=== PATIENT | female | born 1965 | race Caucasian/White ===

== ENCOUNTER 2023-01-19 10:43 | Emergency (ER) | payer OTHER, SELFPAY ==
[2023-01-19 10:45] VITALS: BP 190/108; PULSE 87; RESP 18; TEMP 36.9; O2SAT 98; BMI 17.7
--- NOTE | 2023-01-19 10:57 | PC.NURSE ---
pt reports chronic back pain that she never gets taken care of. Reports Dr He does not manage chronic back pain and no new injuries. Ice pack given
--- NOTE | 2023-01-19 11:37 | ED_ITS ---
HPI - General Adult General Chief complaint: Back Pain/Injury Stated complaint: BACK PAIN Time Seen by Provider: 01/19/23 11:35 Source: patient Mode of arrival: walk-in History of Present Illness HPI narrative: Patient is a 57-year-old female who is presenting to the Emergency Room with chief complaint of diffuse bilateral thoracic pain, lumbar pain, sacroiliac pain that is been going on for years. Patient states this is been going on for anywhere more than 2-10 years. Patient says that she's never told Dr. He about this for unknown reason, she has been just treating it herself. Patient has been using heating pads, Motrin and exercises. Patient has seen a Chiropractor years ago, when she was having or neck pain. Patient does not wish to go back to a chiropractor. Patient has her cervical spine fused several places. Patient had no recent falls, no new injuries. . All systems are negative except as noted/marked. All systems reviewed and otherwise negative. . Nurses note and vital signs reviewed and patient is not hypoxic. General: The patient appears In mild to moderate distress secondary to pain, laying on her stomach, patient is refusing ice. Patient is resting uncomfortably on cart. Patient is not toxic, lethargic, or listless Skin: Warm, dry, no pallor noted. There is no rash noted. No petechiae, purpura. No rash to her back. Head: Normocephalic, atraumatic Eye: Normal conjunctiva, no drainage, EOMI. PERRL Ears, Nose, Mouth, and Throat: oral mucosa is moist. Cardiovascular: Regular Rate and Rhythm, no murmur, gallop, rub Respiratory: Patient is in no distress, no accessory muscle use, lungs are clear to auscultation, no wheezing, rales or rhonchi Back: Patient has diffuse bilateral soft tissue mild to moderate tenderness to palpation throughout the muscle tissue. Patient has mild to moderate tenderness to palpation to bilateral SI joints. Patient has no midline thoracic lumbar sacrum or coccyx pain. She currently has no pain to bilateral piriformis muscle, negative straight leg raising test bilateral, but states that she does get intermittent right sciatica. no CVA tenderness bilaterally to percussion. No CT LS midline pain. GI: soft, no tenderness to palpation, no masses appreciated. No rebound, guarding, or rigidity noted. No flank pain bilateral, No distention Musculoskeletal: Patient has full range of motion of all of the extremities, no motor, sensory, or focal neurological deficits Neurological: A&O x3, normal speech Psychiatric: Cooperative Related Data Previous Rx's Medication Instructions Recorded hydrocodone 5 mg-acetaminophen 325 1 tab PO Q4H PRN pain #8 tabs 01/19/23 mg tablet meloxicam 7.5 mg tablet 7.5 mg PO DAILY #14 tabs 01/19/23 methocarbamol 500 mg tablet 500 mg PO Q8H PRN muscle pain #10 01/19/23 tabs methylprednisolone 4 mg tablets in 4 mg PO DAILY 6 days #21 ea 01/19/23 a dose pack (Medrol (Arnold)) Allergies Allergy/AdvReac Type Severity Reaction Status Date / Time No Known Drug Allergies Allergy Verified 01/19/23 10:53 Exam Constitutional Vital Signs, click to edit/add: Last Vital Signs Temp 98.4 F 01/19/23 10:45 Pulse 87 01/19/23 10:45 Resp 18 01/19/23 10:45 BP 162/96 H 01/19/23 13:01 Pulse Ox 98 01/19/23 10:45 O2 Del Method Room Air 01/19/23 10:45 Course Vital Signs Vital signs: Vital Signs Temperature 98.4 F 01/19/23 10:45 Pulse Rate 87 01/19/23 10:45 Respiratory Rate 18 01/19/23 10:45 Blood Pressure 190/108 H 01/19/23 10:45 Pulse Oximetry 98 01/19/23 10:45 Oxygen Delivery Method Room Air 01/19/23 10:45 Temperature 98.4 F 01/19/23 10:45 Pulse Rate 87 01/19/23 10:45 Respiratory Rate 18 01/19/23 10:45 Blood Pressure 162/96 H 01/19/23 13:01 Pulse Oximetry 98 01/19/23 10:45 Oxygen Delivery Method Room Air 01/19/23 10:45 Medical Decision Making MDM Narrative Medical decision making narrative: Patient drove to the Emergency Room. Patient was given a shot of Toradol. Patient was educated on the use of ice and not heat. Patient was recommended and educated on the need to follow-up with her PCP so that additional pain modalities could be prescribed, following up with physical therapy, or a rheumatology specialist if needed. Patient was sent home with short term mobic, [place] and Robaxin. Patient was given back to see if that would help any better than more than NSAIDS. Patient understands she needs to call Dr. He for follow-up and further outpatient therapy Discharge Plan Discharge Chief Complaint: Back Pain/Injury Clinical Impression: Chronic lumbosacral pain, Chronic pain, Chronic bilateral thoracic back pain Patient Disposition: Home, Self-Care Condition: Fair Mode of Transportation: Private Vehicle Prescriptions / Home Meds: New methocarbamol 500 mg tablet 500 mg PO Q8H PRN (Reason: muscle pain) Qty: 10 0RF hydrocodone-acetaminophen 5-325 mg tablet 1 tab PO Q4H PRN (Reason: pain) Qty: 8 0RF meloxicam 7.5 mg tablet 7.5 mg PO DAILY Qty: 14 0RF methylprednisolone [Medrol (Arnold)] 4 mg tablets,dose pack 4 mg PO DAILY 6 Days Qty: 21 0RF Rx Instructions: as directed Instructions: Pain Management in Older Adults (DC), Pain Management (ED), Chronic Pain (ED), Lower Back Exercises (ED), Non-pharmacological Pain Ma nagement Therapies for Adults (ED) Additional Instructions: Using ice 20 minutes on, 20 minutes off. Continue anti-inflammatories, use anti-inflammatories with food or drink. Since you have been having pain for 2 years or longer, the child here PCP to help with referral to a management, physical therapy, or a back specialist if needed. Stand Alone Forms: Portal Instructions Referrals: Zamzam Paz [Primary Care Provider] - 1 week Discharge Date/Time: 01/19/23 13:03
[2023-01-19] MEDS: ACETAMINOPHEN 500 MG TABLET PO (11:50)
[2023-01-19] MEDS: KETOROLAC TROMETHAMINE 60 MG/2 ML VIAL IM (11:50)
[2023-01-19 13:01] VITALS: BP 162/96
== END 2023-01-19 13:03 | disposition home or self-care (01) ==
PROVIDERS: Emergency Provider Emergency Medicine; PCP Physician Assistant
DX: M54.50 Low back pain, unspecified (principal); M54.6 Pain in thoracic spine; G89.29 Other chronic pain; Z79.899 Other long term (current) drug therapy; Z98.1 Arthrodesis status
CPT/HCPCS: 96372; 99284

== ENCOUNTER 2023-01-26 14:44 | Outpatient (OUT) | payer OTHER, SELFPAY ==
--- NOTE | 2023-01-26 15:02 | XR_ITS ---
The [address] [address] Patient Name: APARNA LAZCANO MRN: [id number] date: 1965 Sex: F Assigned Patient Location: [facility] Current Patient Location: Accession/Order Number: [id number] Exam Date: 01/26/2023 15:15 Report Date: 01/29/2023 06:53 At the request of: PANCHO HINOJOSA Procedure: XR lumbar spine 2-3V EXAMINATION: XR lumbar spine 2-3V HISTORY: Lumbar Radiculopathy M54.16 COMPARISON: No relevant comparison available. FINDINGS: BONES: Moderate left convex curvature lumbar spine. Mild grade 1 retrolisthesis of L2 on 3 and L3 on 4. Grade 2 left lateral listhesis of L3 on 4. No fracture or bone lesion. Moderate degenerative facet arthropathy L3-4 through L5-S1. DISC SPACES: Marked narrowing L2-3 through L5-S1 with prominent posterior disc-osteophyte complexes at L4-5 and L5-S1 likely causing central canal and foraminal stenosis. PARASPINOUS: Negative. No paraspinous abnormality is seen. OTHER: Negative. XR/XR lumbar spine 2-3V IMPRESSION: 1. Levoscoliosis and multilevel marked degenerative changes. No prior studies for comparison. Electronically authenticated by: TUCKER OCAMPO Date: 01/29/2023 06:53
== END 2023-01-26 14:45 | disposition home or self-care (01) ==
LOC: RAD 14:46
PROVIDERS: PCP Family Medicine; Visit Provider Family Medicine
DX: M54.16 Radiculopathy, lumbar region (principal)
CPT/HCPCS: 72100

== ENCOUNTER 2023-02-13 10:48 | Outpatient (RCR) | payer OTHER, SELFPAY | END 2023-03-11 07:46 | disposition home or self-care (01) | LOC: PT 10:48 | PROVIDERS: PCP Family Medicine; Visit Provider Family Medicine | DX: M50.30 Other cervical disc degeneration, unspecified cervical region (principal) | CPT/HCPCS: 97161 ==

== ENCOUNTER 2023-04-04 10:57 | Outpatient (RCR) | payer OTHER, SELFPAY | END 2023-04-05 13:54 | disposition home or self-care (01) | LOC: PT 10:57 | PROVIDERS: PCP Family Medicine; Visit Provider Family Medicine | DX: M54.16 Radiculopathy, lumbar region (principal); J34.9 Unspecified disorder of nose and nasal sinuses | CPT/HCPCS: 97162 ==

== ENCOUNTER 2023-05-03 09:02 | Emergency (ER) | payer OTHER, SELFPAY ==
[2023-05-03] VITALS (8 sets, daily range): BP systolic 139–151; BP diastolic 84–104; PULSE 99–111; RESP 17–24; TEMP 36.4; O2SAT 97–99; BMI 17.6
--- OUTSIDE RECORDS SUMMARY | 2023-05-03 09:12 | XMS_ITS | CCD ---
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 Date: 2022-01-18 15:50 [facility] 12-22-2021 Note PROCEDURE: XR ANKLE LT MIN 3 V, XR FOOT LT MIN 3 VIEWS COMPARISON: 11/24/2021 HISTORY: Pain of left ankle joint FINDINGS: BONES:Stable oblique fracture through the distal fibula with callus formation consistent with continued healing of a fracture. No new fracture or dislocation. Degenerative changes with joint space narrowing and marginal osteophyte formation. There is a moderate permeative pattern throughout the foot and ankle consistent with osteopenia SOFT TISSUES:Negative. No visible soft tissue swelling. EFFUSION:None visible. OTHER: Negative. IMPRESSION: Stable fibular fracture Moderate osteopenia Electronically authenticated by: VEENA HERRERA Date: 2021-12-22 18:55 [facility] 12-22-2021 Note PROCEDURE: XR ANKLE LT MIN 3 V, XR FOOT LT MIN 3 VIEWS COMPARISON: 11/24/2021 HISTORY: Pain of left ankle joint FINDINGS: BONES:Stable oblique fracture through the distal fibula with callus formation consistent with continued healing of a fracture. No new fracture or dislocation. Degenerative changes with joint space narrowing and marginal osteophyte formation. There is a moderate permeative pattern throughout the foot and ankle consistent with osteopenia SOFT TISSUES:Negative. No visible soft tissue swelling. EFFUSION:None visible. OTHER: Negative. IMPRESSION: Stable fibular fracture Moderate osteopenia Electronically authenticated by: VEENA HERRERA Date: 2021-12-22 18:55 [facility] 11-24-2021 Note PROCEDURE: XR ANKLE LT MIN 3 V COMPARISON: 10/26/2021 HISTORY: Pain of left ankle joint FINDINGS: BONES:Stable spiral fracture of the distal fibula with increase in bony bridging. Continued healing of the medial malleolus fracture with the fracture plane no longer clearly visualized. Permeative pattern of the bone suggesting underlying osteopenia. No new fracture or dislocation. SOFT TISSUES:Negative. No visible soft tissue swelling. EFFUSION:None visible. OTHER: Negative. IMPRESSION: Stable healing distal fibula and medial malleolus fractures Electronically authenticated by: VEENA HERRERA Date: 2021-11-24 11:15 [facility] 10-27-2021 Note PROCEDURE: XR ANKLE LT MIN 3 V, XR FOOT LT MIN 3 VIEWS HISTORY: Pain of left ankle joint ; follow-up foot and ankle fractures COMPARISON: XR left foot and ankle 09/29/2021 FINDINGS: BONES:Nondisplaced oblique fracture of distal fibula with suspected early bone healing. Previously seen medial malleolus fracture is barely discernible consistent with partial bone healing. Posterior malleolus fracture seen on prior CT study is not visible. Ankle mortise is intact. Barely discernible evidence of prior fracture at base of third and fourth metatarsals consistent with bone healing. SOFT TISSUES:No visible soft tissue swelling. EFFUSION:None visible. OTHER: Negative. IMPRESSION: 1. Stable alignment with ongoing bone healing of distal fibular fracture. 2. Normal alignment with likely ongoing bone healing of medial malleolus, posterior malleolus, and the third and fourth metatarsal fractures. Electronically authenticated by: KEYON OCAMPO Date: 2021-10-27 12:21 [facility] 10-27-2021 Note PROCEDURE: XR ANKLE LT MIN 3 V, XR FOOT LT MIN 3 VIEWS HISTORY: Pain of left ankle joint ; follow-up foot and ankle fractures COMPARISON: XR left foot and ankle 09/29/2021 FINDINGS: BONES:Nondisplaced oblique fracture of distal fibula with suspected early bone healing. Previously seen medial malleolus fracture is barely discernible consistent with partial bone healing. Posterior malleolus fracture seen on prior CT study is not visible. Ankle mortise is intact. Barely discernible evidence of prior fracture at base of third and fourth metatarsals consistent with bone healing. SOFT TISSUES:No visible soft tissue swelling. EFFUSION:None visible. OTHER: Negative. IMPRESSION: 1. Stable alignment with ongoing bone healing of distal fibular fracture. 2. Normal alignment with likely ongoing bone healing of medial malleolus, posterior malleolus, and the third and fourth metatarsal fractures. Electronically authenticated by: KEYON OCAMPO Date: 2021-10-27 12:21 [facility] 09-29-2021 Note PROCEDURE: XR ANKLE LT MIN 3 V, XR FOOT LT MIN 3 VIEWS COMPARISON: None. HISTORY: Acute pain due to injury FINDINGS: BONES:Acute transverse fracture through the medial malleolus. Complex/spiral fracture of the distal fibula extending to the lateral malleolus. Both nondisplaced. Lucencies identified at the base of the second third and fourth metatarsals likely representing nondisplaced fractures. No dislocation. SOFT TISSUES:Moderate diffuse soft tissue swelling. EFFUSION:None visible. OTHER: Negative. IMPRESSION: Acute bimalleolar fractures Acute nondisplaced fractures base of the third and fourth metatarsals with possible fracture base of the second metatarsal Electronically authenticated by: VEENA HERRERA Date: 2021-09-29 14:24 [facility] 09-29-2021 Note PROCEDURE: XR ANKLE LT MIN 3 V, XR FOOT LT MIN 3 VIEWS COMPARISON: None. HISTORY: Acute pain due to injury FINDINGS: BONES:Acute transverse fracture through the medial malleolus. Complex/spiral fracture of the distal fibula extending to the lateral malleolus. Both nondisplaced. Lucencies identified at the base of the second third and fourth metatarsals likely representing nondisplaced fractures. No dislocation. SOFT TISSUES:Moderate diffuse soft tissue swelling. EFFUSION:None visible. OTHER: Negative. 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 [facility] 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- Primary Posterior dislocation of lens Postoperative eye state Other states following surgery of eye and adnexa 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 In the event of a Fluress shortage, administer [place]-Fluor 1 drop into both eyes as directed for applanation tonometry, [facility] MED ORDERS Given 08/14/2022 2:48 PM EDT 1 Drop PHENYLephrine 2.5 % 1 Drop (AK-DILATE, NISHA-SYNEPHRINE) 1 Drop, BOTH EYES, DIRECTED, Starting on Sun08/14/22 at 1500, Until Sun08/15/22 at 0259, Administer for dilation PROTECT FROM LIGHT, [facility] MED ORDERS Given 08/14/2022 2:48 PM EDT 1 Drop tropicamide 1 % 1 Drop (MYDRIACYL) 1 Drop, BOTH EYES, DIRECTED, Starting on Sun08/14/22 at 1500, Until Sun08/15/22 at 0259, Administer for dilation, [facility]IC MED ORDERS Given 08/14/2022 2:48 PM EDT 1 Drop Active Administered Medications - up to 3 most recent administrations Medication Order MAR Action Action Date Dose Rate Site PHENYLephrine 2.5 % 1 Drop (AK-DILATE, NISHA-SYNEPHRINE) 1 Drop, BOTH EYES, DIRECTED, Starting on Randi 09/21/22 at 1330, Until Sun09/22/22 at 0129, Administer for dilation PROTECT FROM LIGHT Given 09/21/2022 1:30 PM EDT 1 Drop proparacaine 0.5 % 1 Drop (ALCAINE) 1 Drop, BOTH EYES, DIRECTED, Starting on Randi 09/21/22 at 1330, Until Sun09/22/22 at 0129, Administer for pneumo tonometry, tonopen tonometry, or pachymetry. In the event of a proparacaine shortage, administer tetracaine 0.5% ophthalmic drops 1 drop in both eyes as directed for pneumo tonometry, tonopen tonometry, or pachymetry Given 09/21/2022 1:30 PM EDT 1 Drop tropicamide 1 % 1 Drop (MYDRIACYL) 1 Drop, BOTH EYES, DIRECTED, Starting on Randi 09/21/22 at 1330, Until Sun09/22/22 at 0129, Administer for dilation Given 09/21/2022 1:30 PM EDT 1 Drop Additional Source Comments Source Comments (unrecognize d section and content) In the event this informatio n is protected by the Federal Confidentiality of Alcohol and Drug Abuse Patient Records regulations: The Federal rules restrict any use of the information to criminally investigate or prosecute any alcohol or drug abuse patient.[facility] the event this information is protected by the Federal Confidentiality of Alcohol and Drug Abuse Patient Records regulations: The Federal rules restrict any use of the information to criminally investigate or prosecute any alcohol or drug abuse patient.[facility] the event this information is protected by the Federal Confidentiality of Alcohol and Drug Abuse Patient Records regulations: The Federal rules restrict any use of the information to criminally investigate or prosecute any alcohol or drug abuse patient.[facility] the event this information is protected by the Federal Confidentiality of Alcohol and Drug Abuse Patient Records regulations: The Federal rules restrict any use of the information to criminally investigate or prosecute any alcohol or drug abuse patient.[facility] the event this information is protected by the Federal Confidentiality of Alcohol and Drug Abuse Patient Records regulations: The Federal rules restrict any use of the information to criminally investigate or prosecute any alcohol or drug abuse patient.[facility] the event this information is protected by the Federal Confidentiality of Alcohol and Drug Abuse Patient Records regulations: The Federal rules restrict any use of the information to criminally investigate or prosecute any alcohol or drug abuse patient.[facility] Reason for Visit (unrecogniz ed section and content) Reason Comments Eye Pain Left Eye Reason Comments Dislocated Lens Evaluation Reason Comments Schedule Surgery Reason Comments Post-Op Visit s/p PPV/PPL/frag/Akr eos OS (09/15/22) INFORMATION SOURCE (unrecogn ized section and content) DATE CREATED AUTHOR 08/20/2022 [facility] DATE CREATED AUTHOR AUTHOR'S ORGANIZ ATION 10/20/2022 [facility] FOR RECORDS PERTAINING TO PATIENTS WHO ARE OR HAVE BEEN ENROLLED IN A CHEMICAL DEPENDENCY/SUBSTANCEABUSE PROGRAM, SOME INFORMATION MAY BE OMITTED. This clinical summary was aggregated from multiple sources. Caution should be exercised in using it in the provision of clinical care. This summary normalizes information from multiple sources, and as a consequence, information in this document may materially change the coding, format and clinical context of patient data. In addition, data may be omitted in some cases. CLINICAL DECISIONS SHOULD BE BASED ON THE PRIMARY CLINICAL RECORDS. [employer] provides no warranty or guarantee of the accuracy or completeness of information in this document.
--- NOTE | 2023-05-03 09:19 | ECG_ITS ---
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
--- NOTE | 2023-05-03 09:19 | CT_ITS ---
The [address] [address] Patient Name: APARNA LAZCANO MRN: [id number] date: 1965 Sex: F Assigned Patient Location: ER Current Patient Location: ER Accession/Order Number: [id number] Exam Date: 05/03/2023 10:16 Report Date: 05/03/2023 11:28 At the request of: WILLY ANTUNEZ Procedure: CT abdomen pelvis w con EXAM: CT abdomen pelvis w con HISTORY: Diffuse abdominal pain, mostly upper COMPARISON: None. 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 Tubes/lines/drains: None. CHEST: Lungs: Clear. Mediastinum: No cardiomegaly or significant pericardial effusion. ABDOMEN: Liver: Hypoenhancement of the left hepatic lobe as well as anterior segments of the right hepatic lobe. Relatively normal enhancement of segments 6 and 7. Mild nonocclusive thrombus is noted within the main portal vein and partially occlusive right portal vein thrombus. Hepatic veins appear patent. Patent SMV and splenic vein. Hepatic artery appears patent. Gallbladder and Biliary Tree: Unremarkable. Spleen: Moderate to large splenic infarct is noted involving the superior lateral parenchyma.. Pancreas: Unremarkable. Adrenal Glands: Unremarkable. Kidneys, Ureters, Bladder: Numerous small infarcts noted throughout the bilateral renal cortices, left greater than right. No concerning renal lesions. No urolithiasis. No hydronephrosis or hydroureterosis. Unremarkable bladder. Gastrointestinal: Near diffuse circumferential wall thickening throughout the colon. Large volume ascites throughout. No dilated loops although the small bowel is diffusely prominent with some loops containing fluid. Normal appendix. Large volume diffuse ascites. Reproductive organ(s): Unremarkable. Lymphatic: Unremarkable. Vessels: Mild to moderate atherosclerotic calcification and noncalcified plaque throughout the aorta and iliacs. Mild luminal narrowing of the infrarenal aorta secondary to noncalcified plaque. No appreciable atherosclerosis involving the patent renal arteries. Likely severe stenosis of the JHONATHAN origin. Approximately 50% stenosis of the SMA origin. BONES AND SOFT TISSUE: Bones: No acute fracture. No concerning osseous lesions. Severe L2-S1 disc and endplate degeneration. Soft Tissue: Within normal limits. CT/CT abdomen pelvis w con IMPRESSION: 1. Nonocclusive main and partially occlusive right portal vein thrombus with associated hyperenhancement of the majority of the hepatic parenchyma. -Remaining hepatic vasculature appears patent 2. Additional splenic and bilateral renal infarcts. 3. Near diffuse large bowel wall thickening. Unclear if this is related to venous engorgement versus infectious/inflammatory colitis (typically ischemic colitis from arterial etiology causes thinned bowel). 4. 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 5. Large volume ascites. 6. Cystic focus within the pancreatic uncinate process measuring 2.5 cm with probable main duct communication suggesting IPMN. Recommend further evaluation with MRI/MRCP. 7. Limited evaluation for acute pancreatic head is given surrounding fluid throughout the abdomen. No evidence for pancreatic necrosis. Dr. Licona discussed this study with Willy Antunez on 05/03/2023 9:27 AM MST via telephone. Electronically authenticated by: ABRAHAM LICONA Date: 05/03/2023 11:28
[2023-05-03] MEDS: MORPHINE SULFATE 4 MG/ML VIAL IV ×2 (09:32→10:50)
[2023-05-03 09:55] LABS: Basophils Absolute Auto 0.1 10^3/uL (0.0-0.1); Basophils Percent Auto 0.6 % (0.2-2.0); Eosinophils Absolute Auto 0.1 10^3/uL (0.0-0.7); Eosinophils Percent Auto 0.5 % (0.9-7.0); Hematocrit 43.7 % (36.0-48.0); Hemoglobin 14.8 g/dL (12.0-16.0); Immature Granulocytes Abs Auto 0.05 10^3/uL (0.00-0.03); Immature Granulocytes Pct Auto 0.4 % (0.0-0.5); Lymphocytes Absolute Auto 1.7 10^3/uL (1.2-3.8); Lymphocytes Percent Auto 12.6 % (20.5-60.0); Mean Corpuscular HGB Conc 33.9 g/dL (29.9-35.2); Mean Corpuscular Hemoglobin 30.8 pg (26.7-34.0); Mean Platelet Volume 10.7 fL (9.5-13.5); Monocytes Absolute Auto 1.1 10^3/uL (0.3-0.8); Monocytes Percent Auto 7.9 % (1.7-12.0); Neutrophils Absolute Auto 10.4 10^3/uL (1.4-6.5); Platelet Count 374 10^3/uL (150-450); Red Cell Distribution Width 13.3 % (11.0-15.0); White Blood Count 13.3 10^3/uL (4.0-11.0)
[2023-05-03 10:17] LABS: Alanine Aminotransferase 17 U/L (14-59); Albumin Globulin Ratio 0.6; Albumin Level 2.5 g/dL (3.4-5.0); Alkaline Phosphatase 123 U/L (46-116); Anion Gap 15.4; Aspartate Amino Transferase 22 U/L (15-37); Bilirubin Direct 0.1 mg/dL (0.0-0.2); Bilirubin Total 0.5 mg/dL (0.2-1.0); Calcium 8.8 mg/dL (8.5-10.1); Carbon Dioxide 26.6 mmol/L (21.0-32.0); Chloride 101 mmol/L (98-107); Estimated GFR (African America >60 (>=60); Estimated GFR (Non-African Ame >60 (>=60); Globulin 4.3 g/dL; Glucose 131 mg/dL (74-106); Sodium 140 mmol/L (136-145); Total Protein 6.8 g/dL (6.4-8.2)
[2023-05-03 10:20] LABS: Amylase 1229 U/L (25-115)
--- NOTE | 2023-05-03 12:08 | ED.ABDPAIN1 ---
HPI - Abdominal Pain General Chief Complaint: Abdominal Pain Stated Complaint: ABDOMINAL PAIN Time Seen by Provider: 05/03/23 09:06 Source: patient Mode of arrival: walk-in Limitations: no limitations History of Present Illness HPI narrative: 58-year-old female presents for abdominal pain. She has had some symptoms for the last week and it comes and goes but last night it got worse. She has had weight loss. She complains of diffuse abdominal pain without any trauma. She has not had a fever or constipation or diarrhea. She has never had pain like this before. It is continuous and severe. Related Data Previous Rx's Medication Instructions Recorded hydrocodone 5 mg-acetaminophen 325 1 tab PO Q4H PRN pain #8 tabs 01/19/23 mg tablet meloxicam 7.5 mg tablet 7.5 mg PO DAILY #14 tabs 01/19/23 methocarbamol 500 mg tablet 500 mg PO Q8H PRN muscle pain #10 01/19/23 tabs methylprednisolone 4 mg tablets in 4 mg PO DAILY 6 days #21 ea 01/19/23 a dose pack (Medrol (Arnold)) Allergies Allergy/AdvReac Type Severity Reaction Status Date / Time No Known Drug Allergies Allergy Verified 05/03/23 09:13 Review of Systems ROS Narrative A ten point review of systems is negative except as noted above. PFSH PFSH Social History Smoking status: Current every day smoker Exam Narrative Exam Narrative: Nurses note and vital signs reviewed and patient is not hypoxic. General: The patient appears thin and is in no respiratory distress. Skin: Warm, dry, no pallor noted. There is no rash noted. Head: Normocephalic, atraumatic Eye: Normal conjunctiva, no drainage Ears, Nose, Mouth, and Throat: oral mucosa is moist. Nares patent. Cardiovascular: Regular Rate and Rhythm Respiratory: Patient is in no distress, no accessory muscle use, lungs are clear to auscultation, no wheezing, rales or rhonchi Back: non-tender GI: Diffuse tenderness to palpation without distention or discrete mass. Musculoskeletal: The patient has no evidence of calf tenderness, no pitting edema, symmetrical pulses noted bilaterally Neurological: A&O, normal speech Psychiatric: Cooperative Constitutional Vital Signs, click to edit/add: Last Vital Signs Temp 97.6 F 05/03/23 09:11 Pulse 99 H 05/03/23 10:41 Resp 24 05/03/23 10:41 BP 151/84 H 05/03/23 10:41 Pulse Ox 98 05/03/23 10:41 O2 Del Method Room Air 05/03/23 09:11 Course Vital Signs Vital signs: Vital Signs Temperature 97.6 F 05/03/23 09:11 Pulse Rate 111 H 05/03/23 09:11 Respiratory Rate 18 05/03/23 09:11 Blood Pressure 139/104 H 05/03/23 09:11 Pulse Oximetry 98 05/03/23 09:11 Oxygen Delivery Method Room Air 05/03/23 09:11 Temperature 97.6 F 05/03/23 09:11 Pulse Rate 99 H 05/03/23 10:41 Respiratory Rate 24 05/03/23 10:41 Blood Pressure 151/84 H 05/03/23 10:41 Pulse Oximetry 98 05/03/23 10:41 Oxygen Delivery Method Room Air 05/03/23 09:11 MDM - Abdominal Pain MDM Narrative Medical decision making narrative: Significant CT findings are discussed thoroughly with the patient and I am suspicious for pancreatic cancer. The patient has IVC clot as well as splenic and renal infarcts and significant ascites. This suspicion of pancreatic cancer is present and this was discussed with the patient. She is going to leave AGAINST MEDICAL ADVICE. The plan was to transfer to an appropriate hospital but the patient wants to go home first and take care of some issues. She states that she is going to come back. She is fully able to make medical decisions for herself. Differential Diagnosis Differential diagnosis: Likely abdominal pain, constipation, diverticulitis, gastroenteritis, pancreatitis and small bowel obstruction Lab Data Attestation: I reviewed the patient's lab results. Labs: Lab Results 05/03/23 Range/Units 09:17 WBC 13.3 H (4.0-11.0) 10^3/uL RBC 4.80 (4.20-5.40) 10^6/uL Hgb 14.8 (12.0-16.0) g/dL Hct 43.7 (36.0-48.0) % MCV 91.0 (81.0-99.0) fL MCH 30.8 (26.7-34.0) pg MCHC 33.9 (29.9-35.2) g/dL RDW 13.3 (11.0-15.0) % Plt Count 374 (150-450) 10^3/uL MPV 10.7 (9.5-13.5) fL Neut % (Auto) 78.0 H (43.0-75.0) % Lymph % (Auto) 12.6 L (20.5-60.0) % Crisp % (Auto) 7.9 (1.7-12.0) % Eos % (Auto) 0.5 L (0.9-7.0) % Baso % (Auto) 0.6 (0.2-2.0) % Neut # (Auto) 10.4 H (1.4-6.5) 10^3/uL Lymph # (Auto) 1.7 (1.2-3.8) 10^3/uL Crisp # (Auto) 1.1 H (0.3-0.8) 10^3/uL Eos # (Auto) 0.1 (0.0-0.7) 10^3/uL Baso # (Auto) 0.1 (0.0-0.1) 10^3/uL Abs Immat Gran (auto) 0.05 H (0.00-0.03) 10^3/uL Imm/Tot Granulo (auto) 0.4 (0.0-0.5) % Sodium 140 (136-145) mmol/L Potassium 3.0 L (3.5-5.1) mmol/L Chloride 101 (98-107) mmol/L Carbon Dioxide 26.6 (21.0-32.0) mmol/L Anion Gap 15.4 BUN 18.0 (7.0-18.0) mg/dL Creatinine 0.53 L (0.55-1.02) mg/dL Est GFR ( Amer) >60 (>=60) Est GFR (Non-Af Amer) >60 (>=60) BUN/Creatinine Ratio 34.0 Glucose 131 H (74-106) mg/dL Calcium 8.8 (8.5-10.1) mg/dL Total Bilirubin 0.5 (0.2-1.0) mg/dL Direct Bilirubin 0.1 (0.0-0.2) mg/dL AST 22 (15-37) U/L ALT 17 (14-59) U/L Alkaline Phosphatase 123 H (46-116) U/L Total Protein 6.8 (6.4-8.2) g/dL Albumin 2.5 L (3.4-5.0) g/dL Globulin 4.3 g/dL Albumin/Globulin Ratio 0.6 Amylase 1229 H* (25-115) U/L Lipase 545.0 H (16.0-77.0) U/L Imaging Data CT scan - abdomen: Radiologist's impression: ITS Impressions Abdomen/Pelvis CT 05/03/23 09:19 IMPRESSION: 1. Nonocclusive main and partially occlusive right portal vein thrombus with associated hyperenhancement of the majority of the hepatic parenchyma. -Remaining hepatic vasculature appears patent 2. Additional splenic and bilateral renal infarcts. 3. Near diffuse large bowel wall thickening. Unclear if this is related to venous engorgement versus infectious/inflammatory colitis (typically ischemic colitis from arterial etiology causes thinned bowel). 4. 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 5. Large volume ascites. 6. Cystic focus within the pancreatic uncinate process measuring 2.5 cm with probable main duct communication suggesting IPMN. Recommend further evaluation with MRI/MRCP. 7. Limited evaluation for acute pancreatic head is given surrounding fluid throughout the abdomen. No evidence for pancreatic necrosis. Dr. Cuevas discussed this study with Nick Dowd on 05/03/2023 9:27 AM MST via telephone. 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, Splenic infarct, Abdominal pain Patient Disposition: Left Against Medical Advice Time of Disposition Decision: 12:04 Condition: Fair Mode of Transportation: Private Vehicle Prescriptions / Home Meds: No Action methocarbamol 500 mg tablet 500 mg PO Q8H PRN (Reason: muscle pain) Qty: 10 0RF hydrocodone-acetaminophen 5-325 mg tablet 1 tab PO Q4H PRN (Reason: pain) Qty: 8 0RF meloxicam 7.5 mg tablet 7.5 mg PO DAILY Qty: 14 0RF methylprednisolone [Medrol (Arnold)] 4 mg tablets,dose pack 4 mg PO DAILY 6 Days Qty: 21 0RF Rx Instructions: as directed Instructions: Ascites (ED), Abdominal Pain (ED), Splenic Infarction (ED) Additional Instructions: Please return to emergency department to facilitate transfer to appropriate facility. Stand Alone Forms: Portal Instructions Referrals: Roberto He MD [Primary Care Provider] - 1 week
== END 2023-05-03 12:13 | disposition left against medical advice (07) ==
PROVIDERS: Emergency Provider Emergency Medicine; PCP Family Medicine
DX: R10.9 Unspecified abdominal pain (principal); R18.8 Other ascites; D73.5 Infarction of spleen; I82.220 Acute embolism and thrombosis of inferior vena cava; N28.0 Ischemia and infarction of kidney; F17.210 Nicotine dependence, cigarettes, uncomplicated; Z53.29 Procedure and treatment not carried out because of patient's decision for other reasons; F17.200 Nicotine dependence, unspecified, uncomplicated
CPT/HCPCS: 36415; 74177; 80048; 80076; 81001; 82150; 83690; 85025; 85610; 85730; 93005; 96374; 96375; 96376; 99285; J1170; J1644; J2270; Q9967

== ENCOUNTER 2023-05-03 13:24 | Emergency (ER) | payer OTHER, SELFPAY ==
[2023-05-03] VITALS (13 sets, daily range): BP systolic 150–167; BP diastolic 94–99; PULSE 113; RESP 18; TEMP 37; O2SAT 86–98; BMI 17.6
[2023-05-03 13:45] LABS: INR 1.13; Prothrombin Time 11.9 sec (9.0-11.6)
--- NOTE | 2023-05-03 13:56 | ED.ABDPAIN1 ---
HPI - Abdominal Pain General Stated Complaint: ABDOMINAL OAIN Time Seen by Provider: 05/03/23 13:30 Source: patient and family Mode of arrival: walk-in Limitations: no limitations History of Present Illness HPI narrative: 58-year-old female presents for abdominal pain. She was seen earlier today and the intent was to transfer her. She needed to go home first and take care of some issues and she now returns. She has no new symptoms. She has not been vomiting. She has been feeling this way for at least a week and has had significant weight loss. Related Data Previous Rx's Medication Instructions Recorded hydrocodone 5 mg-acetaminophen 325 1 tab PO Q4H PRN pain #8 tabs 01/19/23 mg tablet meloxicam 7.5 mg tablet 7.5 mg PO DAILY #14 tabs 01/19/23 methocarbamol 500 mg tablet 500 mg PO Q8H PRN muscle pain #10 01/19/23 tabs methylprednisolone 4 mg tablets in 4 mg PO DAILY 6 days #21 ea 01/19/23 a dose pack (Medrol (Arnold)) Allergies Allergy/AdvReac Type Severity Reaction Status Date / Time No Known Drug Allergies Allergy Verified 05/03/23 09:13 Review of Systems ROS Narrative A ten point review of systems is negative except as noted above. PFSH PFSH Social History Smoking status: Current every day smoker Exam Narrative Exam Narrative: Nurses note and vital signs reviewed and patient is not hypoxic. General: The patient appears thin and in no apparent distress. Patient is resting comfortably on cart. Skin: Warm, dry, no pallor noted. There is no rash noted. Head: Normocephalic, atraumatic Eye: Normal conjunctiva, no drainage Ears, Nose, Mouth, and Throat: oral mucosa is moist. Nares patent. Cardiovascular: Regular Rate and Rhythm Respiratory: Patient is in no distress, no accessory muscle use, lungs are clear to auscultation, no wheezing, rales or rhonchi Back: non-tender GI: No distention or discrete mass. She has some mild tenderness diffusely. Musculoskeletal: The patient has no evidence of calf tenderness, no pitting edema, symmetrical pulses noted bilaterally Neurological: A&O, normal speech Psychiatric: Cooperative Constitutional Vital Signs, click to edit/add: Last Vital Signs Temp 98.6 F 05/03/23 13:29 Pulse 113 H 05/03/23 13:29 Resp 18 05/03/23 13:29 BP 167/99 H 05/03/23 13:29 Pulse Ox 96 05/03/23 13:29 O2 Del Method Room Air 05/03/23 13:29 Course Vital Signs Vital signs: Vital Signs Temperature 98.6 F 05/03/23 13:29 Pulse Rate 113 H 05/03/23 13:29 Respiratory Rate 18 05/03/23 13:29 Blood Pressure 167/99 H 05/03/23 13:29 Pulse Oximetry 96 05/03/23 13:29 Oxygen Delivery Method Room Air 05/03/23 13:29 Temperature 98.6 F 05/03/23 13:29 Pulse Rate 113 H 05/03/23 13:29 Respiratory Rate 18 05/03/23 13:29 Blood Pressure 167/99 H 05/03/23 13:29 Pulse Oximetry 96 05/03/23 13:29 Oxygen Delivery Method Room Air 05/03/23 13:29 MDM - Abdominal Pain MDM Narrative Medical decision making narrative: I have spoken to the hospitalist service at [facility] where she is excepted. I have also spoken to Dr. Collins, vascular surgeon, who recommends heparin drip and this has been ordered. The patient is agreeable and stable for transfer. Findings are discussed thoroughly with the patient and her family. Differential Diagnosis Differential diagnosis: Likely abdominal pain, constipation, diverticulitis, gastroenteritis, pancreatitis and small bowel obstruction Lab Data Attestation: I reviewed the patient's lab results. Labs: Lab Results 05/03/23 Range/Units 09:17 PT 11.9 H (9.0-11.6) sec INR 1.13 APTT 27.0 (22.3-36.2) sec Imaging Data CT scan - abdomen: Radiologist's impression: Procedure: CT abdomen pelvis w con EXAM: CT abdomen pelvis w con HISTORY: Diffuse abdominal pain, mostly upper COMPARISON: None. FINDINGS: Sulky Driver: No pertinent findings, which are not already discussed below. Tubes/lines/drains: None. CHEST: Lungs: Clear. Mediastinum: No cardiomegaly or significant pericardial effusion. ABDOMEN: Liver: Hypoenhancement of the left hepatic lobe as well as anterior segments of the right hepatic lobe. Relatively normal enhancement of segments 6 and 7. Mild nonocclusive thrombus is noted within the main portal vein and partially occlusive right portal vein thrombus. Hepatic veins appear patent. Patent SMV and splenic vein. Hepatic artery appears patent. Gallbladder and Biliary Tree: Unremarkable. Spleen: Moderate to large splenic infarct is noted involving the superior lateral parenchyma.. Pancreas: Unremarkable. Adrenal Glands: Unremarkable. Kidneys, Ureters, Bladder: Numerous small infarcts noted throughout the bilateral renal cortices, left greater than right. No concerning renal lesions. No urolithiasis. No hydronephrosis or hydroureterosis. Unremarkable bladder. Gastrointestinal: Near diffuse circumferential wall thickening throughout the colon. Large volume ascites throughout. No dilated loops although the small bowel is diffusely prominent with some loops containing fluid. Normal appendix. Large volume diffuse ascites. Reproductive organ(s): Unremarkable. Lymphatic: Unremarkable. Vessels: Mild to moderate atherosclerotic calcification and noncalcified plaque throughout the aorta and iliacs. Mild luminal narrowing of the infrarenal aorta secondary to noncalcified plaque. No appreciable atherosclerosis involving the patent renal arteries. Likely severe stenosis of the JHONATHAN origin. Approximately 50% stenosis of the SMA origin. BONES AND SOFT TISSUE: Bones: No acute fracture. No concerning osseous lesions. Severe L2-S1 disc and endplate degeneration. Soft Tissue: Within normal limits. IMPRESSION: 1. Nonocclusive main and partially occlusive right portal vein thrombus with associated hyperenhancement of the majority of the hepatic parenchyma. -Remaining hepatic vasculature appears patent 2. Additional splenic and bilateral renal infarcts. 3. Near diffuse large bowel wall thickening. Unclear if this is related to venous engorgement versus infectious/inflammatory colitis (typically ischemic colitis from arterial etiology causes thinned bowel). 4. 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 5. Large volume ascites. 6. Cystic focus within the pancreatic uncinate process measuring 2.5 cm with probable main duct communication suggesting IPMN. Recommend further evaluation with MRI/MRCP. 7. Limited evaluation for acute pancreatic head is given surrounding fluid throughout the abdomen. No evidence for pancreatic necrosis. Dr. Cuevas discussed this study with Nick Dowd on 05/03/2023 9:27 AM MST via telephone. Electronically authenticated by: ABRAHAM CUEVAS Date: 05/03/2023 11:28 ECG Data Attestation: I personally reviewed and interpreted this ECG as follows: (EKG on my interpretation shows sinus rhythm with a rate of 105.) Critical Care Time Critical Care Time Critical Care Time: Yes Total Critical Care Time: 45 Attestation: Due to the high probability of sudden and clinically significant deterioration in the patient's condition he/she required the highest level of my preparedness to intervene urgently I provided critical care time including documentation time, medication orders and management, reevaluation, vital sign assessment, ordering and reviewing of lab tests, ordering and reviewing of x-ray studies, and admission orders. Aggregate critical care time is 45 minutes including only time during which I was engaged in work directly related to his/her care and did not include time spent treating other patients simultaneously. Discharge Plan Discharge Clinical Impression: Ascites, Renal infarct, Splenic infarct, Portal vein thrombosis Patient Disposition: [facility] Time of Disposition Decision: 13:56 Discharge Location: [facility] [address] Condition: Good Mode of Transportation: EMS
[2023-05-03] MEDS: HEPARIN SODIUM (PORCINE) 5,000 UNIT/ML VIAL 3300 UNIT IV (14:37)
[2023-05-03] MEDS: HEPARIN SODIUM,PORCINE/D5W 25,000 UNIT/500 ML IV.SOLN 15 UNIT IV (14:40)
--- NOTE | 2023-05-03 14:56 | PC.NURSE ---
pt states she hasn't peed since this am. bladder scanned at this time >263ml. informed Dr Dowd, no verbal orders received at this time.
[2023-05-03] MEDS: HYDROMORPHONE HCL 1 MG/ML CARTRIDGE IV ×2 (15:04→19:21)
[2023-05-03] MEDS: NICOTINE 14 MG PATCH.TD24 TD (18:32)
== END 2023-05-03 19:30 | disposition short-term general hospital (02) ==
PROVIDERS: Emergency Provider Emergency Medicine; PCP Family Medicine
DX: D73.5 Infarction of spleen (principal); N28.0 Ischemia and infarction of kidney; R18.8 Other ascites; I81 Portal vein thrombosis; F17.200 Nicotine dependence, unspecified, uncomplicated
CPT/HCPCS: 36415; 85610; 85730; 96374; 96375; 96376; 99285; J1170; J1644

== ENCOUNTER 2023-05-17 10:41 | Outpatient (OUT) | payer OTHER, SELFPAY ==
--- OUTSIDE RECORDS SUMMARY | 2023-05-17 10:46 | XMS_ITS | CCD ---
Author Name Unknown Address [address] [place] [address] Organization [facility] Care Team Providers Care Senior Project Accountant Name Role Phone Unavailable Primary Care Provider Unavailabl e MISC, DR HILARIO Primary Care Unavailable TERRENCE, DR TUCKER Dobson Consulting Unavailable LEIGHANN MORENO Attending Unavailable LEIGHANN MORNEO Admitting Unavailable LEIGHANN MORENO Consulting Unavailable MISC, DR HILARIO Primary Care Unavailable NANDO ISABEL Admitting Unavailable NANDO ISABEL Attending Unavailable MISC, DR HILARIO Primary Care Unavailable LEIGHANN MORENO Attending Unavailable LEIGHANN MORENO Admitting Unavailable TERRENCE, DR TUCKER Dobson Consulting Unavailable LEIGHANN MORENO Consulting Unavailable [...] ISABEL Admitting Unavailable NANDO ISABEL Attending Unavailable JAVIER, DR VEENA Dhillon Consulting Unavailable NANDO ISABEL Consulting Unavailable MASON ISABELBERLY Admitting Unavailable MISC, DR HILARIO Primary Care Unavailable NANDO ISABEL Attending Unavailable WEST, DR VEENA Dhillon Consulting Unavailable NANDO ISABEL Consulting Unavailable MISC, DR HILARIO Primary Care Unavailable ZIEBER, DR TUCKER Dobson Consulting Unavailable CHALO, NANDO Admitting Unavailable CHALONANDO Attending Unavailable NANDO ISABEL Consulting Unavailable CARMELO BERNSTEIN Attending Unavailable SELF Referring Unavailable KEISHA COSME Referring Unavailable MAMMO, CARMELO Perdomo Referring Unavailable MAMMOCARMELO Attending Unavailable MAMMO, CARMELO Perdomo Attending Unavailable MAMMOCARMELO Attending Unavailable TUCKER SCHAEFER Attending Unavailable WILLY ANTUNEZ Referring Unavailable THONG YATES Attending Unavailable DENA VOGT Admitting Unavailable CAM LEYVA Consulting Unavailable DEB GONZAELZ Consulting UnavailTIA Bergman Consulting Unavailable EVELYN DELANEY Consulting Unavailable CONCEPCIÓN CUETO Consulting Unavailable VEENA SANCHEZ Consulting Unavailable Medications Current Medications Medication Drug Class(es) [...] Comment on above: Take 1 capsule by [facility] twice daily. 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-2022 Chronic Open wounds of head; neck; and trunk (1 source) Penetrating wound of orbit with or without foreign body, left eye, initial encounter; Translations: [Penetrating wound of orbit with or without foreign body, left eye, initial encounter] Onset: 05-03-2023 Episodic Other eye disorders (3 sources) Posterior dislocation [...] Translations: [Recurrent cough] Onset: 09-15-2022 09-15-2022 Episodic Pancreatic disorders (not diabetes) (1 source) Other specified diseases of pancreas; Translations: [Other specified diseases of pancreas] Onset: 05-04-2023 Episodic Phlebitis; thrombophlebitis and thromboembolism (1 source) Portal vein thrombosis; Translations: [Portal vein thrombosis] Onset: 05-04-2023 Episodic Residual codes; unclassified (1 source) Postoperative [...] Results Test Name Value Interpretation Reference Range Facility MPL Mutation Detectionon MPL Not detected Normal [facility] Comment on above: Result Comment: (NOT E) A mutation was not detected in the MPL gene. MPL variants other than S505N, W515K, W515L, and W515A or below the limit of detection of the assay may not be identified. This result has been reviewed and approved by Antwan Uriostegui M.D. INTERPRETIVE INFORMATION: MPL Mutation Detection by Capillary Electrophoresis This test is designed to detect W515K, W515L, W515A, and S505N mutations in exon 10 of the MPL gene. Detection of MPL mutation is used for diagnosis of patients with myeloproliferative neoplasms and suggests a diagnosis of either primary myelofibrosis (PMF) or essential thrombocythemia (ET) in a subset of patients with non-mutated JAK2. METHODOLOGY: DNA is isolated and amplified using allele-specific PCR for codons 505 and 515 of the MPL gene. The resulting amplicons are resolved via fragment analysis by capillary electrophoresis to detect the presence of W515K, W515L, W515A, and S505N mutations. LIMITATIONS: Mutations other than those specified above, or at other locations within the MPL gene or in other genes will not be detected. Limit of detection for this test is 5 percent mutant allele. The results of this test must always be interpreted within the patient's clinical context and in conjunction with other relevant data. Results should not be used alone for a diagnosis of malignancy. This test is not intended to detect minimal residual disease. This test was developed and its performance characteristics determined by [employer]. It has not been cleared or approved by the US Food and Drug Administration. This test was performed in a CLIA certified laboratory and is intended for clinical purposes. Performed By: [employer] [address] [place] [address] Petroleum Inspector Supervisor: David Cosby MD, PhD CLIA Number: [id number] Performed By: #### L ACTIC, SED, SILVESTRE, BMPX, MG, GLYHGB, CDP #### [address] [place] [address] Ironer Hand: Zachary Rivera MD MPL,SOURCE Whole Blood Normal [facility] Comment on above: Performed By: #### L ACTIC, SED, SILVESTRE, BMPX, MG, GLYHGB, CDP #### [facility] [address] [place], [place] [id number] Ironer Hand: Zachary Rivera MD JAK2 Gene Mut. Quanton 05-11 Source Not Provided Normal [facility] Comment on above: Result Comment: ANGÉLICA ECTED ON 05/10 AT 2232: PREVIOUSLY REPORTED 2154 Performed By: #### C A125 ####[facility] [address] [place] [address] Lab Director: Zachary Rivera MD#### AJAK2 ####[facility] [address] [place] [address] Lab Director: Ozzy Tolliver MD V617F Mutation, Qnt Not detected Normal [facility] Comment on above: Result Comment: (NOT E) There is no evidence of the JAK2 V617F mutation by ddPCR analysis. This result does not entirely exclude the possibility that a point mutation exists in the sample below the detection limit of the test (0.2 percent), nor does it exclude mutations other than the V617F mutation. This result has been reviewed and approved by Veena Beyer M.D. INTERPRETIVE INFORMATION: JAK2 (V617F) Mutation by ddPCR, Quant This assay is designed to detect the point mutation c.1849G>T (V617F) of the JAK2 gene. JAK2 V617F mutations are present in patients with myeloproliferative neoplasms. Methodology: DNA from whole blood or bone marrow specimens is amplified in an allele-specific droplet digital PCR (ddPCR) multiplex reaction targeting the JAK2 c.1849G>T single nucleotide mutation encoding the V617F mutation. Results are reported as a percent mutated alleles versus wild type alleles. The limit of detection for this assay is 0.2 percent mutated alleles. Limitations: Variants in genes other than JAK2 are not detected. Variant alleles of JAK2 other than V617F (c.1849G>T) are not reported. Samples with JAK2 V617F mutations below the limit of reporting may not be detected. Results of this test must always be interpreted in the context of morphologic and other relevant data, and should not be used alone for a diagnosis of malignancy. This test is not intended to detect minimal residual disease. This test was developed and its performance characteristics determined by [facility] [employer]. It has not been cleared or approved by the U.S> Food and Drug Administration. This test was performed in a CLIA-certified laboratory and is intended for clinical purposes. Performed By: [facility] [address] [place] [address] Petroleum Inspector Supervisor: David Cosby MD, PhD CLIA Number: [id number] Performed By: #### C A125 ####[id number] [facility] Director: Zachary Rivera MD#### AJAK2 ####[address] [id number] [facility] Director: Ozzy Tolliver MD V617F Mutation,percent 0.0 % Normal [facility] Comment on above: Performed By: #### C A125 ####[place] [address] Lab Director: Zachary Rivera MD#### AJAK2 ####[address] [address] Lab Director: Ozzy Tolliver MD Cult,Fluidon 05-10-2023 Cult,Fluid Specimen Description .ASCITIC FLUID Direct Exam MANY NEUTROPHILS NO ORGANISMS SEEN Gram stain made from cytocentrifuged specimen. Organisms and cells will be concentrated. Culture NO GROWTH 6 DAYS Report Status FINAL 05/10/2023 Normal [facility] Comment on above: Performed By: #### L ACTIC, SED, SILVESTRE, BMPX, MG, GLYHGB, CDP #### [address] [id number] Ironer Hand: Zachary Rivera MD DAVNO Screen w/reflexon 2023 DAVON Screen Negative Normal NEG [facility] Comment on above: Performed By: #### L ACTIC, SED, SILVESTRE, BMPX, MG, GLYHGB, CDP #### [facility] [place], [place] [address] Ironer Hand: Zachary Rivera MD Anti-dsDNA 4.4 IU/mL Normal <10.0 [facility] Comment on above: Result Comment: Reference Range: <10.0 Negative 10.0-15.0 Equivocal >15.0 Positive Performed By: #### L ACTIC, SED, SILVESTRE, BMPX, MG, GLYHGB, CDP #### [facility] [address] [place] [address] Ironer Hand: Zachary Rivera MD NGA Screen <0.1 Normal <0.7 [facility] Comment on above: Result Comment: Reference Range: <0.7 Negative 0.7-1.0 Equivocal >1.0 Positive NGA Screen includes U1RNP,RNP70,Sm,Ro(SS-A),La(SS-B),CENP,Scl-70,Saray-1 Performed By: #### L ACTIC, SED, SILVESTRE, BMPX, MG, GLYHGB, CDP #### [facility] [employer] [address] [place] [address] Ironer Hand: Zachary Rivera MD Amylase,Fluidon 05-07-2023 Amylase [Catalytic activity/Vol] 878802 U/L Normal [facility] Comment on above: Result Comment: Ther e are no normals for body fluid samples. Performed By: #### F RAFAEL ####[facility] [address] [place] [address] Lab Director: Zachary Rivera MD Type of Specimen .CYST FLUID Normal [facility] Comment on above: Result Comment: PANC REATIC HEAD Performed By: #### F RAFAEL ####[address] [address] Lab Director: Zachary Rivera MD CBC with Diffon 05-07-2023 Abs. Basophil 0.05 k/uL Normal 0.00-0.20 [facility] Comment on above: Performed By: #### H EPXA #### [address] [address] Ironer Hand: Zachary Rivera MD Abs.Imm.Granulocyt e 0.04 k/uL Normal 0.00-0.30 [facility] Comment on above: Performed By: #### H EPXA #### [place] [address] Ironer Hand: Zachary Rivera MD Abs.Neutrophil (Seg) 5.99 k/uL Normal 1.50-8.10 [facility] Comment on above: Performed By: #### H EPXA #### [place] [address] Ironer Hand: Zachary Rivera MD Basophils/100 WBC (Bld) 1 % Normal 0-2 [facility] Comment on above: Performed By: #### H EPXA #### [place] [address] Ironer Hand: Zachary Rivera MD Eosinophils (Bld) [#/Vol] 0.23 10*3/uL Normal 0.00-0.44 [facility] Comment on above: Performed By: #### H EPXA #### [place] [address] Ironer Hand: Zachary Rivera MD Eosinophils/100 WBC (Bld) 3 % Normal 1-4 [facility] Comment on above: Performed By: #### H EPXA #### [place] [address] Ironer Hand: Zachary Rivera MD Erythrocyte distribution width (RBC) [Ratio] 13.7 % Normal 11.8-14.4 [facility] Comment on above: Performed By: #### H EPXA #### [address] [place] [address] Ironer Hand: Zachary Rivera MD Hematocrit (Bld) [Volume fraction] 31.8 % Low 36.3-47.1 [facility] Comment on above: Performed By: #### H EPXA #### [address] [address] Ironer Hand: Zachary Rivera MD Hemoglobin (Bld) [Mass/Vol] 10.5 g/dL Low 11.9-15.1 [facility] Comment on above: Performed By: #### H EPXA #### [address] [address] Ironer Hand: Zachary Rivera MD Immature granulocytes/100 WBC (Bld) 0 % Normal 0 [facility] Comment on above: Performed By: #### H EPXA #### [address] [address] Ironer Hand: Zachary Rivera MD Lymphocytes (Bld) [#/Vol] 1.96 10*3/uL Normal 1.10-3.70 [facility] Comment on above: Performed By: #### H EPXA #### [address] [address] Ironer Hand: Zachary Rivera MD Lymphocytes/100 WBC (Bld) 21 % Low 24-43 [facility] Comment on above: Performed By: #### H EPXA #### [address] [address] Ironer Hand: Zachary Rivera MD MCH (RBC) [Entitic mass] 30.7 pg Normal 25.2-33.5 [facility] Comment on above: Performed By: #### H EPXA #### [address] [address] Ironer Hand: Zachary Rivera MD MCHC (RBC) [Mass/Vol] 33.0 g/dL Normal 28.4-34.8 [facility] Comment on above: Performed By: #### H EPXA #### [address] [address] Ironer Hand: Zachary Rivera MD MCV (RBC) [Entitic vol] 93.0 fL Normal 82.6-102.9 [facility] Comment on above: Performed By: #### H EPXA #### [address] [address] Ironer Hand: Zachary Rivera MD Monocytes (Bld) [#/Vol] 0.87 10*3/uL Normal 0.10-1.20 [facility] Comment on above: Performed By: #### H EPXA #### [address] [address] Ironer Hand: Zachary Rivera MD Monocytes/100 WBC (Bld) 10 % Normal 3-12 [facility] Comment on above: Performed By: #### H EPXA #### [address] [address] Ironer Hand: Zachary Rivera MD Neutrophil (Seg) 65 % Normal 36-[address] [facility] Comment on above: Performed By: #### H EPXA #### [address] [address] Ironer Hand: Zachary Rivera MD NRBC Automated 0.0 per 100 WBC Normal 0.0 [facility] Comment on above: Performed By: #### H EPXA #### [address] [address] Ironer Hand: Zachary Rivera MD Platelet mean volume (Bld) [Entitic vol] 11.2 fL Normal 8.1-13.5 [facility] Comment on above: Performed By: #### H EPXA #### [address] [address] Ironer Hand: Zachary Rivera MD Platelets (Bld) [#/Vol] 285 10*3/uL Normal 138-453 [facility] Comment on above: Performed By: #### H EPXA #### [address] [address] Ironer Hand: Zachary Rivera MD RBC (Bld) [#/Vol] 3.42 10*6/uL Low 3.95-5.11 [facility] Comment on above: Performed By: #### H EPXA #### [address] [address] Ironer Hand: Zachary Rivera MD WBC (Bld) [#/Vol] 9.1 10*3/uL Normal 3.5-11.3 [facility] Comment on above: Performed By: #### H EPXA #### [address] [address] Ironer Hand: Zachary Rivera MD Celiac Disease Panelon 05-07 Gliadin Deam Pep IgA 0.9 U/mL Normal <7.0 [facility] Comment on above: Result Comment: CELIAC INTERPRETATION <7.0 Negative 7.0-10.0 Equivocal >10.0 Positive units: U/mL Performed By: #### L ACTIC, SED, SILVESTRE, BMPX, MG, GLYHGB, CDP #### [address] [address] Ironer Hand: Zachary Rivera MD Gliadin Deam Pep IgG <0.4 Normal <7.0 [facility] Comment on above: Result Comment: CELIAC INTERPRETATION <7.0 Negative 7.0-10.0 Equivocal >10.0 Positive units: U/mL Performed By: #### L ACTIC, SED, SILVESTRE, BMPX, MG, GLYHGB, CDP #### [facility] [employer] [address] [place] [address] Ironer Hand: Zachary Rivera MD Tiss Transglutam IgA <0.1 Normal <7.0 [facility] Comment on above: Result Comment: CELIAC INTERPRETATION <7.0 Negative 7.0-10.0 Equivocal >10.0 Positive units: U/mL Performed By: #### L ACTIC, SED, SILVESTRE, BMPX, MG, GLYHGB, CDP #### [address] [address] Ironer Hand: Zachary Rivera MD Comp Metabolic Pr/rfx MGon 0 - Bilirubin [Mass/Vol] mg/dL Low 0.3-1.2 [facility] Comment on above: Performed By: #### H EPXA #### [address] [address] Ironer Hand: Zachary Rivera MD Potassium [Moles/Vol] 3.0 mmol/L Low 3.7-5.3 [facility] Comment on above: Performed By: #### H EPXA #### [address] [address] Ironer Hand: Zachary Rivera MD Albumin [Mass/Vol] 2.5 g/dL Low 3.5-5.2 [facility] Comment on above: Performed By: #### H EPXA #### [address] [address] Ironer Hand: Zachary Rivera MD Albumin/Glob Ratio 1.3 Normal 1.0-2.5 [facility] Comment on above: Performed By: #### H EPXA #### [address] [address] Ironer Hand: Zachary Rivera MD Alkaline Phos 78 U/L Normal 35-104 [facility] Comment on above: Performed By: #### H EPXA #### [address] [address] Ironer Hand: Zachary Rivera MD ALT [Catalytic activity/Vol] 10 U/L Normal 5-33 [facility] Comment on above: Performed By: #### H EPXA #### [address] [address] Ironer Hand: Zachary Rivera MD Anion gap [Moles/Vol] 7 mmol/L Low 9-17 [facility] Comment on above: Performed By: #### H EPXA #### [address] [address] Ironer Hand: Zachary Rivera MD AST [Catalytic activity/Vol] 15 U/L Normal <32 [facility] Comment on above: Performed By: #### H EPXA #### [address] [address] Ironer Hand: Zachary Rivera MD Calcium [Mass/Vol] 7.6 mg/dL Low 8.6-10.4 [facility] Comment on above: Performed By: #### H EPXA #### [address] [address] Ironer Hand: Zachary Rivera MD Chloride [Moles/Vol] 110 mmol/L High 98-107 [facility] Comment on above: Performed By: #### H EPXA #### [address] [address] Ironer Hand: Zachary Rivera MD CO2 [Moles/Vol] 19 mmol/L Low 20-31 [facility] Comment on above: Performed By: #### H EPXA #### [address] [address] Ironer Hand: Zachary Rivera MD Creatinine [Mass/Vol] 0.3 mg/dL Low 0.5-0.9 [facility] Comment on above: Performed By: #### H EPXA #### [facility] [employer] [address] [place] [address] Ironer Hand: Zachary Rivera MD GFR/1.73 sq M.predicted among non-blacks MDRD (S/P/Bld) [Vol rate/Area] mL/min/{1.73_m2} Normal >60 [facility] Comment on above: Result Comment: These results are not intended for use in patients <18 years of age. eGFR results are calculated without a race factor using the 2020 CKD-EPI equation. Careful clinical correlation is recommended, particularly when comparing to results calculated using previous equations. The CKD-EPI equation is less accurate in patients with extremes of muscle mass, extra-renal metabolism of creatine, excessive creatine ingestion, or following therapy that affects renal tubular secretion. Performed By: #### H EPXA #### [address] [address] Ironer Hand: Zachary Rivera MD Glucose [Mass/Vol] 104 mg/dL High 70-99 [facility] Comment on above: Performed By: #### H EPXA #### [address] [address] Ironer Hand: Zachary Rivera MD Protein [Mass/Vol] 4.5 g/dL Low 6.4-8.3 [facility] Comment on above: Performed By: #### H EPXA #### [facility] [address] [place] [address] Ironer Hand: Zachary Rivera MD Sodium [Moles/Vol] 136 mmol/L Normal 135-144 [facility] Comment on above: Performed By: #### H EPXA #### [facility] [address] [place] [address] Ironer Hand: Zachary Rivera MD Urea nitrogen [Mass/Vol] 2 mg/dL Low 6-20 [facility] Comment on above: Performed By: #### H EPXA #### [facility] [address] [place] [address] Ironer Hand: Zachary Rivera MD Fluid Cell Count and Diffon 05-07-2023 Other Cells MONOCYTES AND MACROPHAGES Normal [facility] Comment on above: Result Comment: The reference range and other method performance specifications have not been established for this body fluid. The test result must be integrated into the clinical context for interpretation. Performed By: #### L ACTIC, SED, SILVESTRE, BMPX, MG, GLYHGB, CDP #### [facility] [address] [place] [address] Ironer Hand: Zachary Rivera MD K (Potassium)on 05-07-2023 Potassium [Moles/Vol] 4.0 mmol/L Normal 3.7-5.3 [facility] Comment on above: Performed By: #### L ACTIC, SED, SILVESTRE, BMPX, MG, GLYHGB, CDP #### [address] [address] Ironer Hand: Zachary Rivera MD Magnesiumon 05-07-2023 Magnesium [Mass/Vol] 2.1 mg/dL Normal 1.6-2.6 [facility] Comment on above: Performed By: #### H EPXA #### [address] [address] Ironer Hand: Zachary Rivera MD Non-Foxing Closer Cytologyon 4 Case No: [id number] Normal [facility] Comment on above: Performed By: #### N ORDER ENTRY ####[address] [address] Lab Director: Zachary Rivera MD Specimen Description .CYST FLUID Normal [facility] Comment on above: Result Comment: PANC REATIC HEAD Performed By: #### N ORDER ENTRY ####[address] [address] Lab Director: Zachary Rivera MD Case No: [id number] Normal [facility] Comment on above: Performed By: #### L ACTIC, SED, SILVESTRE, BMPX, MG, GLYHGB, CDP #### [facility] [employer] [address] [place] [address] Ironer Hand: Zachary Rivera MD PTon 05-07-2023 INR Coag (PPP) [Relative time] 1.3 {INR} Normal [facility] Comment on above: Result Comment: Therapeutic Range: Moderate Anticoagulant Intensity: INR = 2.0-3.0 High Anticoagulant Intensity: INR = 2.5-3.5 Performed By: #### H EPXA #### [place] [id number] Ironer Hand: Zachary Rivera MD PT Coag (PPP) [Time] 15.6 s High 11.7-14.9 [facility] Comment on above: Performed By: #### H EPXA #### [facility] [employer] [address] [place], [place] [id number] Ironer Hand: Zachary Rivera MD Surgical Pathology Reporton 05-07-2023 Surgical Pathology Report (NOTE) Path Number: [id number] -- Diagnosis -- A. DUODENUM, BIOPSY:-SMALL BOWEL MUCOSA WITH NO SIGNIFICANT PATHOLOGIC ABNORMALITY. B. STOMACH, BIOPSY:-GASTRIC MUCOSA WITH MINIMAL CHRONIC INACTIVE GASTRITIS.-NO HELICOBACTER ORGANISMS BY ROSALVA STAIN. Alanis Caban Electronically Signed Out /05/08/2023 Clinical Information Pre-Op Diagnosis: EPIGASTRIC PAIN Operative Findings: DUODENUM BIOPSY; GASTRIC BX Operation Performed: EUS ESOPHAGOGASTRODUODENOSCOPY kb Source of Specimen A: DUODENAL BX B: GASTRIC BX Gross Description A. JHOANA LAZCANO DUODENUM BX Received in formalin is one pink-chilel tissue fragment, 0.5 x 0.3 x 0.2 cm. Entirely 1 cs. B. JHOANA LAZCANO GASTRIC BX Received in formalin are two pink-chilel tissue fragments, 0.3 cm each and are 0.6 x 0.3 x 0.2 cm in aggregate. Entirely 1 cs. jlalitha Caban/kb2:05/07/2023 Microscopic Description A, B. Microscopic examination performed. Processing Lab: [address] [phone] Interpretation Performed at [address] [phone] SURGICAL PATHOLOGY CONSULTATION Patient Name: JHOANA LAZCANO [facility] Rec: [id number] [employer] [facility]OLOG[facility] [employer] ANATOMIC PATHOLOGY [address] [place] [phone] Normal [facility] Surgical Pathology Report (NOTE) Path Number: [id number] INTERPRETATION FINE NEEDLE ASPIRATION, EUS, PANCREATIC HEAD CYST: NEGATIVE FOR MALIGNANCY. PROTEINACEOUS FLUID WITH INFLAMMATORY CELLS (MOSTLY MACROPHAGES). RULE OUT PSEUDOCYST. Electronically Signed Out Erick Pereira M.D. [facility]/05/08/2023 Source of Specimen: A: FINE NEEDLE ASPIRATION EUS PANCREATIC HEAD CYST Clinical History Epigastric pain R10.13. Gross Description PANCREATIC HEAD CYST 1.0 ml. red fluid. MICROSCOPIC DESCRIPTION Microscopic examination performed. Non Foxing Closer Thin Prep x 1, Cell Block w/ ROSALVA x 1 Processing Lab: [address] [phone] Interpretation performed at [address] [address] NONGYNECOLOGICAL CYTOPATHOLOGY CONSULTATION Patient Name: JHOANA LAZCANO [facility] Rec: [id number] [facility] [employer] ANATOMIC PATHOLOGY [address] [place] [phone] Normal [facility] US GI ENDOSCOPIC S AND Ion 0 05-07-2023 US GI ENDOSCOPIC S AND I Radiology exam is complete. No Radiologist dictation. Please follow up with ordering provider. Final result Normal [facility] CBC with Diffon 05-06-2023 Abs. Basophil 0.04 k/uL Normal 0.00-0.20 [facility] Comment on above: Performed By: #### L ACTIC, SED, SILVESTRE, BMPX, MG, GLYHGB, CDP #### [facility] [employer] [address] [place] [address] Ironer Hand: Zachary Rivera MD Abs.Imm.Granulocyt e 0.04 k/uL Normal 0.00-0.30 [facility] Comment on above: Performed By: #### L ACTIC, SED, SILVESTRE, BMPX, MG, GLYHGB, CDP #### [facility] [address] [place] [address] Ironer Hand: Zachary Rivera MD Abs.Neutrophil (Seg) 5.74 k/uL Normal 1.50-8.10 [facility] Comment on above: Performed By: #### L ACTIC, SED, SILVESTRE, BMPX, MG, GLYHGB, CDP #### [facility] [employer] [address] [place] [phone] Ironer Hand: Zachary Rivera MD Basophils/100 WBC (Bld) 1 % Normal 0-2 [facility] Comment on above: Performed By: #### L ACTIC, SED, SILVESTRE, BMPX, MG, GLYHGB, CDP #### [facility] [employer] [address] [place] [address] [phone] Ironer Hand: Zachary Rivera MD Eosinophils (Bld) [#/Vol] 0.19 10*3/uL Normal 0.00-0.44 [facility] Comment on above: Performed By: #### L ACTIC, SED, SILVESTRE, BMPX, MG, GLYHGB, CDP #### [facility] [address] [place] [address] [phone] Ironer Hand: Zachary Rivera MD Eosinophils/100 WBC (Bld) 2 % Normal 1-4 [facility] Comment on above: Performed By: #### L ACTIC, SED, SILVESTRE, BMPX, MG, GLYHGB, CDP #### [facility] [employer] [address] [place] [address] [phone] Ironer Hand: Zachary Rivera MD Erythrocyte distribution width (RBC) [Ratio] 13.8 % Normal 11.8-14.4 [facility] Comment on above: Performed By: #### L ACTIC, SED, SILVESTRE, BMPX, MG, GLYHGB, CDP #### [facility] [employer] [address] [place] [address] [phone] Ironer Hand: Zachary Rivera MD Hematocrit (Bld) [Volume fraction] 33.8 % Low 36.3-47.1 [facility] Comment on above: Performed By: #### L ACTIC, SED, SILVESTRE, BMPX, MG, GLYHGB, CDP #### [facility] [employer] [address] [place] [address] 18903 Ironer Hand: Zachary Rivera MD Hemoglobin (Bld) [Mass/Vol] 10.6 g/dL Low 11.9-15.1 [facility] Comment on above: Performed By: #### L ACTIC, SED, SILVESTRE, BMPX, MG, GLYHGB, CDP #### [facility] [employer] [address] [place] [address] [phone] Ironer Hand: Zachary Rivera MD Immature granulocytes/100 WBC (Bld) 1 % High 0 [facility] Comment on above: Performed By: #### L ACTIC, SED, SILVESTRE, BMPX, MG, GLYHGB, CDP #### [facility] [employer] [address] [place] [address] [phone] Ironer Hand: Zachary Rivera MD Lymphocytes (Bld) [#/Vol] 1.81 10*3/uL Normal 1.10-3.70 [facility] Comment on above: Performed By: #### L ACTIC, SED, SILVESTRE, BMPX, MG, GLYHGB, CDP #### [facility] [employer] [address] [place] [phone] Ironer Hand: Zachary Rivera MD Lymphocytes/100 WBC (Bld) 21 % Low 24-43 [facility] Comment on above: Performed By: #### L ACTIC, SED, SILVESTRE, BMPX, MG, GLYHGB, CDP #### [address] [phone] Ironer Hand: Zachary Rivera MD MCH (RBC) [Entitic mass] 30.0 pg Normal 25.2-33.5 [facility] Comment on above: Performed By: #### L ACTIC, SED, SILVESTRE, BMPX, MG, GLYHGB, CDP #### [facility] [address] [place] [address] [phone] Ironer Hand: Zachary Rivera MD MCHC (RBC) [Mass/Vol] 31.4 g/dL Normal 28.4-34.8 [facility] Comment on above: Performed By: #### L ACTIC, SED, SILVESTRE, BMPX, MG, GLYHGB, CDP #### [address] [address] Ironer Hand: Zachary Rivera MD MCV (RBC) [Entitic vol] 95.8 fL Normal 82.6-102.9 [facility] Comment on above: Performed By: #### L ACTIC, SED, SILVESTRE, BMPX, MG, GLYHGB, CDP #### [address] [phone] Ironer Hand: Zachary Rivera MD Monocytes (Bld) [#/Vol] 0.76 10*3/uL Normal 0.10-1.20 [facility] Comment on above: Performed By: #### L ACTIC, SED, SILVESTRE, BMPX, MG, GLYHGB, CDP #### [address] [address] Ironer Hand: Zachary Rivera MD Monocytes/100 WBC (Bld) 9 % Normal 3-12 [facility] Comment on above: Performed By: #### L ACTIC, SED, SILVESTRE, BMPX, MG, GLYHGB, CDP #### [address] [address] Ironer Hand: Zachary Rivera MD Neutrophil (Seg) 66 % High 36-[address] [facility] Comment on above: Performed By: #### L ACTIC, SED, SILVESTRE, BMPX, MG, GLYHGB, CDP #### [address] [address] Ironer Hand: Zachary Rivera MD NRBC Automated 0.0 per 100 WBC Normal 0.0 [facility] Comment on above: Performed By: #### L ACTIC, SED, SILVESTRE, BMPX, MG, GLYHGB, CDP #### [address] [address] Ironer Hand: Zachary Rivera MD Platelet mean volume (Bld) [Entitic vol] 11.2 fL Normal 8.1-13.5 [facility] Comment on above: Performed By: #### L ACTIC, SED, SILVESTRE, BMPX, MG, GLYHGB, CDP #### [address] [address] Ironer Hand: Zachary Rivera MD Platelets (Bld) [#/Vol] 297 10*3/uL Normal 138-453 [facility] Comment on above: Performed By: #### L ACTIC, SED, SILVESTRE, BMPX, MG, GLYHGB, CDP #### [address] [phone] Ironer Hand: Zachary Rivera MD RBC (Bld) [#/Vol] 3.53 10*6/uL Low 3.95-5.11 [facility] Comment on above: Performed By: #### L ACTIC, SED, SILVESTRE, BMPX, MG, GLYHGB, CDP #### [facility] [employer] [address] [place] [address] [phone] Ironer Hand: Zachary Rivera MD WBC (Bld) [#/Vol] 8.6 10*3/uL Normal 3.5-11.3 [facility] Comment on above: Performed By: #### L ACTIC, SED, SILVESTRE, BMPX, MG, GLYHGB, CDP #### [address] [address] Ironer Hand: Zachary Rivera MD Comp Metabolic Pr/rfx MGon 0 - Albumin [Mass/Vol] 2.4 g/dL Low 3.5-5.2 [facility] Comment on above: Performed By: #### L ACTIC, SED, SILVESTRE, BMPX, MG, GLYHGB, CDP #### [facility] [employer] [address] [place] [address] Ironer Hand: Zachary Rivera MD Albumin/Glob Ratio 1.1 Normal 1.0-2.5 [facility] Comment on above: Performed By: #### L ACTIC, SED, SILVESTRE, BMPX, MG, GLYHGB, CDP #### [facility] [employer] [address] [place] [phone] Ironer Hand: Zachary Rivera MD Alkaline Phos 80 U/L Normal 35-104 [facility] Comment on above: Performed By: #### L ACTIC, SED, SILVESTRE, BMPX, MG, GLYHGB, CDP #### [address] [address] Ironer Hand: Zachary Rivera MD ALT [Catalytic activity/Vol] 10 U/L Normal 5-33 [facility] Comment on above: Performed By: #### L ACTIC, SED, SILVESTRE, BMPX, MG, GLYHGB, CDP #### [facility] [employer] [address] [place] [address] [phone] Ironer Hand: Zachary Rivera MD Anion gap [Moles/Vol] 8 mmol/L Low 9-17 [facility] Comment on above: Performed By: #### L ACTIC, SED, SILVESTRE, BMPX, MG, GLYHGB, CDP #### [facility] [employer] [address] [place] [address] [phone] Ironer Hand: Zachary Rivera MD AST [Catalytic activity/Vol] 17 U/L Normal <32 [facility] Comment on above: Performed By: #### L ACTIC, SED, SILVESTRE, BMPX, MG, GLYHGB, CDP #### [facility] [address] [place] [address] [phone] Ironer Hand: Zachary Rivera MD Bilirubin [Mass/Vol] 0.2 mg/dL Low 0.3-1.2 [facility] Comment on above: Performed By: #### L ACTIC, SED, SILVESTRE, BMPX, MG, GLYHGB, CDP #### [facility] [employer] [address] [place] [address] [phone] Ironer Hand: Zachary Rivera MD Calcium [Mass/Vol] 7.6 mg/dL Low 8.6-10.4 [facility] Comment on above: Performed By: #### L ACTIC, SED, SILVESTRE, BMPX, MG, GLYHGB, CDP #### [address] [address] Ironer Hand: Zachary Rivera MD Chloride [Moles/Vol] 112 mmol/L High 98-107 [facility] Comment on above: Performed By: #### L ACTIC, SED, SILVESTRE, BMPX, MG, GLYHGB, CDP #### [facility] [address] [place] [address] [phone] Ironer Hand: Zachary Rivera MD CO2 [Moles/Vol] 17 mmol/L Low 20-31 [facility] Comment on above: Performed By: #### L ACTIC, SED, SILVESTRE, BMPX, MG, GLYHGB, CDP #### [facility] [address] [place] [address] [phone] Ironer Hand: Zachary Rivera MD Creatinine [Mass/Vol] 0.3 mg/dL Low 0.5-0.9 [facility] Comment on above: Performed By: #### L ACTIC, SED, SILVESTRE, BMPX, MG, GLYHGB, CDP #### [address] [phone] Ironer Hand: Zachary Rivera MD GFR/1.73 sq M.predicted among non-blacks MDRD (S/P/Bld) [Vol rate/Area] mL/min/{1.73_m2} Normal >60 [facility] Comment on above: Result Comment: These results are not intended for use in patients <18 years of age. eGFR results are calculated without a race factor using the 2020 CKD-EPI equation. Careful clinical correlation is recommended, particularly when comparing to results calculated using previous equations. The CKD-EPI equation is less accurate in patients with extremes of muscle mass, extra-renal metabolism of creatine, excessive creatine ingestion, or following therapy that affects renal tubular secretion. Performed By: #### L ACTIC, SED, SILVESTRE, BMPX, MG, GLYHGB, CDP #### [facility] [employer] [address] [place] [address] [phone] Ironer Hand: Zachary Rivera MD Glucose [Mass/Vol] 103 mg/dL High 70-99 [facility] Comment on above: Performed By: #### L ACTIC, SED, SILVESTRE, BMPX, MG, GLYHGB, CDP #### [facility] [employer] [address] [place] [address] [phone] Ironer Hand: Zachary Rivera MD Potassium [Moles/Vol] 3.7 mmol/L Normal 3.7-5.3 [facility] Comment on above: Performed By: #### L ACTIC, SED, SILVESTRE, BMPX, MG, GLYHGB, CDP #### [facility] [employer] [address] [place] [address] [phone] Ironer Hand: Zachary Rivera MD Protein [Mass/Vol] 4.6 g/dL Low 6.4-8.3 [facility] Comment on above: Performed By: #### L ACTIC, SED, SILVESTRE, BMPX, MG, GLYHGB, CDP #### [facility] [employer] [address] [place] [address] [phone] Ironer Hand: Zachary Rivera MD Sodium [Moles/Vol] 137 mmol/L Normal 135-144 [facility] Comment on above: Performed By: #### L ACTIC, SED, SILVESTRE, BMPX, MG, GLYHGB, CDP #### [facility] [employer] [address] [place] [address] 23951 Ironer Hand: Zachary Rivera MD Urea nitrogen [Mass/Vol] 3 mg/dL Low 6-20 [facility] Comment on above: Performed By: #### L ACTIC, SED, SILVESTRE, BMPX, MG, GLYHGB, CDP #### [facility] [employer] [address] [place] [address] 32116 Ironer Hand: Zachary Rivera MD Heparin Anti-Xaon 7 Heparin Anti-Xa 0.46 IU/L [facility] Comment on above: Performed By: #### L ACTIC, SED, SILVESTRE, BMPX, MG, GLYHGB, CDP #### [facility] [employer] [address] [place] [address] 56843 Ironer Hand: Zachary Rivera MD Heparin Anti-Xa 0.22 IU/L [facility] Comment on above: Performed By: #### H EPXA #### [facility] [employer] [address] [place] [address] [phone] Ironer Hand: Zachary Rivera MD Specimen Rejectionon 024 Reason for rejection Unable to perform testing: Specimen quantity not sufficient. [facility] Comment on above: Performed By: #### L ACTIC, SED, SILVESTRE, BMPX, MG, GLYHGB, CDP #### [facility] [employer] [address] [place] [phone] Ironer Hand: Zachary Rivera MD Source of sample .BLOOD Normal [facility] Comment on above: Performed By: #### L ACTIC, SED, SILVESTRE, BMPX, MG, GLYHGB, CDP #### [facility] [address] [place] [address] Ironer Hand: Zachary Rivera MD Test ordered PHEP Normal [facility] Comment on above: Performed By: #### L ACTIC, SED, SILVESTRE, BMPX, MG, GLYHGB, CDP #### [facility] [address] [place] [address] Ironer Hand: Zachary Rivera MD US PELVIS COMPLETEon 024 US PELVIS COMPLETE EXAMINATION: PELVIC ULTRASOUND 05/06/2023 4:46 am TECHNIQUE: Transabdominal pelvic ultrasound using B-mode/kern scaled imaging and color flow Doppler was obtained. COMPARISON: Chest, abdomen, and pelvis CT 05/05/2023 HISTORY: ORDERING SYSTEM PROVIDED HISTORY: Elevated CA125 TECHNOLOGIST PROVIDED HISTORY: Elevated CA125 FINDINGS: Uterus: 6.5 cm x 5.4 cm x 2.5 cm Endometrial stripe: 0.2 cm Right ovary: 3.2 cm x 2.3 cm x 1.6 cm Left ovary: 2.1 cm x 1.5 cm x 1.3 cm UTERUS: Anteverted with appropriate size. No discrete myometrial lesion. Closed cervix. Prominently dilated myometrial and bilateral periuterine veins. ENDOMETRIAL STRIPE: Normal size and appearance. RIGHT OVARY: Normal size. Normal degree of vascularity. LEFT OVARY: Normal size. Normal degree of vascularity. FREE FLUID: At least moderate simple appearing free intraperitoneal fluid. IMPRESSION: 1. Dilated myometrial and periuterine veins similar to the appearance on CT, findings that can be seen with pelvic congestion syndrome. 2. Otherwise normal transabdominal sonographic appearance of the uterus and ovaries. 3. At least moderate ascites of indeterminate etiology. Interpreted by: Gogo Sofia MD Signed by: Goog Sofia MD 05/06/23 Final result Normal [facility] CA 125on 05-05-2023 CA 125 173 U/mL High <38 [facility] Comment on above: Result Comment: The Virgil ECLIA assay is used. Results obtained with different assay methods cannot be used interchangeably. Performed By: #### C A125 ####[place], [place] [address])[phone] Director: Zachary Rivera MD#### AJAK2 ####[facility] [address] [place] [address] Lab Director: Ozzy Tolliver MD CBC with Diffon 05-05-2023 Abs. Basophil 0.05 k/uL Normal 0.00-0.20 [facility] Comment on above: Performed By: #### C DP, CMPX, LIP, MG, FEBC ####[place], [place] [address])[phone] Director: Zachray Rivera MD Abs.Imm.Granulocyt e 0.05 k/uL Normal 0.00-0.30 [facility] Comment on above: Performed By: #### C DP, CMPX, LIP, MG, FEBC ####[place], [place] [address])[phone] Director: Zachary Rivera MD Abs.Neutrophil (Seg) 6.64 k/uL Normal 1.50-8.10 [facility] Comment on above: Performed By: #### C DP, CMPX, LIP, MG, FEBC ####[place], [place] [address])[phone] Director: Zachary Rivera MD Basophils/100 WBC (Bld) 1 % Normal 0-2 [facility] Comment on above: Performed By: #### C DP, CMPX, LIP, MG, FEBC ####[place], [place] [address])[phone] Director: Zachary Rivera MD Eosinophils (Bld) [#/Vol] 0.14 10*3/uL Normal 0.00-0.44 [facility] Comment on above: Performed By: #### C DP, CMPX, LIP, MG, FEBC ####[address] [address])[phone] Director: Zachary Rivera MD Eosinophils/100 WBC (Bld) 1 % Normal 1-4 [facility] Comment on above: Performed By: #### C DP, CMPX, LIP, MG, FEBC ####[place], [place] [address])[phone] Director: Zachary Rivera MD Erythrocyte distribution width (RBC) [Ratio] 13.5 % Normal 11.8-14.4 [facility] Comment on above: Performed By: #### C DP, CMPX, LIP, MG, FEBC ####[place], [place] [address])[phone] Director: Zachary Rivera MD Hematocrit (Bld) [Volume fraction] 34.1 % Low 36.3-47.1 [facility] Comment on above: Performed By: #### C DP, CMPX, LIP, MG, FEBC ####[place], [place] [address])[phone] Director: Zachary Rivera MD Hemoglobin (Bld) [Mass/Vol] 10.9 g/dL Low 11.9-15.1 [facility] Comment on above: Performed By: #### C DP, CMPX, LIP, MG, FEBC ####[address] [address])[phone] Director: Zachary Rivera MD Immature granulocytes/100 WBC (Bld) 1 % High 0 [facility] Comment on above: Performed By: #### C DP, CMPX, LIP, MG, FEBC ####[address] [address])[phone] Director: Zachary Rivera MD Lymphocytes (Bld) [#/Vol] 2.11 10*3/uL Normal 1.10-3.70 [facility] Comment on above: Performed By: #### C DP, CMPX, LIP, MG, FEBC ####[place], [place] [address])[phone] Director: Zachary Rivera MD Lymphocytes/100 WBC (Bld) 21 % Low 24-43 [facility] Comment on above: Performed By: #### C DP, CMPX, LIP, MG, FEBC ####[place], [place] [address])[phone] Director: Zachary Rivera MD MCH (RBC) [Entitic mass] 30.4 pg Normal 25.2-33.5 [facility] Comment on above: Performed By: #### C DP, CMPX, LIP, MG, FEBC ####[place], [place] [address])[phone] Director: Zachary Rivera MD MCHC (RBC) [Mass/Vol] 32.0 g/dL Normal 28.4-34.8 [facility] Comment on above: Performed By: #### C DP, CMPX, LIP, MG, FEBC ####[place], [place] [address])[phone] Director: Zachary Rivera MD MCV (RBC) [Entitic vol] 95.3 fL Normal 82.6-102.9 [facility] Comment on above: Performed By: #### C DP, CMPX, LIP, MG, FEBC ####[place], [place] [address])[phone] Director: Zachary Rivera MD Monocytes (Bld) [#/Vol] 0.96 10*3/uL Normal 0.10-1.20 [facility] Comment on above: Performed By: #### C DP, CMPX, LIP, MG, FEBC ####[place], [place] [address])[phone] Director: Zachary Rivera MD Monocytes/100 WBC (Bld) 10 % Normal 3-12 [facility] Comment on above: Performed By: #### C DP, CMPX, LIP, MG, FEBC ####[address] [address] Lab Director: Zachary Rivera MD Neutrophil (Seg) 66 % High 36-[address] [facility] Comment on above: Performed By: #### C DP, CMPX, LIP, MG, FEBC ####[address] [phone] Director: Zachary Rivera MD NRBC Automated 0.0 per 100 WBC Normal 0.0 [facility] Comment on above: Performed By: #### C DP, CMPX, LIP, MG, FEBC ####[address] [address] Lab Director: Zachary Rivera MD Platelet mean volume (Bld) [Entitic vol] 10.8 fL Normal 8.1-13.5 [facility] Comment on above: Performed By: #### C DP, CMPX, LIP, MG, FEBC ####[address] [address] Lab Director: Zachary Rivera MD Platelets (Bld) [#/Vol] 253 10*3/uL Normal 138-453 [facility] Comment on above: Performed By: #### C DP, CMPX, LIP, MG, FEBC ####[facility] [address] [place] [address] Lab Director: Zachary Rivera MD RBC (Bld) [#/Vol] 3.58 10*6/uL Low 3.95-5.11 [facility] Comment on above: Performed By: #### C DP, CMPX, LIP, MG, FEBC ####[facility] [address] [place] [address] lab Director: Zachary Rivera MD WBC (Bld) [#/Vol] 10.0 10*3/uL Normal 3.5-11.3 [facility] Comment on above: Performed By: #### C DP, CMPX, LIP, MG, FEBC ####[address] [place] [address] lab Director: Zachary Rivera MD CT CHEST ABDOMEN PELVIS W CO NTRASTon 05-05-2023 CT CHEST ABDOMEN PELVIS W CONTRAST EXAMINATION: CT OF THE CHEST, ABDOMEN, AND PELVIS WITH CONTRAST 05/05/2023 7:38 pm TECHNIQUE: CT of the chest, abdomen and pelvis was performed with the administration of intravenous contrast. Multiplanar reformatted images are provided for review. Automated exposure control, iterative reconstruction, and/or weight based adjustment of the mA/kV was utilized to reduce the radiation dose to as low as reasonably achievable. COMPARISON: MRI from 05/04/2023 HISTORY: ORDERING SYSTEM PROVIDED HISTORY: Please assess for carcinamotosis, lesions, masses TECHNOLOGIST PROVIDED HISTORY: Per protocol for reason for exam Please assess for carcinamotosis, lesions, masses Weight loss, elevated CA 125, smoker Reason for Exam: Please assess for carcinamotosis, lesions, masses, Weight loss, elevated CA 125, smok FINDINGS: Chest: Mediastinum: The heart is not enlarged. No pericardial effusion. Normal caliber thoracic aorta. There is a low attenuating 8 x 10 mm lesion at the posterior wall of the proximal aortic arch, concerning for adherent plaque versus thrombus. The thyroid gland is unremarkable. No lymphadenopathy identified. Lungs/pleura: Moderate emphysema. No pleural effusion or pneumothorax. Spiculated pulmonary nodule in the left lower lobe measures 2.5 cm, age indeterminate. Calcified granuloma in the right lower lobe. 5 mm ground-glass pulmonary nodule in the left upper lobe. Soft Tissues/Bones: No acute findings within the soft tissues or osseous structures. Abdomen/Pelvis: Organs: Liver: Heterogeneous enhancement of the liver on series 2. This may suggest underlying perfusion abnormality. There is; however, relatively homogeneous enhancement seen on delayed imaging on series 5. Small hypodensity on image 41, of series 5, is favored to be a small cyst. Gallbladder: Unremarkable gallbladder. 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 Pancreas: Redemonstration of a low attenuating mass at the uncinate process of the pancreas measuring approximately 2.4 x 1.9 x 1.0 cm. Other duodenal diverticulum is felt less likely with the limitations of no oral contrast. No localized inflammatory changes. Mild prominence of the pancreatic duct measuring up to 2-3 mm thick. Adrenal Glands: No focal adrenal abnormalities identified. Kidneys: No hydronephrosis. GI/Bowel: Stomach: The stomach is nondistended. Small bowel: No evidence of small bowel obstruction. Colon: No significant pericolonic inflammatory changes. Appendix: Favor a normal contrast filled appendix. Pelvis: Moderate ascites in the pelvis. Prominent varicosities. Partially distended urinary bladder. Peritoneum/Retroperitoneum: Moderate abdominal ascites. Atherosclerosis with normal caliber aorta. Bones/Soft Tissues: Diffuse anasarca. Spondylosis of the visualized spine. 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 Moderate abdominal and pelvic ascites. Confirmed is a cystic lesion at the uncinate process of the pancreas. Follow-up pancreatic mass protocol on MRI in 6 months is recommended. Indeterminate nodule in the left lower lobe, possible focal area of scarring although malignancy is not excluded. Recommend attention on outpatient PET-CT. Physician call report initiated at 8:48 p.m. on 05/05/2023. Findings discussed directly with Gaudencio Andre NP at 8:52 p.m. on 05/05/2023. Interpreted by: Morena Allred DO Signed by: Morena Allred DO 05/05/23 Final result Normal [facility] Comp Metabolic Pr/rfx MGon 0 05-05-2023 Potassium [Moles/Vol] 3.0 mmol/L Low 3.7-5.3 [facility] Comment on above: Performed By: #### C DP, CMPX, LIP, MG, FEBC ####[place] [id number] [facility] Director: Zachary Rivera MD Albumin [Mass/Vol] 2.5 g/dL Low 3.5-5.2 [facility] Comment on above: Performed By: #### C DP, CMPX, LIP, MG, FEBC ####[facility] [address] [place], [place] [phone])[phone] Director: Zachary Rivera MD Albumin/Glob Ratio 1.0 Normal 1.0-2.5 [facility] Comment on above: Performed By: #### C DP, CMPX, LIP, MG, FEBC ####[facility] [address] [place], [place] [phone] Director: Zachary Rivera MD Alkaline Phos 85 U/L Normal 35-104 [facility] Comment on above: Performed By: #### C DP, CMPX, LIP, MG, FEBC ####[address] [id number])[phone] Director: Zachary Rivera MD ALT [Catalytic activity/Vol] 11 U/L Normal 5-33 [facility] Comment on above: Performed By: #### C DP, CMPX, LIP, MG, FEBC ####[facility] [address] [place] [address] Lab Director: Zachary Rivera MD Anion gap [Moles/Vol] 11 mmol/L Normal 9-17 [facility] Comment on above: Performed By: #### C DP, CMPX, LIP, MG, FEBC ####[facility] [address] [place], [place] [phone] Director: Zachary Rivera MD AST [Catalytic activity/Vol] 17 U/L Normal <32 [facility] Comment on above: Performed By: #### C DP, CMPX, LIP, MG, FEBC ####[facility] [address] [place], [place] [phone])[phone] Director: Zachary Rivera MD Bilirubin [Mass/Vol] 0.2 mg/dL Low 0.3-1.2 [facility] Comment on above: Performed By: #### C DP, CMPX, LIP, MG, FEBC ####[facility] [address] [place], [place] [phone] Director: Zachary Rivera MD Calcium [Mass/Vol] 7.7 mg/dL Low 8.6-10.4 [facility] Comment on above: Performed By: #### C DP, CMPX, LIP, MG, FEBC ####[facility] [address] [place], [place] [phone] Director: Zachary Rivera MD Chloride [Moles/Vol] 105 mmol/L Normal 98-107 [facility] Comment on above: Performed By: #### C DP, CMPX, LIP, MG, FEBC ####[address] [address])[phone] Director: Zachary Rivera MD CO2 [Moles/Vol] 20 mmol/L Normal 20-31 [facility] Comment on above: Performed By: #### C DP, CMPX, LIP, MG, FEBC ####[address] [place], [place] [phone] Director: Zachary Rivera MD Creatinine [Mass/Vol] 0.3 mg/dL Low 0.5-0.9 [facility] Comment on above: Performed By: #### C DP, CMPX, LIP, MG, FEBC ####[facility] [address] [place], [place] [address])[phone] Director: Zachary Rivera MD GFR/1.73 sq M.predicted among non-blacks MDRD (S/P/Bld) [Vol rate/Area] mL/min/{1.73_m2} Normal >60 [facility] Comment on above: Result Comment: These results are not intended for use in patients <18 years of age. eGFR results are calculated without a race factor using the 2020 CKD-EPI equation. Careful clinical correlation is recommended, particularly when comparing to results calculated using previous equations. The CKD-EPI equation is less accurate in patients with extremes of muscle mass, extra-renal metabolism of creatine, excessive creatine ingestion, or following therapy that affects renal tubular secretion. Performed By: #### C DP, CMPX, LIP, MG, FEBC ####[address] [address])[phone] Director: Zachary Rivera MD Glucose [Mass/Vol] 92 mg/dL Normal 70-99 [facility] Comment on above: Performed By: #### C DP, CMPX, LIP, MG, FEBC ####[place], [place] [address])[phone] Director: Zachary Rivera MD Protein [Mass/Vol] 5.0 g/dL Low 6.4-8.3 [facility] Comment on above: Performed By: #### C DP, CMPX, LIP, MG, FEBC ####[place], [place] [address])[phone] Director: Zachary Rivera MD Sodium [Moles/Vol] 136 mmol/L Normal 135-144 [facility] Comment on above: Performed By: #### C DP, CMPX, LIP, MG, FEBC ####[address] [address])[phone] Director: Zachary Rivera MD Urea nitrogen [Mass/Vol] 13 mg/dL Normal 6-20 [facility] Comment on above: Performed By: #### C DP, CMPX, LIP, MG, FEBC ####[place], [place] [address])[phone] Director: Zachary Rivera MD Albumin [Mass/Vol] 2.8 g/dL Low 3.5-5.2 [facility] Comment on above: Performed By: #### L ACTIC, SED, SILVESTRE, BMPX, MG, GLYHGB, CDP #### [address] [address] Ironer Hand: Zachary Rivera MD Alkaline Phos 93 U/L Normal 35-104 [facility] Comment on above: Performed By: #### L ACTIC, SED, SILVESTRE, BMPX, MG, GLYHGB, CDP #### [address] [address] [employer]er Hand: Zachary Rivera MD ALT [Catalytic activity/Vol] 12 U/L Normal 5-33 [facility] Comment on above: Performed By: #### L ACTIC, SED, SILVESTRE, BMPX, MG, GLYHGB, CDP #### [address] [address] [employer]: Zachary Rivera MD Anion gap [Moles/Vol] 11 mmol/L Normal 9-17 [facility] Comment on above: Performed By: #### L ACTIC, SED, SILVESTRE, BMPX, MG, GLYHGB, CDP #### [address] [address] [employer]er Hand: Zachary Rivera MD AST [Catalytic activity/Vol] 29 U/L Normal <32 [facility] Comment on above: Performed By: #### L ACTIC, SED, SILVESTRE, BMPX, MG, GLYHGB, CDP #### [address] [address] Ironer Hand: Zachary Rivera MD Calcium [Mass/Vol] 8.1 mg/dL Low 8.6-10.4 [facility] Comment on above: Performed By: #### L ACTIC, SED, SILVESTRE, BMPX, MG, GLYHGB, CDP #### [address] [address] Ironer Hand: Zachary Rivera MD Chloride [Moles/Vol] 105 mmol/L Normal 98-107 [facility] Comment on above: Performed By: #### L ACTIC, SED, SILVESTRE, BMPX, MG, GLYHGB, CDP #### [facility] [address] [place] [address] Ironer Hand: Zachary Rivera MD CO2 [Moles/Vol] 19 mmol/L Low 20-31 [facility] Comment on above: Performed By: #### L ACTIC, SED, SILVESTRE, BMPX, MG, GLYHGB, CDP #### [facility] [address] [place] [address] Ironer Hand: Zachary Rivera MD Glucose [Mass/Vol] 127 mg/dL High 70-99 [facility] Comment on above: Performed By: #### L ACTIC, SED, SILVESTRE, BMPX, MG, GLYHGB, CDP #### [address] [address] Ironer Hand: Zachary Rivera MD Potassium [Moles/Vol] 3.6 mmol/L Low 3.7-5.3 [facility] Comment on above: Performed By: #### L ACTIC, SED, SILVESTRE, BMPX, MG, GLYHGB, CDP #### [facility] [address] [place] [address] Ironer Hand: Zachary Rivera MD Protein [Mass/Vol] 5.5 g/dL Low 6.4-8.3 [facility] Comment on above: Performed By: #### L ACTIC, SED, SILVESTRE, BMPX, MG, GLYHGB, CDP #### [facility] [address] [place] [address] Ironer Hand: Zachary Rivera MD Urea nitrogen [Mass/Vol] 14 mg/dL Normal 6-20 [facility] Comment on above: Performed By: #### L ACTIC, SED, SILVESTRE, BMPX, MG, GLYHGB, CDP #### [facility] [address] [place] [address] Ironer Hand: Zachary Rivera MD Heparin Anti-Xaon 05-05-2023 Heparin Anti-Xa 0.11 IU/L Normal [facility] Comment on above: Performed By: #### L ACTIC, SED, SILVESTRE, BMPX, MG, GLYHGB, CDP #### [facility] [address] [place] [address] Ironer Hand: Zachary Rivera MD Heparin Anti-Xa <0.10 Normal [facility] Comment on above: Performed By: #### L ACTIC, SED, SILVESTRE, BMPX, MG, GLYHGB, CDP #### [facility] [address] [place] [address] Ironer Hand: Zachary Rivera MD Heparin Anti-Xa 0.39 IU/L Normal [facility] Comment on above: Performed By: #### L ACTIC, SED, SILVESTRE, BMPX, MG, GLYHGB, CDP #### [facility] [address] [place] [address] Ironer Hand: Zachary Rivera MD Iron Binding Cap.on 05-05-19 24 % Fe Saturation 12 % Low 20-55 [facility] Comment on above: Performed By: #### C DP, CMPX, LIP, MG, FEBC ####[facility] [address] [place] [address] Lab Director: Zachary Rivera MD Iron [Mass/Vol] 29 ug/dL Low 37-145 [facility] Comment on above: Performed By: #### C DP, CMPX, LIP, MG, FEBC ####[facility] [address] [place] [address] Lab Director: Zachary Rivera MD Total Fe Binding Cap 238 ug/dL Low 250-450 [facility] Comment on above: Performed By: #### C DP, CMPX, LIP, MG, FEBC ####[facility] [address] [place] [address] Lab Director: Zachary Rivera MD Unbound Fe Bind Cap 209 ug/dL Normal 112-347 [facility] Comment on above: Performed By: #### C DP, CMPX, LIP, MG, FEBC ####[address] [place] [address] Lab Director: Zachary Rivera MD Lipaseon 05-05-2023 Lipase [Catalytic activity/Vol] 578 U/L High 13-60 [facility] Comment on above: Performed By: #### C DP, CMPX, LIP, MG, FEBC ####[address] [address] Lab Director: Zachary Rivera MD Magnesiumon 05-05-2023 Magnesium [Mass/Vol] 1.6 mg/dL Normal 1.6-2.6 [facility] Comment on above: Performed By: #### C DP, CMPX, LIP, MG, FEBC ####[address] [address] Lab Director: Zachary Rivera MD Smooth Muscle Abon 4 Smooth Muscle Ab 5 Units Normal 0-[address] [facility] Comment on above: Result Comment: (NOT E) If F-Actin (Smooth Muscle) Antibody, IgG is negative, the Smooth Muscle Antibody titer by IFA is not performed. REFERENCE INTERVAL: F-Actin (Smooth Muscle) Antibody, IgG by LEO 19 Units or less ....... Negative 20 - 30 Units .......... Weak Positive-Suggest repeat testing in two to three weeks with fresh specimen. 31 Units or greater..... Positive-Suggestive of autoimmune hepatitis type 1 or chronic active hepatitis. F-actin IgG antibodies have been shown to have increased sensitivity for autoimmune hepatitis (AIH) but lower specificity than smooth muscle antibodies (SMA). F-actin IgG antibodies can also be seen in SMA-negative disease controls (non-AIH), especially in patients with primary biliary cirrhosis and chronic hepatitis C infections. Some patients with AIH may be SMA-positive but negative for F-actin IgG. Consider testing for SMA by IFA if suspicion for AIH is strong. Performed By: [facility] [employer] [address] [place] [id number] [employer] Supervisor: David Cosby MD, PhD CLIA Number: [id number] Performed By: #### L ACTIC, SED, SILVESTRE, BMPX, MG, GLYHGB, CDP #### [address] [phone] Ironer Hand: Zachary Rivera MD APTTon 05-04-2023 aPTT Coag (Bld) [Time] 27.2 s Normal 23.0-36.5 [facility] Comment on above: Result Comment: IV Heparin Therapy Range: 66.0-92.0 sec Performed By: #### L ACTIC, SED, SILVESTRE, BMPX, MG, GLYHGB, CDP #### [address] [phone] Ironer Hand: Zachary Rivera MD Albumin, [facility] 05-04-2023 Albumin, Fluid 1.7 g/dL Normal [facility] Comment on above: Result Comment: Ther e are no normals for body fluid samples. Performed By: #### L ACTIC, SED, SILVESTRE, BMPX, MG, GLYHGB, CDP #### [address] [phone] Ironer Hand: Zachary Rivera MD Amylase,[facility] 05-04-2023 Amylase [Catalytic activity/Vol] 68370 U/L Normal [facility] Comment on above: Result Comment: Ther e are no normals for body fluid samples. Performed By: #### L ACTIC, SED, SILVESTRE, BMPX, MG, GLYHGB, CDP #### [address] [phone] Ironer Hand: Zachary Rivera MD Basic Metab w/rfx MG 05-04 Potassium [Moles/Vol] 3.4 mmol/L Low 3.7-5.3 [facility] Comment on above: Performed By: #### L ACTIC, SED, SILVESTRE, BMPX, MG, GLYHGB, CDP #### [facility] [address] [place] [address] Ironer Hand: Zachary Rivera MD Anion gap [Moles/Vol] 8 mmol/L Low 9-17 [facility] Comment on above: Performed By: #### L ACTIC, SED, SILVESTRE, BMPX, MG, GLYHGB, CDP #### [facility] [address] [place] [address] Ironer Hand: Zachary Rivera MD Calcium [Mass/Vol] 8.0 mg/dL Low 8.6-10.4 [facility] Comment on above: Performed By: #### L ACTIC, SED, SILVESTRE, BMPX, MG, GLYHGB, CDP #### [facility] [address] [place] [address] Ironer Hand: Zachary Rivera MD Chloride [Moles/Vol] 104 mmol/L Normal 98-107 [facility] Comment on above: Performed By: #### L ACTIC, SED, SILVESTRE, BMPX, MG, GLYHGB, CDP #### [facility] [address] [place] [address] Ironer Hand: Zachary Rivera MD CO2 [Moles/Vol] 23 mmol/L Normal 20-31 [facility] Comment on above: Performed By: #### L ACTIC, SED, SILVESTRE, BMPX, MG, GLYHGB, CDP #### [facility] [address] [place] [address] Ironer Hand: Zachary Rivera MD Glucose [Mass/Vol] 134 mg/dL High 70-99 [facility] Comment on above: Performed By: #### L ACTIC, SED, SILVESTRE, BMPX, MG, GLYHGB, CDP #### [facility] [address] [place] [address] Ironer Hand: Zachary Rivera MD Urea nitrogen [Mass/Vol] 16 mg/dL Normal 6-20 [facility] Comment on above: Performed By: #### L ACTIC, SED, SILVESTRE, BMPX, MG, GLYHGB, CDP #### [facility] [employer] [address] [place] [address] Ironer Hand: Zachary Rivera MD CA 19-9on 05-04-2023 CA 19-9 20 U/mL Normal 0-35 [facility] Comment on above: Result Comment: The Virgil ECLIA assay is used. Results obtained with different assay methods cannot be used interchangeably. Performed By: #### L ACTIC, SED, SILVESTRE, BMPX, MG, GLYHGB, CDP #### [facility] [employer] [address] [place] [address] [employer]er Hand: Zachary Rivera MD CBCon 05-04-2023 Erythrocyte distribution width (RBC) [Ratio] 13.4 % Normal 11.8-14.4 [facility] Comment on above: Performed By: #### L ACTIC, SED, SILVESTRE, BMPX, MG, GLYHGB, CDP #### [facility] [employer] [address] [place] [address] Ironer Hand: Zachary Rivera MD Hematocrit (Bld) [Volume fraction] 39.7 % Normal 36.3-47.1 [facility] Comment on above: Performed By: #### L ACTIC, SED, SILVESTRE, BMPX, MG, GLYHGB, CDP #### [facility] [address] [place] [address] Ironer Hand: Zachary Rivera MD Hemoglobin (Bld) [Mass/Vol] 13.0 g/dL Normal 11.9-15.1 [facility] Comment on above: Performed By: #### L ACTIC, SED, SILVESTRE, BMPX, MG, GLYHGB, CDP #### [facility] [address] [place] [address] Ironer Hand: Zachary Rivera MD MCH (RBC) [Entitic mass] 30.2 pg Normal 25.2-33.5 [facility] Comment on above: Performed By: #### L ACTIC, SED, SILVESTRE, BMPX, MG, GLYHGB, CDP #### [address] [phone] Ironer Hand: Zachary Rivera MD MCHC (RBC) [Mass/Vol] 32.7 g/dL Normal 28.4-34.8 [facility] Comment on above: Performed By: #### L ACTIC, SED, SILVESTRE, BMPX, MG, GLYHGB, CDP #### [address] [address] Ironer Hand: Zachary Rivera MD MCV (RBC) [Entitic vol] 92.1 fL Normal 82.6-102.9 [facility] Comment on above: Performed By: #### L ACTIC, SED, SILVESTRE, BMPX, MG, GLYHGB, CDP #### [address] [address] Ironer Hand: Zachary Rivera MD NRBC Automated 0.0 per 100 WBC Normal 0.0 [facility] Comment on above: Performed By: #### L ACTIC, SED, SILVESTRE, BMPX, MG, GLYHGB, CDP #### [address] [address] Ironer Hand: Zachary Rivera MD Platelet mean volume (Bld) [Entitic vol] 10.5 fL Normal 8.1-13.5 [facility] Comment on above: Performed By: #### L ACTIC, SED, SILVESTRE, BMPX, MG, GLYHGB, CDP #### [address] [address] Ironer Hand: Zachary Rivera MD Platelets (Bld) [#/Vol] 295 10*3/uL Normal 138-453 [facility] Comment on above: Performed By: #### L ACTIC, SED, SILVETSRE, BMPX, MG, GLYHGB, CDP #### [address] [address] Ironer Hand: Zachary Rivera MD RBC (Bld) [#/Vol] 4.31 10*6/uL Normal 3.95-5.11 [facility] Comment on above: Performed By: #### L ACTIC, SED, SILVESTRE, BMPX, MG, GLYHGB, CDP #### [place] [address] Ironer Hand: Zachary Rivear MD WBC (Bld) [#/Vol] 12.9 10*3/uL High 3.5-11.3 [facility] Comment on above: Performed By: #### L ACTIC, SED, SILVESTRE, BMPX, MG, GLYHGB, CDP #### [place] [address] Ironer Hand: Zachary Rivera MD CBC with Diffon 05-04-2023 Abs. Basophil 0.07 k/uL Normal 0.00-0.20 [facility] Comment on above: Performed By: #### L ACTIC, SED, SILVESTRE, BMPX, MG, GLYHGB, CDP #### [place] [address] Ironer Hand: Zachary Rivera MD Abs.Imm.Granulocyt e 0.05 k/uL Normal 0.00-0.30 [facility] Comment on above: Performed By: #### L ACTIC, SED, SILVESTRE, BMPX, MG, GLYHGB, CDP #### [address] [address] Ironer Hand: Zachary Rivera MD Abs.Neutrophil (Seg) 7.12 k/uL Normal 1.50-8.10 [facility] Comment on above: Performed By: #### L ACTIC, SED, SILVESTRE, BMPX, MG, GLYHGB, CDP #### [facility] [address] [place] [address] Ironer Hand: Zachary Rivera MD Basophils/100 WBC (Bld) 1 % Normal 0-2 [facility] Comment on above: Performed By: #### L ACTIC, SED, SILVESTRE, BMPX, MG, GLYHGB, CDP #### [address] [address] Ironer Hand: Zachary Rivera MD Eosinophils (Bld) [#/Vol] 0.19 10*3/uL Normal 0.00-0.44 [facility] Comment on above: Performed By: #### L ACTIC, SED, SILVESTRE, BMPX, MG, GLYHGB, CDP #### [place] [address] Ironer Hand: Zachary Rivera MD Eosinophils/100 WBC (Bld) 2 % Normal 1-4 [facility] Comment on above: Performed By: #### L ACTIC, SED, SILVESTRE, BMPX, MG, GLYHGB, CDP #### [facility] [employer] [address] [place] [address] Ironer Hand: Zachary Rivera MD Erythrocyte distribution width (RBC) [Ratio] 13.7 % Normal 11.8-14.4 [facility] Comment on above: Performed By: #### L ACTIC, SED, SILVESTRE, BMPX, MG, GLYHGB, CDP #### [facility] [employer] [address] [place] [address] Ironer Hand: Zachary Rivera MD Hematocrit (Bld) [Volume fraction] 36.0 % Low 36.3-47.1 [facility] Comment on above: Performed By: #### L ACTIC, SED, SILVESTRE, BMPX, MG, GLYHGB, CDP #### [address] [address] Ironer Hand: Zachary Rivera MD Hemoglobin (Bld) [Mass/Vol] 11.7 g/dL Low 11.9-15.1 [facility] Comment on above: Performed By: #### L ACTIC, SED, SILVESTRE, BMPX, MG, GLYHGB, CDP #### [address] [address] Ironer Hand: Zachary Rivera MD Immature granulocytes/100 WBC (Bld) 1 % High 0 [facility] Comment on above: Performed By: #### L ACTIC, SED, SILVESTRE, BMPX, MG, GLYHGB, CDP #### [address] [address] Ironer Hand: Zachary Rivera MD Lymphocytes (Bld) [#/Vol] 1.90 10*3/uL Normal 1.10-3.70 [facility] Comment on above: Performed By: #### L ACTIC, SED, SILVESTRE, BMPX, MG, GLYHGB, CDP #### [address] [address] Ironer Hand: Zachary Rivera MD Lymphocytes/100 WBC (Bld) 19 % Low 24-43 [facility] Comment on above: Performed By: #### L ACTIC, SED, SILVESTRE, BMPX, MG, GLYHGB, CDP #### [address] [address] Ironer Hand: Zachary Rivera MD MCH (RBC) [Entitic mass] 30.2 pg Normal 25.2-33.5 [facility] Comment on above: Performed By: #### L ACTIC, SED, SILVESTRE, BMPX, MG, GLYHGB, CDP #### [address] [address] Ironer Hand: Zachary Rivera MD MCHC (RBC) [Mass/Vol] 32.5 g/dL Normal 28.4-34.8 [facility] Comment on above: Performed By: #### L ACTIC, SED, SILVESTRE, BMPX, MG, GLYHGB, CDP #### [facility] [employer] [address] [place] [address] Ironer Hand: Zachary Rivera MD MCV (RBC) [Entitic vol] 93.0 fL Normal 82.6-102.9 [facility] Comment on above: Performed By: #### L ACTIC, SED, SILVESTRE, BMPX, MG, GLYHGB, CDP #### [address] [address] Ironer Hand: Zachary Rivera MD Monocytes (Bld) [#/Vol] 0.88 10*3/uL Normal 0.10-1.20 [facility] Comment on above: Performed By: #### L ACTIC, SED, SILVESTRE, BMPX, MG, GLYHGB, CDP #### [facility] [employer] [address] [place] [address] Ironer Hand: Zachary Rivera MD Monocytes/100 WBC (Bld) 9 % Normal 3-12 [facility] Comment on above: Performed By: #### L ACTIC, SED, SILVESTRE, BMPX, MG, GLYHGB, CDP #### [address] [address] Ironer Hand: Zachary Rivera MD Neutrophil (Seg) 68 % High 36-[address] [facility] Comment on above: Performed By: #### L ACTIC, SED, SILVESTRE, BMPX, MG, GLYHGB, CDP #### [facility] [employer] [address] [place] [address] Ironer Hand: Zachary Rivera MD NRBC Automated 0.0 per 100 WBC Normal 0.0 [facility] Comment on above: Performed By: #### L ACTIC, SED, SILVESTRE, BMPX, MG, GLYHGB, CDP #### [facility] [employer] [address] [place] [address] Ironer Hand: Zachary Rivera MD Platelet mean volume (Bld) [Entitic vol] 10.6 fL Normal 8.1-13.5 [facility] Comment on above: Performed By: #### L ACTIC, SED, SILVESTRE, BMPX, MG, GLYHGB, CDP #### [address] [address] Ironer Hand: Zachary Rivera MD Platelets (Bld) [#/Vol] 272 10*3/uL Normal 138-453 [facility] Comment on above: Performed By: #### L ACTIC, SED, SILVESTRE, BMPX, MG, GLYHGB, CDP #### [address] [address] Ironer Hand: Zachary Rivera MD RBC (Bld) [#/Vol] 3.87 10*6/uL Low 3.95-5.11 [facility] Comment on above: Performed By: #### L ACTIC, SED, SILVESTRE, BMPX, MG, GLYHGB, CDP #### [address] [address] Ironer Hand: Zachary Rivera MD WBC (Bld) [#/Vol] 10.2 10*3/uL Normal 3.5-11.3 [facility] Comment on above: Performed By: #### L ACTIC, SED, SILVESTRE, BMPX, MG, GLYHGB, CDP #### [facility] [employer] [address] [place] [address] Ironer Hand: Zachary Rivera MD Carcinoembry. Antig.on 05-04 Carcinoembry. Antig. 2.4 ng/mL Normal <3.9 [facility] Comment on above: Result Comment: The Virgil ECLIA assay is used. Results obtained with different assay methods cannot be used interchangeably. Performed By: #### L ACTIC, SED, SILVESTRE, BMPX, MG, GLYHGB, CDP #### [facility] [employer] [address] [place] [address] [phone] Ironer Hand: Zachary Rivera MD Celiac Disease Panelon 05-04 IgA [Mass/Vol] 181 mg/dL Normal 70-400 [facility] Comment on above: Performed By: #### L ACTIC, SED, SILVESTRE, BMPX, MG, GLYHGB, CDP #### [facility] [address] [place] [address] Ironer Hand: Zachary Rivera MD Ceruloplasminon 05-04-2023 Ceruloplasmin 23 mg/dL Normal 16-45 [facility] Comment on above: Performed By: #### L ACTIC, SED, SILVESTRE, BMPX, MG, GLYHGB, CDP #### [facility] [employer] [address] [place] [address] [phone] Ironer Hand: Zachary Rivera MD Comp Metabolic Pr/rfx MGon 0 05-04-2023 Albumin/Glob Ratio 1.0 Normal 1.0-2.5 [facility] Comment on above: Performed By: #### L ACTIC, SED, SILVESTRE, BMPX, MG, GLYHGB, CDP #### [facility] [address] [place] [address] Ironer Hand: Zachary Rivera MD Bilirubin [Mass/Vol] 0.3 mg/dL Normal 0.3-1.2 [facility] Comment on above: Performed By: #### L ACTIC, SED, SILVESTRE, BMPX, MG, GLYHGB, CDP #### [facility] [address] [place] [address] Ironer Hand: Zachary Rivera MD Creatinine [Mass/Vol] 0.3 mg/dL Low 0.5-0.9 [facility] Comment on above: Performed By: #### L ACTIC, SED, SILVESTRE, BMPX, MG, GLYHGB, CDP #### [facility] [address] [place] [phone] Ironer Hand: Zachary Rivera MD GFR/1.73 sq M.predicted among non-blacks MDRD (S/P/Bld) [Vol rate/Area] mL/min/{1.73_m2} Normal >60 [facility] Comment on above: Result Comment: These results are not intended for use in patients <18 years of age. eGFR results are calculated without a race factor using the 2020 CKD-EPI equation. Careful clinical correlation is recommended, particularly when comparing to results calculated using previous equations. The CKD-EPI equation is less accurate in patients with extremes of muscle mass, extra-renal metabolism of creatine, excessive creatine ingestion, or following therapy that affects renal tubular secretion. Performed By: #### L ACTIC, SED, SILVESTRE, BMPX, MG, GLYHGB, CDP #### [facility] [address] [place] [address] Ironer Hand: Zachary Rivera MD Sodium [Moles/Vol] 135 mmol/L Normal 135-144 [facility] Comment on above: Performed By: #### L ACTIC, SED, SILVESTRE, BMPX, MG, GLYHGB, CDP #### [facility] [address] [place] [address] [phone] Ironer Hand: Zachary Rivera MD D-Dimer Teston 05-04-2023 D-Dimer Test 13.92 ug/mL FEU High 0.00-0.57 [facility] Comment on above: Result Comment: When combined with a low clinical probability, a D dimer value of <0.50 ug/mL FEU is considered negative for DVT and PE (negative predictive value of 98%, sensitivity of 97%). If this test is not being used to help rule out DVT and PE, then the following reference range should be utilized: 0.00 - 0.57 ug/mL FEU. The D-Dimer assay is intended for use as an aid in the diagnosis of venous thromboembolism (DVT and PE) and the results should be interpreted in conjunction with the patient's medical history, clinical presentation, and other findings. Elevated levels of D-dimer activity can be seen in any state of coagulation activation and is not recommended in patients with therapeutic dose anticoagulant therapy for >24 hours, fibrinolytic therapy within the previous 7 days, trauma or surgery within the previous 4 weeks, disseminated malignancies, aortic aneurysm, sepsis, severe infections, pneumonia, severe skin infections, liver cirrhosis, advanced age, coronary disease, diabetes, and . A very low percentage of patients with DVT may yield D-dimer results below the cutoff of 0.5 ug/mL FEU. This is known to be more prevalent in patients with distal DVT. Performed By: #### L ACTIC, SED, SILVESTRE, BMPX, MG, GLYHGB, CDP #### [facility] [address] [place] [address] [phone] Ironer Hand: Zachary Rivera MD Ferritinon 05-04-2023 Ferritin [Mass/Vol] 205 ng/mL High 13-150 [facility] Comment on above: Performed By: #### L ACTIC, SED, SILVESTRE, BMPX, MG, GLYHGB, CDP #### [facility] [address] [place] [address] [phone] Ironer Hand: Zachary Rivera MD Fluid Cell Count and Diffon 05-04-2023 Lymphocytes/100 WBC (Bld) 3 % Normal [facility] Comment on above: Result Comment: The reference range and other method performance specifications have not been established for this body fluid. The test result must be integrated into the clinical context for interpretation. Performed By: #### L ACTIC, SED, SILVESTRE, BMPX, MG, GLYHGB, CDP #### [facility] [address] [place] [address] [phone] Ironer Hand: Zachary Rivera MD Neutrophils/100 WBC (Bld) 22 % Normal [facility] Comment on above: Result Comment: The reference range and other method performance specifications have not been established for this body fluid. The test result must be integrated into the clinical context for interpretation. Performed By: #### L ACTIC, SED, SILVESTRE, BMPX, MG, GLYHGB, CDP #### [facility] [address] [place] [address] [phone] Ironer Hand: Zachary Rivera MD RBC (Bld) [#/Vol] 10*6/uL Normal [facility] Comment on above: Result Comment: The reference range and other method performance specifications have not been established for this body fluid. The test result must be integrated into the clinical context for interpretation. Performed By: #### L ACTIC, SED, SILVESTRE, BMPX, MG, GLYHGB, CDP #### [address] [address] Ironer Hand: Zachary Rivera MD WBC (Bld) [#/Vol] 1.097 10*3/uL Normal [facility] Comment on above: Result Comment: The reference range and other method performance specifications have not been established for this body fluid. The test result must be integrated into the clinical context for interpretation. Performed By: #### L ACTIC, SED, SILVESTRE, BMPX, MG, GLYHGB, CDP #### [address] [phone] Ironer Hand: Zachary Rivera MD Hemoglobin A1Con 05-04-2023 Glucose [Mass/Vol] 97 mg/dL Normal [facility] Comment on above: Result Comment: The ADA and AACC recommend providing the estimated average glucose result to permit better patient understanding of their HBA1c result. Performed By: #### L ACTIC, SED, SILVESTRE, BMPX, MG, GLYHGB, CDP #### [facility] [employer] [address] [place] [phone] Ironer Hand: Zachary Rivera MD HbA1c (Bld) [Mass fraction] 5.0 % Normal 4.0-6.0 [facility] Comment on above: Performed By: #### L ACTIC, SED, SILVESTRE, BMPX, MG, GLYHGB, CDP #### [facility] [employer] [address] [place] [address] [phone] Ironer Hand: Zachary Rivera MD Heparin Anti-Xaon 05-04-2023 Heparin Anti-Xa <0.10 Normal [facility] Comment on above: Performed By: #### L ACTIC, SED, SILVESTRE, BMPX, MG, GLYHGB, CDP #### [address] [address] Ironer Hand: Zachary Rivera MD Heparin Anti-Xa 0.33 IU/L [facility] Comment on above: Performed By: #### L ACTIC, SED, SILVESTRE, BMPX, MG, GLYHGB, CDP #### [address] [address] Ironer Hand: Zachary Rivera MD Heparin Anti-Xa <0.10 [facility] Comment on above: Performed By: #### L ACTIC, SED, SILVESTRE, BMPX, MG, GLYHGB, CDP #### [address] [address] Ironer Hand: Zachary Rivera MD Lactate Dehydrog, Flon 05-04 LD - Fluid 160 U/L Normal [facility] Comment on above: Result Comment: Ther e are no normals for body fluid samples. Performed By: #### L ACTIC, SED, SILVESTRE, BMPX, MG, GLYHGB, CDP #### [facility] [employer] [address] [place] [phone] Ironer Hand: Zachary Rivera MD Type of Specimen .ASCITIC FLUID Normal [facility] Comment on above: Performed By: #### L ACTIC, SED, SILVESTRE, BMPX, MG, GLYHGB, CDP #### [address] [phone] Ironer Hand: Zachary Rivera MD Lactate Dehydrogenaseon - LDH [Catalytic activity/Vol] 265 U/L High 135-214 [facility] Comment on above: Performed By: #### L ACTIC, SED, SILVESTRE, BMPX, MG, GLYHGB, CDP #### [facility] [address] [place] [address] [phone] Ironer Hand: Zachary Rivera MD Lactic Acidon 05-04-2023 Lactic Acid,Whole Bl 1.0 mmol/L Normal 0.7-2.1 [facility] Comment on above: Performed By: #### L ACTIC, SED, SILVESTRE, BMPX, MG, GLYHGB, CDP #### [facility] [employer] [address] [place] [address] [phone] Ironer Hand: Zachary Rivera MD Lipaseon 05-04-2023 Lipase [Catalytic activity/Vol] 561 U/L High 13-60 [facility] Comment on above: Performed By: #### L ACTIC, SED, SILVESTRE, BMPX, MG, GLYHGB, CDP #### [facility] [employer] [address] [place] [address] [phone] Ironer Hand: Zachary Rivera MD Lipid Profileon 05-04-2023 Cholesterol [Mass/Vol] 108 mg/dL Normal <200 [facility] Comment on above: Result Comment: Cholesterol Guidelines: <200 Desirable 200-240 Borderline >240 Undesirable Performed By: #### L ACTIC, SED, SILVESTRE, BMPX, MG, GLYHGB, CDP #### [facility] [employer] [address] [place] [address] [phone] Ironer Hand: Zachary Rivera MD Cholesterol in HDL [Mass/Vol] 17 mg/dL Low >40 [facility] Comment on above: Result Comment: HDL Guidelines: <40 Undesirable 40-59 Borderline >59 Desirable Performed By: #### L ACTIC, SED, SILVESTRE, BMPX, MG, GLYHGB, CDP #### [address] [address] Ironer Hand: Zachary Rivera MD Cholesterol in LDL [Mass/Vol] 62 mg/dL Normal 0-130 [facility] Comment on above: Result Comment: LDL Guidelines: <100 Desirable 100-129 Near to/above Desirable 130-159 Borderline >159 Undesirable Direct (measured) LDL and calculated LDL are not interchangeable tests. Performed By: #### L ACTIC, SED, SILVESTRE, BMPX, MG, GLYHGB, CDP #### [facility] [employer] [address] [place] [phone] Ironer Hand: Zachary Rivera MD Cholesterol.total/ Cholesterol in HDL [Mass ratio] 6.4 {ratio} High <5 [facility] Comment on above: Performed By: #### L ACTIC, SED, SILVESTRE, BMPX, MG, GLYHGB, CDP #### [facility] [employer] [address] [place] [phone] Ironer Hand: Zachary Rivera MD Triglyceride [Mass/Vol] 147 mg/dL Normal <150 [facility] Comment on above: Result Comment: Triglyceride Guidelines: <150 Desirable 150-199 Borderline 200-499 High >499 Very high Based on AHA Guidelines for fasting triglyceride, December 2011. Performed By: #### L ACTIC, SED, SILVESTRE, BMPX, MG, GLYHGB, CDP #### [facility] [employer] [address] [place] [phone] Ironer Hand: Zachary Rivera MD Liver Profileon 05-04-2023 Albumin [Mass/Vol] 2.5 g/dL Low 3.5-5.2 [facility] Comment on above: Performed By: #### L ACTIC, SED, SILVESTRE, BMPX, MG, GLYHGB, CDP #### [facility] [employer] [address] [place] [phone] Ironer Hand: Zachary Rivera MD Alkaline Phos 91 U/L Normal 35-104 [facility] Comment on above: Performed By: #### L ACTIC, SED, SILVESTRE, BMPX,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
--- NOTE | 2023-05-17 10:50 | US_ITS ---
The [address] [address] Patient Name: APARNA LAZCANO MRN: [id number] date: 1965 Sex: F Assigned Patient Location: [place] Current Patient Location: [place] Accession/Order Number: [id number] Exam Date: 05/17/2023 11:00 Report Date: 05/17/2023 12:16 At the request of: PANCHO HINOJOSA Procedure: US right upper quadrant EXAMINATION: US right upper quadrant HISTORY: acute pancreatitis K85.90 COMPARISON: No relevant comparison available. TECHNIQUE: Transabdominal evaluation of the right upper quadrant. FINDINGS: LIVER: Normal size and echotexture. Color Doppler demonstrates patent hepatic veins. PORTAL VEIN: Duplex Doppler demonstrates normal hepatopetal flow pattern and main portal vein with flow velocity averaging [36 cm/s. GALLBLADDER: No visible gallstones, wall thickening, or pericholecystic free fluid. Negative sonographic Deleon's sign. BILIARY: Mildly dilated, 7 mm. No appreciable stones or mass. PANCREASE: Contains a 1.4 x 1.4 x 1.1 cm poorly marginated predominantly anechoic structure within the uncinate process. No abnormal duct dilation. KIDNEY: No hydronephrosis. No visible mass or stones. Size: 10.0 x 5.9 x 5.2 cm US/US right upper quadrant IMPRESSION: 1. Moderate amount of ascites within right upper quadrant. 2. Patient's main portal vein. 3. No appreciable abnormal echogenicity of the liver, mass, fluid collection. 4. Complex cyst versus partially cystic mass within the uncinate process of pancreas. Nonspecific, but not appreciably changed in size compared to prior CT study. MRI of the abdomen is recommended for further evaluation. No findings to suggest acute pancreatitis. Electronically authenticated by: TUCKER OCAMPO Date: 05/17/2023 12:16
[2023-05-17 12:02] LABS: Basophils Absolute Auto 0.1 10^3/uL (0.0-0.1); Basophils Percent Auto 0.9 % (0.2-2.0); Eosinophils Absolute Auto 0.2 10^3/uL (0.0-0.7); Eosinophils Percent Auto 2.1 % (0.9-7.0); Hematocrit 41.8 % (36.0-48.0); Hemoglobin 13.2 g/dL (12.0-16.0); Immature Granulocytes Abs Auto 0.03 10^3/uL (0.00-0.03); Immature Granulocytes Pct Auto 0.3 % (0.0-0.5); Lymphocytes Percent Auto 19.4 % (20.5-60.0); Mean Corpuscular HGB Conc 31.6 g/dL (29.9-35.2); Mean Corpuscular Hemoglobin 29.7 pg (26.7-34.0); Mean Corpuscular Volume 93.9 fL (81.0-99.0); Mean Platelet Volume 9.9 fL (9.5-13.5); Monocytes Absolute Auto 0.7 10^3/uL (0.3-0.8); Monocytes Percent Auto 6.9 % (1.7-12.0); Neutrophils Absolute Auto 7.1 10^3/uL (1.4-6.5); Neutrophils Percent Auto 70.4 % (43.0-75.0); Platelet Count 495 10^3/uL (150-450); Red Blood Count 4.45 10^6/uL (4.20-5.40); Red Cell Distribution Width 14.8 % (11.0-15.0); White Blood Count 10.1 10^3/uL (4.0-11.0)
[2023-05-17 12:02] LABS: Ammonia 13 umol/L (11-32)
[2023-05-17 13:12] LABS: Alanine Aminotransferase 17 U/L (14-59); Albumin Globulin Ratio 0.6; Albumin Level 2.2 g/dL (3.4-5.0); Alkaline Phosphatase 88 U/L (46-116); Anion Gap 13.3; Aspartate Amino Transferase 26 U/L (15-37); Bilirubin Total 0.3 mg/dL (0.2-1.0); Calcium 8.3 mg/dL (8.5-10.1); Carbon Dioxide 26.5 mmol/L (21.0-32.0); Chloride 106 mmol/L (98-107); Estimated GFR (African America >60 (>=60); Estimated GFR (Non-African Ame >60 (>=60); Globulin 3.8 g/dL; Glucose 79 mg/dL (74-106); Potassium 3.8 mmol/L (3.5-5.1); Sodium 142 mmol/L (136-145)
[2023-05-17 13:42] LABS: Amylase 1631 U/L (25-115)
== END 2023-05-17 10:42 | disposition home or self-care (01) ==
LOC: US 10:43
PROVIDERS: PCP Family Medicine; Visit Provider Family Medicine
DX: K85.90 Acute pancreatitis without necrosis or infection, unspecified (principal); K86.1 Other chronic pancreatitis; R18.8 Other ascites
CPT/HCPCS: 76705; 80053; 82140; 82150; 83690; 85025; 85610; 85730

== ENCOUNTER 2023-05-17 16:00 | Inpatient (IN) | payer OTHER, SELFPAY ==
[2023-05-17 16:44] VITALS: BP 129/75; BP 134/77; PULSE 84; PULSE 89; RESP 14; RESP 18; TEMP 36.7; TEMP 36.8; O2SAT 92; O2SAT 95; BMI 17.6
[2023-05-17 18:13] LABS: Basophils Absolute Auto 0.1 10^3/uL (0.0-0.1); Basophils Percent Auto 0.6 % (0.2-2.0); Eosinophils Absolute Auto 0.3 10^3/uL (0.0-0.7); Eosinophils Percent Auto 2.5 % (0.9-7.0); Hematocrit 39.4 % (36.0-48.0); Hemoglobin 12.5 g/dL (12.0-16.0); Immature Granulocytes Abs Auto 0.05 10^3/uL (0.00-0.03); Immature Granulocytes Pct Auto 0.5 % (0.0-0.5); Lymphocytes Absolute Auto 1.8 10^3/uL (1.2-3.8); Lymphocytes Percent Auto 16.8 % (20.5-60.0); Mean Corpuscular HGB Conc 31.7 g/dL (29.9-35.2); Mean Corpuscular Hemoglobin 30.2 pg (26.7-34.0); Mean Corpuscular Volume 95.2 fL (81.0-99.0); Mean Platelet Volume 9.9 fL (9.5-13.5); Monocytes Absolute Auto 0.8 10^3/uL (0.3-0.8); Monocytes Percent Auto 7.6 % (1.7-12.0); Neutrophils Absolute Auto 7.5 10^3/uL (1.4-6.5); Platelet Count 520 10^3/uL (150-450); Red Blood Count 4.14 10^6/uL (4.20-5.40); Red Cell Distribution Width 14.8 % (11.0-15.0); White Blood Count 10.5 10^3/uL (4.0-11.0)
[2023-05-17 18:23] LABS: Ammonia 22 umol/L (11-32)
[2023-05-17] MEDS: HYDROMORPHONE HCL 0.5 MG/0.5 ML SYRINGE IV ×2 (18:27→22:37)
[2023-05-17] MEDS: DEXTROSE 5%-0.9% NACL 1,000 ML 1,000 ML 100 ML IV (18:27)
[2023-05-17] MEDS: HYOSCYAMINE SULFATE 0.125 MG TAB.SUBL 0.25 MG SL ×2 (18:27→21:49)
[2023-05-17 18:30] LABS: Lactate/Lactic Acid 1.5 mmol/L (0.4-2.0)
[2023-05-17 18:34] LABS: Alanine Aminotransferase 18 U/L (14-59); Albumin Globulin Ratio 0.6; Albumin Level 2.1 g/dL (3.4-5.0); Alkaline Phosphatase 85 U/L (46-116); Anion Gap 12.7; Aspartate Amino Transferase 23 U/L (15-37); BUN Creatinine Ratio 24.4; Bilirubin Total 0.3 mg/dL (0.2-1.0); Calcium 8.1 mg/dL (8.5-10.1); Carbon Dioxide 24.9 mmol/L (21.0-32.0); Chloride 107 mmol/L (98-107); Estimated GFR (African America >60 (>=60); Estimated GFR (Non-African Ame >60 (>=60); Globulin 3.5 g/dL; Glucose 120 mg/dL (74-106); Magnesium 1.6 mg/dL (1.8-2.4); Potassium 3.6 mmol/L (3.5-5.1); Sodium 141 mmol/L (136-145); Total Protein 5.6 g/dL (6.4-8.2)
[2023-05-17 18:50] LABS: Amylase 1614 U/L (25-115)
[2023-05-17 19:34] VITALS: BP 117/76; PULSE 76; RESP 20; TEMP 36.7; O2SAT 95
[2023-05-17 19:56] VITALS: O2SAT 94
[2023-05-17] MEDS: APIXABAN 5 MG TABLET PO (21:49)
[2023-05-17 23:12] VITALS: BP 134/69; PULSE 91; RESP 20; TEMP 36.3; O2SAT 91
[2023-05-18] VITALS (8 sets, daily range): BP systolic 131–156; BP diastolic 80–88; PULSE 79–102; RESP 16–20; TEMP 36.5–36.7; O2SAT 93–100
[2023-05-18 00:34] LABS: Partial Thromboplastin Time 29.1 sec (22.3-36.2)
[2023-05-18 00:35] LABS: INR 1.1
[2023-05-18] MEDS: HYDROMORPHONE HCL 0.5 MG/0.5 ML SYRINGE IV ×2 (03:18→08:02)
[2023-05-18] MEDS: DEXTROSE 5%-0.9% NACL 1,000 ML 1,000 ML 100 ML IV ×3 (03:24→23:10)
[2023-05-18 04:57] LABS: Basophils Absolute Auto 0.1 10^3/uL (0.0-0.1); Basophils Percent Auto 0.9 % (0.2-2.0); Eosinophils Absolute Auto 0.3 10^3/uL (0.0-0.7); Eosinophils Percent Auto 3.6 % (0.9-7.0); Hemoglobin 11.3 g/dL (12.0-16.0); Immature Granulocytes Abs Auto 0.03 10^3/uL (0.00-0.03); Immature Granulocytes Pct Auto 0.4 % (0.0-0.5); Lymphocytes Percent Auto 22.8 % (20.5-60.0); Mean Corpuscular HGB Conc 31.4 g/dL (29.9-35.2); Mean Corpuscular Hemoglobin 29.8 pg (26.7-34.0); Mean Platelet Volume 9.6 fL (9.5-13.5); Monocytes Absolute Auto 0.8 10^3/uL (0.3-0.8); Monocytes Percent Auto 8.8 % (1.7-12.0); Neutrophils Absolute Auto 5.5 10^3/uL (1.4-6.5); Neutrophils Percent Auto 63.5 % (43.0-75.0); Platelet Count 462 10^3/uL (150-450); Red Blood Count 3.79 10^6/uL (4.20-5.40); Red Cell Distribution Width 14.8 % (11.0-15.0); White Blood Count 8.6 10^3/uL (4.0-11.0)
[2023-05-18 05:22] LABS: Alanine Aminotransferase 12 U/L (14-59); Albumin Globulin Ratio 0.5; Albumin Level 1.7 g/dL (3.4-5.0); Alkaline Phosphatase 76 U/L (46-116); Anion Gap 7.7; Aspartate Amino Transferase 20 U/L (15-37); BUN Creatinine Ratio 53.1; Bilirubin Total 0.2 mg/dL (0.2-1.0); Carbon Dioxide 22.8 mmol/L (21.0-32.0); Chloride 111 mmol/L (98-107); Estimated GFR (African America >60 (>=60); Estimated GFR (Non-African Ame >60 (>=60); Globulin 3.4 g/dL; Glucose 119 mg/dL (74-106); Potassium 3.5 mmol/L (3.5-5.1); Sodium 138 mmol/L (136-145); Total Protein 5.1 g/dL (6.4-8.2)
[2023-05-18 05:29] LABS: Ammonia 54 umol/L (11-32); Amylase 1651 U/L (25-115)
[2023-05-18] MEDS: HYOSCYAMINE SULFATE 0.125 MG TAB.SUBL 0.25 MG SL ×4 (06:03→21:02)
[2023-05-18] MEDS: APIXABAN 5 MG TABLET PO ×2 (08:02→21:02)
[2023-05-18] MEDS: PANTOPRAZOLE SODIUM 40 MG VIAL IV (08:02)
[2023-05-18] MEDS: GABAPENTIN 300 MG CAPSULE PO ×2 (08:02→21:02)
--- NOTE | 2023-05-18 08:42 | P.PN_ITS ---
Progress Note: Subjective Subjective Interval history: Pain persisting this morning. Some nausea no vomiting. Exam Constitutional Vital Signs, click to edit/add: Last Vital Signs Temp 97.8 F 05/18/23 03:26 Pulse 81 05/18/23 03:26 Resp 20 05/18/23 03:26 BP 156/86 H 05/18/23 03:26 Pulse Ox 93 L 05/18/23 03:26 O2 Del Method Room Air 05/18/23 04:55 Documenting provider has reviewed patient's vital signs: yes Common normals: apparent distress (Mild painful distress, just had dose) Chest Common normals: inspection of chest normal Cardio Common normals: regular rate and regular rhythm GI Common normals: Normal to inspection, nondistended, normoactive bowel sounds present, soft to palpation and no masses; tender Palpation: tender (Diffusely tender, moderate, no rebound) Extremity Common normals: abnormal to inspection (Trace edema) Progress Note: Objective Labs Labs: Short CBC 05/17/23 05/18/23 Range/Units 18:03 04:44 WBC 10.5 8.6 (4.0-11.0) 10^3/uL Hgb 12.5 11.3 L (12.0-16.0) g/dL Hct 39.4 36.0 (36.0-48.0) % Plt Count 520 H 462 H (150-450) 10^3/uL BMP 05/17/23 05/18/23 18:03 04:44 Sodium 141 138 Potassium 3.6 3.5 Chloride 107 111 H Carbon Dioxide 24.9 22.8 BUN 19.0 H 17.0 Creatinine 0.78 0.32 L Glucose 120 H 119 H Calcium 8.1 L 8.0 L Liver Function 05/17/23 05/18/23 Range/Units 18:03 04:44 Total Bilirubin 0.3 0.2 (0.2-1.0) mg/dL AST 23 20 (15-37) U/L ALT 18 12 L (14-59) U/L Alkaline Phosphatase 85 76 (46-116) U/L Albumin 2.1 L 1.7 L (3.4-5.0) g/dL Progress Note: A&P Assessment and Plan (1) Portal vein thrombosis: (2) Pancreatitis: (3) Abdominal pain, acute: Plan Patient is seen and valuated in the office 1 day prior to admission with increasing abdominal pain. He has a recent discharge from outside facility for portal vein thrombosis and acute pancreatitis. With her pain persisting we elected to repeat her labs and ultrasound. The ultrasound still shows persistent fluid around the pancreas, amylase and lipase significantly elevated. Patient was brought into the office for admission. Repeat labs deteriorated throughout the course of the day yesterday. So acute pancreatitis with failed outpatient treatment. Will need to change patient to inpatient status is pancreatic markers are elevated today. Lipase is slightly better. But ammonia is higher. We discussed case with pancreatologist Thrombocythemia-monitor daily likely as an inflammatory marker from the above Hyperammonemia-no altered mental status, so no symptoms with that we will monitor daily and hold off on oral treatments at this time. Iron deficiency anemia-monitor daily Severe protein calorie malnutrition-May need TPN Acute DVT of inferior vena cava-continue patient on oral Eliquis L Initially placed in observation status as a presumed n.p.o. overnight with delays to improve her amylase and lipase to the point that her pain control will be able to be discharged home today. That is failed. I am anticipating a 2-3 more day hospital stay with no improvement initial treatment. Medically necessary treatment for deteriorating pancreatitis.
--- NOTE | 2023-05-18 09:34 | CM.NOTE ---
Rounds made with Dr. He. Dr. He discussing lab findings with Jhoana. Ms. Coleman verbalizes understanding.
[2023-05-18] MEDS: HYDROMORPHONE HCL 1 MG/ML CARTRIDGE IV ×3 (12:22→20:38)
[2023-05-19 00:43] LABS: Bilirubin Urine SMALL (NEGATIVE); Blood Urine SMALL (NEGATIVE); Clarity Urine CLEAR (CLEAR); Color Urine DK. YELLOW (YELLOW); Glucose Urine UA NEGATIVE (NEGATIVE); Ketones Urine NEGATIVE (NEGATIVE); Leukocyte Esterase Urine NEGATIVE (NEGATIVE); Nitrite Urine NEGATIVE (NEGATIVE); Protein Urine 30 mg/dL (NEG/TRACE); Specific Gravity Urine >=1.030 (1.005-1.025); pH Urine 6.5 (5.0-9.0)
[2023-05-19 00:52] LABS: Bacteria Urine SMALL #/HPF (NONE SEEN); Cast Seen? NONE SEEN #/LPF (NONE SEEN); Crystals Seen? None Seen #/HPF (None Seen); Mucus Urine LARGE (NONE SEEN); RBC Urine 0-2 #/HPF (0-2); Squamous Epithelial Cell Urine RARE #/LPF (NONE/RARE); Urine Culture Indicated ALREADY ORDERED
[2023-05-19 04:00] VITALS: BP 144/79; PULSE 93; RESP 16; TEMP 36.7; O2SAT 94
[2023-05-19] MEDS: HYDROMORPHONE HCL 1 MG/ML CARTRIDGE IV ×2 (04:00→09:03)
[2023-05-19 05:00] VITALS: O2SAT 91
[2023-05-19 05:10] LABS: Basophils Absolute Auto 0.1 10^3/uL (0.0-0.1); Basophils Percent Auto 0.8 % (0.2-2.0); Eosinophils Absolute Auto 0.3 10^3/uL (0.0-0.7); Eosinophils Percent Auto 4.1 % (0.9-7.0); Hematocrit 35.8 % (36.0-48.0); Hemoglobin 11.3 g/dL (12.0-16.0); Immature Granulocytes Abs Auto 0.03 10^3/uL (0.00-0.03); Immature Granulocytes Pct Auto 0.4 % (0.0-0.5); Lymphocytes Absolute Auto 1.8 10^3/uL (1.2-3.8); Lymphocytes Percent Auto 22.4 % (20.5-60.0); Mean Corpuscular HGB Conc 31.6 g/dL (29.9-35.2); Mean Corpuscular Hemoglobin 30.4 pg (26.7-34.0); Mean Corpuscular Volume 96.2 fL (81.0-99.0); Mean Platelet Volume 10.1 fL (9.5-13.5); Monocytes Absolute Auto 0.7 10^3/uL (0.3-0.8); Monocytes Percent Auto 9.2 % (1.7-12.0); Neutrophils Absolute Auto 4.9 10^3/uL (1.4-6.5); Neutrophils Percent Auto 63.1 % (43.0-75.0); Platelet Count 458 10^3/uL (150-450); Red Blood Count 3.72 10^6/uL (4.20-5.40); Red Cell Distribution Width 14.8 % (11.0-15.0); White Blood Count 7.8 10^3/uL (4.0-11.0)
[2023-05-19 05:19] LABS: Ammonia 22 umol/L (11-32)
[2023-05-19] MEDS: HYOSCYAMINE SULFATE 0.125 MG TAB.SUBL 0.25 MG SL ×2 (05:19→12:32)
[2023-05-19 05:26] LABS: Alanine Aminotransferase 14 U/L (14-59); Albumin Globulin Ratio 0.5; Albumin Level 1.6 g/dL (3.4-5.0); Alkaline Phosphatase 73 U/L (46-116); Aspartate Amino Transferase 19 U/L (15-37); BUN Creatinine Ratio 38.2; Bilirubin Total 0.3 mg/dL (0.2-1.0); Calcium 7.9 mg/dL (8.5-10.1); Carbon Dioxide 25.5 mmol/L (21.0-32.0); Chloride 111 mmol/L (98-107); Estimated GFR (African America >60 (>=60); Estimated GFR (Non-African Ame >60 (>=60); Globulin 3.3 g/dL; Glucose 111 mg/dL (74-106); Potassium 3.5 mmol/L (3.5-5.1); Sodium 141 mmol/L (136-145); Total Protein 4.9 g/dL (6.4-8.2)
[2023-05-19 05:57] LABS: Amylase 1533 U/L (25-115)
[2023-05-19 09:00] VITALS: BP 119/73; PULSE 85; RESP 18; TEMP 36.4; O2SAT 96
[2023-05-19] MEDS: APIXABAN 5 MG TABLET PO (09:02)
[2023-05-19] MEDS: DEXTROSE 5%-0.9% NACL 1,000 ML 1,000 ML 100 ML IV (09:02)
[2023-05-19] MEDS: GABAPENTIN 300 MG CAPSULE PO (09:02)
[2023-05-19] MEDS: PANTOPRAZOLE SODIUM 40 MG VIAL IV (09:02)
[2023-05-19 10:50] VITALS: O2SAT 96
--- NOTE | 2023-05-19 10:51 | P.DS_ITS ---
DS: Providers Provider Date of admission: 05/18/23 08:44 Primary care physician: Roberto He MD Consults: 05/17/23 Consult to Dietitian Routine Reason For Exam: recent weight loss Reason for consultation: recent weight loss DS: Diagnosis Discharge Diagnosis (1) Portal vein thrombosis: (2) Pancreatitis: (3) Abdominal pain, acute: Plan acute pancreatitis with failed outpatient treatment. Thrombocythemia Hyperammonemia Iron deficiency anemia Severe protein calorie malnutrition Acute DVT of inferior vena cava DS: Summary Hospital Course Hospital Course: Patient was seen and evaluated in the office with increasing abdominal pain, she was recently discharged from the hospital with acute pancreatitis with prominent thrombosis. We are still trying to track previous hospitalization labs when her pain became worse. Repeated labs urinary amylase lipase for 10 times normal, repeated on the day of admission was slightly worse. Replaced patient hospital for n.p.o. status, given IV fluids, patient also developed hyperammonemia. Liver profiles were normal. Amylase and lipase were slightly improved today. Initial plan was to maintain n.p.o. status for 3-4 more days. Patient states for the pain improved which she would like to try to do is to be discharged home and follow-up with me closely in the office on Sunday. Follow a strict no fat diet.. Nausea this is going to be a successful plan for her, but with close follow-up in the office on Sunday we can evaluate that again. Case was discussed with pancreatitis. Not likely will get at least an outpatient visit with him FERNIE on Sunday patient being discharged from inpatient status earlier than anticipated based on patient request. Time Spent with Patient Time attestation: Total time spent providing and/or coordinating discharge services: Time spent: greater than 30 minutes Exam Constitutional Vital Signs, click to edit/add: Last Vital Signs Temp 97.5 F L 05/19/23 09:00 Pulse 85 05/19/23 09:00 Resp 18 05/19/23 09:00 BP 119/73 05/19/23 09:00 Pulse Ox 96 05/19/23 10:50 O2 Del Method Room Air 05/19/23 10:50 Documenting provider has reviewed patient's vital signs: yes Common normals: apparent distress (Mild painful distress, just had dose) Chest Common normals: inspection of chest normal Cardio Common normals: regular rate and regular rhythm GI Common normals: Normal to inspection, nondistended, normoactive bowel sounds present, soft to palpation and no masses; tender Palpation: tender (Diffusely tender, moderate, no rebound) Extremity Common normals: abnormal to inspection (Trace edema) DS: Data Data Completed and Pending Labs on day of discharge: Labs from last 24 hours 05/19/23 05/18/23 04:51 23:48 WBC 7.8 RBC 3.72 L Hgb 11.3 L Hct 35.8 L MCV 96.2 MCH 30.4 MCHC 31.6 RDW 14.8 Plt Count 458 H MPV 10.1 Neut % (Auto) 63.1 Lymph % (Auto) 22.4 [place] % (Auto) 9.2 Eos % (Auto) 4.1 Baso % (Auto) 0.8 Neut # (Auto) 4.9 Lymph # (Auto) 1.8 [place] # (Auto) 0.7 Eos # (Auto) 0.3 Baso # (Auto) 0.1 Abs Immat Gran (auto) 0.03 Imm/Tot Granulo (auto) 0.4 Sodium 141 Potassium 3.5 Chloride 111 H Carbon Dioxide 25.5 Anion Gap 8.0 BUN 13.0 Creatinine 0.34 L Est GFR ( Amer) >60 Est GFR (Non-Af Amer) >60 BUN/Creatinine Ratio 38.2 Glucose 111 H Calcium 7.9 L Total Bilirubin 0.3 AST 19 ALT 14 Alkaline Phosphatase 73 Ammonia 22 Total Protein 4.9 L Albumin 1.6 L Globulin 3.3 Albumin/Globulin Ratio 0.5 Amylase 1533 H* Lipase 806.0 H Urine Color Dk. yellow Urine Clarity Clear Urine pH 6.5 Ur Specific [place] >=1.030 A Urine Protein 30 A Urine Glucose (UA) Negative Urine Ketones Negative Urine Occult Blood Small A Urine Nitrite Negative Urine Bilirubin Small A Urine Urobilinogen 1.0 Ur Leukocyte Esterase Negative Urine RBC 0-2 Urine WBC 2-5 A Ur Squamous Epith Cells Rare Urine Crystals None seen Urine Bacteria Small A Urine Casts None seen Urine Mucus Large A Ur Culture Indicated? Already ordered Discharge Plan Discharge Disposition: Home, Self-Care Discharge Medications: New hyoscyamine sulfate 0.125 mg Tablet, Sublingual 0.25 mg sublingual QID Qty: 60 0RF Continued hydrocodone-acetaminophen 5-325 mg tablet 1 tab PO Q4H PRN (Reason: pain) Qty: 8 0RF gabapentin 300 mg capsule 300 mg PO Q12H aspirin 81 mg tablet,delayed release (DR/EC) 81 mg PO DAILY Eliquis 5 mg tablet 5 mg PO Q12H atorvastatin 40 mg tablet 40 mg PO BEDTIME pantoprazole 40 mg tablet,delayed release (DR/EC) 40 mg PO DAILY Forms: Portal Instructions
--- NOTE | 2023-05-21 14:00 | CM.DCFOLLOWU ---
05/20-1st attempt. No answer
--- NOTE | 2023-05-23 14:47 | CM.DCFOLLOWU ---
05/22- 2nd attempt. No answer
--- NOTE | 2023-05-24 15:21 | CM.DCFOLLOWU ---
Person spoke with: Jhoana How are you feeling? Starting to feel better and swelling is going down How is your pain? No pain Did you understand your discharge instructions? Yes Do you have any questions about your discharge instructions? No Were you given any prescriptions at discharge? Yes Were you able to get your prescriptions filled? Yes Do you understand how to take your medications as ordered? Yes Do you have any questions about your follow up appointment and do you plan to keep your follow up appointment? Already had f/u appt Is there anything else that you would like to discuss? No Questions/Comments/Concerns/Other:
== END 2023-05-19 13:28 | disposition home or self-care (01) | DRG 282 ==
PROVIDERS: Admitting Provider Family Medicine; PCP Family Medicine; Visit Provider Family Medicine
DX: K85.90 Acute pancreatitis without necrosis or infection, unspecified (principal); K86.1 Other chronic pancreatitis; R18.8 Other ascites; I82.220 Acute embolism and thrombosis of inferior vena cava; E86.0 Dehydration; F17.210 Nicotine dependence, cigarettes, uncomplicated; D75.839 Thrombocytosis, unspecified; E72.20 Disorder of urea cycle metabolism, unspecified; D50.9 Iron deficiency anemia, unspecified; E43 Unspecified severe protein-calorie malnutrition; Z68.1 Body mass index [BMI] 19.9 or less, adult; M54.50 Low back pain, unspecified; G89.29 Other chronic pain; Z98.1 Arthrodesis status; Z82.49 Family history of ischemic heart disease and other diseases of the circulatory system; Z79.82 Long term (current) use of aspirin; Z79.899 Other long term (current) drug therapy; Z79.01 Long term (current) use of anticoagulants; Z82.3 Family history of stroke
CPT/HCPCS: 36415; 76705; 80053; 81001; 82140; 82150; 83605; 83690; 83735; 85025; 85610; 85730; 87086; 94667; 94668; 94761; 96374; 96375; 96376; G0378; J1170

== ENCOUNTER 2023-05-21 13:31 | Outpatient (OUT) | payer OTHER, SELFPAY ==
[2023-05-21 14:00] LABS: Basophils Absolute Auto 0.1 10^3/uL (0.0-0.1); Eosinophils Absolute Auto 0.2 10^3/uL (0.0-0.7); Hemoglobin 11.7 g/dL (12.0-16.0); Immature Granulocytes Abs Auto 0.02 10^3/uL (0.00-0.03); Immature Granulocytes Pct Auto 0.2 % (0.0-0.5); Lymphocytes Absolute Auto 1.6 10^3/uL (1.2-3.8); Lymphocytes Percent Auto 19.4 % (20.5-60.0); Mean Corpuscular HGB Conc 32.5 g/dL (29.9-35.2); Mean Corpuscular Hemoglobin 30.5 pg (26.7-34.0); Mean Platelet Volume 9.9 fL (9.5-13.5); Monocytes Absolute Auto 0.7 10^3/uL (0.3-0.8); Monocytes Percent Auto 8.7 % (1.7-12.0); Neutrophils Absolute Auto 5.6 10^3/uL (1.4-6.5); Neutrophils Percent Auto 68.7 % (43.0-75.0); Platelet Count 458 10^3/uL (150-450); Red Blood Count 3.83 10^6/uL (4.20-5.40); Red Cell Distribution Width 14.4 % (11.0-15.0); White Blood Count 8.2 10^3/uL (4.0-11.0)
[2023-05-21 14:05] LABS: Ammonia 16 umol/L (11-32)
[2023-05-21 14:26] LABS: Alanine Aminotransferase 17 U/L (14-59); Albumin Globulin Ratio 0.5; Alkaline Phosphatase 89 U/L (46-116); Anion Gap 11.1; Aspartate Amino Transferase 24 U/L (15-37); BUN Creatinine Ratio 27.7; Bilirubin Total 0.4 mg/dL (0.2-1.0); Calcium 8.3 mg/dL (8.5-10.1); Carbon Dioxide 26.5 mmol/L (21.0-32.0); Chloride 106 mmol/L (98-107); Estimated GFR (African America >60 (>=60); Estimated GFR (Non-African Ame >60 (>=60); Globulin 3.7 g/dL; Glucose 75 mg/dL (74-106); Potassium 3.6 mmol/L (3.5-5.1); Sodium 140 mmol/L (136-145); Total Protein 5.7 g/dL (6.4-8.2)
[2023-05-21 14:33] LABS: Amylase 1442 U/L (25-115)
== END 2023-05-21 13:32 | disposition home or self-care (01) ==
LOC: LAB 13:31
PROVIDERS: PCP Family Medicine; Visit Provider Family Medicine
DX: K85.90 Acute pancreatitis without necrosis or infection, unspecified (principal); K86.1 Other chronic pancreatitis; K85.00 Idiopathic acute pancreatitis without necrosis or infection
CPT/HCPCS: 36415; 80053; 82140; 82150; 83690; 85025

== ENCOUNTER 2023-05-30 12:49 | Outpatient (OUT) | payer OTHER, SELFPAY ==
--- OUTSIDE RECORDS SUMMARY | 2023-05-30 12:58 | XMS_ITS | CCD ---
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 Name Role Phone Unavailable Primary Care Provider Unavailabl e MISC, DR HILARIO Primary Care Unavailable ZIEBAIDA, DR TUCKER Dobson Consulting Unavailable HIGHLANDER, LEIGHANN Chavez Attending Unavailable HIGHLANDER, PETER Kathy Admitting Unavailable HIGHLANDER, LEIGHANN Chavez Consulting Unavailable MISC, DR HILARIO Primary Care Unavailable NANDO ISABEL Admitting Unavailable CHALO, NANDO Attending Unavailable MISC, DR HILARIO Primary Care Unavailable HIGHLANDER, LEIGHANN Chavez Attending Unavailable HIGHLANDER, PETER D Admitting Unavailable ZIEBER, DR TUCKER Dobson Consulting Unavailable HIGHLANDERLEIGHANN Consulting Unavailable MISC, DR HILARIO Primary Care Unavailable TEREZA ., GUILLE Attending Unavailable TEREZA ., GUILLE Admitting Unavailable WEST, DR VEENA Dhillon Consulting Unavailable YAROSH .GOGO Consulting Unavailable HAY ., DR BATISTA Attending Unavailable MISC, DR HILARIO Primary Care Unavailable HAY ., DR BATISTA Admitting Unavailable HAY ., DR BATISTA Consulting Unavailable GELBART, GOGO Consulting Unavailable DIAB ., MCKENNA Attending Unavailable GELBARTGOGO Consulting Unavailable DIAB ., MCKENNA Admitting Unavailable HOY ., DR DELEON Primary Care Unavailable DIAB ., MCKENNA Consulting Unavailable MISC, DR HILARIO Primary Care Unavailable NANDO ISABEL Admitting Unavailable CHALONANDO DE LA CRUZ Attending Unavailable WEST, DR VEENA Dhillon Consulting Unavailable CHALO, NANDO Consulting Unavailable CHALO, NANDO Admitting Unavailable MISC, DR HILARIO Primary Care Unavailable CHALO, NANDO Attending Unavailable WEST, DR VEENA Dhillon Consulting Unavailable NANDO ISABEL Consulting Unavailable MISC, DR HILARIO Primary Care Unavailable ZIEBER, DR TUCKER Dobson Consulting Unavailable CHALO, NANDO Admitting Unavailable CHALO, NANDO Attending Unavailable CHALO, NANDO Consulting Unavailable MAMMO, CARMELO A Attending Unavailable SELF Referring Unavailable KEISHA COSME Referring Unavailable MAMMO, CARMELO Perdomo Referring Unavailable MAMMO, CARMELO Perdomo Attending Unavailable MAMMO, CARMELO Perdomo Attending Unavailable MAMMO, CARMELO A Attending Unavailable TUCKER SCHAEFER Attending Unavailable Roberto He Attending Unavailable Roberto He Admitting Unavailable WILLY ANTUNEZ Referring Unavailable DENA VOGT Admitting Unavailable THONG YATES Attending Unavailable CAM LEYVA Consulting Unavailable DEB GONZALEZ Consulting UnavailTIA Bergman Consulting Unavailable EVELYN DELANEY [...] Comment on above: Take 1 capsule by [facility] twice daily. benoxinate hydrochloride 4 mg/ml / [...] eye, initial encounter] Onset: 05-03-2023 Episodic Other aftercare (2 sources) nursing home (current) use of aspirin; Translations: [ferry terminal agent (current) use of aspirin] Onset: 05-18-2023 Episodic Other eye disorders (3 sources) Posterior [...] Test Name Value Interpretation Reference Range Facility CALR Exon 9 Mut. Analyson CALR,SOURCE .BLOOD Normal [facility] Comment on above: Performed By: #### L ACTIC, SED, SILVESTRE, BMPX, MG, GLYHGB, CDP #### [facility] [address] [place] [address] Grades 1 Thru 6 Visiting Teacher: Zachary Rivera MD JAK2 V617F Qual w/ Rflxon JAK2 mutation (NOTE) Normal [facility] Comment on above: Result Comment: Ludivina ent: JHOANA LAZCANO : 1965 Sex: Female Patient Identifiers: [id number] Visit Number (FIN): [id number] Collection Date: 05/03/2023 10:50:00 PM PHYSICIAN: TIA STEVENS JAK2 (V617F) Mutation by ddPCR, Qualitative With Reflex to CALR (Calreticulin) Exon 9 Mutation Analysis by PCR and MPL Mutation Detection ILUP test code [id number] JAK2 QUAL, Source Whole Blood - - - - - - - - - - - - - - - - - - - - - - - - - - - - - - JAK2 QUAL Mutation by PCR Not Detected There is no evidence of the JAK2 V617F point mutation by ddPCR analysis. This result does not entirely exclude the possibility of a JAK2 V617F mutation below the test limit of detection. CALR testing will be performed. Additional charges will apply. MPL testing will be performed. Additional charges will apply. This result has been reviewed and approved by Veena Beyer M.D. INTERPRETIVE INFORMATION: JAK2 (V617F) Mutation by ddPCR, Qualitative This assay is designed to detect the point mutation c.1849G>T (V617F) of the JAK2 gene. JAK2 V617F mutations are present in patients with myeloproliferative neoplasms. Methodology: DNA from whole blood or bone marrow specimens is amplified in an allele-specific droplet digital PCR (ddPCR) multiplex reaction targeting the JAK2 c.1849G>T single nucleotide mutation encoding the V617F mutation. The limit of detection for this assay is 0.5 percent mutated alleles. Limitations: Variants in genes other than JAK2 are not detected. JAK2 variants other than V617F (c.1849G>T) are not reported. Samples with JAK2 V617F mutations below the limit of detection are not reported. Results of this test must always be interpreted in the context of morphologic and other relevant data and should not be used alone for a diagnosis of malignancy. This test was developed and its performance characteristics determined by [facility]. It has not been cleared or approved by the U.S. Food and Drug Administration. This test was performed in a CLIA-certified laboratory and is intended for clinical purposes. - - - - - - - - - - - - - - - - - - - - Order comments JAK2 (V617F) Mutation by ddPCR, Qualitative With Reflex to CALR (Calreticulin) Exon 9 Mutation Analysis by PCR and MPL Mutation Detection [id number] (ETPMF RFX) Inactive Test Ordered by client and has been updated with test number [id number] (ETPMFRFX) CALR (Calreticulin) Exon 9 Mutation Analysis by PCR [employer] test code [id number] CALR, Source Whole Blood - - - - - - - - - - - - - - - - - - - - - - - - - - - - - - CALR Exon 9 Mutation Analysis - Result Not Detected A CALR exon 9 insertion/deletion mutation was not detected. This does not exclude the possibility of a CALR mutation that is not an exon 9 insertion/deletion. It also does not exclude the possibility of a CALR exon 9 insertion/deletion mutation below the assay limit of detection. This result has been reviewed and approved by Antwan Uriostegui M.D. Background Information: CALR (Calreticulin), Exon 9 Mutation Analysis by PCR This test is designed to detect CALR exon 9 insertion/deletion mutations. Insertion/deletion mutations in exon 9 of the CALR gene result in a frameshift and are found in the majority of cases of myeloproliferative neoplasms, essential thrombocythemia (ET), and primary myelofibrosis (PMF) that lack JAK2 V617F mutations. Methodology: Genomic DNA is isolated from either whole blood or bone marrow. PCR followed by capillary electrophoresis is performed to detect CALR exon 9 insertion/deletion mutations. Limitations: Mutations in other locations within the CALR gene or mutations in other genes will not be detected. The limit of detection for this test is 5 percent mutant alleles for canonical type 1 or 2-like variants and common noncanonical variants. The 1-bp deletion variant in Exon 9 cannot be detected or reported due to the limitation of the methods. Results of this test must always be interpreted within the clinical context and other relevant data and should not be used alone for a diagnosis of malignancy. This test was developed and its performance characteristics determined by [facility]. It has not been cleared or approved by the U.S. Food and Drug Administration. This test was performed in a CLIA-certified laboratory and is intended for clinical purposes. - - - - - - - - - - - - - - - - - - - - Order comments CALR (Calreticulin) Exon 9 Mutation Analysis by PCR [id number] (ETPMF RFX) Inactive Test Ordered by client and has been updated with test number [id number] (ETPMFRFX) MPL Mutation Detection by Capillary Electrophoresis [employer] test code [id number] MPL, Source Whole Blood - - - - - - - - - - - (more content not included)... Performed By: #### L ACTIC, SED, SILVESTRE, BMPX, MG, GLYHGB, CDP #### [place] [address] Grades 1 Thru 6 Visiting Teacher: Zachary Rivera MD CALR Exon 9 Mut. Analyson CALR Exon 9 Mutation Not detected Normal [facility] Comment on above: Result Comment: (NOT E) A CALR exon 9 insertion/deletion mutation was not detected. This does not exclude the possibility of a CALR mutation that is not an exon 9 insertion/deletion. It also does not exclude the possibility of a CALR exon 9 insertion/deletion mutation below the assay limit of detection. This result has been reviewed and approved by Antwan Uriostegui M.D. Background Information: CALR (Calreticulin), Exon 9 Mutation Analysis by PCR This test is designed to detect CALR exon 9 insertion/deletion mutations. Insertion/deletion mutations in exon 9 of the CALR gene result in a frameshift and are found in the majority of cases of myeloproliferative neoplasms, essential thrombocythemia (ET), and primary myelofibrosis (PMF) that lack JAK2 V617F mutations. Methodology: Genomic DNA is isolated from either whole blood or bone marrow. PCR followed by capillary electrophoresis is performed to detect CALR exon 9 insertion/deletion mutations. Limitations: Mutations in other locations within the CALR gene or mutations in other genes will not be detected. The limit of detection for this test is 5 percent mutant alleles for canonical type 1 or 2-like variants and common noncanonical variants. The 1-bp deletion variant in Exon 9 cannot be detected or reported due to the limitation of the methods. Results of this test must always be interpreted within the clinical context and other relevant data and should not be used alone for a diagnosis of malignancy. This test was developed and its performance characteristics determined by [facility]. It has not been cleared or approved by the U.S. Food and Drug Administration. This test was performed in a CLIA-certified laboratory and is intended for clinical purposes. Performed By: [facility] [address] [place] [address] Career Placement Specialist: David Cosby MD, PhD CLIA Number: [id number] Performed By: #### L ACTIC, SED, SILVESTRE, BMPX, MG, GLYHGB, CDP #### [facility] [place] [address] Grades 1 Thru 6 Visiting Teacher: Zachary Rivera MD MPL Mutation Detectionon MPL Not detected Normal [facility] Comment on above: Result Comment: (NOT [...] developed and its performance characteristics determined by [facility]. It has not been cleared or approved by the US Food and Drug Administration. This test was performed in a CLIA certified laboratory and is intended for clinical purposes. Performed By: [facility] [address] [place] [id number] Career Placement Specialist: David Cosby MD, PhD CLIA Number: [id number] Performed By: #### L ACTIC, SED, SILVESTRE, BMPX, MG, GLYHGB, CDP #### [employer] [facility] [place] [address] Grades 1 Thru 6 Visiting Teacher: Zachary Rivera MD MPL,SOURCE Whole Blood Normal [facility] Comment on above: Performed By: #### L ACTIC, SED, SILVESTRE, BMPX, MG, GLYHGB, CDP #### [employer] [address] [place] [address] Grades 1 Thru 6 Visiting Teacher: Zachary Rivera MD JAK2 Gene Mut. Quanton 05-11 Source Not Provided Normal [facility] Comment on above: Result Comment: ANGÉLICA ECTED ON 05/10 AT 2232: PREVIOUSLY REPORTED 2154 Performed By: #### A JAK2 ####[facility] [address] [place] [address] Lab Director: Ozzy Tolliver MD#### CA125 ####[facility] [address] [place] [address] Lab Director: Zachary Rivera MD V617F Mutation, Qnt Not detected Normal [facility] Comment on above: Result Comment: (NOT [...] developed and its performance characteristics determined by [facility]. It has not been cleared or approved by the U.S> Food and Drug Administration. This test was performed in a CLIA-certified laboratory and is intended for clinical purposes. Performed By: [facility] [address] [address] [place] [address] Career Placement Specialist: David Cosby MD, PhD CLIA Number: [id number] Performed By: #### A JAK2 ####[facility] [place] [address] [facility] Director: Ozzy Tolliver MD#### CA125 ####[address] [address] Lab Director: Zachary Rivera MD V617F Mutation,percent 0.0 % Normal [facility] Comment on above: Performed By: #### A JAK2 ####[address] [id number] [facility] Director: Ozzy Tolliver MD#### CA125 ####[address] [address] Lab Director: Zachary Rivera MD Cult,Fluidon 05-10-2023 Cult,Fluid Specimen Description .ASCITIC FLUID Direct Exam MANY NEUTROPHILS NO ORGANISMS SEEN Gram stain made from cytocentrifuged specimen. Organisms and cells will be concentrated. Culture NO GROWTH 6 DAYS Report Status FINAL 05/10/2023 Normal [facility] Comment on above: Performed By: #### L ACTIC, SED, SILVESTRE, BMPX, MG, GLYHGB, CDP #### [address] [id number] Grades 1 Thru 6 Visiting Teacher: Zachary Rivera MD DAVON Screen w/reflexon 2023 DAVON Screen Negative Normal NEG [facility] Comment on above: Performed By: #### L ACTIC, SED, SILVESTRE, BMPX, MG, GLYHGB, CDP #### [address] [id number] Grades 1 Thru 6 Visiting Teacher: Zachary Rivera MD Anti-dsDNA 4.4 IU/mL Normal <10.0 [facility] Comment on above: Result Comment: Reference Range: <10.0 Negative 10.0-15.0 Equivocal >15.0 Positive Performed By: #### L ACTIC, SED, SILVESTRE, BMPX, MG, GLYHGB, CDP #### [facility] [address] [place] [address] Grades 1 Thru 6 Visiting Teacher: Zachary Rivera MD NGA Screen <0.1 Normal <0.7 [facility] Comment on above: Result Comment: Reference Range: <0.7 Negative 0.7-1.0 Equivocal >1.0 Positive NGA Screen includes U1RNP,RNP70,Sm,Ro(SS-A),La(SS-B),CENP,Scl-70,Saray-1 Performed By: #### L ACTIC, SED, SILVESTRE, BMPX, MG, GLYHGB, CDP #### [facility] [address] [place] [address] Grades 1 Thru 6 Visiting Teacher: aZchary Rivera MD Amylase,Fluidon 05-07-2023 Amylase [Catalytic activity/Vol] [id number] U/L Normal [facility] Comment on above: Result Comment: Ther e are no normals for body fluid samples. Performed By: #### F RAFAEL ####[address] [address] Lab Director: Zachary Rivera MD Type of Specimen .CYST FLUID Normal [facility] Comment on above: Result Comment: PANC REATIC HEAD Performed By: #### F RAFAEL ####[facility] [address] [place] [address] Lab Director: Zachary Rivera MD CBC with Diffon 05-07-2023 Abs. Basophil 0.05 k/uL Normal 0.00-0.20 [facility] Comment on above: Performed By: #### H EPXA #### [address] [address] Grades 1 Thru 6 Visiting Teacher: Zachary Rivera MD Abs.Imm.Granulocyt e 0.04 k/uL Normal 0.00-0.30 [facility] Comment on above: Performed By: #### H EPXA #### [address] [address] Grades 1 Thru 6 Visiting Teacher: Zachary Rivera MD Abs.Neutrophil (Seg) 5.99 k/uL Normal 1.50-8.10 [facility] Comment on above: Performed By: #### H EPXA #### [place] [address] Grades 1 Thru 6 Visiting Teacher: Zachary Rivera MD Basophils/100 WBC (Bld) 1 % Normal 0-2 [facility] Comment on above: Performed By: #### H EPXA #### [place] [address] Grades 1 Thru 6 Visiting Teacher: Zachary Rivera MD Eosinophils (Bld) [#/Vol] 0.23 10*3/uL Normal 0.00-0.44 [facility] Comment on above: Performed By: #### H EPXA #### [place] [address] Grades 1 Thru 6 Visiting Teacher: Zachary Rivera MD Eosinophils/100 WBC (Bld) 3 % Normal 1-4 [facility] Comment on above: Performed By: #### H EPXA #### [place] [address] Grades 1 Thru 6 Visiting Teacher: Zachary Rivera MD Erythrocyte distribution width (RBC) [Ratio] 13.7 % Normal 11.8-14.4 [facility] Comment on above: Performed By: #### H EPXA #### [place] [address] Grades 1 Thru 6 Visiting Teacher: Zachary Rivera MD Hematocrit (Bld) [Volume fraction] 31.8 % Low 36.3-47.1 [facility] Comment on above: Performed By: #### H EPXA #### [address] [address] Grades 1 Thru 6 Visiting Teacher: Zachary Rivera MD Hemoglobin (Bld) [Mass/Vol] 10.5 g/dL Low 11.9-15.1 [facility] Comment on above: Performed By: #### H EPXA #### [address] [address] Grades 1 Thru 6 Visiting Teacher: Zachary Rivera MD Immature granulocytes/100 WBC (Bld) 0 % Normal 0 [facility] Comment on above: Performed By: #### H EPXA #### [address] [address] Grades 1 Thru 6 Visiting Teacher: Zachary Rivera MD Lymphocytes (Bld) [#/Vol] 1.96 10*3/uL Normal 1.10-3.70 [facility] Comment on above: Performed By: #### H EPXA #### [address] [address] Grades 1 Thru 6 Visiting Teacher: Zachary Rivera MD Lymphocytes/100 WBC (Bld) 21 % Low 24-43 [facility] Comment on above: Performed By: #### H EPXA #### [address] [address] Grades 1 Thru 6 Visiting Teacher: Zachary Rivera MD MCH (RBC) [Entitic mass] 30.7 pg Normal 25.2-33.5 [facility] Comment on above: Performed By: #### H EPXA #### [address] [address] Grades 1 Thru 6 Visiting Teacher: Zachary Rivera MD MCHC (RBC) [Mass/Vol] 33.0 g/dL Normal 28.4-34.8 [facility] Comment on above: Performed By: #### H EPXA #### [address] [address] Grades 1 Thru 6 Visiting Teacher: Zachary Rivera MD MCV (RBC) [Entitic vol] 93.0 fL Normal 82.6-102.9 [facility] Comment on above: Performed By: #### H EPXA #### [address] [address] Grades 1 Thru 6 Visiting Teacher: Zachary Rivera MD Monocytes (Bld) [#/Vol] 0.87 10*3/uL Normal 0.10-1.20 [facility] Comment on above: Performed By: #### H EPXA #### [address] [address] Grades 1 Thru 6 Visiting Teacher: Zachary Rivera MD Monocytes/100 WBC (Bld) 10 % Normal 3-12 [facility] Comment on above: Performed By: #### H EPXA #### [place] [address] Grades 1 Thru 6 Visiting Teacher: Zachary Rivera MD Neutrophil (Seg) 65 % Normal 36-65 [facility] Comment on above: Performed By: #### H EPXA #### [address] [address] Grades 1 Thru 6 Visiting Teacher: Zachary Rivera MD NRBC Automated 0.0 per 100 WBC Normal 0.0 [facility] Comment on above: Performed By: #### H EPXA #### [address] [address] Grades 1 Thru 6 Visiting Teacher: Zachary Rivera MD Platelet mean volume (Bld) [Entitic vol] 11.2 fL Normal 8.1-13.5 [facility] Comment on above: Performed By: #### H EPXA #### [address] [address] Grades 1 Thru 6 Visiting Teacher: Zachary Rivera MD Platelets (Bld) [#/Vol] 285 10*3/uL Normal 138-453 [facility] Comment on above: Performed By: #### H EPXA #### [address] [id number] Grades 1 Thru 6 Visiting Teacher: Zachary Rivera MD RBC (Bld) [#/Vol] 3.42 10*6/uL Low 3.95-5.11 [facility] Comment on above: Performed By: #### H EPXA #### [address] [address] Grades 1 Thru 6 Visiting Teacher: Zachary Rivera MD WBC (Bld) [#/Vol] 9.1 10*3/uL Normal 3.5-11.3 [facility] Comment on above: Performed By: #### H EPXA #### [address] [id number] Grades 1 Thru 6 Visiting Teacher: Zachary Rivera MD Celiac Disease Panelon 05-07 Gliadin Deam Pep IgA 0.9 U/mL Normal <7.0 [facility] Comment on above: Result Comment: CELIAC INTERPRETATION <7.0 Negative 7.0-10.0 Equivocal >10.0 Positive units: U/mL Performed By: #### L ACTIC, SED, SILVESTRE, BMPX, MG, GLYHGB, CDP #### [address] [id number] Grades 1 Thru 6 Visiting Teacher: Zachary Rivera MD Gliadin Deam Pep IgG <0.4 Normal <7.0 [facility] Comment on above: Result Comment: CELIAC INTERPRETATION <7.0 Negative 7.0-10.0 Equivocal >10.0 Positive units: U/mL Performed By: #### L ACTIC, SED, SILVESTRE, BMPX, MG, GLYHGB, CDP #### [address] [id number] Grades 1 Thru 6 Visiting Teacher: Zachary Rivera MD Tiss Transglutam IgA <0.1 Normal <7.0 [facility] Comment on above: Result Comment: CELIAC INTERPRETATION <7.0 Negative 7.0-10.0 Equivocal >10.0 Positive units: U/mL Performed By: #### L ACTIC, SED, SILVESTRE, BMPX, MG, GLYHGB, CDP #### [address] [address] Grades 1 Thru 6 Visiting Teacher: Zachary Rivera MD Comp Metabolic Pr/rfx MGon 0 - Bilirubin [Mass/Vol] mg/dL Low 0.3-1.2 [facility] Comment on above: Performed By: #### H EPXA #### [address] [address] Grades 1 Thru 6 Visiting Teacher: Zachary Rivera MD Potassium [Moles/Vol] 3.0 mmol/L Low 3.7-5.3 [facility] Comment on above: Performed By: #### H EPXA #### [address] [address] Grades 1 Thru 6 Visiting Teacher: Zachary Rivera MD Albumin [Mass/Vol] 2.5 g/dL Low 3.5-5.2 [facility] Comment on above: Performed By: #### H EPXA #### [address] [address] Grades 1 Thru 6 Visiting Teacher: Zachary Rivera MD Albumin/Glob Ratio 1.3 Normal 1.0-2.5 [facility] Comment on above: Performed By: #### H EPXA #### [address] [address] Grades 1 Thru 6 Visiting Teacher: Zachary Rivera MD Alkaline Phos 78 U/L Normal 35-104 [facility] Comment on above: Performed By: #### H EPXA #### [address] [address] Grades 1 Thru 6 Visiting Teacher: Zachary Rivera MD ALT [Catalytic activity/Vol] 10 U/L Normal 5-33 [facility] Comment on above: Performed By: #### H EPXA #### [address] [place] [address] Grades 1 Thru 6 Visiting Teacher: Zachary Rivera MD Anion gap [Moles/Vol] 7 mmol/L Low 9-17 [facility] Comment on above: Performed By: #### H EPXA #### [address] [address] Grades 1 Thru 6 Visiting Teacher: Zachary Rivera MD AST [Catalytic activity/Vol] 15 U/L Normal <32 [facility] Comment on above: Performed By: #### H EPXA #### [address] [address] Grades 1 Thru 6 Visiting Teacher: Zachary Rivera MD Calcium [Mass/Vol] 7.6 mg/dL Low 8.6-10.4 [facility] Comment on above: Performed By: #### H EPXA #### [address] [address] Grades 1 Thru 6 Visiting Teacher: Zachary Rivera MD Chloride [Moles/Vol] 110 mmol/L High 98-107 [facility] Comment on above: Performed By: #### H EPXA #### [address] [address] Grades 1 Thru 6 Visiting Teacher: Zachary Rivera MD CO2 [Moles/Vol] 19 mmol/L Low 20-31 [facility] Comment on above: Performed By: #### H EPXA #### [address] [address] Grades 1 Thru 6 Visiting Teacher: Zachary Rivera MD Creatinine [Mass/Vol] 0.3 mg/dL Low 0.5-0.9 [facility] Comment on above: Performed By: #### H EPXA #### [address] [address] Grades 1 Thru 6 Visiting Teacher: Zachary Rivera MD GFR/1.73 sq M.predicted among non-blacks MDRD (S/P/Bld) [Vol rate/Area] mL/min/{1.73_m2} Normal >60 [facility] Comment on above: Result Comment: These results [...] secretion. Performed By: #### H EPXA #### [facility] [address] [place] [address] Grades 1 Thru 6 Visiting Teacher: Zachary Rivera MD Glucose [Mass/Vol] 104 mg/dL High 70-99 [facility] Comment on above: Performed By: #### H EPXA #### [address] [address] Grades 1 Thru 6 Visiting Teacher: Zachary Rivera MD Protein [Mass/Vol] 4.5 g/dL Low 6.4-8.3 [facility] Comment on above: Performed By: #### H EPXA #### [facility] [address] [place] [address] Grades 1 Thru 6 Visiting Teacher: Zachary Rivera MD Sodium [Moles/Vol] 136 mmol/L Normal 135-144 [facility] Comment on above: Performed By: #### H EPXA #### [facility] [address] [place] [address] Grades 1 Thru 6 Visiting Teacher: Zachary Rivera MD Urea nitrogen [Mass/Vol] 2 mg/dL Low 6-20 [facility] Comment on above: Performed By: #### H EPXA #### [facility] [address] [place] [address] Grades 1 Thru 6 Visiting Teacher: Zachary Rivera MD Fluid Cell Count and Diffon 05-07-2023 Other Cells MONOCYTES AND MACROPHAGES Normal [facility] Comment on above: Result Comment: The reference range and other method performance specifications have not been established for this body fluid. The test result must be integrated into the clinical context for interpretation. Performed By: #### L ACTIC, SED, SILVESTRE, BMPX, MG, GLYHGB, CDP #### [facility] [address] [place] [address] Grades 1 Thru 6 Visiting Teacher: Zachary Rivera MD K (Potassium)on 05-07-2023 Potassium [Moles/Vol] 4.0 mmol/L Normal 3.7-5.3 [facility] Comment on above: Performed By: #### L ACTIC, SED, SILVESTRE, BMPX, MG, GLYHGB, CDP #### [facility] [address] [place] [address] Grades 1 Thru 6 Visiting Teacher: Zachary Rivera MD Magnesiumon 05-07-2023 Magnesium [Mass/Vol] 2.1 mg/dL Normal 1.6-2.6 [facility] Comment on above: Performed By: #### H EPXA #### [facility] [address] [place] [address] Grades 1 Thru 6 Visiting Teacher: Zachary Rivera MD Non-Battery Assembler Dry Cell Cytologyon 4 Case No: [id number] Normal [facility] Comment on above: Performed By: #### N TEST CENTER ADMINISTRATOR ####[address] [address] Lab Director: Zachary Rivera MD Specimen Description .CYST FLUID Normal [facility] Comment on above: Result Comment: PANC REATIC HEAD Performed By: #### N TEST CENTER ADMINISTRATOR ####[facility] [address] [place] [address] Lab Director: Zachary Rivera MD Case No: [id number] Normal [facility] Comment on above: Performed By: #### L ACTIC, SED, SILVESTRE, BMPX, MG, GLYHGB, CDP #### [facility] [address] [place] [address] Grades 1 Thru 6 Visiting Teacher: Zachary Rivera MD PTon 05-07-2023 INR Coag (PPP) [Relative time] 1.3 {INR} Normal [facility] Comment on above: Result Comment: Therapeutic Range: Moderate Anticoagulant Intensity: INR = 2.0-3.0 High Anticoagulant Intensity: INR = 2.5-3.5 Performed By: #### H EPXA #### [employer] [facility] [place], [place] [phone] Grades 1 Thru 6 Visiting Teacher: Zachary Rivera MD PT Coag (PPP) [Time] 15.6 s High 11.7-14.9 [facility] Comment on above: Performed By: #### H EPXA #### [employer] [facility] [place], [place] [phone] Grades 1 Thru 6 Visiting Teacher: Zachary Rivera MD Surgical Pathology Reporton 05-07-2023 Surgical Pathology Report (NOTE) Path Number: [id number] -- Diagnosis -- A. DUODENUM, BIOPSY:-SMALL BOWEL MUCOSA WITH NO SIGNIFICANT PATHOLOGIC ABNORMALITY. B. STOMACH, BIOPSY:-GASTRIC MUCOSA WITH MINIMAL CHRONIC INACTIVE GASTRITIS.-NO HELICOBACTER ORGANISMS BY ROSALVA STAIN. Alanis Caban Electronically Signed Out ag/05/08/2023 Clinical Information Pre-Op Diagnosis: EPIGASTRIC PAIN Operative Findings: DUODENUM BIOPSY; GASTRIC BX Operation Performed: EUS ESOPHAGOGASTRODUODENOSCOPY kb Source of Specimen A: DUODENAL BX B: GASTRIC BX Gross Description A. JHOANA LAZCANO, DUODENUM BX Received in formalin is one pink-chilel tissue fragment, 0.5 x 0.3 x 0.2 cm. Entirely 1 cs. B. JHOANA LAZCANO, GASTRIC BX Received in formalin are two pink-chilel tissue fragments, 0.3 cm each and are 0.6 x 0.3 x 0.2 cm in aggregate. Entirely 1 catherine. raffaele Caban/kb2:05/07/2023 Microscopic Description A, B. Microscopic examination performed. Processing Lab: [address] [phone] Interpretation Performed at [address] [phone] SURGICAL PATHOLOGY CONSULTATION Patient Name: JHOANA LAZCANO [facility] Rec: [id number] [employer] ANATOMIC PATHOLOGY [address] [place] [id number] Normal [facility] Surgical Pathology Report (NOTE) Path Number: [id number] INTERPRETATION FINE NEEDLE ASPIRATION, EUS, PANCREATIC HEAD CYST: NEGATIVE FOR MALIGNANCY. PROTEINACEOUS FLUID WITH INFLAMMATORY CELLS (MOSTLY MACROPHAGES). RULE OUT PSEUDOCYST. Electronically Signed Out Erick Pereira M.D. [facility]/05/08/2023 Source of Specimen: A: FINE NEEDLE ASPIRATION EUS PANCREATIC HEAD CYST Clinical History Epigastric pain R10.13. Gross Description PANCREATIC HEAD CYST 1.0 ml. red fluid. MICROSCOPIC DESCRIPTION Microscopic examination performed. Non Battery Assembler Dry Cell Thin Prep x 1, Cell Block w/ ROSALVA x 1 Processing Lab: [address] [phone] Interpretation performed at [address] [phone] NONGYNECOLOGICAL CYTOPATHOLOGY CONSULTATION Patient Name: JHOANA LAZCANO [facility] Rec: [id number] [employer] ANATOMIC PATHOLOGY [address] [place] [phone] Normal [facility] US GI ENDOSCOPIC S AND Ion 0 05-07-2023 GI ENDOSCOPIC S AND I Radiology exam is complete. No Radiologist dictation. Please follow up with ordering provider. Final result Normal [facility] CBC with Diffon 05-06-2023 Abs. Basophil 0.04 k/uL Normal 0.00-0.20 [facility] Comment on above: Performed By: #### L ACTIC, SED, SILVESTRE, BMPX, MG, GLYHGB, CDP #### [facility] [address] [place] [address] Grades 1 Thru 6 Visiting Teacher: Zachary Rivera MD Abs.Imm.Granulocyt e 0.04 k/uL Normal 0.00-0.30 [facility] Comment on above: Performed By: #### L ACTIC, SED, SILVESTRE, BMPX, MG, GLYHGB, CDP #### [facility] [address] [place] [address] [phone] Grades 1 Thru 6 Visiting Teacher: Zachary Rivera MD Abs.Neutrophil (Seg) 5.74 k/uL Normal 1.50-8.10 [facility] Comment on above: Performed By: #### L ACTIC, SED, SILVESTRE, BMPX, MG, GLYHGB, CDP #### [facility] [address] [place] [address] Grades 1 Thru 6 Visiting Teacher: Zachary Rivera MD Basophils/100 WBC (Bld) 1 % Normal 0-2 [facility] Comment on above: Performed By: #### L ACTIC, SED, SILVESTRE, BMPX, MG, GLYHGB, CDP #### [facility] [address] [place] [address] Grades 1 Thru 6 Visiting Teacher: Zachary Rivera MD Eosinophils (Bld) [#/Vol] 0.19 10*3/uL Normal 0.00-0.44 [facility] Comment on above: Performed By: #### L ACTIC, SED, SILVESTRE, BMPX, MG, GLYHGB, CDP #### [facility] [address] [place] [address] Grades 1 Thru 6 Visiting Teacher: Zachary Rivera MD Eosinophils/100 WBC (Bld) 2 % Normal 1-4 [facility] Comment on above: Performed By: #### L ACTIC, SED, SILVESTRE, BMPX, MG, GLYHGB, CDP #### [facility] [address] [place] [address] Grades 1 Thru 6 Visiting Teacher: Zachary Rivera MD Erythrocyte distribution width (RBC) [Ratio] 13.8 % Normal 11.8-14.4 [facility] Comment on above: Performed By: #### L ACTIC, SED, ISLVESTRE, BMPX, MG, GLYHGB, CDP #### [facility] [address] [place] [address] Grades 1 Thru 6 Visiting Teacher: Zachary Rivera MD Hematocrit (Bld) [Volume fraction] 33.8 % Low 36.3-47.1 [facility] Comment on above: Performed By: #### L ACTIC, SED, SILVESTRE, BMPX, MG, GLYHGB, CDP #### [facility] [address] [place] [address] Grades 1 Thru 6 Visiting Teacher: Zachary Rivera MD Hemoglobin (Bld) [Mass/Vol] 10.6 g/dL Low 11.9-15.1 [facility] Comment on above: Performed By: #### L ACTIC, SED, SILVESTRE, BMPX, MG, GLYHGB, CDP #### [facility] [address] [place] [address] Grades 1 Thru 6 Visiting Teacher: Zachary Rivera MD Immature granulocytes/100 WBC (Bld) 1 % High 0 [facility] Comment on above: Performed By: #### L ACTIC, SED, SILVESTRE, BMPX, MG, GLYHGB, CDP #### [address] [address] Grades 1 Thru 6 Visiting Teacher: Zachary Rivera MD Lymphocytes (Bld) [#/Vol] 1.81 10*3/uL Normal 1.10-3.70 [facility] Comment on above: Performed By: #### L ACTIC, SED, SILVESTRE, BMPX, MG, GLYHGB, CDP #### [facility] [address] [place] [address] Grades 1 Thru 6 Visiting Teacher: Zachary Rivera MD Lymphocytes/100 WBC (Bld) 21 % Low 24-43 [facility] Comment on above: Performed By: #### L ACTIC, SED, SILVESTRE, BMPX, MG, GLYHGB, CDP #### [facility] [address] [place] [address] Grades 1 Thru 6 Visiting Teacher: Zachary Rivera MD MCH (RBC) [Entitic mass] 30.0 pg Normal 25.2-33.5 [facility] Comment on above: Performed By: #### L ACTIC, SED, SILVESTRE, BMPX, MG, GLYHGB, CDP #### [facility] [address] [place] [address] Grades 1 Thru 6 Visiting Teacher: Zachary Rivera MD MCHC (RBC) [Mass/Vol] 31.4 g/dL Normal 28.4-34.8 [facility] Comment on above: Performed By: #### L ACTIC, SED, SILVESTRE, BMPX, MG, GLYHGB, CDP #### [facility] [address] [place] [address] Grades 1 Thru 6 Visiting Teacher: Zachary Rivera MD MCV (RBC) [Entitic vol] 95.8 fL Normal 82.6-102.9 [facility] Comment on above: Performed By: #### L ACTIC, SED, SILVESTRE, BMPX, MG, GLYHGB, CDP #### [facility] [address] [place] [address] Grades 1 Thru 6 Visiting Teacher: Zachary Rivera MD Monocytes (Bld) [#/Vol] 0.76 10*3/uL Normal 0.10-1.20 [facility] Comment on above: Performed By: #### L ACTIC, SED, SILVESTRE, BMPX, MG, GLYHGB, CDP #### [facility] [address] [place] [address] Grades 1 Thru 6 Visiting Teacher: Zachary Rivera MD Monocytes/100 WBC (Bld) 9 % Normal 3-12 [facility] Comment on above: Performed By: #### L ACTIC, SED, SILVESTRE, BMPX, MG, GLYHGB, CDP #### [facility] [address] [place] [address] Grades 1 Thru 6 Visiting Teacher: Zachary Rivera MD Neutrophil (Seg) 66 % High 36-65 [facility] Comment on above: Performed By: #### L ACTIC, SED, SILVESTRE, BMPX, MG, GLYHGB, CDP #### [address] [phone] Grades 1 Thru 6 Visiting Teacher: Zachary Rivera MD NRBC Automated 0.0 per 100 WBC Normal 0.0 [facility] Comment on above: Performed By: #### L ACTIC, SED, SILVESTRE, BMPX, MG, GLYHGB, CDP #### [facility] [address] [place] [address] Grades 1 Thru 6 Visiting Teacher: Zachary Rivera MD Platelet mean volume (Bld) [Entitic vol] 11.2 fL Normal 8.1-13.5 [facility] Comment on above: Performed By: #### L ACTIC, SED, SILVESTRE, BMPX, MG, GLYHGB, CDP #### [address] [address] Grades 1 Thru 6 Visiting Teacher: Zachary Rivera MD Platelets (Bld) [#/Vol] 297 10*3/uL Normal 138-453 [facility] Comment on above: Performed By: #### L ACTIC, SED, SILVESTRE, BMPX, MG, GLYHGB, CDP #### [facility] [address] [place] [address] Grades 1 Thru 6 Visiting Teacher: Zachary Rivera MD RBC (Bld) [#/Vol] 3.53 10*6/uL Low 3.95-5.11 [facility] Comment on above: Performed By: #### L ACTIC, SED, SILVESTRE, BMPX, MG, GLYHGB, CDP #### [facility] [address] [place] [address] Grades 1 Thru 6 Visiting Teacher: Zachary Rivera MD WBC (Bld) [#/Vol] 8.6 10*3/uL Normal 3.5-11.3 [facility] Comment on above: Performed By: #### L ACTIC, SED, SILVESTRE, BMPX, MG, GLYHGB, CDP #### [facility] [address] [place] [address] Grades 1 Thru 6 Visiting Teacher: Zachary Rivera MD Comp Metabolic Pr/rfx MGon 0 05-06-2023 Albumin [Mass/Vol] 2.4 g/dL Low 3.5-5.2 [facility] Comment on above: Performed By: #### L ACTIC, SED, SILVESTRE, BMPX, MG, GLYHGB, CDP #### [facility] [address] [place] [address] Grades 1 Thru 6 Visiting Teacher: Zachary Rivera MD Albumin/Glob Ratio 1.1 Normal 1.0-2.5 [facility] Comment on above: Performed By: #### L ACTIC, SED, SILVESTRE, BMPX, MG, GLYHGB, CDP #### [address] [address] Grades 1 Thru 6 Visiting Teacher: Zachary Rivera MD Alkaline Phos 80 U/L Normal 35-104 [facility] Comment on above: Performed By: #### L ACTIC, SED, SILVESTRE, BMPX, MG, GLYHGB, CDP #### [facility] [address] [place] [address] Grades 1 Thru 6 Visiting Teacher: Zachary Rivera MD ALT [Catalytic activity/Vol] 10 U/L Normal 5-33 [facility] Comment on above: Performed By: #### L ACTIC, SED, SILVESTRE, BMPX, MG, GLYHGB, CDP #### [address] [address] Grades 1 Thru 6 Visiting Teacher: Zachary Rivera MD Anion gap [Moles/Vol] 8 mmol/L Low 9-17 [facility] Comment on above: Performed By: #### L ACTIC, SED, SILVESTRE, BMPX, MG, GLYHGB, CDP #### [facility] [address] [place] [address] Grades 1 Thru 6 Visiting Teacher: Zachary Rivera MD AST [Catalytic activity/Vol] 17 U/L Normal <32 [facility] Comment on above: Performed By: #### L ACTIC, SED, SILVESTRE, BMPX, MG, GLYHGB, CDP #### [facility] [address] [place] [address] [phone] Grades 1 Thru 6 Visiting Teacher: Zachary Rivera MD Bilirubin [Mass/Vol] 0.2 mg/dL Low 0.3-1.2 [facility] Comment on above: Performed By: #### L ACTIC, SED, SILVESTRE, BMPX, MG, GLYHGB, CDP #### [facility] [address] [place] [address] Grades 1 Thru 6 Visiting Teacher: Zachary Rivera MD Calcium [Mass/Vol] 7.6 mg/dL Low 8.6-10.4 [facility] Comment on above: Performed By: #### L ACTIC, SED, SILVESTRE, BMPX, MG, GLYHGB, CDP #### [facility] [address] [place] [address] Grades 1 Thru 6 Visiting Teacher: Zachary Rivera MD Chloride [Moles/Vol] 112 mmol/L High 98-107 [facility] Comment on above: Performed By: #### L ACTIC, SED, SILVESTRE, BMPX, MG, GLYHGB, CDP #### [facility] [address] [place] [address] Grades 1 Thru 6 Visiting Teacher: Zachary Rivera MD CO2 [Moles/Vol] 17 mmol/L Low 20-31 [facility] Comment on above: Performed By: #### L ACTIC, SED, SILVESTRE, BMPX, MG, GLYHGB, CDP #### [facility] [address] [place] [address] Grades 1 Thru 6 Visiting Teacher: Zachary Rivera MD Creatinine [Mass/Vol] 0.3 mg/dL Low 0.5-0.9 [facility] Comment on above: Performed By: #### L ACTIC, SED, SILVESTRE, BMPX, MG, GLYHGB, CDP #### [facility] [address] [place] [address] [phone] Grades 1 Thru 6 Visiting Teacher: Zachary Rivera MD GFR/1.73 sq M.predicted among non-blacks MDRD (S/P/Bld) [Vol rate/Area] mL/min/{1.73_m2} Normal >60 [facility] Comment on above: Result Comment: These results [...] SED, SILVESTRE, BMPX, MG, GLYHGB, CDP #### [facility] [address] [place] [address] Grades 1 Thru 6 Visiting Teacher: Zachary Rivera MD Glucose [Mass/Vol] 103 mg/dL High 70-99 [facility] Comment on above: Performed By: #### L ACTIC, SED, SILVESTRE, BMPX, MG, GLYHGB, CDP #### [facility] [address] [place] [address] [phone] Grades 1 Thru 6 Visiting Teacher: Zachary Rivera MD Potassium [Moles/Vol] 3.7 mmol/L Normal 3.7-5.3 [facility] Comment on above: Performed By: #### L ACTIC, SED, SILVESTRE, BMPX, MG, GLYHGB, CDP #### [facility] [address] [place] [address] Grades 1 Thru 6 Visiting Teacher: Zachary Rivera MD Protein [Mass/Vol] 4.6 g/dL Low 6.4-8.3 [facility] Comment on above: Performed By: #### L ACTIC, SED, SILVESTRE, BMPX, MG, GLYHGB, CDP #### [facility] [address] [place] [address] Grades 1 Thru 6 Visiting Teacher: Zachary Rivera MD Sodium [Moles/Vol] 137 mmol/L Normal 135-144 [facility] Comment on above: Performed By: #### L ACTIC, SED, SILVESTRE, BMPX, MG, GLYHGB, CDP #### [facility] [address] [place] [address] Grades 1 Thru 6 Visiting Teacher: Zachary Rivera MD Urea nitrogen [Mass/Vol] 3 mg/dL Low 6-20 [facility] Comment on above: Performed By: #### L ACTIC, SED, SILVESTRE, BMPX, MG, GLYHGB, CDP #### [facility] [address] [place] [address] Grades 1 Thru 6 Visiting Teacher: Zachary Rivera MD Heparin Anti-Xaon 5 Heparin Anti-Xa 0.46 IU/L [facility] Comment on above: Performed By: #### L ACTIC, SED, SILVESTRE, BMPX, MG, GLYHGB, CDP #### [facility] [address] [place] [address] Grades 1 Thru 6 Visiting Teacher: Zachary Rivera MD Heparin Anti-Xa 0.22 IU/L [facility] Comment on above: Performed By: #### H EPXA #### [facility] [address] [place] [address] Grades 1 Thru 6 Visiting Teacher: Zachary Rivera MD Specimen Rejectionon 024 Reason for rejection Unable to perform testing: Specimen quantity not sufficient. Normal [facility] Comment on above: Performed By: #### L ACTIC, SED, SILVESTRE, BMPX, MG, GLYHGB, CDP #### [facility] [address] [place] [address] Grades 1 Thru 6 Visiting Teacher: Zachary Rivera MD Source of sample .BLOOD Normal [facility] Comment on above: Performed By: #### L ACTIC, SED, SILVESTRE, BMPX, MG, GLYHGB, CDP #### [facility] [address] [place] [address] Grades 1 Thru 6 Visiting Teacher: Zachary Rivera MD Test ordered PHEP Normal [facility] Comment on above: Performed By: #### L ACTIC, SED, SILVESTRE, BMPX, MG, GLYHGB, CDP #### [facility] [address] [place] [address] Grades 1 Thru 6 Visiting Teacher: Zachary Rivera MD US PELVIS COMPLETEon 024 [...] Interpreted by: Gogo Sofia MD Signed by: Gogo Sofia MD 05/06/23 Final result Normal [facility] CA 125on 05-05-2023 CA 125 173 U/mL High <38 [facility] Comment on above: Result Comment: The Virgil ECLIA assay is used. Results obtained with different assay methods cannot be used interchangeably. Performed By: #### A JAK2 ####[address] [address] Lab Director: Ozzy Tolliver MD#### CA125 ####[facility] [address] [place], [place] [phone] Director: Zachary Rivera MD CBC with Diffon 05-05-2023 Abs. Basophil 0.05 k/uL Normal 0.00-0.20 [facility] Comment on above: Performed By: #### C MPX, LIP, MG, CDP, FEBC ####[facility] [address] [place] [address] [phone] Director: Zachary Rivera MD Abs.Imm.Granulocyt e 0.05 k/uL Normal 0.00-0.30 [facility] Comment on above: Performed By: #### C MPX, LIP, MG, CDP, FEBC ####[address] [address])[phone] Director: Zachary Rivera MD Abs.Neutrophil (Seg) 6.64 k/uL Normal 1.50-8.10 [facility] Comment on above: Performed By: #### C MPX, LIP, MG, CDP, FEBC ####[address] [address])[phone] Director: Zachary Rivera MD Basophils/100 WBC (Bld) 1 % Normal 0-2 [facility] Comment on above: Performed By: #### C MPX, LIP, MG, CDP, FEBC ####[facility] [address] [place] [address])[phone] Director: Zachary Rivera MD Eosinophils (Bld) [#/Vol] 0.14 10*3/uL Normal 0.00-0.44 [facility] Comment on above: Performed By: #### C MPX, LIP, MG, CDP, FEBC ####[address] [phone] Director: Zachary Rivera MD Eosinophils/100 WBC (Bld) 1 % Normal 1-4 [facility] Comment on above: Performed By: #### C MPX, LIP, MG, CDP, FEBC ####[address] [address])[phone] Director: Zachary Rivera MD Erythrocyte distribution width (RBC) [Ratio] 13.5 % Normal 11.8-14.4 [facility] Comment on above: Performed By: #### C MPX, LIP, MG, CDP, FEBC ####[address] [address])[phone] Director: Zachary Rivera MD Hematocrit (Bld) [Volume fraction] 34.1 % Low 36.3-47.1 [facility] Comment on above: Performed By: #### C MPX, LIP, MG, CDP, FEBC ####[address] [address])[phone] Director: Zachary Rivera MD Hemoglobin (Bld) [Mass/Vol] 10.9 g/dL Low 11.9-15.1 [facility] Comment on above: Performed By: #### C MPX, LIP, MG, CDP, FEBC ####[address] [address])[phone] Director: Zachary Rivera MD Immature granulocytes/100 WBC (Bld) 1 % High 0 [facility] Comment on above: Performed By: #### C MPX, LIP, MG, CDP, FEBC ####[address] [phone] Director: Zachary Rivera MD Lymphocytes (Bld) [#/Vol] 2.11 10*3/uL Normal 1.10-3.70 [facility] Comment on above: Performed By: #### C MPX, LIP, MG, CDP, FEBC ####[address] [phone] Director: Zachary Rivera MD Lymphocytes/100 WBC (Bld) 21 % Low 24-43 [facility] Comment on above: Performed By: #### C MPX, LIP, MG, CDP, FEBC ####[address] [address] Lab Director: Zachary Rivera MD MCH (RBC) [Entitic mass] 30.4 pg Normal 25.2-33.5 [facility] Comment on above: Performed By: #### C MPX, LIP, MG, CDP, FEBC ####[address] [address] Lab Director: Zachary Rivera MD MCHC (RBC) [Mass/Vol] 32.0 g/dL Normal 28.4-34.8 [facility] Comment on above: Performed By: #### C MPX, LIP, MG, CDP, FEBC ####[address] [address])[phone] Director: Zachary Rivera MD MCV (RBC) [Entitic vol] 95.3 fL Normal 82.6-102.9 [facility] Comment on above: Performed By: #### C MPX, LIP, MG, CDP, FEBC ####[address] [address] Lab Director: Zachary Rivera MD Monocytes (Bld) [#/Vol] 0.96 10*3/uL Normal 0.10-1.20 [facility] Comment on above: Performed By: #### C MPX, LIP, MG, CDP, FEBC ####[place], [place] [phone] Director: Zachary Rivera MD Monocytes/100 WBC (Bld) 10 % Normal 3-12 [facility] Comment on above: Performed By: #### C MPX, LIP, MG, CDP, FEBC ####[address] [address] Lab Director: Zachary Rivera MD Neutrophil (Seg) 66 % High 36-65 [facility] Comment on above: Performed By: #### C MPX, LIP, MG, CDP, FEBC ####[address] [phone] Director: Zachary Rivera MD NRBC Automated 0.0 per 100 WBC Normal 0.0 [facility] Comment on above: Performed By: #### C MPX, LIP, MG, CDP, FEBC ####[address] [phone] Director: Zachary Rivera MD Platelet mean volume (Bld) [Entitic vol] 10.8 fL Normal 8.1-13.5 [facility] Comment on above: Performed By: #### C MPX, LIP, MG, CDP, FEBC ####[address] [phone] Director: Zachary Rivera MD Platelets (Bld) [#/Vol] 253 10*3/uL Normal 138-453 [facility] Comment on above: Performed By: #### C MPX, LIP, MG, CDP, FEBC ####[address] [phone] Director: Zachary Rivera MD RBC (Bld) [#/Vol] 3.58 10*6/uL Low 3.95-5.11 [facility] Comment on above: Performed By: #### C MPX, LIP, MG, CDP, FEBC ####[address] [phone] Director: Zachary Rivera MD WBC (Bld) [#/Vol] 10.0 10*3/uL Normal 3.5-11.3 [facility] Comment on above: Performed By: #### C MPX, LIP, MG, CDP, FEBC ####[facility] [place] [address] Lab Director: Zachary Rivera MD CT CHEST ABDOMEN [...] Morena Allred DO 05/05/23 Final result Normal [facility] Comp Metabolic Pr/rfx MGon 0 05-05-2023 Potassium [Moles/Vol] 3.0 mmol/L Low 3.7-5.3 [facility] Comment on above: Performed By: #### C MPX, LIP, MG, CDP, FEBC ####[employer] [place], [place] [phone] lab Director: Zachary Rivera MD Albumin [Mass/Vol] 2.5 g/dL Low 3.5-5.2 [facility] Comment on above: Performed By: #### C MPX, LIP, MG, CDP, FEBC ####[employer] [place], [place] [phone] Director: Zachary Rivera MD Albumin/Glob Ratio 1.0 Normal 1.0-2.5 [facility] Comment on above: Performed By: #### C MPX, LIP, MG, CDP, FEBC ####[facility] [address] [place], [place] [phone] Director: Zachary Rivera MD Alkaline Phos 85 U/L Normal 35-104 [facility] Comment on above: Performed By: #### C MPX, LIP, MG, CDP, FEBC ####[place] [address] [place], [place] [phone] Director: Zachary Rivera MD ALT [Catalytic activity/Vol] 11 U/L Normal 5-33 [facility] Comment on above: Performed By: #### C MPX, LIP, MG, CDP, FEBC ####[address] [phone] Director: Zachary Rivera MD Anion gap [Moles/Vol] 11 mmol/L Normal 9-17 [facility] Comment on above: Performed By: #### C MPX, LIP, MG, CDP, FEBC ####[place] [address] [place], [place] [phone] Director: Zachary Rivera MD AST [Catalytic activity/Vol] 17 U/L Normal <32 [facility] Comment on above: Performed By: #### C MPX, LIP, MG, CDP, FEBC ####[facility] [address] [place], [place] [phone])[phone] Director: Zachary Rivera MD Bilirubin [Mass/Vol] 0.2 mg/dL Low 0.3-1.2 [facility] Comment on above: Performed By: #### C MPX, LIP, MG, CDP, FEBC ####[facility] [address] [place] [address] Lab Director: Zachary Rivera MD Calcium [Mass/Vol] 7.7 mg/dL Low 8.6-10.4 [facility] Comment on above: Performed By: #### C MPX, LIP, MG, CDP, FEBC ####[facility] [address] [place] [address] Lab Director: Zachary Rivera MD Chloride [Moles/Vol] 105 mmol/L Normal 98-107 [facility] Comment on above: Performed By: #### C MPX, LIP, MG, CDP, FEBC ####[place] [address] [place] [address] Lab Director: Zachary Rivera MD CO2 [Moles/Vol] 20 mmol/L Normal 20-31 [facility] Comment on above: Performed By: #### C MPX, LIP, MG, CDP, FEBC ####[facility] [address] [place] [address] Lab Director: Zachary Rivera MD Creatinine [Mass/Vol] 0.3 mg/dL Low 0.5-0.9 [facility] Comment on above: Performed By: #### C MPX, LIP, MG, CDP, FEBC ####[address] [address] Lab Director: Zachary Rivera MD GFR/1.73 sq M.predicted among non-blacks MDRD (S/P/Bld) [Vol rate/Area] mL/min/{1.73_m2} Normal >60 [facility] Comment on above: Result Comment: These results [...] renal tubular secretion. Performed By: #### C MPX, LIP, MG, CDP, FEBC ####[facility] [address] [place], [place] [address])[phone] Director: Zachary Rivera MD Glucose [Mass/Vol] 92 mg/dL Normal 70-99 [facility] Comment on above: Performed By: #### C MPX, LIP, MG, CDP, FEBC ####[facility] [address] [place], [place] [address])[phone] Director: Zachary Rivera MD Protein [Mass/Vol] 5.0 g/dL Low 6.4-8.3 [facility] Comment on above: Performed By: #### C MPX, LIP, MG, CDP, FEBC ####[facility] [address] [place], [place] [address])[phone] Director: Zachary Rivera MD Sodium [Moles/Vol] 136 mmol/L Normal 135-144 [facility] Comment on above: Performed By: #### C MPX, LIP, MG, CDP, FEBC ####[facility] [address] [place], [place] [address])[phone] Director: Zachary Rivera MD Urea nitrogen [Mass/Vol] 13 mg/dL Normal 6-20 [facility] Comment on above: Performed By: #### C MPX, LIP, MG, CDP, FEBC ####[facility] [address] [place], [place] [address])[phone] Director: Zachary Rivera MD Albumin [Mass/Vol] 2.8 g/dL Low 3.5-5.2 [facility] Comment on above: Performed By: #### L ACTIC, SED, SILVESTRE, BMPX, MG, GLYHGB, CDP #### [facility] [address] [place] [address] Grades 1 Thru 6 Visiting Teacher: Zachary Rivera MD Alkaline Phos 93 U/L Normal 35-104 [facility] Comment on above: Performed By: #### L ACTIC, SED, SILVESTRE, BMPX, MG, GLYHGB, CDP #### [facility] [address] [place] [address] Grades 1 Thru 6 Visiting Teacher: Zachary Rivera MD ALT [Catalytic activity/Vol] 12 U/L Normal 5-33 [facility] Comment on above: Performed By: #### L ACTIC, SED, SILVESTRE, BMPX, MG, GLYHGB, CDP #### [facility] [address] [place] [address] Grades 1 Thru 6 Visiting Teacher: Zachary Rivera MD Anion gap [Moles/Vol] 11 mmol/L Normal 9-17 [facility] Comment on above: Performed By: #### L ACTIC, SED, SILVESTRE, BMPX, MG, GLYHGB, CDP #### [address] [address] Grades 1 Thru 6 Visiting Teacher: Zachary Rivera MD AST [Catalytic activity/Vol] 29 U/L Normal <32 [facility] Comment on above: Performed By: #### L ACTIC, SED, SILVESTRE, BMPX, MG, GLYHGB, CDP #### [address] [address] Grades 1 Thru 6 Visiting Teacher: Zachary Rivera MD Calcium [Mass/Vol] 8.1 mg/dL Low 8.6-10.4 [facility] Comment on above: Performed By: #### L ACTIC, SED, SILVESTRE, BMPX, MG, GLYHGB, CDP #### [address] [address] Grades 1 Thru 6 Visiting Teacher: Zachary Rivera MD Chloride [Moles/Vol] 105 mmol/L Normal 98-107 [facility] Comment on above: Performed By: #### L ACTIC, SED, SILVESTRE, BMPX, MG, GLYHGB, CDP #### [address] [address] Grades 1 Thru 6 Visiting Teacher: Zachary Rivera MD CO2 [Moles/Vol] 19 mmol/L Low 20-31 [facility] Comment on above: Performed By: #### L ACTIC, SED, SILVESTRE, BMPX, MG, GLYHGB, CDP #### [facility] [address] [place] [address] [phone] Grades 1 Thru 6 Visiting Teacher: Zachary Rivera MD Glucose [Mass/Vol] 127 mg/dL High 70-99 [facility] Comment on above: Performed By: #### L ACTIC, SED, SILVESTRE, BMPX, MG, GLYHGB, CDP #### [facility] [address] [place] [address] Grades 1 Thru 6 Visiting Teacher: Zachary Rivera MD Potassium [Moles/Vol] 3.6 mmol/L Low 3.7-5.3 [facility] Comment on above: Performed By: #### L ACTIC, SED, SILVESTRE, BMPX, MG, GLYHGB, CDP #### [facility] [address] [place] [address] Grades 1 Thru 6 Visiting Teacher: Zachary Rivera MD Protein [Mass/Vol] 5.5 g/dL Low 6.4-8.3 [facility] Comment on above: Performed By: #### L ACTIC, SED, SILVESTRE, BMPX, MG, GLYHGB, CDP #### [facility] [address] [place] [address] Grades 1 Thru 6 Visiting Teacher: Zachary Rievra MD Urea nitrogen [Mass/Vol] 14 mg/dL Normal 6-20 [facility] Comment on above: Performed By: #### L ACTIC, SED, SILVESTRE, BMPX, MG, GLYHGB, CDP #### [facility] [address] [place] [address] Grades 1 Thru 6 Visiting Teacher: Zachary Rivera MD Heparin Anti-Xaon 05-05-2023 Heparin Anti-Xa 0.11 IU/L Normal [facility] Comment on above: Performed By: #### L ACTIC, SED, SILVESTRE, BMPX, MG, GLYHGB, CDP #### [facility] [address] [place] [address] Grades 1 Thru 6 Visiting Teacher: Zachary Rivera MD Heparin Anti-Xa <0.10 Normal [facility] Comment on above: Performed By: #### L ACTIC, SED, SILVESTRE, BMPX, MG, GLYHGB, CDP #### [facility] [address] [place] [address] Grades 1 Thru 6 Visiting Teacher: Zachary Rivera MD Heparin Anti-Xa 0.39 IU/L Normal [facility] Comment on above: Performed By: #### L ACTIC, SED, SILVESTRE, BMPX, MG, GLYHGB, CDP #### [facility] [address] [place] [address] Grades 1 Thru 6 Visiting Teacher: Zachary Rivera MD Iron Binding Cap.on 05-05-19 24 % Fe Saturation 12 % Low 20-55 [facility] Comment on above: Performed By: #### C MPX, LIP, MG, CDP, FEBC ####[facility] [address] [place] [address])[phone] Director: Zachary Rivera MD Iron [Mass/Vol] 29 ug/dL Low 37-145 [facility] Comment on above: Performed By: #### C MPX, LIP, MG, CDP, FEBC ####[facility] [address] [place] [address] Lab Director: Zachary Rivera MD Total Fe Binding Cap 238 ug/dL Low 250-450 [facility] Comment on above: Performed By: #### C MPX, LIP, MG, CDP, FEBC ####[facility] [address] [place], [place] [address])[phone] Director: Zachary Rivera MD Unbound Fe Bind Cap 209 ug/dL Normal 112-347 [facility] Comment on above: Performed By: #### C MPX, LIP, MG, CDP, FEBC ####[facility] [address] [place] [address] Lab Director: Zachary Rivera MD Lipaseon 05-05-2023 Lipase [Catalytic activity/Vol] 578 U/L High 13-60 [facility] Comment on above: Performed By: #### C MPX, LIP, MG, CDP, FEBC ####[facility] [address] [place] [address] lab Director: Zachary Rivera MD Magnesiumon 05-05-2023 Magnesium [Mass/Vol] 1.6 mg/dL Normal 1.6-2.6 [facility] Comment on above: Performed By: #### C MPX, LIP, MG, CDP, FEBC ####[facility] [address] [place], [place] [phone] Lab Director: Zachary Rivera MD Smooth Muscle Abon 4 Smooth Muscle Ab 5 Units Normal 0-19 [facility] Comment on above: Result Comment: (NOT [...] suspicion for AIH is strong. Performed By: [employer] [address] [place] [address] Career Placement Specialist: David Cosby MD, PhD CLIA Number: [id number] Performed By: #### L ACTIC, SED, SILVESTRE, BMPX, MG, GLYHGB, CDP #### [facility] [address] [place] [address] [phone] Grades 1 Thru 6 Visiting Teacher: Zachary Rivera MD APTTon 05-04-2023 aPTT Coag (Bld) [Time] 27.2 s Normal 23.0-36.5 [facility] Comment on above: Result Comment: IV Heparin Therapy Range: 66.0-92.0 sec Performed By: #### L ACTIC, SED, SILVESTRE, BMPX, MG, GLYHGB, CDP #### [facility] [address] [place] [address] [phone] Grades 1 Thru 6 Visiting Teacher: Zachary Rivera MD Albumin, [facility] 05-04-2023 Albumin, Fluid 1.7 g/dL Normal [facility] Comment on above: Result Comment: Ther e are no normals for body fluid samples. Performed By: #### L ACTIC, SED, SILVESTRE, BMPX, MG, GLYHGB, CDP #### [employer] [address] [place] [address] [phone] Grades 1 Thru 6 Visiting Teacher: Zachary Rivera MD Amylase,[facility] 05-04-2023 Amylase [Catalytic activity/Vol] 933[address] U/L Normal [facility] Comment on above: Result Comment: Ther e are no normals for body fluid samples. Performed By: #### L ACTIC, SED, SILVESTRE, BMPX, MG, GLYHGB, CDP #### [employer] [address] [place] [address] [phone] Grades 1 Thru 6 Visiting Teacher: Zachary Rivera MD Basic Metab w/rfx [facility] 05-04 Potassium [Moles/Vol] 3.4 mmol/L Low 3.7-5.3 [facility] Comment on above: Performed By: #### L ACTIC, SED, SILVESTRE, BMPX, MG, GLYHGB, CDP #### [employer] [address] [place] [address] Grades 1 Thru 6 Visiting Teacher: Zachary Rivera MD Anion gap [Moles/Vol] 8 mmol/L Low 9-17 [facility] Comment on above: Performed By: #### L ACTIC, SED, SILVESTRE, BMPX, MG, GLYHGB, CDP #### [facility] [address] [place] [address] Grades 1 Thru 6 Visiting Teacher: Zachary Rivera MD Calcium [Mass/Vol] 8.0 mg/dL Low 8.6-10.4 [facility] Comment on above: Performed By: #### L ACTIC, SED, SILVESTRE, BMPX, MG, GLYHGB, CDP #### [facility] [address] [place] [address] Grades 1 Thru 6 Visiting Teacher: Zachary Rivera MD Chloride [Moles/Vol] 104 mmol/L Normal 98-107 [facility] Comment on above: Performed By: #### L ACTIC, SED, SILVESTRE, BMPX, MG, GLYHGB, CDP #### [facility] [address] [place] [address] Grades 1 Thru 6 Visiting Teacher: Zachary Rivera MD CO2 [Moles/Vol] 23 mmol/L Normal 20-31 [facility] Comment on above: Performed By: #### L ACTIC, SED, SILVESTRE, BMPX, MG, GLYHGB, CDP #### [facility] [address] [place] [address] Grades 1 Thru 6 Visiting Teacher: Zachary Rivera MD Glucose [Mass/Vol] 134 mg/dL High 70-99 [facility] Comment on above: Performed By: #### L ACTIC, SED, SILVESTRE, BMPX, MG, GLYHGB, CDP #### [facility] [address] [place] [address] Grades 1 Thru 6 Visiting Teacher: Zachary Rivera MD Urea nitrogen [Mass/Vol] 16 mg/dL Normal 6-20 [facility] Comment on above: Performed By: #### L ACTIC, SED, SILVESTRE, BMPX, MG, GLYHGB, CDP #### [facility] [address] [place] [address] Grades 1 Thru 6 Visiting Teacher: Zachary Rivera MD CA 19-9on 05-04-2023 CA 19-9 20 U/mL Normal 0-35 [facility] Comment on above: Result Comment: The Virgil ECLIA assay is used. Results obtained with different assay methods cannot be used interchangeably. Performed By: #### L ACTIC, SED, SILVESTRE, BMPX, MG, GLYHGB, CDP #### [facility] [address] [place] [address] Grades 1 Thru 6 Visiting Teacher: Zachary Rivera MD CBCon 05-04-2023 Erythrocyte distribution width (RBC) [Ratio] 13.4 % Normal 11.8-14.4 [facility] Comment on above: Performed By: #### L ACTIC, SED, SILVESTRE, BMPX, MG, GLYHGB, CDP #### [facility] [address] [place] [address] Grades 1 Thru 6 Visiting Teacher: Zachary Rivera MD Hematocrit (Bld) [Volume fraction] 39.7 % Normal 36.3-47.1 [facility] Comment on above: Performed By: #### L ACTIC, SED, SILVESTRE, BMPX, MG, GLYHGB, CDP #### [facility] [address] [place] [address] Grades 1 Thru 6 Visiting Teacher: Zachary Rivera MD Hemoglobin (Bld) [Mass/Vol] 13.0 g/dL Normal 11.9-15.1 [facility] Comment on above: Performed By: #### L ACTIC, SED, SILVESTRE, BMPX, MG, GLYHGB, CDP #### [facility] [address] [place] [address] Grades 1 Thru 6 Visiting Teacher: Zachary Rivera MD MCH (RBC) [Entitic mass] 30.2 pg Normal 25.2-33.5 [facility] Comment on above: Performed By: #### L ACTIC, SED, SILVESTRE, BMPX, MG, GLYHGB, CDP #### [address] [address] Grades 1 Thru 6 Visiting Teacher: Zachary Rivera MD MCHC (RBC) [Mass/Vol] 32.7 g/dL Normal 28.4-34.8 [facility] Comment on above: Performed By: #### L ACTIC, SED, SILVESTRE, BMPX, MG, GLYHGB, CDP #### [address] [address] Grades 1 Thru 6 Visiting Teacher: Zachary Rivera MD MCV (RBC) [Entitic vol] 92.1 fL Normal 82.6-102.9 [facility] Comment on above: Performed By: #### L ACTIC, SED, SILVESTRE, BMPX, MG, GLYHGB, CDP #### [address] [address] Grades 1 Thru 6 Visiting Teacher: Zachary Rivera MD NRBC Automated 0.0 per 100 WBC Normal 0.0 [facility] Comment on above: Performed By: #### L ACTIC, SED, SILVESTRE, BMPX, MG, GLYHGB, CDP #### [address] [address] Grades 1 Thru 6 Visiting Teacher: Zachary Rivera MD Platelet mean volume (Bld) [Entitic vol] 10.5 fL Normal 8.1-13.5 [facility] Comment on above: Performed By: #### L ACTIC, SED, SILVESTRE, BMPX, MG, GLYHGB, CDP #### [address] [address] Grades 1 Thru 6 Visiting Teacher: Zachary Rivera MD Platelets (Bld) [#/Vol] 295 10*3/uL Normal 138-453 [facility] Comment on above: Performed By: #### L ACTIC, SED, SILVESTRE, BMPX, MG, GLYHGB, CDP #### [address] [place] [address] Grades 1 Thru 6 Visiting Teacher: Zachary Rivera MD RBC (Bld) [#/Vol] 4.31 10*6/uL Normal 3.95-5.11 [facility] Comment on above: Performed By: #### L ACTIC, SED, SILVESTRE, BMPX, MG, GLYHGB, CDP #### [address] [address] Grades 1 Thru 6 Visiting Teacher: Zachary Rivera MD WBC (Bld) [#/Vol] 12.9 10*3/uL High 3.5-11.3 [facility] Comment on above: Performed By: #### L ACTIC, SED, SILVESTRE, BMPX, MG, GLYHGB, CDP #### [facility] [address] [place] [address] Grades 1 Thru 6 Visiting Teacher: Zachary Rivera MD CBC with Diffon 05-04-2023 Abs. Basophil 0.07 k/uL Normal 0.00-0.20 [facility] Comment on above: Performed By: #### L ACTIC, SED, SILVESTRE, BMPX, MG, GLYHGB, CDP #### [facility] [address] [place] [address] Grades 1 Thru 6 Visiting Teacher: Zachary Rivera MD Abs.Imm.Granulocyt e 0.05 k/uL Normal 0.00-0.30 [facility] Comment on above: Performed By: #### L ACTIC, SED, SILVESTRE, BMPX, MG, GLYHGB, CDP #### [facility] [address] [place] [address] Grades 1 Thru 6 Visiting Teacher: Zachary Rivera MD Abs.Neutrophil (Seg) 7.12 k/uL Normal 1.50-8.10 [facility] Comment on above: Performed By: #### L ACTIC, SED, SILVESTRE, BMPX, MG, GLYHGB, CDP #### [facility] [address] [place] [address] Grades 1 Thru 6 Visiting Teacher: Zachary Rivera MD Basophils/100 WBC (Bld) 1 % Normal 0-2 [facility] Comment on above: Performed By: #### L ACTIC, SED, SILVESTRE, BMPX, MG, GLYHGB, CDP #### [address] [phone] Grades 1 Thru 6 Visiting Teacher: Zachary Rivera MD Eosinophils (Bld) [#/Vol] 0.19 10*3/uL Normal 0.00-0.44 [facility] Comment on above: Performed By: #### L ACTIC, SED, SILVESTRE, BMPX, MG, GLYHGB, CDP #### [place] [address] Grades 1 Thru 6 Visiting Teacher: Zachary Rivera MD Eosinophils/100 WBC (Bld) 2 % Normal 1-4 [facility] Comment on above: Performed By: #### L ACTIC, SED, SILVESTRE, BMPX, MG, GLYHGB, CDP #### [place] [address] Grades 1 Thru 6 Visiting Teacher: Zachary Rivera MD Erythrocyte distribution width (RBC) [Ratio] 13.7 % Normal 11.8-14.4 [facility] Comment on above: Performed By: #### L ACTIC, SED, SILVESTRE, BMPX, MG, GLYHGB, CDP #### [place] [address] Grades 1 Thru 6 Visiting Teacher: Zachary Rivera MD Hematocrit (Bld) [Volume fraction] 36.0 % Low 36.3-47.1 [facility] Comment on above: Performed By: #### L ACTIC, SED, SILVESTRE, BMPX, MG, GLYHGB, CDP #### [facility] [address] [place] [address] Grades 1 Thru 6 Visiting Teacher: Zachary Rivera MD Hemoglobin (Bld) [Mass/Vol] 11.7 g/dL Low 11.9-15.1 [facility] Comment on above: Performed By: #### L ACTIC, SED, SILVESTRE, BMPX, MG, GLYHGB, CDP #### [facility] [address] [place] [address] Grades 1 Thru 6 Visiting Teacher: Zachary Rivera MD Immature granulocytes/100 WBC (Bld) 1 % High 0 [facility] Comment on above: Performed By: #### L ACTIC, SED, SILVESTRE, BMPX, MG, GLYHGB, CDP #### [facility] [address] [place] [address] Grades 1 Thru 6 Visiting Teacher: Zachary Rivera MD Lymphocytes (Bld) [#/Vol] 1.90 10*3/uL Normal 1.10-3.70 [facility] Comment on above: Performed By: #### L ACTIC, SED, SILVESTRE, BMPX, MG, GLYHGB, CDP #### [facility] [address] [place] [address] Grades 1 Thru 6 Visiting Teacher: Zachary Rivera MD Lymphocytes/100 WBC (Bld) 19 % Low 24-43 [facility] Comment on above: Performed By: #### L ACTIC, SED, SILVESTRE, BMPX, MG, GLYHGB, CDP #### [facility] [address] [place] [address] [phone] Grades 1 Thru 6 Visiting Teacher: Zachary Rivera MD MCH (RBC) [Entitic mass] 30.2 pg Normal 25.2-33.5 [facility] Comment on above: Performed By: #### L ACTIC, SED, SILVESTRE, BMPX, MG, GLYHGB, CDP #### [facility] [address] [place] [address] [phone] Grades 1 Thru 6 Visiting Teacher: Zachary Rivera MD MCHC (RBC) [Mass/Vol] 32.5 g/dL Normal 28.4-34.8 [facility] Comment on above: Performed By: #### L ACTIC, SED, SILVESTRE, BMPX, MG, GLYHGB, CDP #### [address] [address] Grades 1 Thru 6 Visiting Teacher: Zachary Rivera MD MCV (RBC) [Entitic vol] 93.0 fL Normal 82.6-102.9 [facility] Comment on above: Performed By: #### L ACTIC, SED, SILVESTRE, BMPX, MG, GLYHGB, CDP #### [address] [address] Grades 1 Thru 6 Visiting Teacher: Zachary Rivera MD Monocytes (Bld) [#/Vol] 0.88 10*3/uL Normal 0.10-1.20 [facility] Comment on above: Performed By: #### L ACTIC, SED, SILVESTRE, BMPX, MG, GLYHGB, CDP #### [address] [address] Grades 1 Thru 6 Visiting Teacher: Zachary Rivera MD Monocytes/100 WBC (Bld) 9 % Normal 3-12 [facility] Comment on above: Performed By: #### L ACTIC, SED, SILVESTRE, BMPX, MG, GLYHGB, CDP #### [address] [address] Grades 1 Thru 6 Visiting Teacher: Zachary Rivera MD Neutrophil (Seg) 68 % High 36-65 [facility] Comment on above: Performed By: #### L ACTIC, SED, SILVESTRE, BMPX, MG, GLYHGB, CDP #### [address] [address] Grades 1 Thru 6 Visiting Teacher: Zachary Rivera MD NRBC Automated 0.0 per 100 WBC Normal 0.0 [facility] Comment on above: Performed By: #### L ACTIC, SED, SILVESTRE, BMPX, MG, GLYHGB, CDP #### [facility] [address] [place] [address] Grades 1 Thru 6 Visiting Teacher: Zachary Rivera MD Platelet mean volume (Bld) [Entitic vol] 10.6 fL Normal 8.1-13.5 [facility] Comment on above: Performed By: #### L ACTIC, SED, SILVESTRE, BMPX, MG, GLYHGB, CDP #### [facility] [address] [place] [address] Grades 1 Thru 6 Visiting Teacher: Zachary Rivera MD Platelets (Bld) [#/Vol] 272 10*3/uL Normal 138-453 [facility] Comment on above: Performed By: #### L ACTIC, SED, SILVESTRE, BMPX, MG, GLYHGB, CDP #### [facility] [address] [place] [address] Grades 1 Thru 6 Visiting Teacher: Zachary Rivera MD RBC (Bld) [#/Vol] 3.87 10*6/uL Low 3.95-5.11 [facility] Comment on above: Performed By: #### L ACTIC, SED, SILVESTRE, BMPX, MG, GLYHGB, CDP #### [facility] [address] [place] [address] Grades 1 Thru 6 Visiting Teacher: Zachary Rivera MD WBC (Bld) [#/Vol] 10.2 10*3/uL Normal 3.5-11.3 [facility] Comment on above: Performed By: #### L ACTIC, SED, SILVESTRE, BMPX, MG, GLYHGB, CDP #### [facility] [address] [place] [address] Grades 1 Thru 6 Visiting Teacher: Zachary Rivera MD Carcinoembry. Antig.on 05-04 Carcinoembry. Antig. 2.4 ng/mL Normal <3.9 [facility] Comment on above: Result Comment: The Virgil ECLIA assay is used. Results obtained with different assay methods cannot be used interchangeably. Performed By: #### L ACTIC, SED, SILVESTRE, BMPX, MG, GLYHGB, CDP #### [facility] [address] [place] [address] Grades 1 Thru 6 Visiting Teacher: Zachary Rivera MD Celiac Disease Panelon 05-04 IgA [Mass/Vol] 181 mg/dL Normal 70-400 [facility] Comment on above: Performed By: #### L ACTIC, SED, SILVESTRE, BMPX, MG, GLYHGB, CDP #### [facility] [address] [place] [address] Grades 1 Thru 6 Visiting Teacher: Zachary Rivera MD Ceruloplasminon 05-04-2023 Ceruloplasmin 23 mg/dL Normal 16-45 [facility] Comment on above: Performed By: #### L ACTIC, SED, SILVESTRE, BMPX, MG, GLYHGB, CDP #### [facility] [address] [place] [address] Grades 1 Thru 6 Visiting Teacher: Zachary Rivera MD Comp Metabolic Pr/rfx MGon 0 05-04-2023 Albumin/Glob Ratio 1.0 Normal 1.0-2.5 [facility] Comment on above: Performed By: #### L ACTIC, SED, SILVESTRE, BMPX, MG, GLYHGB, CDP #### [facility] [address] [place] [address] Grades 1 Thru 6 Visiting Teacher: Zachary Rivera MD Bilirubin [Mass/Vol] 0.3 mg/dL Normal 0.3-1.2 [facility] Comment on above: Performed By: #### L ACTIC, SED, SILVESTRE, BMPX, MG, GLYHGB, CDP #### [facility] [address] [place] [address] Grades 1 Thru 6 Visiting Teacher: Zachary Rivera MD Creatinine [Mass/Vol] 0.3 mg/dL Low 0.5-0.9 [facility] Comment on above: Performed By: #### L ACTIC, SED, SILVESTRE, BMPX, MG, GLYHGB, CDP #### [facility] [address] [place] [address] [phone] Grades 1 Thru 6 Visiting Teacher: Zachary Rivera MD GFR/1.73 sq M.predicted among non-blacks MDRD (S/P/Bld) [Vol rate/Area] mL/min/{1.73_m2} Normal >60 [facility] Comment on above: Result Comment: These results [...] SED, SILVESTRE, BMPX, MG, GLYHGB, CDP #### [employer] [facility] [place] [address] Grades 1 Thru 6 Visiting Teacher: Zachary Rivera MD Sodium [Moles/Vol] 135 mmol/L Normal 135-144 [facility] Comment on above: Performed By: #### L ACTIC, SED, SILVESTRE, BMPX, MG, GLYHGB, CDP #### [employer] [facility] [place] [address] Grades 1 Thru 6 Visiting Teacher: Zachary Rivera MD D-Dimer Teston 05-04-2023 D-Dimer Test 13.92 ug/mL FEU High 0.00-0.57 [facility] Comment on above: Result Comment: When combined [...] SED, SILVESTRE, BMPX, MG, GLYHGB, CDP #### [facility] [address] [place] [address] Grades 1 Thru 6 Visiting Teacher: Zachary Rivera MD Ferritinon 05-04-2023 Ferritin [Mass/Vol] 205 ng/mL High 13-150 [facility] Comment on above: Performed By: #### L ACTIC, SED, SILVESTRE, BMPX, MG, GLYHGB, CDP #### [address] [id number] Grades 1 Thru 6 Visiting Teacher: Zachary Rivera MD Fluid Cell Count and Diffon 05-04-2023 Lymphocytes/100 WBC (Bld) 3 % Normal [facility] Comment on above: Result Comment: The reference range and other method performance specifications have not been established for this body fluid. The test result must be integrated into the clinical context for interpretation. Performed By: #### L ACTIC, SED, SILVESTRE, BMPX, MG, GLYHGB, CDP #### [address] [id number] Grades 1 Thru 6 Visiting Teacher: Zachary Rivera MD Neutrophils/100 WBC (Bld) 22 % Normal [facility] Comment on above: Result Comment: The reference range and other method performance specifications have not been established for this body fluid. The test result must be integrated into the clinical context for interpretation. Performed By: #### L ACTIC, SED, SILVESTRE, BMPX, MG, GLYHGB, CDP #### [address] [address] Grades 1 Thru 6 Visiting Teacher: Zachary Rivera MD RBC (Bld) [#/Vol] 10*6/uL Normal [facility] Comment on above: Result Comment: The reference range and other method performance specifications have not been established for this body fluid. The test result must be integrated into the clinical context for interpretation. Performed By: #### L ACTIC, SED, SILVESTRE, BMPX, MG, GLYHGB, CDP #### [address] [address] Grades 1 Thru 6 Visiting Teacher: Zachary Rivera MD WBC (Bld) [#/Vol] 1.097 10*3/uL Normal [facility] Comment on above: Result Comment: The reference range and other method performance specifications have not been established for this body fluid. The test result must be integrated into the clinical context for interpretation. Performed By: #### L ACTIC, SED, SILVESTRE, BMPX, MG, GLYHGB, CDP #### [address] [address] Grades 1 Thru 6 Visiting Teacher: Zachary Rivera MD Hemoglobin A1Con 05-04-2023 Glucose [Mass/Vol] 97 mg/dL Normal [facility] Comment on above: Result Comment: The ADA and AACC recommend providing the estimated average glucose result to permit better patient understanding of their HBA1c result. Performed By: #### L ACTIC, SED, SILVESTRE, BMPX, MG, GLYHGB, CDP #### [address] [address] Grades 1 Thru 6 Visiting Teacher: Zachary Rivera MD HbA1c (Bld) [Mass fraction] 5.0 % Normal 4.0-6.0 [facility] Comment on above: Performed By: #### L ACTIC, SED, SILVESTRE, BMPX, MG, GLYHGB, CDP #### [address] [address] Grades 1 Thru 6 Visiting Teacher: Zachary Rivera MD Heparin Anti-Xaon 05-04-2023 Heparin Anti-Xa <0.10 Normal [facility] Comment on above: Performed By: #### L ACTIC, SED, SILVESTRE, BMPX, MG, GLYHGB, CDP #### [address] [address] Grades 1 Thru 6 Visiting Teacher: Zachary Rivera MD Heparin Anti-Xa 0.33 IU/L Normal [facility] Comment on above: Performed By: #### L ACTIC, SED, SILVESTRE, BMPX, MG, GLYHGB, CDP #### [address] [address] Grades 1 Thru 6 Visiting Teacher: Zachary Rivera MD Heparin Anti-Xa <0.10 Normal [facility] Comment on above: Performed By: #### L ACTIC, SED, SILVESTRE, BMPX, MG, GLYHGB, CDP #### [address] [address] Grades 1 Thru 6 Visiting Teacher: Zachary Rivera MD JAK2 [id number] Qual w/ Rflxon JAK2 source .BLOOD Normal [facility] Comment on above: Performed By: #### L ACTIC, SED, SILVESTRE, BMPX, MG, GLYHGB, CDP #### [facility] [address] [place] [address] Grades 1 Thru 6 Visiting Teacher: Zachary Rivera MD Lactate Dehydrog, Flon 05-04 LD - Fluid 160 U/L Normal [facility] Comment on above: Result Comment: Ther e are no normals for body fluid samples. Performed By: #### L ACTIC, SED, SILVESTRE, BMPX, MG, GLYHGB, CDP #### [facility] [address] [place] [address] Grades 1 Thru 6 Visiting Teacher: Zachary Rivera MD Type of Specimen .ASCITIC FLUID Normal [facility] Comment on above: Performed By: #### L ACTIC, SED, SILVESTRE, BMPX, MG, GLYHGB, CDP #### [address] [address] Grades 1 Thru 6 Visiting Teacher: Zcahary Rivera MD Lactate Dehydrogenaseon 04-13 LDH [Catalytic activity/Vol] 265 U/L High 135-214 [facility] Comment on above: Performed By: #### L ACTIC, SED, SILVESTRE, BMPX, MG, GLYHGB, CDP #### [facility] [address] [place] [address] Grades 1 Thru 6 Visiting Teacher: Zachary Rivera MD Lactic Acidon 05-04-2023 Lactic Acid,Whole Bl 1.0 mmol/L Normal 0.7-2.1 [facility] Comment on above: Performed By: #### L ACTIC, SED, SILVESTRE, BMPX, MG, GLYHGB, CDP #### [facility] [address] [place] [address] Grades 1 Thru 6 Visiting Teacher: Zachary Rivera MD Lipaseon 05-04-2023 Lipase [Catalytic activity/Vol] 561 U/L High 13-60 [facility] Comment on above: Performed By: #### L ACTIC, SED, SILVESTRE, BMPX, MG, GLYHGB, CDP #### [facility] [address] [place] [address] Grades 1 Thru 6 Visiting Teacher: Zachary Rivera MD Lipid Profileon 05-04-2023 Cholesterol [Mass/Vol] 108 mg/dL Normal <200 [facility] Comment on above: Result Comment: Cholesterol Guidelines: <200 Desirable 200-240 Borderline >240 Undesirable Performed By: #### L ACTIC, SED, SILVESTRE, BMPX, MG, GLYHGB, CDP #### [facility] [address] [place] [address] Grades 1 Thru 6 Visiting Teacher: Zachary Rivera MD Cholesterol in HDL [Mass/Vol] 17 mg/dL Low >40 [facility] Comment on above: Result Comment: HDL Guidelines: <40 Undesirable 40-59 Borderline >59 Desirable Performed By: #### L ACTIC, SED, SILVESTRE, BMPX, MG, GLYHGB, CDP #### [facility] [address] [place] [address] Grades 1 Thru 6 Visiting Teacher: Zachary Rivera MD Cholesterol in LDL [Mass/Vol] 62 mg/dL Normal 0-130 [facility] Comment on above: Result Comment: LDL Guidelines: <100 Desirable 100-129 Near to/above Desirable 130-159 Borderline >159 Undesirable Direct (measured) LDL and calculated LDL are not interchangeable tests. Performed By: #### L ACTIC, SED, SILVESTRE, BMPX, MG, GLYHGB, CDP #### [employer] [address] [place] [address] Grades 1 Thru 6 Visiting Teacher: Zachary Rivera MD Cholesterol.total/ Cholesterol in HDL [Mass ratio] 6.4 {ratio} High <5 [facility] Comment on above: Performed By: #### L ACTIC, SED, SILVESTRE, BMPX, MG, GLYHGB, CDP #### [facility] [address] [place] [address] Grades 1 Thru 6 Visiting Teacher: Zachary Rivera MD Triglyceride [Mass/Vol] 147 mg/dL Normal <150 [facility] Comment on above: Result Comment: Triglyceride Guidelines: <150 Desirable 150-199 Borderline 200-499 High >499 Very high Based on AHA Guidelines for fasting triglyceride, December 2011. Performed By: #### L ACTIC, SED, SILVESTRE, BMPX, MG, GLYHGB, CDP #### [facility] [address] [place] [address] Grades 1 Thru 6 Visiting Teacher: Zachary Rivera MD Liver Profileon 05-04-2023 Albumin [Mass/Vol] 2.5 g/dL Low 3.5-5.2 [facility] Comment on above: Performed By: #### L ACTIC, SED, SILVESTRE, BMPX, MG, GLYHGB, CDP #### [employer] [address] [place] [address] Grades 1 Thru 6 Visiting Teacher: Zachary Rivera MD Alkaline Phos 91 U/L Normal 35-104 [facility] Comment on above: Performed By: #### L ACTIC, SED, SILVESTRE, BMPX, MG, GLYHGB, CDP #### [employer] [address] [place] [address] Grades 1 Thru 6 Visiting Teacher: Zachary Rivera MD ALT [Catalytic activity/Vol] 11 U/L Normal 5-33 [facility] Comment on above: Performed By: #### L ACTIC, SED, SILVESTRE, BMPX, MG, GLYHGB, CDP #### [facility] [address] [place] [address] Grades 1 Thru 6 Visiting Teacher: Zachary Rivera MD AST [Catalytic activity/Vol] 22 U/L Normal <32 [facility] Comment on above: Performed By: #### L ACTIC, SED, SILVESTRE, BMPX, MG, GLYHGB, CDP #### [facility] [address] [place] [address] Grades 1 Thru 6 Visiting Teacher: Zachary Rievra MD Bilirubin, Indirect 0.2 mg/dL Normal 0.0-1.0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 . Informed consent was obtained after a detailed explanation of the procedure including the risks, benefits, and alternatives. [place] protocol was followed. Sterile barrier technique was [...] fluid pocket was accessed with a 5 Yemeni Yueh needle with aspiration of dark govind [...] by: Gogo Reyes MD 05/04/23 Final result [facility] 10-19-2022 Note HNO ID: [id number] Author: Carmelo Bernstein MD Service: ? Author [...] MD Vitreoretinal Surgery AND Ocular Inflammatory Diseases [facility] 09-21-2022 Note HNO ID: [id number] Author: Carmelo Bernstein MD Service: ? Author Type: Physician Type: Progress Notes Filed: 09/21/2022 1:57 PM Note Text: # Dislocated crystalline lens, left eye - POD1 s/p PPV/PPL/frag/Akreos OS (09/15/22, Mammo/Shoemaker) - Intraop: [...] MD Vitreoretinal Surgery AND Ocular Inflammatory Diseases [facility] 09-21-2022 Instructions Carmelo Bernstein MD - 09/21/2022 [...] and ask to speak with the on-call territory sales professional. *If you notice any changes in your vision please call immediately If there are any questions or concerns please contact [facility] - Sun-Sun 8am-5pm [phone] - After 5pm Sun-Sun or Weekends please call [phone] or ext [phone] - Ask for the Eye Doctor chemical detection expert documented in this encounter [facility] 09-21-2022 History of Presen t illness [...] MD Vitreoretinal Surgery & Ocular Inflammatory Diseases [facility] documented in this encounter [facility] 09-15-2022 Note HNO ID: [id number] Author: Andrew Shoemaker MD Service: ? Author [...] at 1:[address] Bernstein in [place] Prior note (unmodified): Dislocated crystalline lens, left [...] of its relevant components. Andrew Shoemaker MD [facility] 09-13-2022 Miscellaneous Notes Surgery rescheduled on 09/29/22, pt understands if she cancels last minute again we won't be able to reschedule. Needs refill of Latanoprost, dorzolamide, brimonidine and cyclo. Please send to [facility] in [place]. Ivett Wang documented in this encounter [facility] 09-09-2022 Note HNO ID: [id number] Author: Carmelo Bernstein MD Service: ? Author [...] MD Vitreoretinal Surgery AND Ocular Inflammatory Diseases [facility] 09-09-2022 History of Presen t illness Narrative [...] MD Vitreoretinal Surgery & Ocular Inflammatory Diseases [facility] documented in this encounter [facility] 08-14-2022 Note HNO ID: [id number] Author: Carmelo Bernstein MD Service: ? Author [...] - PPV/Pars plana lensectomy (Pars plana lensectomy (PPL)/Carmen vs Jacques - Ask if wants plano [...] MD Vitreoretinal Surgery AND Ocular Inflammatory Diseases [facility] 08-14-2022 Instructions Carmelo Bernstein MD - 08/14/2022 [...] 30 days before your surgery. My surgical services asst will be contacting you to schedule this appointment. Your exact time of surgery will not be determined until the day before surgery. My surgical services asst will call you the day before your surgery to advise you what time to arrive at the [facility] on the first floor at the [facility]. My surgical services asst is Ivett Wang, Please do no wear [...] be at the [facility] on the 2nd floor. We will review all your instructions at your appointment the day after surgery. documented in this encounter [facility] 08-14-2022 History of Presen t illness [...] MD Vitreoretinal Surgery & Ocular Inflammatory Diseases [facility] documented in this encounter [facility] 08-07-2022 Note HNO ID: [id number] Author: Morris Laws MD Service: ? Author [...] MPhil Vitreoretinal Surgery AND Ocular Inflammatory Diseases [facility] 08-07-2022 History of Presen t illness Narrative [...] with Dr. Shoemaker documented in this encounter [facility] 01-18-2022 Note PROCEDURE: XR ANKLE LT [...] authenticated by: TUCKER OCAMPO Date: 2022-01-18 15:50 [facility] 12-22-2021 Note PROCEDURE: XR ANKLE LT MIN [...] authenticated by: VEENA HERRERA Date: 2021-12-22 18:55 [facility] 12-22-2021 Note PROCEDURE: XR ANKLE LT MIN [...] by: VEENA HERRERA Date: 2021-12-22 18:55 [facility] 11-24-2021 Note PROCEDURE: XR ANKLE LT MIN [...] by: VEENA HERRERA Date: 2021-11-24 11:15 [facility] 10-27-2021 Note PROCEDURE: XR ANKLE LT MIN [...] authenticated by: TUCKER OCAMPO Date: 2021-10-27 12:21 [facility] 10-27-2021 Note PROCEDURE: XR ANKLE [...] by: TUCKER OCAMPO Date: 2021-10-27 12:21 [facility] 09-29-2021 Note PROCEDURE: XR ANKLE LT MIN [...] authenticated by: VEENA HERRERA Date: 2021-09-29 14:24 [facility] 09-29-2021 Note PROCEDURE: XR ANKLE [...] by: VEENA HERRERA Date: 2021-09-29 14:24 [facility] Evaluation note Diagnosis 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- Primary Posterior dislocation of lens 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 Summary Purpose Family History No Family [...] on Sun08/14/22 at 1500, Until Sun08/15/22 at 025, Administer for applanation tonometry. In the event of a Fluress shortage, administer [place]-Fluor 1 drop into both eyes as directed for applanation tonometry, [facility] MED ORDERS Given 08/14/2022 2:48 PM EDT 1 Drop PHENYLephrine 2.5 % 1 Drop (AK-DILATE, NISHA-SYNEPHRINE) 1 Drop, BOTH EYES, DIRECTED, Starting on Sun08/14/22 at 1500, Until Sun08/15/22 at 025, Administer for dilation PROTECT FROM LIGHT, [facility] MED ORDERS Given 08/14/2022 2:48 PM EDT 1 Drop tropicamide 1 % 1 Drop (MYDRIACYL) 1 Drop, BOTH EYES, DIRECTED, Starting on Sun08/14/22 at 1500, Until Tu08/15/22 at 0259, Administer for dilation, [facility] CL[facility] [...] or prosecute any alcohol or drug abuse patient.[facility] the event this information is protected by the Federal Confidentiality of Alcohol and Drug Abuse Patient Records regulations: The Federal rules restrict any use of the information to criminally investigate or prosecute any alcohol or drug abuse patient.[facility] the event this information is protected by the Federal Confidentiality of Alcohol and Drug Abuse Patient Records regulations: The Federal rules restrict any use of the information to criminally investigate or prosecute any alcohol or drug abuse patient.[facility] the event this information is protected by the Federal Confidentiality of Alcohol and Drug Abuse Patient Records regulations: The Federal rules restrict any use of the information to criminally investigate or prosecute any alcohol or drug abuse patient.[facility] the event this information is protected by the Federal Confidentiality of Alcohol and Drug Abuse Patient Records regulations: The Federal rules restrict any use of the information to criminally investigate or prosecute any alcohol or drug abuse patient.[facility] the event this information is protected by the Federal Confidentiality of Alcohol and Drug Abuse Patient Records regulations: The Federal rules restrict any use of the information to criminally investigate or prosecute any alcohol or drug abuse patient.[facility] Reason for Visit (unrecogniz ed section and content) Reason Comments Eye Pain Left Eye Reason Comments Dislocated Lens Evaluation Reason Comments Schedule Surgery Reason Comments Post-Op Visit s/p PPV/PPL/frag/Akr eos OS (09/15/22) INFORMATION SOURCE (unrecogn ized section and content) DATE CREATED AUTHOR 08/20/2022 [facility] DATE CREATED AUTHOR AUTHOR'S ORGANIZ ATION 10/20/2022 [facility] DATE CREATED AUTHOR AUTHOR'S ORGANIZ ATION 05/25/2023 [facility] DATE CREATED AUTHOR AUTHOR'S ORGANIZ ATION 05/28/2023 [facility] DATE CREATED AUTHOR AUTHOR'S ORGANIZ ATION 05/30/2023 [facility] FOR RECORDS PERTAINING TO PATIENTS WHO [...] BE BASED ON THE PRIMARY CLINICAL RECORDS. [facility] [facility]. provides no warranty or guarantee of the accuracy or completeness of information in this document.
[2023-05-30 13:50] LABS: Basophils Absolute Auto 0.1 10^3/uL (0.0-0.1); Basophils Percent Auto 0.6 % (0.2-2.0); Eosinophils Absolute Auto 0.1 10^3/uL (0.0-0.7); Eosinophils Percent Auto 1.5 % (0.9-7.0); Hematocrit 36.4 % (36.0-48.0); Hemoglobin 11.6 g/dL (12.0-16.0); Immature Granulocytes Abs Auto 0.02 10^3/uL (0.00-0.03); Immature Granulocytes Pct Auto 0.2 % (0.0-0.5); Lymphocytes Absolute Auto 1.4 10^3/uL (1.2-3.8); Lymphocytes Percent Auto 16.1 % (20.5-60.0); Mean Corpuscular HGB Conc 31.9 g/dL (29.9-35.2); Mean Corpuscular Hemoglobin 29.9 pg (26.7-34.0); Mean Corpuscular Volume 93.8 fL (81.0-99.0); Mean Platelet Volume 10.4 fL (9.5-13.5); Monocytes Absolute Auto 0.7 10^3/uL (0.3-0.8); Monocytes Percent Auto 7.7 % (1.7-12.0); Neutrophils Absolute Auto 6.4 10^3/uL (1.4-6.5); Neutrophils Percent Auto 73.9 % (43.0-75.0); Platelet Count 461 10^3/uL (150-450); Red Blood Count 3.88 10^6/uL (4.20-5.40); Red Cell Distribution Width 14.8 % (11.0-15.0); White Blood Count 8.7 10^3/uL (4.0-11.0)
[2023-05-30 13:54] LABS: Alanine Aminotransferase 14 U/L (14-59); Albumin Globulin Ratio 0.5; Albumin Level 1.8 g/dL (3.4-5.0); Alkaline Phosphatase 105 U/L (46-116); Aspartate Amino Transferase 19 U/L (15-37); BUN Creatinine Ratio 26.8; Bilirubin Total 0.3 mg/dL (0.2-1.0); Carbon Dioxide 28.7 mmol/L (21.0-32.0); Chloride 105 mmol/L (98-107); Estimated GFR (African America >60 (>=60); Estimated GFR (Non-African Ame >60 (>=60); Globulin 3.8 g/dL; Glucose 71 mg/dL (74-106); Potassium 3.7 mmol/L (3.5-5.1); Sodium 141 mmol/L (136-145); Total Protein 5.6 g/dL (6.4-8.2)
[2023-05-30 14:08] LABS: Amylase 1352 U/L (25-115)
== END 2023-05-30 12:50 | disposition home or self-care (01) ==
LOC: LAB 12:51
PROVIDERS: PCP Family Medicine; Visit Provider Family Medicine
DX: K85.90 Acute pancreatitis without necrosis or infection, unspecified (principal)
CPT/HCPCS: 36415; 80053; 82150; 83690; 85025

== ENCOUNTER 2023-07-31 02:09 | Emergency (ER) | payer OTHER, SELFPAY ==
[2023-07-31] VITALS (50 sets, daily range): BP systolic 89–149; BP diastolic 59–92; PULSE 68–115; TEMP 36.5; O2SAT 79–100; BMI 15.6
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
[2023-07-31 02:40] LABS: Basophils Absolute Auto 0.1 10^3/uL (0.0-0.1); Basophils Percent Auto 0.6 % (0.2-2.0); Eosinophils Absolute Auto 0.1 10^3/uL (0.0-0.7); Eosinophils Percent Auto 0.7 % (0.9-7.0); Hematocrit 41.2 % (36.0-48.0); Hemoglobin 13.7 g/dL (12.0-16.0); Immature Granulocytes Abs Auto 0.02 10^3/uL (0.00-0.03); Immature Granulocytes Pct Auto 0.2 % (0.0-0.5); Lymphocytes Absolute Auto 3.4 10^3/uL (1.2-3.8); Lymphocytes Percent Auto 33.7 % (20.5-60.0); Mean Corpuscular HGB Conc 33.3 g/dL (29.9-35.2); Mean Corpuscular Hemoglobin 28.2 pg (26.7-34.0); Mean Corpuscular Volume 84.8 fL (81.0-99.0); Mean Platelet Volume 9.7 fL (9.5-13.5); Monocytes Absolute Auto 0.9 10^3/uL (0.3-0.8); Monocytes Percent Auto 8.5 % (1.7-12.0); Neutrophils Absolute Auto 5.6 10^3/uL (1.4-6.5); Neutrophils Percent Auto 56.3 % (43.0-75.0); Platelet Count 308 10^3/uL (150-450); Red Blood Count 4.86 10^6/uL (4.20-5.40); Red Cell Distribution Width 16.1 % (11.0-15.0)
[2023-07-31 02:56] LABS: Alanine Aminotransferase 32 U/L (14-59); Albumin Level 4.2 g/dL (3.4-5.0); Alkaline Phosphatase 124 U/L (46-116); Anion Gap 14.2; Aspartate Amino Transferase 25 U/L (15-37); BUN Creatinine Ratio 26.9; Bilirubin Total 0.4 mg/dL (0.2-1.0); Calcium 9.7 mg/dL (8.5-10.1); Carbon Dioxide 24.9 mmol/L (21.0-32.0); Chloride 108 mmol/L (98-107); Estimated GFR (African America >60 (>=60); Estimated GFR (Non-African Ame >60 (>=60); Globulin 4.4 g/dL; Glucose 128 mg/dL (74-106); Potassium 3.1 mmol/L (3.5-5.1); Sodium 144 mmol/L (136-145); Total Protein 8.6 g/dL (6.4-8.2)
--- OUTSIDE RECORDS SUMMARY | 2023-07-31 02:57 | XMS_ITS | CCD ---
Author Organization [facility] Care Team Providers Care Inspector Final Assembly Electrical Name Role Phone Unavailable Primary Care Provider Unavailabl e MISC, DR HILARIO Primary Care Unavailable TERRENCE, DR TUCKER Dobson Consulting Unavailable HIGHLANDERLEIGHANN Attending Unavailable HIGHLANDERLEIGHANN Admitting Unavailable HIGHLANDERLEIGHANN Consulting Unavailable MISC, DR HILARIO Primary Care Unavailable NANDO ISABEL Admitting Unavailable CHALO, NANDO Attending Unavailable MISC, DR HILARIO Primary Care Unavailable HIGHLLEIGHANN LOCKHART Attending Unavailable HIGHLANDER PETER D Admitting Unavailable ZIEBER, DR TUCKER Dobson Consulting Unavailable HIGHLANDERLEIGHANN Consulting Unavailable MISC, DR HILARIO Primary Care Unavailable TEREZA ., GUILLE Attending Unavailable TEREZA ., GUILLE Admitting Unavailable WEST, DR VEENA Dhillon Consulting Unavailable YAROSH .GOGO Consulting Unavailable HAY ., DR BATISTA Attending Unavailable MISC, DR HILARIO Primary Care Unavailable HAY ., DR BATISTA Admitting Unavailable HAY ., DR BATISTA Consulting Unavailable GELBARTOGGO Consulting Unavailable DIAB ., MCKENNA Attending Unavailable GELBARGOGO Huertas Consulting Unavailable DIAB ., MCKENNA Admitting Unavailable [...] A Attending Unavailable SELF Referring Unavailable KEISHA CLEMONS Referring Unavailable MAMMO, CARMELO Perdomo Referring Unavailable MAMMO, CARMELO Perdomo Attending Unavailable MAMMO, CARMELO A Attending Unavailable CARMELO BERNSTEIN Attending Unavailable TUCKER DELATORRE Attending Unavailable Roberto He Attending Unavailable Roberto He Admitting Unavailable DENA VOGT Admitting Unavailable WILLY ANTUNEZ Referring Unavailable THONG YATES Attending Unavailable CAM LEYVA Consulting Unavailable DEB GONZALEZ Consulting UnavailTIA Bergman Consulting Unavailable EVELYN DELANEY Consulting Unavailable CONCEPCIÓN CUETO Consulting Unavailable VEENA SANCHEZ Consulting Unavailable CHRISTIE, BROWN Admitting Unavailable CHRISTIE, BROWN Consulting Unavailable VALE PANCHAL Attending Unavailable KHALIDA CARLSON Consulting Unavailable Medications Current Medications Medication Drug [...] Comment on above: Take [address] [facility] twice daily. 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 Organisms and cells will be concentrated. Culture NO GROWTH 6 DAYS Report Status FINAL 06/07/2023 [facility] Comment on above: Performed By: #### C MPX, SILVESTRE, TRIG, MG, CDP, PT #### [facility] [address] [place] [address] [phone] Financial Operations Consultant: Zachary Rivera MD Cult, Bloodon 06-05-2023 Cult, Blood Specimen Description .BLOOD Special Requests L FA 3ML Culture NO GROWTH 5 DAYS Report Status FINAL 06/05/2023 [facility] Comment on above: Performed By: #### C MPX, SILVESTRE, TRIG, MG, CDP, PT #### [facility] [address] [place] [address] [phone] Financial Operations Consultant: Zachary Rivera MD Cult,Bloodon 06-05-2023 Cult,Blood Specimen Description .BLOOD Special Requests R FA 10ML Culture NO GROWTH 5 DAYS Report Status FINAL 06/05/2023 [facility] Comment on above: Performed By: #### C MPX, SILVESTRE, TRIG, MG, CDP, PT #### [facility] [address] [place] [address] [phone] Financial Operations Consultant: Zachary Rivera MD Fluid Cell Count and Diffon 06-05-2023 Other Cells MESOTHELIAL CELLS Normal [facility] Comment on above: Result Comment: The reference range and other method performance specifications have not been established for this body fluid. The test result must be integrated into the clinical context for interpretation. Performed By: #### A JAK2 #### [facility] [address] [place] [address] Financial Operations Consultant: Ozzy Tolliver MD #### CA125 #### [address] [phone] Financial Operations Consultant: Zachary Rivera MD Glucose,Whole Bloodon 2023 Glucose [Mass/Vol] 105 mg/dL Normal 65-105 [facility] Glucose [Mass/Vol] 102 mg/dL Normal 65-105 [facility] Comp Metabolic Pr/rfx MGon 0 06-04-2023 Albumin [Mass/Vol] 1.9 g/dL Low 3.5-5.2 [facility] Comment on above: Performed By: #### A JAK2 #### [facility] [address] [place] [address] Financial Operations Consultant: Ozzy Tolliver MD #### CA125 #### [address] [phone] Financial Operations Consultant: Zachary Rivera MD Albumin/Glob Ratio 1.0 Normal 1.0-2.5 [facility] Comment on above: Performed By: #### A JAK2 #### [facility] [address] [place] [address] Financial Operations Consultant: Ozzy Tolliver MD #### CA125 #### [address] [phone] Financial Operations Consultant: Zachary Rivera MD Alkaline Phos 73 U/L Normal 35-104 [facility] Comment on above: Performed By: #### A JAK2 #### [facility] [address] [place] [address] Financial Operations Consultant: Ozzy Tolliver MD #### CA125 #### [address] [address] Financial Operations Consultant: Zachary Rivera MD ALT [Catalytic activity/Vol] U/L Low 10-35 [facility] Comment on above: Performed By: #### A JAK2 #### [facility] [address] [place] [address] Financial Operations Consultant: Ozzy Tolliver MD #### CA125 #### [address] [address] Financial Operations Consultant: Zachary Rivera MD Anion gap [Moles/Vol] 7 mmol/L Low 9-16 [facility] Comment on above: Performed By: #### A JAK2 #### [address] [address] Financial Operations Consultant: Ozzy Tolliver MD #### CA125 #### [address] [address] Financial Operations Consultant: Zachary Rivera MD AST [Catalytic activity/Vol] 18 U/L Normal -35 [facility] Comment on above: Performed By: #### A JAK2 #### [facility] [address] [place] [address] Financial Operations Consultant: Ozzy Tolliver MD #### CA125 #### [address] [address] Financial Operations Consultant: Zachary Rivera MD Bilirubin [Mass/Vol] 0.3 mg/dL Normal 0.00-1.20 [facility] Comment on above: Performed By: #### A JAK2 #### [facility] [address] [place] [address] Financial Operations Consultant: Ozzy Tolliver MD #### CA125 #### [address] [address] Financial Operations Consultant: Zachary Rivera MD Calcium [Mass/Vol] 7.8 mg/dL Low 8.6-10.4 [facility] Comment on above: Performed By: #### A JAK2 #### [facility] [address] [place] [address] Financial Operations Consultant: Ozzy Tolliver MD #### CA125 #### [address] [phone] Financial Operations Consultant: Zachary Rivera MD Chloride [Moles/Vol] 105 mmol/L Normal 98-107 [facility] Comment on above: Performed By: #### A JAK2 #### [facility] [address] [place] [address] Financial Operations Consultant: Ozzy Tolliver MD #### CA125 #### [address] [phone] Financial Operations Consultant: Zachary Rivera MD CO2 [Moles/Vol] 23 mmol/L Normal 20-31 [facility] Comment on above: Performed By: #### A JAK2 #### [facility] [address], [place] [id number] Financial Operations Consultant: Ozzy Tolliver MD #### CA125 #### [address] [phone] Financial Operations Consultant: Zachary Rivera MD Creatinine [Mass/Vol] 0.3 mg/dL Low 0.50-0.90 [facility] Comment on above: Performed By: #### A JAK2 #### [facility] [address] [place] [address] Financial Operations Consultant: Ozzy Tolliver MD #### CA125 #### [address] [phone] Financial Operations Consultant: Zachary Rivera MD GFR/1.73 sq M.predicted among non-blacks MDRD (S/P/Bld) [Vol rate/Area] mL/min/{1.73_m2} Normal >60 [facility] Comment on above: Result Comment: These [...] affects renal tubular secretion. Performed By: #### A JAK2 #### [facility] [address] [place] [address] Financial Operations Consultant: Ozzy Tolliver MD #### CA125 #### [address] [address] Financial Operations Consultant: Zachary Rivera MD Glucose [Mass/Vol] 121 mg/dL High 74-99 [facility] Comment on above: Performed By: #### A JAK2 #### [facility] [address] [place] [address] Financial Operations Consultant: Ozzy Tolliver MD #### CA125 #### [address] [address] Financial Operations Consultant: Zachary Rivera MD Potassium [Moles/Vol] 4.0 mmol/L Normal 3.7-5.3 [facility] Comment on above: Performed By: #### A JAK2 #### [facility] [address] [place] [address] Financial Operations Consultant: Ozzy Tolliver MD #### CA125 #### [address] [address] Financial Operations Consultant: Zachary Rivera MD Protein [Mass/Vol] 4.4 g/dL Low 6.6-8.7 [facility] Comment on above: Performed By: #### A JAK2 #### [facility] [address] [place] [address] Financial Operations Consultant: Ozzy Tolliver MD #### CA125 #### [facility] [address] [place] [address] [phone] Financial Operations Consultant: Zachary Rivera MD Sodium [Moles/Vol] 135 mmol/L Low 136-145 [facility] Comment on above: Performed By: #### A JAK2 #### [facility] [address] [place] [address] Financial Operations Consultant: Ozzy Tolliver MD #### CA125 #### [address] [phone] Financial Operations Consultant: Zachary Rivera MD Urea nitrogen [Mass/Vol] 11 mg/dL Normal 6-20 [facility] Comment on above: Performed By: #### A JAK2 #### [facility] [address] [place] [address] Financial Operations Consultant: Ozzy Tolliver MD #### CA125 #### [address] [phone] Financial Operations Consultant: Zachary Rivera MD Glucose,Whole Bloodon 2023 Glucose [Mass/Vol] 113 mg/dL High 65-105 [facility] Glucose [Mass/Vol] 95 mg/dL Normal 65-105 [facility] Glucose [Mass/Vol] 130 mg/dL High 65-105 [facility] Glucose [Mass/Vol] 121 mg/dL High 65-105 [facility] Magnesiumon 06-04-2023 Magnesium [Mass/Vol] 1.7 mg/dL Normal 1.6-2.6 [facility] Comment on above: Performed By: #### A JAK2 #### [facility] [address] [place] [address] Financial Operations Consultant: Ozzy Tolliver MD #### CA125 #### [facility] [address] [place] [address] [phone] Financial Operations Consultant: Zachary Rivera MD Non-Sandfill Operator Cytologyon Case No: [id number] Normal [facility] Comment on above: Performed By: #### C MPX, MG, PT, CDP #### [address] [phone] Financial Operations Consultant: Zachary Rivera MD PTon 1 INR Coag (PPP) [Relative time] 1.3 {INR} Normal [facility] Comment on above: Result Comment: Therapeutic Range: Moderate Anticoagulant Intensity: INR = 2.0-3.0 High Anticoagulant Intensity: INR = 2.5-3.5 Performed By: #### A JAK2 #### [facility] [address] [place] [address] Financial Operations Consultant: Ozzy Tolliver MD #### CA125 #### [address] [phone] Financial Operations Consultant: Zachary Rivera MD PT Coag (PPP) [Time] 16.4 s High 11.7-14.9 [facility] Comment on above: Performed By: #### A JAK2 #### [facility] [address] [place] [address] Financial Operations Consultant: Ozzy Tolliver MD #### CA125 #### [address] [phone] Financial Operations Consultant: Zachary Rivera MD Phosphorus, Inorg.on 024 Phosphorus, Inorg. 3.5 mg/dL Normal 2.5-4.5 [facility] Comment on above: Performed By: #### A JAK2 #### [facility] [address] [place] [address] Financial Operations Consultant: Ozzy Tolliver MD #### CA125 #### [address] [phone] Financial Operations Consultant: Zachary Rivera MD CBC with Diffon 06-03-2023 Abs. Basophil <0.03 Normal 0.00-0.20 [facility] Comment on above: Performed By: #### C MPX, SILVESTRE, TRIG, MG, CDP, PT #### [facility] [address] [place] [address] Financial Operations Consultant: Zachary Rivera MD Abs.Imm.Granulocyt e 0.04 k/uL Normal 0.00-0.30 [facility] Comment on above: Performed By: #### C MPX, SILVESTRE, TRIG, MG, CDP, PT #### [place] [address] Financial Operations Consultant: Zachary Rivera MD Abs.Neutrophil (Seg) 6.61 k/uL Normal 1.50-8.10 [facility] Comment on above: Performed By: #### C MPX, SILVESTRE, TRIG, MG, CDP, PT #### [facility] [address] [place] [address] Financial Operations Consultant: Zachary Rivera MD Basophils/100 WBC (Bld) 0 % Normal 0-2 [facility] Comment on above: Performed By: #### C MPX, SILVESTRE, TRIG, MG, CDP, PT #### [facility] [address] [place] [address] Financial Operations Consultant: Zachary Rivera MD Eosinophils (Bld) [#/Vol] 0.11 10*3/uL Normal 0.00-0.44 [facility] Comment on above: Performed By: #### C MPX, SILVESTRE, TRIG, MG, CDP, PT #### [facility] [address] [place] [address] Financial Operations Consultant: Zachary Rivera MD Eosinophils/100 WBC (Bld) 1 % Normal 1-4 [facility] Comment on above: Performed By: #### C MPX, SILVESTRE, TRIG, MG, CDP, PT #### [facility] [address] [place] [phone] Financial Operations Consultant: Zachary Rivera MD Erythrocyte distribution width (RBC) [Ratio] 14.8 % High 11.8-14.4 [facility] Comment on above: Performed By: #### C MPX, SILVESTRE, TRIG, MG, CDP, PT #### [facility] [address] [place] [address] Financial Operations Consultant: Zachary Rivera MD Hematocrit (Bld) [Volume fraction] 34.6 % Low 36.3-47.1 [facility] Comment on above: Performed By: #### C MPX, SILVESTRE, TRIG, MG, CDP, PT #### [facility] [address] [place] [address] Financial Operations Consultant: Zachary Rivera MD Hemoglobin (Bld) [Mass/Vol] 10.6 g/dL Low 11.9-15.1 [facility] Comment on above: Performed By: #### C MPX, SILVESTRE, TRIG, MG, CDP, PT #### [place] [address] Financial Operations Consultant: Zachary Rivera MD Immature granulocytes/100 WBC (Bld) 1 % High 0 [facility] Comment on above: Performed By: #### C MPX, SILVESTRE, TRIG, MG, CDP, PT #### [facility] [employer] [address] [place] [address] Financial Operations Consultant: Zachary Rivera MD Lymphocytes (Bld) [#/Vol] 1.08 10*3/uL Low 1.10-3.70 [facility] Comment on above: Performed By: #### C MPX, SILVESTRE, TRIG, MG, CDP, PT #### [facility] [address] [place] [phone] Financial Operations Consultant: Zachary Rivera MD Lymphocytes/100 WBC (Bld) 13 % Low 24-43 [facility] Comment on above: Performed By: #### C MPX, SILVESTRE, TRIG, MG, CDP, PT #### [facility] [employer] [address] [place] [address] Financial Operations Consultant: Zachary Rivera MD MCH (RBC) [Entitic mass] 30.2 pg Normal 25.2-33.5 [facility] Comment on above: Performed By: #### C MPX, SILVESTRE, TRIG, MG, CDP, PT #### [address] [address] Financial Operations Consultant: Zachary Rivera MD MCHC (RBC) [Mass/Vol] 30.6 g/dL Normal 28.4-34.8 [facility] Comment on above: Performed By: #### C MPX, SILVESTRE, TRIG, MG, CDP, PT #### [address] [address] Financial Operations Consultant: Zachary Rivera MD MCV (RBC) [Entitic vol] 98.6 fL Normal 82.6-102.9 [facility] Comment on above: Performed By: #### C MPX, SILVESTRE, TRIG, MG, CDP, PT #### [address] [address] Financial Operations Consultant: Zachary Rivera MD Monocytes (Bld) [#/Vol] 0.81 10*3/uL Normal 0.10-1.20 [facility] Comment on above: Performed By: #### C MPX, SILVESTRE, TRIG, MG, CDP, PT #### [facility] [employer] [address] [place] [address] Financial Operations Consultant: Zachary Rivera MD Monocytes/100 WBC (Bld) 9 % Normal 3-12 [facility] Comment on above: Performed By: #### C MPX, SILVESTRE, TRIG, MG, CDP, PT #### [facility] [address] [place] [address] Financial Operations Consultant: Zachary Rivera MD Neutrophil (Seg) 76 % High 36-65 [facility] Comment on above: Performed By: #### C MPX, SILVESTRE, TRIG, MG, CDP, PT #### [address] [address] Financial Operations Consultant: Zachary Rivera MD NRBC Automated 0.0 per 100 WBC Normal 0.0 [facility] Comment on above: Performed By: #### C MPX, SILVESTRE, TRIG, MG, CDP, PT #### [address] [address] Financial Operations Consultant: Zachary Rivera MD Platelet mean volume (Bld) [Entitic vol] 9.9 fL Normal 8.1-13.5 [facility] Comment on above: Performed By: #### C MPX, SILVESTRE, TRIG, MG, CDP, PT #### [address] [address] Financial Operations Consultant: Zachary Rivera MD Platelets (Bld) [#/Vol] 322 10*3/uL Normal 138-453 [facility] Comment on above: Performed By: #### C MPX, SILVESTRE, TRIG, MG, CDP, PT #### [address] [address] Financial Operations Consultant: Zachary Rivera MD RBC (Bld) [#/Vol] 3.51 10*6/uL Low 3.95-5.11 [facility] Comment on above: Performed By: #### C MPX, SILVESTRE, TRIG, MG, CDP, PT #### [address] [address] Financial Operations Consultant: Zachary Rivera MD RBC morphology finding Nom (Bld) ANISOCYTOSIS PRESENT Normal [facility] Comment on above: Performed By: #### C MPX, SILVESTRE, TRIG, MG, CDP, PT #### [address] [address] Financial Operations Consultant: Zachary Rivera MD WBC (Bld) [#/Vol] 8.7 10*3/uL Normal 3.5-11.3 [facility] Comment on above: Performed By: #### C MPX, SILVESTRE, TRIG, MG, CDP, PT #### [address] [address] Financial Operations Consultant: Zachary Rivera MD Comp Metabolic Pr/rfx MGon 0 - Albumin [Mass/Vol] 1.9 g/dL Low 3.5-5.2 [facility] Comment on above: Performed By: #### C MPX, SILVESTRE, TRIG, MG, CDP, PT #### [address] [address] Financial Operations Consultant: Zachary Rivera MD Albumin/Glob Ratio 1.0 Normal 1.0-2.5 [facility] Comment on above: Performed By: #### C MPX, SILVESTRE, TRIG, MG, CDP, PT #### [address] [address] Financial Operations Consultant: Zachary Rivera MD Alkaline Phos 78 U/L Normal 35-104 [facility] Comment on above: Performed By: #### C MPX, SILVESTRE, TRIG, MG, CDP, PT #### [address] [address] Financial Operations Consultant: Zachary Rivera MD ALT [Catalytic activity/Vol] U/L Low 10-35 [facility] Comment on above: Performed By: #### C MPX, SILVESTRE, TRIG, MG, CDP, PT #### [address] [address] Financial Operations Consultant: Zachary Rivera MD Anion gap [Moles/Vol] 7 mmol/L Low 9-16 [facility] Comment on above: Performed By: #### C MPX, SILVESTRE, TRIG, MG, CDP, PT #### [address] [address] Financial Operations Consultant: Zachary Rivera MD AST [Catalytic activity/Vol] 21 U/L Normal 10-35 [facility] Comment on above: Performed By: #### C MPX, SILVESTRE, TRIG, MG, CDP, PT #### [address] [address] Financial Operations Consultant: Zachary Rivera MD Bilirubin [Mass/Vol] 0.3 mg/dL Normal 0.00-1.20 [facility] Comment on above: Performed By: #### C MPX, SILVESTRE, TRIG, MG, CDP, PT #### [address] [address] Financial Operations Consultant: Zachary Rivera MD Calcium [Mass/Vol] 7.8 mg/dL Low 8.6-10.4 [facility] Comment on above: Performed By: #### C MPX, SILVESTRE, TRIG, MG, CDP, PT #### [address] [address] Financial Operations Consultant: Zachary Rivera MD Chloride [Moles/Vol] 105 mmol/L Normal 98-107 [facility] Comment on above: Performed By: #### C MPX, SILVESTRE, TRIG, MG, CDP, PT #### [address] [address] Financial Operations Consultant: Zachary Rivera MD CO2 [Moles/Vol] 20 mmol/L Normal 20-31 [facility] Comment on above: Performed By: #### C MPX, SILVESTRE, TRIG, MG, CDP, PT #### [address] [address] Financial Operations Consultant: Zachary Rivera MD Creatinine [Mass/Vol] 0.3 mg/dL Low 0.50-0.90 [facility] Comment on above: Performed By: #### C MPX, SILVESTRE, TRIG, MG, CDP, PT #### [address] [phone] Financial Operations Consultant: Zachary Rivera MD GFR/1.73 sq M.predicted among non-blacks MDRD (S/P/Bld) [Vol rate/Area] mL/min/{1.73_m2} Normal >60 [facility] Comment on above: Result Comment: These [...] tubular secretion. Performed By: #### C MPX, SILVESTRE, TRIG, MG, CDP, PT #### [facility] [employer] [address] [place] [address] Financial Operations Consultant: Zachary Rivera MD Glucose [Mass/Vol] 133 mg/dL High 74-99 [facility] Comment on above: Performed By: #### C MPX, SILVESTRE, TRIG, MG, CDP, PT #### [facility] [employer] [address] [place] [address] Financial Operations Consultant: Zachary Rivera MD Potassium [Moles/Vol] 3.8 mmol/L Normal 3.7-5.3 [facility] Comment on above: Performed By: #### C MPX, SILVESTRE, TRIG, MG, CDP, PT #### [facility] [employer] [address] [place] [address] Financial Operations Consultant: Zachary Rivera MD Protein [Mass/Vol] 4.3 g/dL Low 6.6-8.7 [facility] Comment on above: Performed By: #### C MPX, SILVESTRE, TRIG, MG, CDP, PT #### [facility] [employer] [address] [place] [address] [phone] Financial Operations Consultant: Zachary Rivera MD Sodium [Moles/Vol] 132 mmol/L Low 136-145 [facility] Comment on above: Performed By: #### C MPX, SILVESTRE, TRIG, MG, CDP, PT #### [address] [phone] Financial Operations Consultant: Zachary Rivera MD Urea nitrogen [Mass/Vol] 10 mg/dL Normal 6-20 [facility] Comment on above: Performed By: #### C MPX, SILVESTRE, TRIG, MG, CDP, PT #### [place] [id number] Financial Operations Consultant: Zachary Rivera MD Glucose,Whole Bloodon 2023 Glucose [Mass/Vol] 100 mg/dL Normal 65-105 [facility] Glucose [Mass/Vol] 104 mg/dL Normal 65-105 [facility] Glucose [Mass/Vol] 117 mg/dL High 65-105 [facility] Glucose [Mass/Vol] 124 mg/dL High 65-105 [facility] Magnesiumon 06-03-2023 Magnesium [Mass/Vol] 1.6 mg/dL Normal 1.6-2.6 [facility] Comment on above: Performed By: #### C MPX, SILVESTRE, TRIG, MG, CDP, PT #### [address] [phone] Financial Operations Consultant: Zachary Rivera MD Magnesium [Mass/Vol] 1.6 mg/dL Normal 1.6-2.6 [facility] Comment on above: Performed By: #### C MPX, SILVESTRE, TRIG, MG, CDP, PT #### [address] [phone] Financial Operations Consultant: Zachary Rivera MD PTon 06-03-2023 INR Coag (PPP) [Relative time] 1.3 {INR} Normal [facility] Comment on above: Result Comment: Therapeutic Range: Moderate Anticoagulant Intensity: INR = 2.0-3.0 High Anticoagulant Intensity: INR = 2.5-3.5 Performed By: #### C MPX, SILVESTRE, TRIG, MG, CDP, PT #### [address] [address] Financial Operations Consultant: Zachary Rivera MD PT Coag (PPP) [Time] 15.9 s High 11.7-14.9 [facility] Comment on above: Performed By: #### C MPX, SILVESTRE, TRIG, MG, CDP, PT #### [address] [id number] Financial Operations Consultant: Zachary Rivera MD Phosphorus, Inorg.on Phosphorus, Inorg. 3.0 mg/dL Normal 2.5-4.5 [facility] Comment on above: Performed By: #### C MPX, SILVESTRE, TRIG, MG, CDP, PT #### [facility] [employer] [address] [place] [address] Financial Operations Consultant: Zachary Rivera MD Phosphorus, Inorg. 2.7 mg/dL Normal 2.5-4.5 [facility] Comment on above: Performed By: #### C MPX, SILVESTRE, TRIG, MG, CDP, PT #### [address] [address] Financial Operations Consultant: Zachary Rivera MD Triglycerideson 06-03-2023 Triglyceride [Mass/Vol] 102 mg/dL Normal <150 [facility] Comment on above: Result Comment: Triglyceride Guidelines: <150 Desirable 150-199 Borderline 200-499 High >499 Very high Based on AHA Guidelines for fasting triglyceride, December 2011. Performed By: #### C MPX, SILVESTRE, TRIG, MG, CDP, PT #### [address] [address] Financial Operations Consultant: Zachary Rivera MD Albumin, Fluidon 06-02-2023 Albumin, Fluid 1.3 g/dL Normal [facility] Comment on above: Result Comment: Ther e are no normals for body fluid samples. Performed By: #### A JAK2 #### [facility] [address] [place], [place] [id number] Financial Operations Consultant: Ozzy Tolliver MD #### CA125 #### [address] [address] Financial Operations Consultant: Zachary Rivera MD Type of specimen .ASCITIC FLUID Normal [facility] Comment on above: Performed By: #### A JAK2 #### [facility] [address] [place] [address] Financial Operations Consultant: Ozzy Tolliver MD #### CA125 #### [address] [address] Financial Operations Consultant: Zachary Rivera MD CBC with Diffon 06-02-2023 Abs. Basophil 0.05 k/uL Normal 0.00-0.20 [facility] Comment on above: Performed By: #### C MPX, MG, PT, CDP #### [address] [address] Financial Operations Consultant: Zachary Rivera MD Abs.Imm.Granulocyt e 0.07 k/uL Normal 0.00-0.30 [facility] Comment on above: Performed By: #### C MPX, MG, PT, CDP #### [address] [address] Financial Operations Consultant: Zachary Rivera MD Abs.Neutrophil (Seg) 6.97 k/uL Normal 1.50-8.10 [facility] Comment on above: Performed By: #### C MPX, MG, PT, CDP #### [address] [address] Financial Operations Consultant: Zachary Rivera MD Basophils/100 WBC (Bld) 1 % Normal 0-2 [facility] Comment on above: Performed By: #### C MPX, MG, PT, CDP #### [address] [address] Financial Operations Consultant: Zachary Rivera MD Eosinophils (Bld) [#/Vol] 0.12 10*3/uL Normal 0.00-0.44 [facility] Comment on above: Performed By: #### C MPX, MG, PT, CDP #### [facility] [employer] [employer] [address] [place] [address] Financial Operations Consultant: Zachary Rivera MD Eosinophils/100 WBC (Bld) 1 % Normal 1-4 [facility] Comment on above: Performed By: #### C MPX, MG, PT, CDP #### [address] [address] Financial Operations Consultant: Zachary Rivera MD Erythrocyte distribution width (RBC) [Ratio] 14.9 % High 11.8-14.4 [facility] Comment on above: Performed By: #### C MPX, MG, PT, CDP #### [address] [address] Financial Operations Consultant: Zachary Rivera MD Hematocrit (Bld) [Volume fraction] 32.3 % Low 36.3-47.1 [facility] Comment on above: Performed By: #### C MPX, MG, PT, CDP #### [facility] [employer] [employer] [address] [place] [address] Financial Operations Consultant: Zachary Rivera MD Hemoglobin (Bld) [Mass/Vol] 10.1 g/dL Low 11.9-15.1 [facility] Comment on above: Performed By: #### C MPX, MG, PT, CDP #### [facility] [employer] [employer] [address] [place] [address] Financial Operations Consultant: Zachary Rivera MD Immature granulocytes/100 WBC (Bld) 1 % High 0 [facility] Comment on above: Performed By: #### C MPX, MG, PT, CDP #### [facility] [employer] [address] [place] [address] Financial Operations Consultant: Zachary Rivear MD Lymphocytes (Bld) [#/Vol] 1.40 10*3/uL Normal 1.10-3.70 [facility] Comment on above: Performed By: #### C MPX, MG, PT, CDP #### [facility] [employer] [employer] [address] [place] [address] Financial Operations Consultant: Zachary Rivera MD Lymphocytes/100 WBC (Bld) 15 % Low 24-43 [facility] Comment on above: Performed By: #### C MPX, MG, PT, CDP #### [facility] [employer] [employer] [address] [place] [address] Financial Operations Consultant: Zachary Rivera MD MCH (RBC) [Entitic mass] 30.1 pg Normal 25.2-33.5 [facility] Comment on above: Performed By: #### C MPX, MG, PT, CDP #### [facility] [employer] [address] [place] [address] Financial Operations Consultant: Zachary Rivera MD MCHC (RBC) [Mass/Vol] 31.3 g/dL Normal 28.4-34.8 [facility] Comment on above: Performed By: #### C MPX, MG, PT, CDP #### [facility] [employer] [employer] [address] [place] [address] Financial Operations Consultant: Zachary Rivera MD MCV (RBC) [Entitic vol] 96.4 fL Normal 82.6-102.9 [facility] Comment on above: Performed By: #### C MPX, MG, PT, CDP #### [facility] [employer] [employer] [address] [place] [address] Financial Operations Consultant: Zachary Rivera MD Monocytes (Bld) [#/Vol] 0.88 10*3/uL Normal 0.10-1.20 [facility] Comment on above: Performed By: #### C MPX, MG, PT, CDP #### [address] [address] Financial Operations Consultant: Zachary Rivera MD Monocytes/100 WBC (Bld) 9 % Normal 3-12 [facility] Comment on above: Performed By: #### C MPX, MG, PT, CDP #### [address] [address] Financial Operations Consultant: Zachary Rivear MD Neutrophil (Seg) 73 % High 36-65 [facility] Comment on above: Performed By: #### C MPX, MG, PT, CDP #### [address] [address] Financial Operations Consultant: Zachary Rivera MD NRBC Automated 0.0 per 100 WBC Normal 0.0 [facility] Comment on above: Performed By: #### C MPX, MG, PT, CDP #### [address] [address] Financial Operations Consultant: Zachary Rivera MD Platelet mean volume (Bld) [Entitic vol] 10.2 fL Normal 8.1-13.5 [facility] Comment on above: Performed By: #### C MPX, MG, PT, CDP #### [address] [address] Financial Operations Consultant: Zachary Rivera MD Platelets (Bld) [#/Vol] 341 10*3/uL Normal 138-453 [facility] Comment on above: Performed By: #### C MPX, MG, PT, CDP #### [address] [address] Financial Operations Consultant: Zachary Rivera MD RBC (Bld) [#/Vol] 3.35 10*6/uL Low 3.95-5.11 [facility] Comment on above: Performed By: #### C MPX, MG, PT, CDP #### [facility] [employer] [employer] [address] [place] [address] Financial Operations Consultant: Zachary Rivera MD RBC morphology finding Nom (Bld) ANISOCYTOSIS PRESENT Normal [facility] Comment on above: Performed By: #### C MPX, MG, PT, CDP #### [facility] [employer] [address] [place] [address] Financial Operations Consultant: Zachary Rivera MD WBC (Bld) [#/Vol] 9.5 10*3/uL Normal 3.5-11.3 [facility] Comment on above: Performed By: #### C MPX, MG, PT, CDP #### [address] [address] Financial Operations Consultant: Zachary Rivera MD Comp Metabolic Pr/rfx MGon 0 - Albumin [Mass/Vol] 1.9 g/dL Low 3.5-5.2 [facility] Comment on above: Performed By: #### C MPX, MG, PT, CDP #### [facility] [employer] [address] [place] [address] Financial Operations Consultant: Zachary Rivera MD Albumin/Glob Ratio 1.0 Normal 1.0-2.5 [facility] Comment on above: Performed By: #### C MPX, MG, PT, CDP #### [facility] [employer] [employer] [address] [place] [address] Financial Operations Consultant: Zachary Rivera MD Alkaline Phos 84 U/L Normal 35-104 [facility] Comment on above: Performed By: #### C MPX, MG, PT, CDP #### [facility] [employer] [employer] [address] [place] [address] Financial Operations Consultant: Zachary Rivera MD ALT [Catalytic activity/Vol] U/L Low 10-35 [facility] Comment on above: Performed By: #### C MPX, MG, PT, CDP #### [facility] [employer] [employer] [address] [place] [address] Financial Operations Consultant: Zachary Rivera MD Anion gap [Moles/Vol] 7 mmol/L Low 9-16 [facility] Comment on above: Performed By: #### C MPX, MG, PT, CDP #### [facility] [employer] [employer] [address] [place] [address] Financial Operations Consultant: Zachary Rivera MD AST [Catalytic activity/Vol] 23 U/L Normal 10-35 [facility] Comment on above: Performed By: #### C MPX, MG, PT, CDP #### [facility] [employer] [address] [place] [address] Financial Operations Consultant: Zachary Rivera MD Bilirubin [Mass/Vol] 0.3 mg/dL Normal 0.00-1.20 [facility] Comment on above: Performed By: #### C MPX, MG, PT, CDP #### [facility] [employer] [employer] [address] [place] [address] Financial Operations Consultant: Zachary Rivera MD Calcium [Mass/Vol] 7.6 mg/dL Low 8.6-10.4 [facility] Comment on above: Performed By: #### C MPX, MG, PT, CDP #### [facility] [email or web address] [address] [place] [address] Financial Operations Consultant: Zachary Rivera MD Chloride [Moles/Vol] 108 mmol/L High 98-107 [facility] Comment on above: Performed By: #### C MPX, MG, PT, CDP #### [facility] [employer] [address] [place] [address] Financial Operations Consultant: Zachary Rivera MD CO2 [Moles/Vol] 20 mmol/L Normal 20-31 [facility] Comment on above: Performed By: #### C MPX, MG, PT, CDP #### [facility] [employer] [employer] [address] [place] [address] Financial Operations Consultant: Zachary Rivera MD Creatinine [Mass/Vol] 0.3 mg/dL Low 0.50-0.90 [facility] Comment on above: Performed By: #### C MPX, MG, PT, CDP #### [facility] [employer] [address] [place] [address] Financial Operations Consultant: Zachary Rivera MD GFR/1.73 sq M.predicted among non-blacks MDRD (S/P/Bld) [Vol rate/Area] mL/min/{1.73_m2} Normal >60 [facility] Comment on above: Result Comment: These [...] tubular secretion. Performed By: #### C MPX, MG, PT, CDP #### [facility] [employer] [address] [place] [address] Financial Operations Consultant: Zachary Rivera MD Glucose [Mass/Vol] 108 mg/dL High 74-99 [facility] Comment on above: Performed By: #### C MPX, MG, PT, CDP #### [facility] [email or web address] [address] [place] [address] Financial Operations Consultant: Zachary Rivera MD Potassium [Moles/Vol] 3.4 mmol/L Low 3.7-5.3 [facility] Comment on above: Performed By: #### C MPX, MG, PT, CDP #### [facility] [email or web address] [address] [place] [address] Financial Operations Consultant: Zachary Rivera MD Protein [Mass/Vol] 4.1 g/dL Low 6.6-8.7 [facility] Comment on above: Performed By: #### C MPX, MG, PT, CDP #### [address] [address] Financial Operations Consultant: Zachary Rivera MD Sodium [Moles/Vol] 135 mmol/L Low 136-145 [facility] Comment on above: Performed By: #### C MPX, MG, PT, CDP #### [facility] [employer] [address] [place] [address] Financial Operations Consultant: Zachary Rivera MD Urea nitrogen [Mass/Vol] 10 mg/dL Normal 6-20 [facility] Comment on above: Performed By: #### C MPX, MG, PT, CDP #### [address] [address] Financial Operations Consultant: Zachary Rivera MD Fluid Cell Count and Diffon 06-02-2023 Lymphocytes/100 WBC (Bld) 8 % Normal [facility] Comment on above: Result Comment: The reference range and other method performance specifications have not been established for this body fluid. The test result must be integrated into the clinical context for interpretation. Performed By: #### A JAK2 #### [facility] [address] [place] [address] Financial Operations Consultant: Ozzy Tolliver MD #### CA125 #### [address] [address] Financial Operations Consultant: Zachary Rivera MD Neutrophils/100 WBC (Bld) 0 % Normal [facility] Comment on above: Result Comment: The reference range and other method performance specifications have not been established for this body fluid. The test result must be integrated into the clinical context for interpretation. Performed By: #### A JAK2 #### [facility] [address] [place] [address] Financial Operations Consultant: Ozzy Tolliver MD #### CA125 #### [place] [address] [place] [address] Financial Operations Consultant: Zachary Rivera MD RBC (Bld) [#/Vol] 10*6/uL Normal [facility] Comment on above: Result Comment: The reference range and other method performance specifications have not been established for this body fluid. The test result must be integrated into the clinical context for interpretation. Performed By: #### A JAK2 #### [facility] [address] [place] [address] Financial Operations Consultant: Ozzy Tolliver MD #### CA125 #### [address] [address] Financial Operations Consultant: Zachary Rivera MD WBC (Bld) [#/Vol] 0.215 10*3/uL Normal [facility] Comment on above: Result Comment: The reference range and other method performance specifications have not been established for this body fluid. The test result must be integrated into the clinical context for interpretation. Performed By: #### A JAK2 #### [facility] [address] [place] [address] Financial Operations Consultant: Ozzy Tolliver MD #### CA125 #### [address] [address] Financial Operations Consultant: Zachary Rivera MD Magnesiumon 06-02-2023 Magnesium [Mass/Vol] 1.8 mg/dL Normal 1.6-2.6 [facility] Comment on above: Performed By: #### A JAK2 #### [facility] [address] [place] [address] Financial Operations Consultant: Ozzy Tolliver MD #### CA125 #### [address] [address] Financial Operations Consultant: Zachary Rivera MD PTon 06-02-2023 INR Coag (PPP) [Relative time] 1.2 {INR} Normal [facility] Comment on above: Result Comment: Therapeutic Range: Moderate Anticoagulant Intensity: INR = 2.0-3.0 High Anticoagulant Intensity: INR = 2.5-3.5 Performed By: #### A JAK2 #### [facility] [address] [place] [address] Financial Operations Consultant: Ozzy Tolliver MD #### CA125 #### [address] [id number] Financial Operations Consultant: Zachary Rivera MD PT Coag (PPP) [Time] 14.7 s Normal 11.7-14.9 [facility] Comment on above: Performed By: #### A JAK2 #### [facility] [address] [address] Financial Operations Consultant: Ozzy Tolliver MD #### CA125 #### [address] [address] Financial Operations Consultant: Zachary Rivera MD Amylase,Fluidon 06-01-2023 Amylase [Catalytic activity/Vol] [address] U/L Normal [facility] Comment on above: Result Comment: Ther e are no normals for body fluid samples. Performed By: #### A JAK2 #### [address] [address] Financial Operations Consultant: Ozzy Tolliver MD #### CA125 #### [address] [address] Financial Operations Consultant: Zachary Rivera MD Type of Specimen .ASCITIC FLUID Normal [facility] Comment on above: Performed By: #### A JAK2 #### [facility] [address] [place] [address] Financial Operations Consultant: Ozzy Tolliver MD #### CA125 #### [address] [address] Financial Operations Consultant: Zachary Rivera MD Surgical Pathology Reporton 06-01-2023 Surgical Pathology Report (NOTE) Path Number: [id number] INTERPRETATION ASCITIC FLUID: NEGATIVE FOR MALIGNANCY. Electronically Signed Out Erick Pereira M.D. [facility]/06/05/2023 Source of Specimen: A: ASCITIC FLUID Clinical History No information given. Gross Description ASCITIC' 500 ml. red cloudy fluid. MICROSCOPIC DESCRIPTION Microscopic examination performed. Non Sandfill Operator Thin Prep x 1, Diff Quik Slide x 1, Cell Block w/ ROSALVA x 1 Processing Lab: [address] [id number] Interpretation performed at [address] [id number] NONGYNECOLOGICAL CYTOPATHOLOGY CONSULTATION Patient Name: JHOANA LAZCANO [facility] Rec: [id number] [facility] ANATOMIC PATHOLOGY [address] [place] [address]. [place], [place] [address] Normal [facility] US LIVERon 06-01-2023 US LIVER EXAMINATION: RIGHT UPPER QUADRANT ULTRASOUND 06/01/2023 3:08 pm COMPARISON: CT chest abdomen pelvis 05/31/2023 HISTORY: ORDERING SYSTEM PROVIDED HISTORY: Assess for cirrhosis TECHNOLOGIST PROVIDED HISTORY: Assess for cirrhosis FINDINGS: LIVER: The liver demonstrates normal echogenicity, with mild surface nodularity. There is no intrahepatic biliary ductal dilatation. Hepatopetal portal flow. BILIARY SYSTEM: Gallbladder is distended, without evidence of wall thickening or stones. Reported negative sonographic Deleon's sign. Common bile duct is within normal limits measuring 5 mm. RIGHT KIDNEY: 10.8 cm in size. The right kidney is grossly unremarkable without evidence of hydronephrosis. PANCREAS: Partially visualized portions of the pancreas demonstrate a 2.2 cm anechoic cystic lesion, as seen on recent CT. OTHER: Small right upper quadrant ascites. IMPRESSION: 1. Mild hepatic surface nodularity, concerning for cirrhosis. Clinical/laboratory correlation is recommended. 2. Patent hepatopetal portal flow. 3. 2.2 cm anechoic cystic pancreatic lesion again noted, as seen on recent CT chest. 4. Small right upper quadrant ascites. Interpreted by: Noel Ramírez MD Signed by: Noel Ramírez MD 06/01/23 Final result Normal [facility] Basic Metabolic Profon 05-30 Anion gap [Moles/Vol] 8 mmol/L Low 9-16 [facility] Comment on above: Performed By: #### C MPX, MG, PT, CDP #### [facility] [email or web address] [facility] [place] [address] Financial Operations Consultant: Zachary Rivera MD Calcium [Mass/Vol] 8.4 mg/dL Low 8.6-10.4 [facility] Comment on above: Performed By: #### C MPX, MG, PT, CDP #### [facility] [employer] [address] [place] [address] Financial Operations Consultant: Zachary Rivera MD Chloride [Moles/Vol] 106 mmol/L Normal 98-107 [facility] Comment on above: Performed By: #### C MPX, MG, PT, CDP #### [facility] [email or web address] [address] [place] [address] Financial Operations Consultant: Zachary Rivera MD CO2 [Moles/Vol] 25 mmol/L Normal 20-31 [facility] Comment on above: Performed By: #### C MPX, MG, PT, CDP #### [facility] [email or web address] [address] [place] [address] Financial Operations Consultant: Zachary Rivera MD Creatinine [Mass/Vol] 0.4 mg/dL Low 0.50-0.90 [facility] Comment on above: Performed By: #### C MPX, MG, PT, CDP #### [facility] [address] [place] [address] Financial Operations Consultant: Zachary Rivera MD GFR/1.73 sq M.predicted among non-blacks MDRD (S/P/Bld) [Vol rate/Area] mL/min/{1.73_m2} Normal >60 [facility] Comment on above: Result Comment: These [...] tubular secretion. Performed By: #### C MPX, MG, PT, CDP #### [facility] [email or web address] [address] [place] [address] Financial Operations Consultant: Zachary Rivera MD Glucose [Mass/Vol] 88 mg/dL Normal 74-99 [facility] Comment on above: Performed By: #### C MPX, MG, PT, CDP #### [facility] [email or web address] [address] [place] [address] Financial Operations Consultant: Zachary Rivera MD Potassium [Moles/Vol] 3.6 mmol/L Low 3.7-5.3 [facility] Comment on above: Performed By: #### C MPX, MG, PT, CDP #### [facility] [email or web address] [address] [place] [address] Financial Operations Consultant: Zachary Rivera MD Sodium [Moles/Vol] 139 mmol/L Normal 136-145 [facility] Comment on above: Performed By: #### C MPX, MG, PT, CDP #### [facility] [email or web address] [address] [place] [address] Financial Operations Consultant: Zachary Rivera MD Urea nitrogen [Mass/Vol] 17 mg/dL Normal 6-20 [facility] Comment on above: Performed By: #### C MPX, MG, PT, CDP #### [facility] [address] [place] [address] Financial Operations Consultant: Zachary Rivera MD CBC with Diffon 05-31-2023 Abs. Basophil 0.05 k/uL Normal 0.00-0.20 [facility] Comment on above: Performed By: #### C MPX, MG, PT, CDP #### [place] [address] Financial Operations Consultant: Zachary Rivera MD Abs.Imm.Granulocyt e 0.03 k/uL Normal 0.00-0.30 [facility] Comment on above: Performed By: #### C MPX, MG, PT, CDP #### [place] [address] Financial Operations Consultant: Zachary Rivera MD Abs.Neutrophil (Seg) 7.75 k/uL Normal 1.50-8.10 [facility] Comment on above: Performed By: #### C MPX, MG, PT, CDP #### [place] [address] Financial Operations Consultant: Zachary Rivera MD Basophils/100 WBC (Bld) 1 % Normal 0-2 [facility] Comment on above: Performed By: #### C MPX, MG, PT, CDP #### [place] [address] Financial Operations Consultant: Zachary Rivera MD Eosinophils (Bld) [#/Vol] 0.10 10*3/uL Normal 0.00-0.44 [facility] Comment on above: Performed By: #### C MPX, MG, PT, CDP #### [place] [address] Financial Operations Consultant: Zachary Rivera MD Eosinophils/100 WBC (Bld) 1 % Normal 1-4 [facility] Comment on above: Performed By: #### C MPX, MG, PT, CDP #### [place] [address] Financial Operations Consultant: Zachary Rivera MD Erythrocyte distribution width (RBC) [Ratio] 14.8 % High 11.8-14.4 [facility] Comment on above: Performed By: #### C MPX, MG, PT, CDP #### [facility] [employer] [employer] [address] [place] [address] Financial Operations Consultant: Zachary Rivera MD Hematocrit (Bld) [Volume fraction] 38.9 % Normal 36.3-47.1 [facility] Comment on above: Performed By: #### C MPX, MG, PT, CDP #### [facility] [employer] [employer] [address] [place] [address] Financial Operations Consultant: Zachary Rivera MD Hemoglobin (Bld) [Mass/Vol] 12.5 g/dL Normal 11.9-15.1 [facility] Comment on above: Performed By: #### C MPX, MG, PT, CDP #### [facility] [employer] [employer] [address] [place] [address] Financial Operations Consultant: Zachary Rivera MD Immature granulocytes/100 WBC (Bld) 0 % Normal 0 [facility] Comment on above: Performed By: #### C MPX, MG, PT, CDP #### [facility] [employer] [employer] [address] [place] [address] Financial Operations Consultant: Zachary Rivera MD Lymphocytes (Bld) [#/Vol] 1.62 10*3/uL Normal 1.10-3.70 [facility] Comment on above: Performed By: #### C MPX, MG, PT, CDP #### [facility] [employer] [address] [place] [address] Financial Operations Consultant: Zachary Rivera MD Lymphocytes/100 WBC (Bld) 16 % Low 24-43 [facility] Comment on above: Performed By: #### C MPX, MG, PT, CDP #### [facility] [employer] [address] [place] [address] Financial Operations Consultant: Zachary Rivera MD MCH (RBC) [Entitic mass] 29.7 pg Normal 25.2-33.5 [facility] Comment on above: Performed By: #### C MPX, MG, PT, CDP #### [address] [address] Financial Operations Consultant: Zachary Rivera MD MCHC (RBC) [Mass/Vol] 32.1 g/dL Normal 28.4-34.8 [facility] Comment on above: Performed By: #### C MPX, MG, PT, CDP #### [address] [address] Financial Operations Consultant: Zachary Rivera MD MCV (RBC) [Entitic vol] 92.4 fL Normal 82.6-102.9 [facility] Comment on above: Performed By: #### C MPX, MG, PT, CDP #### [address] [address] Financial Operations Consultant: Zachary Rivera MD Monocytes (Bld) [#/Vol] 0.60 10*3/uL Normal 0.10-1.20 [facility] Comment on above: Performed By: #### C MPX, MG, PT, CDP #### [address] [address] Financial Operations Consultant: Zachary Rivera MD Monocytes/100 WBC (Bld) 6 % Normal 3-12 [facility] Comment on above: Performed By: #### C MPX, MG, PT, CDP #### [address] [address] Financial Operations Consultant: Zachary Rivera MD Neutrophil (Seg) 76 % High 36-65 [facility] Comment on above: Performed By: #### C MPX, MG, PT, CDP #### [address] [address] Financial Operations Consultant: Zachary Rivera MD NRBC Automated 0.0 per 100 WBC Normal 0.0 [facility] Comment on above: Performed By: #### C MPX, MG, PT, CDP #### [facility] [employer] [address] [place] [address] Financial Operations Consultant: Zachary Rivera MD Platelet mean volume (Bld) [Entitic vol] 10.8 fL Normal 8.1-13.5 [facility] Comment on above: Performed By: #### C MPX, MG, PT, CDP #### [address] [address] Financial Operations Consultant: Zachary Rivera MD Platelets (Bld) [#/Vol] 454 10*3/uL High 138-453 [facility] Comment on above: Performed By: #### C MPX, MG, PT, CDP #### [address] [address] Financial Operations Consultant: Zachary Rivera MD RBC (Bld) [#/Vol] 4.21 10*6/uL Normal 3.95-5.11 [facility] Comment on above: Performed By: #### C MPX, MG, PT, CDP #### [facility] [employer] [address] [place] [address] Financial Operations Consultant: Zachary Rivera MD RBC morphology finding Nom (Bld) ANISOCYTOSIS PRESENT Normal [facility] Comment on above: Performed By: #### C MPX, MG, PT, CDP #### [facility] [employer] [address] [place] [address] Financial Operations Consultant: Zachary Rivera MD WBC (Bld) [#/Vol] 10.2 10*3/uL Normal 3.5-11.3 [facility] Comment on above: Performed By: #### C MPX, MG, PT, CDP #### [facility] [employer] [address] [place] [address] Financial Operations Consultant: Zachary Rivera MD CT CHEST ABDOMEN PELVIS W CO NTRASTon 05-31-2023 CT CHEST ABDOMEN PELVIS W CONTRAST EXAMINATION: CT OF THE ABDOMEN AND PELVIS WITH CONTRAST 05/31/2023 2:44 pm TECHNIQUE: CT of the abdomen and pelvis was performed with the administration of intravenous contrast. Multiplanar reformatted images are provided for review. Automated exposure control, iterative reconstruction, and/or weight based adjustment of the mA/kV was utilized to reduce the radiation dose to as low as reasonably achievable. 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 Organs: The previously seen hepatic perfusion abnormality is no longer visualized. No suspicious hepatic lesion is identified. Again noted is the peripheral splenic hypoattenuation, suspicious for infarct.. Again noted is a 2.6 cm cystic pancreatic lesion within the uncinate process. No adrenal nodule is identified. There is normal symmetric renal enhancement. No hydronephrosis or renal calculi. GI/Bowel: There is a small to moderate hiatal hernia. Oral contrast opacifies the small bowel. No evidence of bowel obstruction or focal inflammatory changes. Complete evaluation is limited due to large volume ascites. Pelvis: Normal visualized bladder. Anteverted uterus. Peritoneum/Retroperitoneum: There is no intraperitoneal free air. There is large volume abdominopelvic ascites. There is no suspicious lymphadenopathy. There is scattered aortoiliac atherosclerosis. Bones/Soft Tissues: No acute osseous abnormality is identified. There is lumbar levoscoliosis, with multilevel degenerative disc disease. Unremarkable abdominal soft tissues. IMPRESSION: 1. Small bilateral pleural effusions with adjacent atelectasis, left greater than right. 2. Large volume abdominopelvic ascites. 3. 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 4. Cystic pancreatic lesion again noted, unchanged. 5. Previously seen hepatic perfusion abnormality not visualized on the current examination. 6. Small to moderate hiatal hernia. Interpreted by: Noel Ramírez MD Signed by: Noel Ramírez MD 05/31/23 Final result Normal [facility] Lactic Acidon 05-31-2023 Lactic Acid,Whole Bl 0.8 mmol/L Normal 0.7-2.1 [facility] Comment on above: Performed By: #### C MPX, SILVESTRE, TRIG, MG, CDP, PT #### [facility] [address] [place] [address] Financial Operations Consultant: Zachary Rivera MD Lipaseon 05-31-2023 Lipase [Catalytic activity/Vol] 2636 U/L High 13-60 [facility] Comment on above: Performed By: #### C MPX, MG, PT, CDP #### [facility] [address] [place] [address] Financial Operations Consultant: Zachary Rivera MD Liver Profileon 05-31-2023 Albumin [Mass/Vol] 2.8 g/dL Low 3.5-5.2 [facility] Comment on above: Performed By: #### C MPX, MG, PT, CDP #### [facility] [address] [place] [address] Financial Operations Consultant: Zachary Rivera MD Albumin/Glob Ratio 1.0 Normal 1.0-2.5 [facility] Comment on above: Performed By: #### C MPX, MG, PT, CDP #### [facility] [address] [place] [address] Financial Operations Consultant: Zachary Rivera MD Alkaline Phos 109 U/L High 35-104 [facility] Comment on above: Performed By: #### C MPX, MG, PT, CDP #### [facility] [address] [place] [address] Financial Operations Consultant: Zachary Rivera MD ALT [Catalytic activity/Vol] 10 U/L Normal 10-35 [facility] Comment on above: Performed By: #### C MPX, MG, PT, CDP #### [facility] [address] [place] [address] Financial Operations Consultant: Zachary Rievra MD AST [Catalytic activity/Vol] 24 U/L Normal 10-35 [facility] Comment on above: Performed By: #### C MPX, MG, PT, CDP #### [facility] [employer] [employer] [address] [place] [address] Financial Operations Consultant: Zachary Rivera MD Bilirubin [Mass/Vol] 0.4 mg/dL Normal 0.00-1.20 [facility] Comment on above: Performed By: #### C MPX, MG, PT, CDP #### [address] [address] Financial Operations Consultant: Zachary Rivera MD Bilirubin, Indirect 0.3 mg/dL Normal 0.0-1.0 [facility] Comment on above: Performed By: #### C MPX, MG, PT, CDP #### [facility] [employer] [address] [place] [address] Financial Operations Consultant: Zachary Rivera MD Bilirubin.indirect [Mass/Vol] mg/dL Normal 0.00-0.30 [facility] Comment on above: Performed By: #### C MPX, MG, PT, CDP #### [facility] [employer] [address] [place] [address] Financial Operations Consultant: Zachary Rivera MD Globulin (S) [Mass/Vol] 2.8 g/dL Normal [facility] Comment on above: Performed By: #### C MPX, MG, PT, CDP #### [facility] [employer] [address] [place] [address] Financial Operations Consultant: Zachary Rivera MD Protein [Mass/Vol] 5.6 g/dL Low 6.6-8.7 [facility] Comment on above: Performed By: #### C MPX, MG, PT, CDP #### [facility] [employer] [address] [place] [address] Financial Operations Consultant: Zachary Rivera MD PTon 05-31-2023 INR Coag (PPP) [Relative time] 1.7 {INR} Normal [facility] Comment on above: Result Comment: Therapeutic Range: Moderate Anticoagulant Intensity: INR = 2.0-3.0 High Anticoagulant Intensity: INR = 2.5-3.5 Performed By: #### C MPX, MG, PT, CDP #### [facility] [employer] [address] [place] [phone] Financial Operations Consultant: Zachary Rivera MD PT Coag (PPP) [Time] 19.2 s High 11.7-14.9 [facility] Comment on above: Performed By: #### C MPX, MG, PT, CDP #### [facility] [employer] [address] [place] [phone] Financial Operations Consultant: Zachary Rivera MD Triglycerideson 05-31-2023 Triglyceride [Mass/Vol] 151 mg/dL High <150 [facility] Comment on above: Result Comment: Triglyceride Guidelines: <150 Desirable 150-199 Borderline 200-499 High >499 Very high Based on AHA Guidelines for fasting triglyceride, December 2011. Performed By: #### C MPX, MG, PT, CDP #### [address] [address] Financial Operations Consultant: Zachary Rivera MD CALR Exon 9 Mut. Analyson CALR,SOURCE .BLOOD Normal [facility] Comment on above: Performed By: #### A JAK2 #### [facility] [address] [place] [address] Financial Operations Consultant: Ozzy Tolliver MD #### CA125 #### [address] [id number] Financial Operations Consultant: Zachary Rivera MD JAK2 V617F Qual w/ Rflxon JAK2 mutation (NOTE) Normal [facility] Comment on above: Result Comment: Ludivina ent: JHOANA LAZCANO : 1965 Sex: Female Patient Identifiers: [id number] Visit Number (FIN): [id number] Collection Date: 05/03/2023 10:50:00 PM PHYSICIAN: TIA STEVENS JAK2 (V617F) Mutation by ddPCR, Qualitative With Reflex to CALR (Calreticulin) Exon 9 Mutation Analysis by PCR and MPL Mutation Detection [facility] test code 7196376 JAK2 QUAL, Source Whole Blood - - [...] developed and its performance characteristics determined by Copyright Agent. It has not been cleared or approved [...] Analysis by PCR and MPL Mutation Detection [id number] (ETPMF RFX) Inactive Test Ordered by client and has been updated with test number [id number] (ETPMFRFX) CALR (Calreticulin) Exon 9 Mutation Analysis by PCR [facility] test code 6505269 CALR, Source Whole Blood - - - [...] developed and its performance characteristics determined by Copyright Agent. It has not been cleared or approved by the U.S. Food and Drug Administration. This test was performed in a CLIA-certified laboratory and is intended for clinical purposes. - - - - - - - - - - - - - - - - - - - - Order comments CALR (Calreticulin) Exon 9 Mutation Analysis by PCR [id number] (ETPMF RFX) Inactive Test Ordered by client and has been updated with test number [id number] (ETPMFRFX) MPL Mutation Detection by Capillary Electrophoresis [facility] test code [id number] MPL, Source Whole Blood - - - - - - - - - - - (more content not included)... Performed By: #### A JAK2 #### [employer] [address] [place] [address] Financial Operations Consultant: Ozzy Tolliver MD #### CA125 #### [facility] [place], [place] [id number] Financial Operations Consultant: Zachary Rivera MD CALR Exon 9 Mut. Analyson CALR Exon 9 Mutation Not detected Normal [facility] Comment on above: Result Comment: (NOT [...] developed and its performance characteristics determined by [employer]. It has not been cleared or approved by the U.S. Food and Drug Administration. This test was performed in a CLIA-certified laboratory and is intended for clinical purposes. Performed By: [facility] [employer] [address] [place] [address] Pattern Vault Clerk: David Cosby MD, PhD CLIA Number: [id number] Performed By: #### A JAK2 #### [address] [address] Financial Operations Consultant: Ozzy Tolliver MD #### CA125 #### [place] [address] Financial Operations Consultant: Zachary Rivera MD MPL Mutation Detectionon MPL Not detected Normal [facility] Comment on above: Result Comment: (NOT [...] developed and its performance characteristics determined by Copyright Agent. It has not been cleared or approved by the [place] Food and Drug Administration. This test was performed in a CLIA certified laboratory and is intended for clinical purposes. Performed By: [employer] [address] [place] [address] Pattern Vault Clerk: David Cosby MD, PhD CLIA Number: [id number] Performed By: #### A JAK2 #### [address] [id number] Financial Operations Consultant: Ozzy Tolliver MD #### CA125 #### [address] [phone] Financial Operations Consultant: Zachary Rivera MD MPL,SOURCE Whole Blood Normal [facility] Comment on above: Performed By: #### A JAK2 #### [address] [address] Financial Operations Consultant: Ozzy Tollvier MD #### CA125 #### [address] [id number] Financial Operations Consultant: Zachary Rivera MD JAK2 Gene Mut. Quanton 05-11 Source Not Provided Normal [facility] Comment on above: Result Comment: ANGÉLICA ECTED ON 05/10 AT 2232: PREVIOUSLY REPORTED 2154 Performed By: #### A JAK2 #### [address] [address] Financial Operations Consultant: Ozzy Tolliver MD #### CA125 #### [address] [id number] Financial Operations Consultant: Zachary Rivera MD V617F Mutation, Qnt Not detected Normal [facility] Comment on above: Result Comment: (NOT [...] developed and its performance characteristics determined by Copyright Agent. It has not been cleared or approved by the U.S> Food and Drug Administration. This test was performed in a CLIA-certified laboratory and is intended for clinical purposes. Performed By: [employer] [address] [place] [address] Pattern Vault Clerk: David Cosby MD, PhD CLIA Number: [id number] Performed By: #### A JAK2 #### [employer] [address] [place] [address] Financial Operations Consultant: Ozzy Tolliver MD #### CA125 #### [place] [address] Financial Operations Consultant: Zachary Rivera MD V617F Mutation,percent 0.0 % Normal [facility] Comment on above: Performed By: #### A JAK2 #### [facility] [address] [place] [address] Financial Operations Consultant: Ozzy Tolliver MD #### CA125 #### [address] [phone] Financial Operations Consultant: Zachary Rivera MD Cult,Fluidon 05-10-2023 Cult,Fluid Specimen Description .ASCITIC FLUID Direct Exam MANY NEUTROPHILS NO ORGANISMS SEEN Gram stain made from cytocentrifuged specimen. Organisms and cells will be concentrated. Culture NO GROWTH 6 DAYS Report Status FINAL 05/10/2023 Normal [facility] Comment on above: Performed By: #### C MPX, MG, PT, CDP #### [address] [phone] Financial Operations Consultant: Zachary Rivera MD DAVON Screen w/reflexon 2023 DAVON Screen Negative Normal NEG [facility] Comment on above: Performed By: #### C MPX, SILVESTRE, TRIG, MG, CDP, PT #### [address] [address] Financial Operations Consultant: Zachary Rivera MD Anti-dsDNA 4.4 IU/mL Normal <10.0 [facility] Comment on above: Result Comment: Reference Range: <10.0 Negative 10.0-15.0 Equivocal >15.0 Positive Performed By: #### C MPX, SILVESTRE, TRIG, MG, CDP, PT #### [address] [address] Financial Operations Consultant: Zachary Rivera MD NGA Screen <0.1 Normal <0.7 [facility] Comment on above: Result Comment: Reference Range: <0.7 Negative 0.7-1.0 Equivocal >1.0 Positive NGA Screen includes U1RNP,RNP70,Sm,Ro(SS-A),La(SS-B),CENP,Scl-70,Saray-1 Performed By: #### C MPX, SILVESTRE, TRIG, MG, CDP, PT #### [address] [address] Financial Operations Consultant: Zachary Rivera MD Amylase,Fluidon 05-07-2023 Amylase [Catalytic activity/Vol] 469037 U/L Normal [facility] Comment on above: Result Comment: Ther e are no normals for body fluid samples. Performed By: #### C MPX, SILVESTRE, TRIG, MG, CDP, PT #### [address] [address] Financial Operations Consultant: Zachary Rivera MD Type of Specimen .CYST FLUID Normal [facility] Comment on above: Result Comment: PANC REATIC HEAD Performed By: #### C MPX, SILVESTRE, TRIG, MG, CDP, PT #### [address] [address] Financial Operations Consultant: Zachary Rivera MD CBC with Diffon -6561 Abs. Basophil 0.05 k/uL Normal 0.00-0.20 [facility] Comment on above: Performed By: #### A JAK2 #### [facility] [address], [place] [id number] Financial Operations Consultant: Ozzy Tolliver MD #### CA125 #### [address] [address] Financial Operations Consultant: Zachary Rivera MD Abs.Imm.Granulocyt e 0.04 k/uL Normal 0.00-0.30 [facility] Comment on above: Performed By: #### A JAK2 #### [facility] [address], [place] [id number] Financial Operations Consultant: Ozzy Tolliver MD #### CA125 #### [address] [address] Financial Operations Consultant: Zachary Rivera MD Abs.Neutrophil (Seg) 5.99 k/uL Normal 1.50-8.10 [facility] Comment on above: Performed By: #### A JAK2 #### [facility] [address] [place] [address] Financial Operations Consultant: Ozzy Tolliver MD #### CA125 #### [address] [phone] Financial Operations Consultant: Zachary Rivera MD Basophils/100 WBC (Bld) 1 % Normal 0-2 [facility] Comment on above: Performed By: #### A JAK2 #### [facility] [address] [place] [address] Financial Operations Consultant: Ozzy Tolliver MD #### CA125 #### [address] [address] Financial Operations Consultant: Zachary Rivera MD Eosinophils (Bld) [#/Vol] 0.23 10*3/uL Normal 0.00-0.44 [facility] Comment on above: Performed By: #### A JAK2 #### [facility] [address] [place] [address] Financial Operations Consultant: Ozzy Tolliver MD #### CA125 #### [address] [phone] Financial Operations Consultant: Zachary Rivera MD Eosinophils/100 WBC (Bld) 3 % Normal 1-4 [facility] Comment on above: Performed By: #### A JAK2 #### [facility] [address] [place] [address] Financial Operations Consultant: Ozzy Tolliver MD #### CA125 #### [address] [address] Financial Operations Consultant: Zachary Rivera MD Erythrocyte distribution width (RBC) [Ratio] 13.7 % Normal 11.8-14.4 [facility] Comment on above: Performed By: #### A JAK2 #### [facility] [address] [place] [address] Financial Operations Consultant: Ozzy Tolliver MD #### CA125 #### [address] [id number] Financial Operations Consultant: Zachary Rivera MD Hematocrit (Bld) [Volume fraction] 31.8 % Low 36.3-47.1 [facility] Comment on above: Performed By: #### A JAK2 #### [facility] [address] [place] [address] Financial Operations Consultant: Ozzy Tolliver MD #### CA125 #### [address] [phone] Financial Operations Consultant: Zachary Rivera MD Hemoglobin (Bld) [Mass/Vol] 10.5 g/dL Low 11.9-15.1 [facility] Comment on above: Performed By: #### A JAK2 #### [facility] [address] [place] [address] Financial Operations Consultant: Ozzy Tolliver MD #### CA125 #### [address] [phone] Financial Operations Consultant: Zachary Rivera MD Immature granulocytes/100 WBC (Bld) 0 % Normal 0 [facility] Comment on above: Performed By: #### A JAK2 #### [facility] [address] [place] [address] Financial Operations Consultant: Ozzy Tolliver MD #### CA125 #### [address] [phone] Financial Operations Consultant: Zachary Rivera MD Lymphocytes (Bld) [#/Vol] 1.96 10*3/uL Normal 1.10-3.70 [facility] Comment on above: Performed By: #### A JAK2 #### [facility] [address] [place] [address] Financial Operations Consultant: Ozzy Tolliver MD #### CA125 #### [address] [id number] Financial Operations Consultant: Zachary Rivera MD Lymphocytes/100 WBC (Bld) 21 % Low 24-43 [facility] Comment on above: Performed By: #### A JAK2 #### [facility] [address] [place] [address] Financial Operations Consultant: Ozzy Tolliver MD #### CA125 #### [address] [phone] Financial Operations Consultant: Zachary Rivera MD MCH (RBC) [Entitic mass] 30.7 pg Normal 25.2-33.5 [facility] Comment on above: Performed By: #### A JAK2 #### [facility] [address] [place] [address] Financial Operations Consultant: Ozzy Tolliver MD #### CA125 #### [address] [phone] Financial Operations Consultant: Zachary Rivera MD MCHC (RBC) [Mass/Vol] 33.0 g/dL Normal 28.4-34.8 [facility] Comment on above: Performed By: #### A JAK2 #### [facility] [address] [place] [address] Financial Operations Consultant: Ozzy Tolliver MD #### CA125 #### [address] [id number] Financial Operations Consultant: Zachary Rivera MD MCV (RBC) [Entitic vol] 93.0 fL Normal 82.6-102.9 [facility] Comment on above: Performed By: #### A JAK2 #### [facility] [address] [place] [address] Financial Operations Consultant: Ozzy Tolliver MD #### CA125 #### [address] [address] Financial Operations Consultant: Zachary Rivera MD Monocytes (Bld) [#/Vol] 0.87 10*3/uL Normal 0.10-1.20 [facility] Comment on above: Performed By: #### A JAK2 #### [facility] [address] [place] [address] Financial Operations Consultant: Ozzy Tolliver MD #### CA125 #### [address] [address] Financial Operations Consultant: Zachary Rivera MD Monocytes/100 WBC (Bld) 10 % Normal 3-12 [facility] Comment on above: Performed By: #### A JAK2 #### [facility] [address] [place] [address] Financial Operations Consultant: Ozzy Tolliver MD #### CA125 #### [address] [address] Financial Operations Consultant: Zachary Rivera MD Neutrophil (Seg) 65 % Normal 36-65 [facility] Comment on above: Performed By: #### A JAK2 #### [facility] [address] [place] [address] Financial Operations Consultant: Ozzy Tolliver MD #### CA125 #### [address] [address] Financial Operations Consultant: Zachary Rivera MD NRBC Automated 0.0 per 100 WBC Normal 0.0 [facility] Comment on above: Performed By: #### A JAK2 #### [facility] [address] [place] [address] Financial Operations Consultant: Ozzy Tolliver MD #### CA125 #### [address] [address] Financial Operations Consultant: Zachary Rivera MD Platelet mean volume (Bld) [Entitic vol] 11.2 fL Normal 8.1-13.5 [facility] Comment on above: Performed By: #### A JAK2 #### [facility] [address] [place] [address] Financial Operations Consultant: Ozzy Tolliver MD #### CA125 #### [address] [id number] Financial Operations Consultant: Zachary Rivera MD Platelets (Bld) [#/Vol] 285 10*3/uL Normal 138-453 [facility] Comment on above: Performed By: #### A JAK2 #### [facility] [address] [place] [address] Financial Operations Consultant: Ozzy Tolliver MD #### CA125 #### [place] [id number] Financial Operations Consultant: Zachary Rivera MD RBC (Bld) [#/Vol] 3.42 10*6/uL Low 3.95-5.11 [facility] Comment on above: Performed By: #### A JAK2 #### [facility] [address] [place] [address] Financial Operations Consultant: Ozzy Tolliver MD #### CA125 #### [address] [id number] Financial Operations Consultant: Zachary Rivera MD WBC (Bld) [#/Vol] 9.1 10*3/uL Normal 3.5-11.3 [facility] Comment on above: Performed By: #### A JAK2 #### [facility] [address] [place] [address] Financial Operations Consultant: Ozzy Tolliver MD #### CA125 #### [address] [id number] Financial Operations Consultant: Zachary Rivera MD Celiac Disease Panelon 05-07 Gliadin Deam Pep IgA 0.9 U/mL Normal <7.0 [facility] Comment on above: Result Comment: CELIAC INTERPRETATION <7.0 Negative 7.0-10.0 Equivocal >10.0 Positive units: U/mL Performed By: #### C MPX, SILVESTRE, TRIG, MG, CDP, PT #### [facility] [employer] [address] [place] [address] Financial Operations Consultant: Zachary Rivera MD Gliadin Deam Pep IgG <0.4 Normal <7.0 [facility] Comment on above: Result Comment: CELIAC INTERPRETATION <7.0 Negative 7.0-10.0 Equivocal >10.0 Positive units: U/mL Performed By: #### C MPX, SILVESTRE, TRIG, MG, CDP, PT #### [facility] [employer] [address] [place], [place] [id number] Financial Operations Consultant: Zachary Rivera MD Tiss Transglutam IgA <0.1 Normal <7.0 [facility] Comment on above: Result Comment: CELIAC INTERPRETATION <7.0 Negative 7.0-10.0 Equivocal >10.0 Positive units: U/mL Performed By: #### C MPX, SILVESTRE, TRIG, MG, CDP, PT #### [facility] [employer] [address] [place], [place] [id number] Financial Operations Consultant: Zachary Rivera MD Comp Metabolic Pr/rfx MGon 0 05-07-2023 Bilirubin [Mass/Vol] mg/dL Low 0.3-1.2 [facility] Comment on above: Performed By: #### A JAK2 #### [facility] [address] [place] [address] Financial Operations Consultant: Ozzy Tolliver MD #### CA125 #### [facility] [employer] [address] [place] [address] Financial Operations Consultant: Zachary Rivera MD Potassium [Moles/Vol] 3.0 mmol/L Low 3.7-5.3 [facility] Comment on above: Performed By: #### A JAK2 #### [facility] [address] [place] [address] Financial Operations Consultant: Ozzy Tolliver MD #### CA125 #### [address] [address] Financial Operations Consultant: Zachary Rivera MD Albumin [Mass/Vol] 2.5 g/dL Low 3.5-5.2 [facility] Comment on above: Performed By: #### A JAK2 #### [facility] [address] [place] [address] Financial Operations Consultant: Ozzy Tolliver MD #### CA125 #### [address] [id number] Financial Operations Consultant: Zachary Rivera MD Albumin/Glob Ratio 1.3 Normal 1.0-2.5 [facility] Comment on above: Performed By: #### A JAK2 #### [facility] [address] [place] [address] Financial Operations Consultant: Ozzy Tolliver MD #### CA125 #### [address] [id number] Financial Operations Consultant: Zachary Rivera MD Alkaline Phos 78 U/L Normal 35-104 [facility] Comment on above: Performed By: #### A JAK2 #### [facility] [address] [place] [address] Financial Operations Consultant: Ozzy Tolliver MD #### CA125 #### [address] [id number] Financial Operations Consultant: Zachary Rivera MD ALT [Catalytic activity/Vol] 10 U/L Normal 5-33 [facility] Comment on above: Performed By: #### A JAK2 #### [facility] [address] [place] [address] Financial Operations Consultant: Ozzy Tolliver MD #### CA125 #### [address] [address] Financial Operations Consultant: Zachary Rivera MD Anion gap [Moles/Vol] 7 mmol/L Low 9-17 [facility] Comment on above: Performed By: #### A JAK2 #### [facility] [address] [place] [address] Financial Operations Consultant: Ozzy Tolliver MD #### CA125 #### [address] [address] Financial Operations Consultant: Zachary Rivera MD AST [Catalytic activity/Vol] 15 U/L Normal <32 [facility] Comment on above: Performed By: #### A JAK2 #### [facility] [address] [place] [address] Financial Operations Consultant: Ozzy Tolliver MD #### CA125 #### [address] [address] Financial Operations Consultant: Zachary Rivera MD Calcium [Mass/Vol] 7.6 mg/dL Low 8.6-10.4 [facility] Comment on above: Performed By: #### A JAK2 #### [facility] [address] [place] [address] Financial Operations Consultant: Ozzy Tolliver MD #### CA125 #### [address] [address] Financial Operations Consultant: Zachary Rivera MD Chloride [Moles/Vol] 110 mmol/L High 98-107 [facility] Comment on above: Performed By: #### A JAK2 #### [facility] [address] [place] [address] Financial Operations Consultant: Ozzy Tolliver MD #### CA125 #### [address] [address] Financial Operations Consultant: Zachary Rivera MD CO2 [Moles/Vol] 19 mmol/L Low 20-31 [facility] Comment on above: Performed By: #### A JAK2 #### [facility] [address] [place] [address] Financial Operations Consultant: Ozzy Tolliver MD #### CA125 #### [address] [id number] Financial Operations Consultant: Zachary Rivera MD Creatinine [Mass/Vol] 0.3 mg/dL Low 0.5-0.9 [facility] Comment on above: Performed By: #### A JAK2 #### [facility] [address] [place], [place] [id number] Financial Operations Consultant: Ozzy Tolliver MD #### CA125 #### [address] [phone] Financial Operations Consultant: Zachary Rivera MD GFR/1.73 sq M.predicted among non-blacks MDRD (S/P/Bld) [Vol rate/Area] mL/min/{1.73_m2} Normal >60 [facility] Comment on above: Result Comment: These [...] affects renal tubular secretion. Performed By: #### A JAK2 #### [facility] [address] [place] [address] Financial Operations Consultant: Ozzy Tolliver MD #### CA125 #### [address] [phone] Financial Operations Consultant: Zachary Rivera MD Glucose [Mass/Vol] 104 mg/dL High 70-99 [facility] Comment on above: Performed By: #### A JAK2 #### [facility] [address] [place] [address] Financial Operations Consultant: Ozzy Tolliver MD #### CA125 #### [address] [id number] Financial Operations Consultant: Zachary Rivera MD Protein [Mass/Vol] 4.5 g/dL Low 6.4-8.3 [facility] Comment on above: Performed By: #### A JAK2 #### [facility] [address] [place] [address] Financial Operations Consultant: Ozzy Tolliver MD #### CA125 #### [address] [phone] Financial Operations Consultant: Zachary Rivera MD Sodium [Moles/Vol] 136 mmol/L Normal 135-144 [facility] Comment on above: Performed By: #### A JAK2 #### [facility] [address] [place] [address] Financial Operations Consultant: Ozzy Tolliver MD #### CA125 #### [place] [address] Financial Operations Consultant: Zachary Rivera MD Urea nitrogen [Mass/Vol] 2 mg/dL Low 6-20 [facility] Comment on above: Performed By: #### A JAK2 #### [facility] [address] [place] [address] Financial Operations Consultant: Ozzy Tolliver MD #### CA125 #### [address] [phone] Financial Operations Consultant: Zachary Rivera MD Fluid Cell Count and Diffon 05-07-2023 Other Cells MONOCYTES AND MACROPHAGES Normal [facility] Comment on above: Result Comment: The reference range and other method performance specifications have not been established for this body fluid. The test result must be integrated into the clinical context for interpretation. Performed By: #### C MPX, SILVESTRE, TRIG, MG, CDP, PT #### [facility] [address] [place] [address] Financial Operations Consultant: Zachary Rivera MD K (Potassium)on 05-07-2023 Potassium [Moles/Vol] 4.0 mmol/L Normal 3.7-5.3 [facility] Comment on above: Performed By: #### C MPX, SILVESTRE, TRIG, MG, CDP, PT #### [facility] [address] [place] [address] Financial Operations Consultant: Zachary Rivera MD Magnesiumon 05-07-2023 Magnesium [Mass/Vol] 2.1 mg/dL Normal 1.6-2.6 [facility] Comment on above: Performed By: #### A JAK2 #### [facility] [address] [place] [address] Financial Operations Consultant: Ozzy Tolliver MD #### CA125 #### [facility] [employer] [address] [place] [address] Financial Operations Consultant: Zachary Rivera MD Non-Sandfill Operator Cytologyon 4 Case No: [id number] Normal [facility] Comment on above: Performed By: #### C MPX, SILVESTRE, TRIG, MG, CDP, PT #### [facility] [employer] [address] [place] [address] Financial Operations Consultant: Zachary Rivera MD Specimen Description .CYST FLUID Normal [facility] Comment on above: Result Comment: PANC REATIC HEAD Performed By: #### C MPX, SILVESTRE, TRIG, MG, CDP, PT #### [facility] [address] [place] [address] Financial Operations Consultant: Zachary Rivera MD Case No: [id number] Normal [facility] Comment on above: Performed By: #### C MPX, SILVESTRE, TRIG, MG, CDP, PT #### [facility] [address] [place] [address] Financial Operations Consultant: Zachary Rivera MD PTon 05-07-2023 INR Coag (PPP) [Relative time] 1.3 {INR} Normal [facility] Comment on above: Result Comment: Therapeutic Range: Moderate Anticoagulant Intensity: INR = 2.0-3.0 High Anticoagulant Intensity: INR = 2.5-3.5 Performed By: #### A JAK2 #### [facility] [address] [place] [address] Financial Operations Consultant: Ozzy Tolliver MD #### CA125 #### [address] [phone] Financial Operations Consultant: Zachary Rivera MD PT Coag (PPP) [Time] 15.6 s High 11.7-14.9 [facility] Comment on above: Performed By: #### A JAK2 #### [facility] [address] [place] [address] Financial Operations Consultant: Ozzy Tolliver MD #### CA125 #### [address] [phone] Financial Operations Consultant: Zachary Rivera MD Surgical Pathology Reporton 05-07-2023 Surgical Pathology Report (NOTE) Path Number: [id number] INTERPRETATION FINE NEEDLE ASPIRATION, EUS, PANCREATIC HEAD CYST: NEGATIVE FOR MALIGNANCY. PROTEINACEOUS FLUID WITH INFLAMMATORY CELLS (MOSTLY MACROPHAGES). RULE OUT PSEUDOCYST. Electronically Signed Out Erick Pereira M.D. [facility]/05/08/2023 Source of Specimen: A: FINE NEEDLE ASPIRATION EUS PANCREATIC HEAD CYST Clinical History Epigastric pain R10.13. Gross Description PANCREATIC HEAD CYST 1.0 ml. red fluid. MICROSCOPIC DESCRIPTION Microscopic examination performed. Non Sandfill Operator Thin Prep x 1, Cell Block w/ ROSALVA x 1 Processing Lab: [address] [id number] Interpretation performed at [address] [phone] NONGYNECOLOGICAL CYTOPATHOLOGY CONSULTATION Patient Name: JHOANA LAZCANO [facility]: [id number] [facility] [address] [place] [phone] Normal [facility] Surgical Pathology Report (NOTE) Path Number: [id number] -- Diagnosis -- A. DUODENUM, BIOPSY:-SMALL BOWEL MUCOSA WITH NO SIGNIFICANT PATHOLOGIC ABNORMALITY. B. STOMACH, BIOPSY:-GASTRIC MUCOSA WITH MINIMAL CHRONIC INACTIVE GASTRITIS.-NO HELICOBACTER ORGANISMS BY ROSALVA STAIN. Alanis Caban Electronically Signed Out ag/05/08/2023 Clinical Information Pre-Op Diagnosis: EPIGASTRIC PAIN Operative Findings: DUODENUM BIOPSY; GASTRIC BX Operation Performed: EUS ESOPHAGOGASTRODUODENOSCOPY kb Source of Specimen A: DUODENAL BX B: GASTRIC BX Gross Description A. RUSS PINO BX Received in formalin is one pink-chilel tissue fragment, 0.5 x 0.3 x 0.2 cm. Entirely 1 cs. B. JHOANA LAZCANO GASTRIC BX Received in formalin are two pink-chilel tissue fragments, 0.3 cm each and are 0.6 x 0.3 x 0.2 cm in aggregate. Entirely 1 cs. jj mj Alanis Caban/kb2:05/07/2023 Microscopic Description A, B. Microscopic examination performed. Processing Lab: [address] [id number] Interpretation Performed at [address] [phone] SURGICAL PATHOLOGY CONSULTATION Patient Name: JHOANA LAZCANO [facility] Rec: [id number] [facility] [address] [place] [phone] Normal [facility] US GI ENDOSCOPIC S AND Ion 0 05-07-2023 US GI ENDOSCOPIC S AND I Radiology exam is complete. No Radiologist dictation. Please follow up with ordering provider. Final result Normal [facility] CBC with Diffon 05-06-2023 Abs. Basophil 0.04 k/uL Normal 0.00-0.20 [facility] Comment on above: Performed By: #### A JAK2 #### [facility] [address] [place] [address] Financial Operations Consultant: Ozzy Tolliver MD #### CA125 #### [address] [phone] Financial Operations Consultant: Zahcary Rivera MD Abs.Imm.Granulocyt e 0.04 k/uL Normal 0.00-0.30 [facility] Comment on above: Performed By: #### A JAK2 #### [facility] [address] [place] [address] Financial Operations Consultant: Ozzy Tolliver MD #### CA125 #### [address] [phone] Financial Operations Consultant: Zachary Rivera MD Abs.Neutrophil (Seg) 5.74 k/uL Normal 1.50-8.10 [facility] Comment on above: Performed By: #### A JAK2 #### [facility] [address] [place] [address] Financial Operations Consultant: Ozzy Tolliver MD #### CA125 #### [address] [address] Financial Operations Consultant: Zachary Rivera MD Basophils/100 WBC (Bld) 1 % Normal 0-2 [facility] Comment on above: Performed By: #### A JAK2 #### [facility] [address] [place] [address] Financial Operations Consultant: Ozzy Tolliver MD #### CA125 #### [address] [address] Financial Operations Consultant: aZchary Rivera MD Eosinophils (Bld) [#/Vol] 0.19 10*3/uL Normal 0.00-0.44 [facility] Comment on above: Performed By: #### A JAK2 #### [facility] [address] [place] [address] Financial Operations Consultant: Ozzy Tolliver MD #### CA125 #### [address] [phone] Financial Operations Consultant: Zachary Rivera MD Eosinophils/100 WBC (Bld) 2 % Normal 1-4 [facility] Comment on above: Performed By: #### A JAK2 #### [facility] [address] [place] [address] Financial Operations Consultant: Ozzy Tolliver MD #### CA125 #### [place] [id number] Financial Operations Consultant: Zachary Rivera MD Erythrocyte distribution width (RBC) [Ratio] 13.8 % Normal 11.8-14.4 [facility] Comment on above: Performed By: #### A JAK2 #### [address] [address] Financial Operations Consultant: Ozzy Tolliver MD #### CA125 #### [place] [id number] Financial Operations Consultant: Zachary Rivera MD Hematocrit (Bld) [Volume fraction] 33.8 % Low 36.3-47.1 [facility] Comment on above: Performed By: #### A JAK2 #### [facility] [address] [place] [address] Financial Operations Consultant: Ozzy Tolliver MD #### CA125 #### [place] [phone] Financial Operations Consultant: Zachary Rivera MD Hemoglobin (Bld) [Mass/Vol] 10.6 g/dL Low 11.9-15.1 [facility] Comment on above: Performed By: #### A JAK2 #### [facility] [address] [place] [address] Financial Operations Consultant: Ozzy Tolliver MD #### CA125 #### [address] [address] Financial Operations Consultant: Zachary Rivera MD Immature granulocytes/100 WBC (Bld) 1 % High 0 [facility] Comment on above: Performed By: #### A JAK2 #### [facility] [address] [place] [address] Financial Operations Consultant: Ozzy Tolliver MD #### CA125 #### [address] [address] Financial Operations Consultant: Zachary Rivera MD Lymphocytes (Bld) [#/Vol] 1.81 10*3/uL Normal 1.10-3.70 [facility] Comment on above: Performed By: #### A JAK2 #### [facility] [address] [place] [address] Financial Operations Consultant: Ozzy Tolliver MD #### CA125 #### [address] [address] Financial Operations Consultant: Zachary Rivera MD Lymphocytes/100 WBC (Bld) 21 % Low 24-43 [facility] Comment on above: Performed By: #### A JAK2 #### [facility] [address] [place] [address] Financial Operations Consultant: Ozzy Tolliver MD #### CA125 #### [address] [address] Financial Operations Consultant: Zachary Rivera MD MCH (RBC) [Entitic mass] 30.0 pg Normal 25.2-33.5 [facility] Comment on above: Performed By: #### A JAK2 #### [facility] [address] [place] [address] Financial Operations Consultant: Ozzy Tolliver MD #### CA125 #### [address] [phone] Financial Operations Consultant: Zachary Rivera MD MCHC (RBC) [Mass/Vol] 31.4 g/dL Normal 28.4-34.8 [facility] Comment on above: Performed By: #### A JAK2 #### [facility] [address] [place] [address] Financial Operations Consultant: Ozzy Tolliver MD #### CA125 #### [address] [phone] Financial Operations Consultant: Zachary Rivera MD MCV (RBC) [Entitic vol] 95.8 fL Normal 82.6-102.9 [facility] Comment on above: Performed By: #### A JAK2 #### [facility] [address] [place] [address] Financial Operations Consultant: Ozzy Tolliver MD #### CA125 #### [address] [phone] Financial Operations Consultant: Zachary Rivera MD Monocytes (Bld) [#/Vol] 0.76 10*3/uL Normal 0.10-1.20 [facility] Comment on above: Performed By: #### A JAK2 #### [facility] [address] [place] [address] Financial Operations Consultant: Ozzy Tolliver MD #### CA125 #### [address] [phone] Financial Operations Consultant: Zachary Rivera MD Monocytes/100 WBC (Bld) 9 % Normal 3-12 [facility] Comment on above: Performed By: #### A JAK2 #### [facility] [address] [place] [address] Financial Operations Consultant: Ozzy Tolliver MD #### CA125 #### [address] [phone] Financial Operations Consultant: Zachary Rivera MD Neutrophil (Seg) 66 % High 36-65 [facility] Comment on above: Performed By: #### A JAK2 #### [facility] [address] [place] [address] Financial Operations Consultant: Ozzy Tolliver MD #### CA125 #### [address] [address] Financial Operations Consultant: Zachary Rivera MD NRBC Automated 0.0 per 100 WBC Normal 0.0 [facility] Comment on above: Performed By: #### A JAK2 #### [facility] [address] [place] [address] Financial Operations Consultant: Ozzy Tolliver MD #### CA125 #### [address] [phone] Financial Operations Consultant: Zachary Rivera MD Platelet mean volume (Bld) [Entitic vol] 11.2 fL Normal 8.1-13.5 [facility] Comment on above: Performed By: #### A JAK2 #### [facility] [address] [place] [address] Financial Operations Consultant: Ozzy Tolliver MD #### CA125 #### [address] [phone] Financial Operations Consultant: Zachary Rivera MD Platelets (Bld) [#/Vol] 297 10*3/uL Normal 138-453 [facility] Comment on above: Performed By: #### A JAK2 #### [facility] [address] [place] [address] Financial Operations Consultant: Ozzy Tolliver MD #### CA125 #### [address] [phone] Financial Operations Consultant: Zachary Rivera MD RBC (Bld) [#/Vol] 3.53 10*6/uL Low 3.95-5.11 [facility] Comment on above: Performed By: #### A JAK2 #### [facility] [address] [place] [address] Financial Operations Consultant: Ozzy Tolliver MD #### CA125 #### [address] [phone] Financial Operations Consultant: Zachary Rivera MD WBC (Bld) [#/Vol] 8.6 10*3/uL Normal 3.5-11.3 [facility] Comment on above: Performed By: #### A JAK2 #### [facility] [address] [place] [address] Financial Operations Consultant: Ozzy Tolliver MD #### CA125 #### [address] [id number] Financial Operations Consultant: Zachary Rivera MD Comp Metabolic Pr/rfx MGon 0 - Albumin [Mass/Vol] 2.4 g/dL Low 3.5-5.2 [facility] Comment on above: Performed By: #### A JAK2 #### [facility] [address] [place] [address] Financial Operations Consultant: Ozzy Tolliver MD #### CA125 #### [address] [phone] Financial Operations Consultant: Zachary Rivera MD Albumin/Glob Ratio 1.1 Normal 1.0-2.5 [facility] Comment on above: Performed By: #### A JAK2 #### [facility] [address] [place] [address] Financial Operations Consultant: Ozzy Tolliver MD #### CA125 #### [address] [phone] Financial Operations Consultant: Zachary Rivera MD Alkaline Phos 80 U/L Normal 35-104 [facility] Comment on above: Performed By: #### A JAK2 #### [facility] [address] [place] [address] Financial Operations Consultant: Ozzy Tolliver MD #### CA125 #### [address] [phone] Financial Operations Consultant: Zachary Rivera MD ALT [Catalytic activity/Vol] 10 U/L Normal 5-33 [facility] Comment on above: Performed By: #### A JAK2 #### [facility] [address] [place] [address] Financial Operations Consultant: Ozzy Tolliver MD #### CA125 #### [address] [phone] Financial Operations Consultant: Zachary Rivera MD Anion gap [Moles/Vol] 8 mmol/L Low 9-17 [facility] Comment on above: Performed By: #### A JAK2 #### [facility] [address] [place] [address] Financial Operations Consultant: Ozzy Tolliver MD #### CA125 #### [address] [id number] Financial Operations Consultant: Zachary Rivera MD AST [Catalytic activity/Vol] 17 U/L Normal <32 [facility] Comment on above: Performed By: #### A JAK2 #### [facility] [address] [place] [address] Financial Operations Consultant: Ozzy Tolliver MD #### CA125 #### [address] [phone] Financial Operations Consultant: Zachary Rivera MD Bilirubin [Mass/Vol] 0.2 mg/dL Low 0.3-1.2 [facility] Comment on above: Performed By: #### A JAK2 #### [facility] [address] [place] [address] Financial Operations Consultant: Ozzy Tolliver MD #### CA125 #### [address] [address] Financial Operations Consultant: Zachary Rivera MD Calcium [Mass/Vol] 7.6 mg/dL Low 8.6-10.4 [facility] Comment on above: Performed By: #### A JAK2 #### [facility] [address] [place] [address] Financial Operations Consultant: Ozzy Tolliver MD #### CA125 #### [address] [address] Financial Operations Consultant: Zcahary Rivera MD Chloride [Moles/Vol] 112 mmol/L High 98-107 [facility] Comment on above: Performed By: #### A JAK2 #### [facility] [address] [place] [address] Financial Operations Consultant: Ozzy Tolliver MD #### CA125 #### [address] [address] Financial Operations Consultant: Zachary Rivera MD CO2 [Moles/Vol] 17 mmol/L Low 20-31 [facility] Comment on above: Performed By: #### A JAK2 #### [facility] [address] [place] [address] Financial Operations Consultant: Ozzy Tolliver MD #### CA125 #### [address] [address] Financial Operations Consultant: Zachary Rivera MD Creatinine [Mass/Vol] 0.3 mg/dL Low 0.5-0.9 [facility] Comment on above: Performed By: #### A JAK2 #### [facility] [address] [place] [address] Financial Operations Consultant: Ozzy Tolliver MD #### CA125 #### [address] [address] Financial Operations Consultant: Zachary Rivera MD GFR/1.73 sq M.predicted among non-blacks MDRD (S/P/Bld) [Vol rate/Area] mL/min/{1.73_m2} Normal >60 [facility] Comment on above: Result Comment: These [...] affects renal tubular secretion. Performed By: #### A JAK2 #### [facility] [address] [place], [place] [id number] Financial Operations Consultant: Ozzy Tolliver MD #### CA125 #### [address] [id number] Financial Operations Consultant: Zachary Rivera MD Glucose [Mass/Vol] 103 mg/dL High 70-99 [facility] Comment on above: Performed By: #### A JAK2 #### [facility] [address] [place], [place] [id number] Financial Operations Consultant: Ozzy Tolliver MD #### CA125 #### [address] [phone] Financial Operations Consultant: Zachary Rivera MD Potassium [Moles/Vol] 3.7 mmol/L Normal 3.7-5.3 [facility] Comment on above: Performed By: #### A JAK2 #### [facility] [address] [place] [address] Financial Operations Consultant: Ozzy Tolliver MD #### CA125 #### [address] [id number] Financial Operations Consultant: Zachary Rivera MD Protein [Mass/Vol] 4.6 g/dL Low 6.4-8.3 [facility] Comment on above: Performed By: #### A JAK2 #### [facility] [address] [place] [address] Financial Operations Consultant: Ozzy Tolliver MD #### CA125 #### [address] [address] Financial Operations Consultant: Zachary Rivera MD Sodium [Moles/Vol] 137 mmol/L Normal 135-144 [facility] Comment on above: Performed By: #### A JAK2 #### [facility] [address] [place] [address] Financial Operations Consultant: Ozzy Tolliver MD #### CA125 #### [address] [address] Financial Operations Consultant: Zachary Rivera MD Urea nitrogen [Mass/Vol] 3 mg/dL Low 6-20 [facility] Comment on above: Performed By: #### A JAK2 #### [facility] [address] [place] [address] Financial Operations Consultant: Ozzy Tolliver MD #### CA125 #### [address] [address] Financial Operations Consultant: Zachary Rivera MD Heparin Anti-Xaon 05-06-2023 Heparin Anti-Xa 0.46 IU/L [facility] Comment on above: Performed By: #### C MPX, SILVESTRE, TRIG, MG, CDP, PT #### [address] [address] Financial Operations Consultant: Zachary Rivera MD Heparin Anti-Xa 0.22 IU/L [facility] Comment on above: Performed By: #### C MPX, SILVESTRE, TRIG, MG, CDP, PT #### [address] [address] Financial Operations Consultant: Zachary Rivera MD Specimen Rejectionon Reason for rejection Unable to perform testing: Specimen quantity not sufficient. Normal [facility] Comment on above: Performed By: #### C MPX, SILVESTRE, TRIG, MG, CDP, PT #### [facility] [address] [place], [place] [phone] Financial Operations Consultant: Zachary Rivera MD Source of sample .BLOOD Normal [facility] Comment on above: Performed By: #### C MPX, SILVESTRE, TRIG, MG, CDP, PT #### [facility] [address] [place], [place] [id number] Financial Operations Consultant: Zachary Rivera MD Test ordered PHEP Normal [facility] Comment on above: Performed By: #### C MPX, SILVESTRE, TRIG, MG, CDP, PT #### [facility] [address] [place] [address] [phone] Financial Operations Consultant: Zachary Rivera MD US PELVIS COMPLETEon 024 [...] Gogo Sofia MD 05/06/23 Final result Normal [facility] CA 125on 05-05-2023 CA 125 173 U/mL High <38 [facility] Comment on above: Result Comment: The Virgil ECLIA assay is used. Results obtained with different assay methods cannot be used interchangeably. Performed By: #### A JAK2 #### [facility] [address] [place] [address] Financial Operations Consultant: Ozzy Tolliver MD #### CA125 #### [address] [address] Financial Operations Consultant: Zachary Rivera MD CBC with Diffon 05-05-2023 Abs. Basophil 0.05 k/uL Normal 0.00-0.20 [facility] Comment on above: Performed By: #### C MPX, SILVESTRE, TRIG, MG, CDP, PT #### [address] [address] Financial Operations Consultant: Zachary Rivera MD Abs.Imm.Granulocyt e 0.05 k/uL Normal 0.00-0.30 [facility] Comment on above: Performed By: #### C MPX, SILVESTRE, TRIG, MG, CDP, PT #### [address] [address] Financial Operations Consultant: Zachary Rivera MD Abs.Neutrophil (Seg) 6.64 k/uL Normal 1.50-8.10 [facility] Comment on above: Performed By: #### C MPX, SILVESTRE, TRIG, MG, CDP, PT #### [address] [address] Financial Operations Consultant: Zachary Rivera MD Basophils/100 WBC (Bld) 1 % Normal 0-2 [facility] Comment on above: Performed By: #### C MPX, SILVESTRE, TRIG, MG, CDP, PT #### [address] [address] Financial Operations Consultant: Zachary Rivera MD Eosinophils (Bld) [#/Vol] 0.14 10*3/uL Normal 0.00-0.44 [facility] Comment on above: Performed By: #### C MPX, SILVESTRE, TRIG, MG, CDP, PT #### [place] [address] Financial Operations Consultant: Zachary Rivera MD Eosinophils/100 WBC (Bld) 1 % Normal 1-4 [facility] Comment on above: Performed By: #### C MPX, SILVESTRE, TRIG, MG, CDP, PT #### [place] [address] Financial Operations Consultant: Zachary Rivera MD Erythrocyte distribution width (RBC) [Ratio] 13.5 % Normal 11.8-14.4 [facility] Comment on above: Performed By: #### C MPX, SILVESTRE, TRIG, MG, CDP, PT #### [facility] [address] [place] [address] Financial Operations Consultant: Zachary Rivera MD Hematocrit (Bld) [Volume fraction] 34.1 % Low 36.3-47.1 [facility] Comment on above: Performed By: #### C MPX, SILVESTRE, TRIG, MG, CDP, PT #### [facility] [address] [place] [address] Financial Operations Consultant: Zachary Rivera MD Hemoglobin (Bld) [Mass/Vol] 10.9 g/dL Low 11.9-15.1 [facility] Comment on above: Performed By: #### C MPX, SILVESTRE, TRIG, MG, CDP, PT #### [facility] [address] [place] [address] Financial Operations Consultant: Zachary Rivera MD Immature granulocytes/100 WBC (Bld) 1 % High 0 [facility] Comment on above: Performed By: #### C MPX, SILVESTRE, TRIG, MG, CDP, PT #### [address] [phone] Financial Operations Consultant: Zachary Rivera MD Lymphocytes (Bld) [#/Vol] 2.11 10*3/uL Normal 1.10-3.70 [facility] Comment on above: Performed By: #### C MPX, SILVESTRE, TRIG, MG, CDP, PT #### [place] [address] Financial Operations Consultant: Zachary Rivera MD Lymphocytes/100 WBC (Bld) 21 % Low 24-43 [facility] Comment on above: Performed By: #### C MPX, SILVESTRE, TRIG, MG, CDP, PT #### [place] [address] Financial Operations Consultant: Zachary Rivera MD MCH (RBC) [Entitic mass] 30.4 pg Normal 25.2-33.5 [facility] Comment on above: Performed By: #### C MPX, SILVESTRE, TRIG, MG, CDP, PT #### [place] [address] Financial Operations Consultant: Zachary Rivera MD MCHC (RBC) [Mass/Vol] 32.0 g/dL Normal 28.4-34.8 [facility] Comment on above: Performed By: #### C MPX, SILVESTRE, TRIG, MG, CDP, PT #### [place] [address] Financial Operations Consultant: Zachary Rivera MD MCV (RBC) [Entitic vol] 95.3 fL Normal 82.6-102.9 [facility] Comment on above: Performed By: #### C MPX, SILVESTRE, TRIG, MG, CDP, PT #### [address] [address] Financial Operations Consultant: Zachary Rivera MD Monocytes (Bld) [#/Vol] 0.96 10*3/uL Normal 0.10-1.20 [facility] Comment on above: Performed By: #### C MPX, SLIVESTRE, TRIG, MG, CDP, PT #### [address] [address] Financial Operations Consultant: Zachary Rivera MD Monocytes/100 WBC (Bld) 10 % Normal 3-12 [facility] Comment on above: Performed By: #### C MPX, SILVESTRE, TRIG, MG, CDP, PT #### [address] [address] Financial Operations Consultant: Zachary Rivera MD Neutrophil (Seg) 66 % High 36-65 [facility] Comment on above: Performed By: #### C MPX, SILVESTRE, TRIG, MG, CDP, PT #### [address] [address] Financial Operations Consultant: Zachary Rivera MD NRBC Automated 0.0 per 100 WBC Normal 0.0 [facility] Comment on above: Performed By: #### C MPX, SILVESTRE, TRIG, MG, CDP, PT #### [address] [address] Financial Operations Consultant: Zachary Rivera MD Platelet mean volume (Bld) [Entitic vol] 10.8 fL Normal 8.1-13.5 [facility] Comment on above: Performed By: #### C MPX, SILVESTRE, TRIG, MG, CDP, PT #### [address] [address] Financial Operations Consultant: Zachary Rivera MD Platelets (Bld) [#/Vol] 253 10*3/uL Normal 138-453 [facility] Comment on above: Performed By: #### C MPX, SILVESTRE, TRIG, MG, CDP, PT #### [address] [address] Financial Operations Consultant: Zachary Rivera MD RBC (Bld) [#/Vol] 3.58 10*6/uL Low 3.95-5.11 [facility] Comment on above: Performed By: #### C MPX, SILVESTRE, TRIG, MG, CDP, PT #### [facility] [address] [place], [place] [phone] Financial Operations Consultant: Zachary Rivera MD WBC (Bld) [#/Vol] 10.0 10*3/uL Normal 3.5-11.3 [facility] Comment on above: Performed By: #### C MPX, SILVESTRE, TRIG, MG, CDP, PT #### [facility] [employer] [address] [place], [place] [phone] Financial Operations Consultant: Zachary Rivera MD CT CHEST ABDOMEN PELVIS [...] Morena Allred DO 05/05/23 Final result Normal [facility] Comp Metabolic Pr/rfx MGon 0 05-05-2023 Potassium [Moles/Vol] 3.0 mmol/L Low 3.7-5.3 [facility] Comment on above: Performed By: #### C MPX, SILVESTRE, TRIG, MG, CDP, PT #### [address] [address] Financial Operations Consultant: Zachary Rivera MD Albumin [Mass/Vol] 2.5 g/dL Low 3.5-5.2 [facility] Comment on above: Performed By: #### C MPX, SILVESTRE, TRIG, MG, CDP, PT #### [address] [address] Financial Operations Consultant: Zachary Rivera MD Albumin/Glob Ratio 1.0 Normal 1.0-2.5 [facility] Comment on above: Performed By: #### C MPX, SILVESTRE, TRIG, MG, CDP, PT #### [address] [address] Financial Operations Consultant: Zachary Rivera MD Alkaline Phos 85 U/L Normal 35-104 [facility] Comment on above: Performed By: #### C MPX, SILVESTRE, TRIG, MG, CDP, PT #### [address] [address] Financial Operations Consultant: Zachary Rivera MD ALT [Catalytic activity/Vol] 11 U/L Normal 5-33 [facility] Comment on above: Performed By: #### C MPX, SILVESTRE, TRIG, MG, CDP, PT #### [address] [address] Financial Operations Consultant: Zachary Rivera MD Anion gap [Moles/Vol] 11 mmol/L Normal 9-17 [facility] Comment on above: Performed By: #### C MPX, SILVESTRE, TRIG, MG, CDP, PT #### [facility] [employer] [address] [place] [address] Financial Operations Consultant: Zachary Rivera MD AST [Catalytic activity/Vol] 17 U/L Normal <32 [facility] Comment on above: Performed By: #### C MPX, SILVESTRE, TRIG, MG, CDP, PT #### [address] [address] Financial Operations Consultant: Zachary Rivera MD Bilirubin [Mass/Vol] 0.2 mg/dL Low 0.3-1.2 [facility] Comment on above: Performed By: #### C MPX, SILVESTRE, TRIG, MG, CDP, PT #### [address] [address] Financial Operations Consultant: Zachary Rivera MD Calcium [Mass/Vol] 7.7 mg/dL Low 8.6-10.4 [facility] Comment on above: Performed By: #### C MPX, SILVESTRE, TRIG, MG, CDP, PT #### [address] [address] Financial Operations Consultant: Zachary Rivera MD Chloride [Moles/Vol] 105 mmol/L Normal 98-107 [facility] Comment on above: Performed By: #### C MPX, SILVESTRE, TRIG, MG, CDP, PT #### [facility] [address] [place] [address] Financial Operations Consultant: Zachary Rivera MD CO2 [Moles/Vol] 20 mmol/L Normal 20-31 [facility] Comment on above: Performed By: #### C MPX, SILVESTRE, TRIG, MG, CDP, PT #### [facility] [address] [place] [address] Financial Operations Consultant: Zachary Rivera MD Creatinine [Mass/Vol] 0.3 mg/dL Low 0.5-0.9 [facility] Comment on above: Performed By: #### C MPX, SILVESTRE, TRIG, MG, CDP, PT #### [facility] [employer] [address] [place] [address] Financial Operations Consultant: Zachary Rivera MD GFR/1.73 sq M.predicted among non-blacks MDRD (S/P/Bld) [Vol rate/Area] mL/min/{1.73_m2} Normal >60 [facility] Comment on above: Result Comment: These [...] tubular secretion. Performed By: #### C MPX, SILVESTRE, TRIG, MG, CDP, PT #### [address] [address] Financial Operations Consultant: Zachary Rivera MD Glucose [Mass/Vol] 92 mg/dL Normal 70-99 [facility] Comment on above: Performed By: #### C MPX, SILVESTRE, TRIG, MG, CDP, PT #### [address] [address] Financial Operations Consultant: Zachary Rivera MD Protein [Mass/Vol] 5.0 g/dL Low 6.4-8.3 [facility] Comment on above: Performed By: #### C MPX, SILVESTRE, TRIG, MG, CDP, PT #### [address] [address] Financial Operations Consultant: Zachary Rivera MD Sodium [Moles/Vol] 136 mmol/L Normal 135-144 [facility] Comment on above: Performed By: #### C MPX, SILVESTRE, TRIG, MG, CDP, PT #### [address] [address] Financial Operations Consultant: Zachary Rivera MD Urea nitrogen [Mass/Vol] 13 mg/dL Normal 6-20 [facility] Comment on above: Performed By: #### C MPX, SILVESTRE, TRIG, MG, CDP, PT #### [facility] [address] [place] [address] Financial Operations Consultant: Zachary Rivera MD Albumin [Mass/Vol] 2.8 g/dL Low 3.5-5.2 [facility] Comment on above: Performed By: #### A JAK2 #### [facility] [address] [place] [address] Financial Operations Consultant: Ozzy Tolliver MD #### CA125 #### [address] [address] Financial Operations Consultant: Zachary Rivera MD Alkaline Phos 93 U/L Normal 35-104 [facility] Comment on above: Performed By: #### A JAK2 #### [facility] [address], [place] [id number] Financial Operations Consultant: Ozzy Tolliver MD #### CA125 #### [address] [address] Financial Operations Consultant: Zachary Rivera MD ALT [Catalytic activity/Vol] 12 U/L Normal 5-33 [facility] Comment on above: Performed By: #### A JAK2 #### [facility] [address] [place] [address] Financial Operations Consultant: Ozzy Tolliver MD #### CA125 #### [address] [address] Financial Operations Consultant: Zachary Rivera MD Anion gap [Moles/Vol] 11 mmol/L Normal 9-17 [facility] Comment on above: Performed By: #### A JAK2 #### [facility] [address], [place] [id number] Financial Operations Consultant: Ozzy Tolliver MD #### CA125 #### [address] [address] Financial Operations Consultant: Zachary Rivera MD AST [Catalytic activity/Vol] 29 U/L Normal <32 [facility] Comment on above: Performed By: #### A JAK2 #### [facility] [address] [place] [address] Financial Operations Consultant: Ozzy Tolliver MD #### CA125 #### [address] [address] Financial Operations Consultant: Zachary Rivera MD Calcium [Mass/Vol] 8.1 mg/dL Low 8.6-10.4 [facility] Comment on above: Performed By: #### A JAK2 #### [facility] [address] [place] [address] Financial Operations Consultant: Ozzy Tolliver MD #### CA125 #### [address] [id number] Financial Operations Consultant: Zachary Rivera MD Chloride [Moles/Vol] 105 mmol/L Normal 98-107 [facility] Comment on above: Performed By: #### A JAK2 #### [facility] [address] [place] [address] Financial Operations Consultant: Ozzy Tolliver MD #### CA125 #### [address] [address] Financial Operations Consultant: Zachary Rivera MD CO2 [Moles/Vol] 19 mmol/L Low 20-31 [facility] Comment on above: Performed By: #### A JAK2 #### [facility] [address] [place] [address] Financial Operations Consultant: Ozzy Tolliver MD #### CA125 #### [address] [address] Financial Operations Consultant: Zachary Rivera MD Glucose [Mass/Vol] 127 mg/dL High 70-99 [facility] Comment on above: Performed By: #### A JAK2 #### [facility] [address] [place] [address] Financial Operations Consultant: Ozzy Tolliver MD #### CA125 #### [address] [id number] Financial Operations Consultant: Zachary Rivera MD Potassium [Moles/Vol] 3.6 mmol/L Low 3.7-5.3 [facility] Comment on above: Performed By: #### A JAK2 #### [facility] [address] [place] [address] Financial Operations Consultant: Ozzy Tolliver MD #### CA125 #### [address] [id number] Financial Operations Consultant: Zachary Rivera MD Protein [Mass/Vol] 5.5 g/dL Low 6.4-8.3 [facility] Comment on above: Performed By: #### A JAK2 #### [facility] [address] [place] [address] Financial Operations Consultant: Ozzy Tolliver MD #### CA125 #### [address] [id number] Financial Operations Consultant: Zachary Rivera MD Urea nitrogen [Mass/Vol] 14 mg/dL Normal 6-20 [facility] Comment on above: Performed By: #### A JAK2 #### [facility] [address] [place] [address] Financial Operations Consultant: Ozzy Tolliver MD #### CA125 #### [address] [id number] Financial Operations Consultant: Zachary Rivera MD Heparin Anti-Xaon 05-05-2023 Heparin Anti-Xa 0.11 IU/L Normal [facility] Comment on above: Performed By: #### A JAK2 #### [facility] [address] [place] [address] Financial Operations Consultant: Ozzy Tolliver MD #### CA125 #### [address] [address] Financial Operations Consultant: Zachary Rivera MD Heparin Anti-Xa <0.10 Normal [facility] Comment on above: Performed By: #### A JAK2 #### [facility] [address] [place] [address] Financial Operations Consultant: Ozzy Tolliver MD #### CA125 #### [address] [address] Financial Operations Consultant: Zachary Rivera MD Heparin Anti-Xa 0.39 IU/L Normal [facility] Comment on above: Performed By: #### C MPX, MG, PT, CDP #### [address] [address] Financial Operations Consultant: Zachary Rivera MD Iron Binding Cap.on 05-05-19 24 % Fe Saturation 12 % Low 20-55 [facility] Comment on above: Performed By: #### C MPX, SILVESTRE, TRIG, MG, CDP, PT #### [address] [address] Financial Operations Consultant: Zachary Rivera MD Iron [Mass/Vol] 29 ug/dL Low 37-145 [facility] Comment on above: Performed By: #### C MPX, SILVESTRE, TRIG, MG, CDP, PT #### [facility] [address] [place] [address] Financial Operations Consultant: Zachary Rivera MD Total Fe Binding Cap 238 ug/dL Low 250-450 [facility] Comment on above: Performed By: #### C MPX, SILVESTRE, TRIG, MG, CDP, PT #### [facility] [address] [place] [address] Financial Operations Consultant: Zachary Rivera MD Unbound Fe Bind Cap 209 ug/dL Normal 112-347 [facility] Comment on above: Performed By: #### C MPX, SILVESTRE, TRIG, MG, CDP, PT #### [facility] [address], [place] [id number] Financial Operations Consultant: Zachary Rivera MD Lipaseon 05-05-2023 Lipase [Catalytic activity/Vol] 578 U/L High 13-60 [facility] Comment on above: Performed By: #### C MPX, SILVESTRE, TRIG, MG, CDP, PT #### [facility] [address] [place], [place] [id number] Financial Operations Consultant: Zachary Rivera MD Magnesiumon 1 Magnesium [Mass/Vol] 1.6 mg/dL Normal 1.6-2.6 [facility] Comment on above: Performed By: #### C MPX, SILVESTRE, TRIG, MG, CDP, PT #### [facility] [place], [place] [phone] Financial Operations Consultant: Zachary Rivera MD Smooth Muscle Abon 4 Smooth Muscle Ab 5 Units Normal 0-19 [facility] Comment on above: Result Comment: [...] suspicion for AIH is strong. Performed By: Copyright Agent [address] [place] [address] Pattern Vault Clerk: David Cosby MD, PhD CLIA Number: [id number] Performed By: #### C MPX, SILVESTRE, TRIG, MG, CDP, PT #### [address] [phone] Financial Operations Consultant: Zachary Rivera MD APTTon 05-04-2023 aPTT Coag (Bld) [Time] 27.2 s Normal 23.0-36.5 [facility] Comment on above: Result Comment: IV Heparin Therapy Range: 66.0-92.0 sec Performed By: #### C MPX, SILVESTRE, TRIG, MG, CDP, PT #### [address] [id number] Financial Operations Consultant: Zachary Rivera MD Albumin, [facility] 05-04-2023 Albumin, Fluid 1.7 g/dL Normal [facility] Comment on above: Result Comment: Ther e are no normals for body fluid samples. Performed By: #### C MPX, SILVESTRE, TRIG, MG, CDP, PT #### [address] [phone] Financial Operations Consultant: Zachary Rivera MD Amylase,[facility] 05-04-2023 Amylase [Catalytic activity/Vol] [address] U/L Normal [facility] Comment on above: Result Comment: Ther e are no normals for body fluid samples. Performed By: #### C MPX, SILVESTRE, TRIG, MG, CDP, PT #### [facility] [address] [place] [address] Financial Operations Consultant: Zachary Rivera MD Basic Metab w/rfx [facility] 05-04 Potassium [Moles/Vol] 3.4 mmol/L Low 3.7-5.3 [facility] Comment on above: Performed By: #### C MPX, SILVESTRE, TRIG, MG, CDP, PT #### [address] [address] Financial Operations Consultant: Zachary Rivera MD Anion gap [Moles/Vol] 8 mmol/L Low 9-17 [facility] Comment on above: Performed By: #### C MPX, SILVESTRE, TRIG, MG, CDP, PT #### [facility] [address] [place] [address] Financial Operations Consultant: Zachary Rivera MD Calcium [Mass/Vol] 8.0 mg/dL Low 8.6-10.4 [facility] Comment on above: Performed By: #### C MPX, SILVESTRE, TRIG, MG, CDP, PT #### [facility] [address] [place] [address] Financial Operations Consultant: Zachary Rivera MD Chloride [Moles/Vol] 104 mmol/L Normal 98-107 [facility] Comment on above: Performed By: #### C MPX, SILVESTRE, TRIG, MG, CDP, PT #### [facility] [address] [place] [address] Financial Operations Consultant: Zachary Rivera MD CO2 [Moles/Vol] 23 mmol/L Normal 20-31 [facility] Comment on above: Performed By: #### C MPX, SILVESTRE, TRIG, MG, CDP, PT #### [facility] [address] [place] [address] Financial Operations Consultant: Zachary Rivera MD Glucose [Mass/Vol] 134 mg/dL High 70-99 [facility] Comment on above: Performed By: #### C MPX, SILVESTRE, TRIG, MG, CDP, PT #### [facility] [address] [place] [address] Financial Operations Consultant: Zachary Rivera MD Urea nitrogen [Mass/Vol] 16 mg/dL Normal 6-20 [facility] Comment on above: Performed By: #### C MPX, SILVESTRE, TRIG, MG, CDP, PT #### [facility] [employer] [address] [place] [address] Financial Operations Consultant: Zachary Rivera MD CA 19-9on 05-04-2023 CA 19-9 20 U/mL Normal 0-35 [facility] Comment on above: Result Comment: The Virgil ECLIA assay is used. Results obtained with different assay methods cannot be used interchangeably. Performed By: #### C MPX, SILVESTRE, TRIG, MG, CDP, PT #### [address] [address] Financial Operations Consultant: Zachary Rivera MD CBCon 05-04-2023 Erythrocyte distribution width (RBC) [Ratio] 13.4 % Normal 11.8-14.4 [facility] Comment on above: Performed By: #### C MPX, SILVESTRE, TRIG, MG, CDP, PT #### [address] [address] Financial Operations Consultant: Zachary Rivera MD Hematocrit (Bld) [Volume fraction] 39.7 % Normal 36.3-47.1 [facility] Comment on above: Performed By: #### C MPX, SILVESTRE, TRIG, MG, CDP, PT #### [address] [address] Financial Operations Consultant: Zachary Rivera MD Hemoglobin (Bld) [Mass/Vol] 13.0 g/dL Normal 11.9-15.1 [facility] Comment on above: Performed By: #### C MPX, SILVESTRE, TRIG, MG, CDP, PT #### [address] [address] Financial Operations Consultant: Zachary Rivera MD MCH (RBC) [Entitic mass] 30.2 pg Normal 25.2-33.5 [facility] Comment on above: Performed By: #### C MPX, SILVESTRE, TRIG, MG, CDP, PT #### [address] [address] Financial Operations Consultant: Zachary Rivera MD MCHC (RBC) [Mass/Vol] 32.7 g/dL Normal 28.4-34.8 [facility] Comment on above: Performed By: #### C MPX, SILVESTRE, TRIG, MG, CDP, PT #### [address] [address] Financial Operations Consultant: Zachary Rivear MD MCV (RBC) [Entitic vol] 92.1 fL Normal 82.6-102.9 [facility] Comment on above: Performed By: #### C MPX, SILVESTRE, TRIG, MG, CDP, PT #### [address] [address] Financial Operations Consultant: Zachary Rivera MD NRBC Automated 0.0 per 100 WBC Normal 0.0 [facility] Comment on above: Performed By: #### C MPX, SILVESTRE, TRIG, MG, CDP, PT #### [place] [address] Financial Operations Consultant: Zachary Rivera MD Platelet mean volume (Bld) [Entitic vol] 10.5 fL Normal 8.1-13.5 [facility] Comment on above: Performed By: #### C MPX, SILVESTRE, TRIG, MG, CDP, PT #### [address] [address] Financial Operations Consultant: Zachary Rivera MD Platelets (Bld) [#/Vol] 295 10*3/uL Normal 138-453 [facility] Comment on above: Performed By: #### C MPX, SILVESTRE, TRIG, MG, CDP, PT #### [address] [address] Financial Operations Consultant: Zachary Rivera MD RBC (Bld) [#/Vol] 4.31 10*6/uL Normal 3.95-5.11 [facility] Comment on above: Performed By: #### C MPX, SILVESTRE, TRIG, MG, CDP, PT #### [address] [place] [address] Financial Operations Consultant: Zachary Rivera MD WBC (Bld) [#/Vol] 12.9 10*3/uL High 3.5-11.3 [facility] Comment on above: Performed By: #### C MPX, SILVESTRE, TRIG, MG, CDP, PT #### [place] [address] Financial Operations Consultant: Zachary Rivera MD CBC with Diffon 05-04-2023 Abs. Basophil 0.07 k/uL Normal 0.00-0.20 [facility] Comment on above: Performed By: #### C MPX, SILVESTRE, TRIG, MG, CDP, PT #### [place] [address] Financial Operations Consultant: Zachary Rivera MD Abs.Imm.Granulocyt e 0.05 k/uL Normal 0.00-0.30 [facility] Comment on above: Performed By: #### C MPX, SILVESTRE, TRIG, MG, CDP, PT #### [place] [address] Financial Operations Consultant: Zachary Rivera MD Abs.Neutrophil (Seg) 7.12 k/uL Normal 1.50-8.10 [facility] Comment on above: Performed By: #### C MPX, SILVESTRE, TRIG, MG, CDP, PT #### [place] [address] Financial Operations Consultant: Zachary Rivera MD Basophils/100 WBC (Bld) 1 % Normal 0-2 [facility] Comment on above: Performed By: #### C MPX, SILVESTRE, TRIG, MG, CDP, PT #### [address] [address] Financial Operations Consultant: Zachary Rivera MD Eosinophils (Bld) [#/Vol] 0.19 10*3/uL Normal 0.00-0.44 [facility] Comment on above: Performed By: #### C MPX, SILVESTRE, TRIG, MG, CDP, PT #### [address] [address] Financial Operations Consultant: Zachary Rivera MD Eosinophils/100 WBC (Bld) 2 % Normal 1-4 [facility] Comment on above: Performed By: #### C MPX, SILVESTRE, TRIG, MG, CDP, PT #### [address] [address] Financial Operations Consultant: Zachary Rivera MD Erythrocyte distribution width (RBC) [Ratio] 13.7 % Normal 11.8-14.4 [facility] Comment on above: Performed By: #### C MPX, SILVESTRE, TRIG, MG, CDP, PT #### [address] [address] Financial Operations Consultant: Zachary Rivera MD Hematocrit (Bld) [Volume fraction] 36.0 % Low 36.3-47.1 [facility] Comment on above: Performed By: #### C MPX, SILVESTRE, TRIG, MG, CDP, PT #### [address] [address] Financial Operations Consultant: Zachary Rivera MD Hemoglobin (Bld) [Mass/Vol] 11.7 g/dL Low 11.9-15.1 [facility] Comment on above: Performed By: #### C MPX, SILVESTRE, TRIG, MG, CDP, PT #### [facility] [employer] [address] [place] [address] Financial Operations Consultant: Zachary Rivera MD Immature granulocytes/100 WBC (Bld) 1 % High 0 [facility] Comment on above: Performed By: #### C MPX, SILVESTRE, TRIG, MG, CDP, PT #### [address] [address] Financial Operations Consultant: Zachary Rivera MD Lymphocytes (Bld) [#/Vol] 1.90 10*3/uL Normal 1.10-3.70 [facility] Comment on above: Performed By: #### C MPX, SILVESTRE, TRIG, MG, CDP, PT #### [address] [address] Financial Operations Consultant: Zachary Rivera MD Lymphocytes/100 WBC (Bld) 19 % Low 24-43 [facility] Comment on above: Performed By: #### C MPX, SILVESTRE, TRIG, MG, CDP, PT #### [place] [address] Financial Operations Consultant: Zachary Rivera MD MCH (RBC) [Entitic mass] 30.2 pg Normal 25.2-33.5 [facility] Comment on above: Performed By: #### C MPX, SILVESTRE, TRIG, MG, CDP, PT #### [place] [address] Financial Operations Consultant: Zachary Rivera MD MCHC (RBC) [Mass/Vol] 32.5 g/dL Normal 28.4-34.8 [facility] Comment on above: Performed By: #### C MPX, SILVESTRE, TRIG, MG, CDP, PT #### [place] [address] Financial Operations Consultant: Zachary Rivera MD MCV (RBC) [Entitic vol] 93.0 fL Normal 82.6-102.9 [facility] Comment on above: Performed By: #### C MPX, SILVESTRE, TRIG, MG, CDP, PT #### [place] [address] Financial Operations Consultant: Zachary Rivera MD Monocytes (Bld) [#/Vol] 0.88 10*3/uL Normal 0.10-1.20 [facility] Comment on above: Performed By: #### C MPX, SILVESTRE, TRIG, MG, CDP, PT #### [address] [address] Financial Operations Consultant: Zachary Rivera MD Monocytes/100 WBC (Bld) 9 % Normal 3-12 [facility] Comment on above: Performed By: #### C MPX, SILVESTRE, TRIG, MG, CDP, PT #### [address] [address] Financial Operations Consultant: Zachary Rivera MD Neutrophil (Seg) 68 % High 36-65 [facility] Comment on above: Performed By: #### C MPX, SILVESTRE, TRIG, MG, CDP, PT #### [address] [address] Financial Operations Consultant: Zachary Rivera MD NRBC Automated 0.0 per 100 WBC Normal 0.0 [facility] Comment on above: Performed By: #### C MPX, SILVESTRE, TRIG, MG, CDP, PT #### [address] [address] Financial Operations Consultant: Zachary Rivera MD Platelet mean volume (Bld) [Entitic vol] 10.6 fL Normal 8.1-13.5 [facility] Comment on above: Performed By: #### C MPX, SILVESTRE, TRIG, MG, CDP, PT #### [address] [address] Financial Operations Consultant: Zachary Rivera MD Platelets (Bld) [#/Vol] 272 10*3/uL Normal 138-453 [facility] Comment on above: Performed By: #### C MPX, SILVESTRE, TRIG, MG, CDP, PT #### [address] [address] Financial Operations Consultant: Zachary Rivera MD RBC (Bld) [#/Vol] 3.87 10*6/uL Low 3.95-5.11 [facility] Comment on above: Performed By: #### C MPX, SILVESTRE, TRIG, MG, CDP, PT #### [address] [phone] Financial Operations Consultant: Zachary Rivera MD WBC (Bld) [#/Vol] 10.2 10*3/uL Normal 3.5-11.3 [facility] Comment on above: Performed By: #### C MPX, SILVESTRE, TRIG, MG, CDP, PT #### [facility] [employer] [address] [place] [address] [phone] Financial Operations Consultant: Zachary Rivera MD Carcinoembry. Antig.on 05-04 Carcinoembry. Antig. 2.4 ng/mL Normal <3.9 [facility] Comment on above: Result Comment: The Virgil ECLIA assay is used. Results obtained with different assay methods cannot be used interchangeably. Performed By: #### C MPX, SILVESTRE, TRIG, MG, CDP, PT #### [facility] [employer] [address] [place] [address] [phone] Financial Operations Consultant: Zachary Rivera MD Celiac Disease Panelon 05-04 IgA [Mass/Vol] 181 mg/dL Normal 70-400 [facility] Comment on above: Performed By: #### C MPX, SILVESTRE, TRIG, MG, CDP, PT #### [facility] [employer] [address] [place] [address] [phone] Financial Operations Consultant: Zachary Rivera MD Ceruloplasminon 05-04-2023 Ceruloplasmin 23 mg/dL Normal 16-45 [facility] Comment on above: Performed By: #### C MPX, SILVESTRE, TRIG, MG, CDP, PT #### [facility] [employer] [address] [place] [address] [phone] Financial Operations Consultant: Zachary Rivera MD Comp Metabolic Pr/rfx MGon 0 05-04-2023 Albumin/Glob Ratio 1.0 Normal 1.0-2.5 [facility] Comment on above: Performed By: #### A JAK2 #### [facility] [address] [place] [address] Financial Operations Consultant: Ozzy Tolliver MD #### CA125 #### [address] [address] Financial Operations Consultant: Zachary Rivera MD Performed By: #### C MPX, SILVESTRE, TRIG, MG, CDP, PT #### [address] [address] Financial Operations Consultant: Zachary Rivera MD Bilirubin [Mass/Vol] 0.3 mg/dL Normal 0.3-1.2 [facility] Comment on above: Performed By: #### A JAK2 #### [facility] [address] [place] [address] Financial Operations Consultant: Ozzy Tolliver MD #### CA125 #### [address] [address] Financial Operations Consultant: Zachary Rivera MD Performed By: #### C MPX, SILVESTRE, TRIG, MG, CDP, PT #### [address] [address] Financial Operations Consultant: Zachary Rivera MD Creatinine [Mass/Vol] 0.3 mg/dL Low 0.5-0.9 [facility] Comment on above: Performed By: #### A JAK2 #### [facility] [address] [place] [address] Financial Operations Consultant: Ozzy Tolliver MD #### CA125 #### [address] [address] Financial Operations Consultant: Zachary Rivera MD Performed By: #### C MPX, SILVESTRE, TRIG, MG, CDP, PT #### [address] [address] Financial Operations Consultant: Zachary Rivera MD GFR/1.73 sq M.predicted among non-blacks MDRD (S/P/Bld) [Vol rate/Area] mL/min/{1.73_m2} Normal >60 [facility] Comment on above: Result Comment: These [...] affects renal tubular secretion. Performed By: #### A JAK2 #### [facility] [address], [place] [phone] Financial Operations Consultant: Ozzy Tolliver MD #### CA125 #### [address] [phone] Financial Operations Consultant: Zachary Rivera MD Performed By: #### C MPX, SILVESTRE, TRIG, MG, CDP, PT #### [address] [phone] Financial Operations Consultant: Zachary Rivera MD Sodium [Moles/Vol] 135 mmol/L Normal 135-144 [facility] Comment on above: Performed By: #### A JAK2 #### [facility] [address], [place] [phone] Financial Operations Consultant: Ozzy Tolliver MD #### CA125 #### [facility] [employer] [employer] [address] [place] [address] [phone] Financial Operations Consultant: Zachary Rivera MD Performed By: #### C MPX, SILVESTRE, TRIG, MG, CDP, PT #### [facility] [employer] [employer] [address] [place] [address] [phone] Financial Operations Consultant: Zachary Rivera MD D-Dimer Teston 05-04-2023 D-Dimer Test 13.92 ug/mL FEU High 0.00-0.57 [facility] Comment on above: Result Comment: When combined [...] patients with distal DVT. Performed By: #### C MPX, SILVESTRE, TRIG, MG, CDP, PT #### [facility] [address] [place] [address] [phone] Financial Operations Consultant: Zachary Rivera MD Ferritinon 05-04-2023 Ferritin [Mass/Vol] 205 ng/mL High 13-150 [facility] Comment on above: Performed By: #### C MPX, SILVESTRE, TRIG, MG, CDP, PT #### [facility] [address] [place] [address] [phone] Financial Operations Consultant: Zachary Rivera MD Fluid Cell Count and Diffon 05-04-2023 Lymphocytes/100 WBC (Bld) 3 % Normal [facility] Comment on above: Result Comment: The reference range and other method performance specifications have not been established for this body fluid. The test result must be integrated into the clinical context for interpretation. Performed By: #### C MPX, SILVESTRE, TRIG, MG, CDP, PT #### [facility] [address] [place] [address] [phone] Financial Operations Consultant: Zachary Rivera MD Neutrophils/100 WBC (Bld) 22 % Normal [facility] Comment on above: Result Comment: The reference range and other method performance specifications have not been established for this body fluid. The test result must be integrated into the clinical context for interpretation. Performed By: #### C MPX, SILVESTRE, TRIG, MG, CDP, PT #### [address] [phone] Financial Operations Consultant: Zachary Rivera MD RBC (Bld) [#/Vol] 10*6/uL Normal [facility] Comment on above: Result Comment: The reference range and other method performance specifications have not been established for this body fluid. The test result must be integrated into the clinical context for interpretation. Performed By: #### C MPX, SILVESTRE, TRIG, MG, CDP, PT #### [address] [phone] Financial Operations Consultant: Zachary Rivera MD WBC (Bld) [#/Vol] 1.097 10*3/uL Normal [facility] Comment on above: Result Comment: The reference range and other method performance specifications have not been established for this body fluid. The test result must be integrated into the clinical context for interpretation. Performed By: #### C MPX, SILVESTRE, TRIG, MG, CDP, PT #### [address] [phone] Financial Operations Consultant: Zachary Rivera MD Hemoglobin A1Con 05-04-2023 Glucose [Mass/Vol] 97 mg/dL Normal [facility] Comment on above: Result Comment: The ADA and AACC recommend providing the estimated average glucose result to permit better patient understanding of their HBA1c result. Performed By: #### C MPX, SILVESTRE, TRIG, MG, CDP, PT #### [address] [phone] Financial Operations Consultant: Zachary Rivera MD HbA1c (Bld) [Mass fraction] 5.0 % Normal 4.0-6.0 [facility] Comment on above: Performed By: #### C MPX, SILVESTRE, TRIG, MG, CDP, PT #### [address] [address] Financial Operations Consultant: Zachary Rivera MD Heparin Anti-Xaon 05-04-2023 Heparin Anti-Xa <0.10 [facility] Comment on above: Performed By: #### C MPX, MG, PT, CDP #### [address] [address] Financial Operations Consultant: Zachary Rivera MD Heparin Anti-Xa 0.33 IU/L [facility] Comment on above: Performed By: #### C MPX, SILVESTRE, TRIG, MG, CDP, PT #### [address] [address] Financial Operations Consultant: Zachary Rivera MD Heparin Anti-Xa <0.10 [facility] Comment on above: Performed By: #### C MPX, SILVESTRE, TRIG, MG, CDP, PT #### [address] [address] Financial Operations Consultant: Zachary Rivera MD JAK2 [id number] Qual w/ Rflxon JAK2 source .BLOOD Normal [facility] Comment on above: Performed By: #### A JAK2 #### [facility] [address] [place] [address] Financial Operations Consultant: Ozzy Tolliver MD #### CA125 #### [address] [address] Financial Operations Consultant: Zachary Rivera MD Lactate Dehydrog, Flon 05-04 LD - Fluid 160 U/L [facility] Comment on above: Result Comment: Ther e are no normals for body fluid samples. Performed By: #### C MPX, SILVESTRE, TRIG, MG, CDP, PT #### [address] [place] [address] Financial Operations Consultant: Zachary Rivera MD Type of Specimen .ASCITIC FLUID Normal [facility] Comment on above: Performed By: #### C MPX, SILVESTRE, TRIG, MG, CDP, PT #### [facility] [address] [place] [address] Financial Operations Consultant: Zachary Rivera MD Lactate Dehydrogenaseon 04-13 LDH [Catalytic activity/Vol] 265 U/L High 135-214 [facility] Comment on above: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 Facility: Start: 09-29-2021 End: 09-29-[address] HILARIO MISRic Facility: Procedures Date Procedure Procedure Detail Performing Clinician Start: 09-21-2022 Computerized ophthal tomás imaging retina Carmelo Bernstein MD Work Phone: Start: 08-14-2022 IOL BIOMETRY W/ IOL CALC OU (BOTH EYES) Carmelo Bernstein MD Work Phone: Start: 08-14-2022 End: 08-14-2022 Computerized ophthalmic imaging retina Carmelo Bernstein MD Work Phone: Plan of Treatment Date Care Activity Detail Author Start: 08-05-2025 DIABETES SCREEN DIABETES SCREEN [facility] Start: 11-10-2022 Influenza vaccination [facility] Start: 03-12-2022 DEPRESSION ASSESSMENT DEPRESSION ASS ESSMENT [facility] Start: 2017 Influenza vaccination LUNG CANCER SC GIOVANNI [facility] Start: 2017 SHINGRIX VACCINE (1 of 2) SHINGRIX V ACCINE (1 of 2) [facility] Start: 02-19-2012 COLOGUARD (FIT-DNA) COLOGUARD (FIT-D NA) [facility] Start: 02-19-2012 Colonoscopy COLONOSCOPY [facility] Start: 02-19-2012 COLORECTAL CANCER SCREENING COLORECTAL CANCER SCREENING [facility] Start: 02-19-[address] [facility] Start: 02-19-2012 FECAL OCCULT BLOOD FECAL OCCULT BLOO D [facility] Start: 02-19-2012 LIPID SCREEN LIPID SCREEN [facility] Start: 02-19-2012 SIGMOIDOSCOPY SIGMOIDOSCOPY [facility] Start: 2007 Mammography MAMMOGRAM [facility] Start: 1997 HPV TESTING HPV TESTING [facility] Start: 02-19-1988 PAP TESTING PAP TESTING [facility] Start: 1986 Urine microalbumin profile DTAP,TDAP ,TD (1 - Tdap) [facility] Start: 1985 HEPATITIS C SCREENING HEPATITIS C SC REENING [facility] Start: 1985 HIV SCREENING HIV SCREENING [facility] Start: 1973 PNEUMOCOCCAL (1 - PCV) PNEUMOCOCCAL (1 - PCV) [facility] Start: 1965 COVID-19 VACCINE (#1) COVID-19 VACCI NE (#1) [facility] Start: 1965 HEPATITIS B (1 of 3 - 3-dose series) HEPATITIS B (1 of 3 - 3-dose series) [facility] Payers Date Payer Category Payer Self-pay 2022 Medicaid [facility] [id number] 2022-Present [phone] [address] [place] [address] Medicaid [id number] 1965 Unknown [id number] [id number] 1965 Unknown [id number] [id number] 1965 Unknown [id number] [id number] 1965 Unknown [id number] [id number] 1965 Unknown [id number] [id number] 1965 Unknown [id number] 2.16.840.1.222268.3.579.2.593 1965 Unknown [id number] 2.16.840.1.720832.3.579.2.593 1965 Unknown [id number] 2.16.840.1.613770.3.579.2.593 1965 Unknown [id number] 2.16.840.1.273517.3.579.2.593 1965 Unknown [id number] 2.16.840.1.788261.3.579.2.175 1965 Unknown [id number] 2.16.840.1.655868.3.579.2.175 1959 Unknown [id number] 1959 Unknown [id number] Unknown [id number] Social History Date Type Detail Facility Tobacco smoking stat [email or web address] Tobacco smoking consumption unknown [facility] Work Phone: Start: 1965 Sex Assigned At Not on file [facility] Start: 08-14-2022 End: 08-18-2022 Tobacco smoking status COIS Smokes tobacco daily [facility] History of tobacco use Cigarette Smoker [facility] Start: 08-06-2022 End: 08-14-2022 Cigarettes smoked current (pack per day) - Reported 0.9 [facility] Start: 08-14-2022 End: 08-18-2022 Tobacco use and exposure Smokeless tobacco non-user [facility] Start: 08-14-2022 End: 09-21-2022 Alcohol intake Current drinker of alcohol (finding) [facility] Start: 08-14-2022 Alcohol Comment occas [facility] Start: 08-06-2022 End: 09-16-2022 Tobacco use panel [facility] National Score (1-10 0), lower number is lower risk 64 [facility] Medical Equipment Procedure Code Equipment Code Equipment Origin al Text Equipment Identifier Dates Lens Mics Akreos 6mm +21 Diopter Biconvex 26% Hydrophilic Acrylic 10.7mm - [id number] Start: 09-15-2022 Clinical Notes 09-29-2021 to 07-06-2023 Patient InstructionsCarmelo Bernstein MD - 09/21/2022 1:43 PM EDTTelephone Encounter - Josefina Monk - 09/13/2022 1:16 PM EDTDacharles Bernstein MD - 09/09/2022 12:15 PM EDTPatient Instructions Note Date & Type Note Facility 07-06-2023 Note Unable to reach ludivina ent by phone or leave a message for her to call and schedule an office visit with Dr. Austin Duque, referral received from Dr. Roberto He's office dated 05-22-23. Letter mailed for patient to schedule an appointment. [facility] 06-01-2023 Note PROCEDURE: ULTRASOUND-GUIDED PARACENTESIS 06/01/2023 HISTORY: ORDERING SYSTEM PROVIDED HISTORY: Ascites TECHNOLOGIST PROVIDED HISTORY: Ascites TECHNIQUE: This procedure was performed by Andrew Kay PA-C under indirect supervision of . Informed consent was obtained after a detailed explanation of the procedure including the risks, benefits, and alternatives. Mountain protocol was followed. Sterile barrier technique was [...] fluid pocket was accessed with a 5 Kyrgyz Yueh needle with aspiration of dark brown fluid. Sokikom vacuum machine was connected and paracentesis was performed and approximately 3200 mL were removed. Post procedural ultrasound demonstrated no significant residual fluid. A sample was collected and sent for laboratory analysis. Estimated blood loss was minimal. The patient tolerated the procedure well and left the department in good condition. FINDINGS: Limited ultrasound of the abdomen demonstrates ascites. A total of 3200 mL of dark brown fluid was removed. IMPRESSION: Successful ultrasound-guided paracentesis. Interpreted by: Dean Hernández MD Redfox, Jacob, PA Signed by: Dean Hernández MD 06/01/23 Final result [facility] 05-09-2023 Note PROCEDURE: ULTRASOUND-GUIDED PARACENTESIS 05/09/2023 HISTORY: [...] procedure including the risks, benefits, and alternatives. Mountain protocol was followed. Sterile barrier technique was [...] fluid pocket was accessed with a 5 Kyrgyz Yueh needle with aspiration of dark yellow [...] by: Karsten Leary MD 05/09/23 Final result [facility] 05-04-2023 Note PROCEDURE: ULTRASOUND-GUIDED PARACENTESIS 05/04/2023 HISTORY: ORDERING SYSTEM PROVIDED HISTORY: Large volume ascites on CT imaging at OSH TECHNOLOGIST PROVIDED HISTORY: Large volume ascites on CT imaging at OSH TECHNIQUE: This procedure was performed by Andrew Kay PA-C under indirect supervision of . Informed consent was obtained after a detailed explanation of the procedure including the risks, benefits, and alternatives. Mountain protocol was followed. Sterile barrier technique was [...] fluid pocket was accessed with a 5 Kyrgyz Yueh needle with aspiration of dark govind [...] by: Gogo Reyes MD 05/04/23 Final result [facility] 10-19-2022 Note HNO ID: [id number] Author: Carmelo Bernstein MD Service: ? Author [...] MD Vitreoretinal Surgery AND Ocular Inflammatory Diseases [facility] 09-21-2022 Note HNO ID: [id number] Author: Carmelo Bernstein MD Service: ? Author [...] MD Vitreoretinal Surgery AND Ocular Inflammatory Diseases [facility] 09-21-2022 Instructions Carmelo Bernstein MD - 09/21/2022 [...] and ask to speak with the on-call puller through. *If you notice any changes in your vision please call immediately If there are any questions or concerns please contact [facility] - Sun-Sun 8am-5pm [phone] - After 5pm Sun-Sun or Weekends please call [phone] or ext [phone] - Ask for the Eye Doctor crop production advisor documented in this encounter [facility] 09-21-2022 History of Presen t [...] Vitreoretinal Surgery & Ocular Inflammatory Diseases [facility] documented in this encounter [facility] 09-15-2022 Note HNO ID: [id number] Author: Andrew Shoemaker MD Service: ? Author [...] at 1:[address] Bernstein in [place] Prior note (unmodified): Dislocated crystalline lens, left [...] of its relevant components. Andrew Shoemaker MD [facility] 09-13-2022 Miscellaneous Notes Surgery rescheduled on 09/29/22, pt understands if she cancels last minute again we won't be able to reschedule. Needs refill of Latanoprost, dorzolamide, brimonidine and cyclo. Please send to [facility] in [place]. Ivett Parada documented in this encounter [facility] 09-09-2022 Note HNO ID: [id number] Author: Carmelo Bernstein MD Service: ? Author [...] MD Vitreoretinal Surgery AND Ocular Inflammatory Diseases [facility] [place] History of Presen t illness Narrative [...] MD Vitreoretinal Surgery & Ocular Inflammatory Diseases [facility] documented in this encounter [facility] 08-14-2022 Note HNO ID: [id number] Author: Carmelo Bernstein MD Service: ? Author [...] plana lensectomy (Pars plana lensectomy (PPL)/Akreos vs Jacques - Ask if wants plano [...] MD Vitreoretinal Surgery AND Ocular Inflammatory Diseases [facility] 08-14-2022 Instructions Carmelo Bernstein MD - 08/14/2022 [...] than 30 days before your surgery. My broadcast traffic coordinator will be contacting you to schedule this appointment. Your exact time of surgery will not be determined until the day before surgery. My broadcast traffic coordinator will call you the day before your surgery to advise you what time to arrive at the [facility] on the first floor at the [facility]. My broadcast traffic coordinator is Ivett Parada, Please do no wear contact lenses. We [...] a placeholder. It will be at the [facility] on the 2nd floor. We will review all your instructions at your appointment the day after surgery. documented in this encounter [facility] 08-14-2022 History of Presen t [...] Vitreoretinal Surgery & Ocular Inflammatory Diseases [facility] documented in this encounter [facility] 08-07-2022 Note HNO ID: [id number] Author: Morris Laws MD Service: ? Author [...] MPhil Vitreoretinal Surgery AND Ocular Inflammatory Diseases [facility] 08-07-2022 History of Presen t illness Narrative [...] with Dr. Shoemaker documented in this encounter [facility] 01-18-2022 Note PROCEDURE: XR ANKLE [...] TUCKER OCAMPO Date: 2022-01-18 15:50 [facility] 12-22-2021 Note PROCEDURE: XR ANKLE [...] by: VEENA HERRERA Date: 2021-12-22 18:55 [facility] 12-22-2021 Note PROCEDURE: XR ANKLE [...] by: VEENA HERRERA Date: 2021-12-22 18:55 [facility] 11-24-2021 Note PROCEDURE: XR ANKLE LT MIN [...] by: VEENA HERRERA Date: 2021-11-24 11:15 [facility] 10-27-2021 Note PROCEDURE: XR [...] TUCKER OCAMPO Date: 2021-10-27 12:21 [facility] 10-27-2021 Note PROCEDURE: XR ANKLE [...] TUCKER OCAMPO Date: 2021-10-27 12:21 [facility] 09-29-2021 Note PROCEDURE: XR ANKLE [...] by: VEENA HERRERA Date: 2021-09-29 14:24 [facility] 09-29-2021 Note PROCEDURE: XR [...] VEENA HERRERA Date: 2021-09-29 14:24 [facility] Evaluation note Diagnosis 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- Primary Posterior dislocation of lens [facility] Diagnosis 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- Primary Posterior dislocation of lens 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 [facility] Diagnosis 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- Primary Posterior dislocation of lens Postoperative eye state Other states following surgery of eye and adnexa 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 documented in this encounter [facility] Summary Purpose Family History No [...] 1 Drop, BOTH EYES, DIRECTED, Starting on 08/14/22 at 1500, Until Tu08/15/22 at 0259, Administer [...] or prosecute any alcohol or drug abuse patient.[facility] the event this information is protected by the Federal Confidentiality of Alcohol and Drug Abuse Patient Records regulations: The Federal rules restrict any use of the information to criminally investigate or prosecute any alcohol or drug abuse patient.[facility] the event this information is protected by the Federal Confidentiality of Alcohol and Drug Abuse Patient Records regulations: The Federal rules restrict any use of the information to criminally investigate or prosecute any alcohol or drug abuse patient.[facility] the event this information is protected by the Federal Confidentiality of Alcohol and Drug Abuse Patient Records regulations: The Federal rules restrict any use of the information to criminally investigate or prosecute any alcohol or drug abuse patient.[facility] the event this information is protected by the Federal Confidentiality of Alcohol and Drug Abuse Patient Records regulations: The Federal rules restrict any use of the information to criminally investigate or prosecute any alcohol or drug abuse patient.[facility] the event this information is protected by the Federal Confidentiality of Alcohol and Drug Abuse Patient Records regulations: The Federal rules restrict any use of the information to criminally investigate or prosecute any alcohol or drug abuse patient.[facility] Reason for Visit (unrecogniz ed section and content) Reason Comments Eye Pain Left Eye Reason Comments Dislocated Lens Evaluation Reason Comments Schedule Surgery Reason Comments Post-Op Visit s/p PPV/PPL/frag/Akr eos OS (09/15/22) INFORMATION SOURCE (unrecogn ized section and content) DATE CREATED AUTHOR 08/20/2022 [facility] [place] [facility] DATE CREATED AUTHOR AUTHOR'S ORGANIZ ATION 10/20/2022 [facility] DATE CREATED AUTHOR AUTHOR'S ORGANIZ ATION 05/25/2023 [facility] DATE CREATED AUTHOR AUTHOR'S ORGANIZ ATION 05/30/2023 [facility] DATE CREATED AUTHOR AUTHOR'S ORGANIZ ATION 07/05/2023 [facility] DATE CREATED AUTHOR AUTHOR'S ORGANIZ ATION 07/08/2023 [facility] FOR RECORDS PERTAINING TO PATIENTS WHO [...] BE BASED ON THE PRIMARY CLINICAL RECORDS. [facility]. provides no warranty or guarantee of the accuracy or completeness of information in this document.
[2023-07-31 02:58] LABS: Ethanol 339 mg/dL
[2023-07-31] MEDS: LORAZEPAM 2 MG/ML VIAL 1 MG IV (03:22)
[2023-07-31] MEDS: HALOPERIDOL LACTATE 5 MG/ML VIAL IV (03:23)
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
[2023-07-31] MEDS: 0.9 % SODIUM CHLORIDE 1,000 ML 999 ML IV (03:40)
--- NOTE | 2023-07-31 05:50 | ECG_ITS ---
The [facility] Test Date: 2023-07-31 Pat Name: APARNA LAZCANO Department: Room: - Gender: Female Tutoring Manager: : 1965 Requested By: PANCHO HINOJOSA Order Number: [id number] Reading MD: PANCHO HINOJOSA Measurements Intervals Marshall Rate: 72 P: 90 MD: 160 QRS: 81 QRSD: 82 T: 76 QT: 408 QTc: 432 Interpretive Statements 1100 Sinus rhythm Non-Specific T wave inversion in aVL 9110 normal ECG Compared to ECG 05/03/2023 09:49:07 Sinus tachycardia no longer present Atrial abnormality no longer present Electronically Signed On 08-01-2023 5:30:55 EDT by PANCHO HINOJOSA
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
--- NOTE | 2023-07-31 06:34 | PC.NURSE ---
Patient's arrived and spoke to Dr. Montgomery about patient's condition and test results. Since patient is still deeply asleep and continues to be difficult to arouse, is going to leave to get grandchildren off to school then come back.
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
== END 2023-07-31 12:38 | disposition home or self-care (01) ==
PROVIDERS: Internal Medicine; Emergency Provider Emergency Medicine; PCP Family Medicine
DX: S00.83XA Contusion of other part of head, initial encounter (principal); F10.129 Alcohol abuse with intoxication, unspecified; Y90.8 Blood alcohol level of 240 mg/100 ml or more; V48.5XXA Car driver injured in noncollision transport accident in traffic accident, initial encounter; F12.90 Cannabis use, unspecified, uncomplicated; F41.9 Anxiety disorder, unspecified; F32.A Depression, unspecified; F17.210 Nicotine dependence, cigarettes, uncomplicated; G89.29 Other chronic pain; M54.9 Dorsalgia, unspecified; Z86.718 Personal history of other venous thrombosis and embolism; Z98.51 Tubal ligation status; Z98.1 Arthrodesis status; Z79.82 Long term (current) use of aspirin; Z79.899 Other long term (current) drug therapy; Z79.01 Long term (current) use of anticoagulants
CPT/HCPCS: 36415; 70450; 70486; 72125; 80053; 80320; 83690; 85025; 93005; 96374; 96375; 99285

== ENCOUNTER 2025-02-16 16:58 | Outpatient (OUT) | payer OTHER, SELFPAY ==
--- OUTSIDE RECORDS SUMMARY | 2025-02-16 17:03 | XMS_ITS | CCD ---
Author Organization [facility] CliniSymd Care Team Providers Care Wheel Buffer Name Role Phone Unavailable Primary Care Provider Unavailabl e MISC, DR HILARIO Primary Care Unavailable TERRENCE, DR TUCKER Dobson Consulting Unavailable HIGHLANDERLEIGHANN Attending Unavailable HIGHLANDERLEIGHANN Admitting Unavailable LEIGHANN MORENO Consulting Unavailable MISC, DR HILARIO Primary Care Unavailable NANDO ISABEL Admitting Unavailable CHALONANDO DE LA CRUZ Attending Unavailable MISC, DR HILARIO Primary Care Unavailable HIGHLANDERLEIGHANN Attending Unavailable HIGHLANDER PETER Kathy Admitting Unavailable TERRENCE, DR TUCKER Dobson Consulting [...] Dhillon Consulting Unavailable CHALO, NANDO Consulting Unavailable NANDO ISABEL Admitting Unavailable MISC, DR HILARIO Primary Care Unavailable NANDO ISABEL Attending Unavailable JAVIER, DR VEENA Dhillon Consulting Unavailable NANDO ISABEL Consulting Unavailable MISC, DR HILARIO Primary Care Unavailable ARIANNAEBER, DR TUCKER Dobson Consulting Unavailable NANDO ISABEL Admitting Unavailable CHALONANDO Attending Unavailable CHALONANDO Consulting Unavailable MAMMO, CARMELO A Attending Unavailable SELF Referring Unavailable KEISHA CLEMONS Referring Unavailable MAMMO, CARMELO Perdomo Referring Unavailable MAMMO, CARMELO Perdomo Attending Unavailable MAMMO, CARMELO Perdomo Attending Unavailable CARMELO BERNSTEIN Attending Unavailable TUCKER DELATORRE Attending Unavailable Pancho Hinojosa Attending Unavailable Pancho Hinojosa Admitting Unavailable Pancho Hinojosa MD Primary Care Provider [phone] Liliam Zayas DO Emergency Provider Pancho Hinojosa MD Primary Care Provider [phone] Aaron Jimenez Admitting Unavailab Aaron Schuster Attending Unavailab le Pancho Hinojosa Primary Care Unavailable Liliam Zayas Attending Unavailable Liliam Zayas Admitting Unavailable Pancho Hinojosa Primary Care Unavailable PANCHO HINOJOSA Primary Care Unavailable PANCHO HINOJOSA Primary Care Unavailable KATYA, AIJAZ Referring Unavailable PANCHO HINOJOSA Primary Care Unavailable KATYA, AIJAZ Referring Unavailable SUKI MARTINEZ Consulting Unavailable NING VASQUES Attending Unavailable LILIAM ZAYAS Referring Unavailable BRANDAN HORN Admitting Unavailable PANCHO HINOJOSA Primary Care Unavailable JUDY LEY Consulting Unavailable TIA STEVENS Consulting Unavailable PANCHO HINOJOSA Primary Care Unavailable KATYA, AIJAZ Referring Unavailable Medications Current Medications MedicationDrug Class(es)DatesSig (Normalized)Sig (Original)Acetaminophen (1 source)Start: 44-61-8529erakopkuetjph (TYLENOL) tablet 650 mgacetaminophen 325 mg / HYDROcodone bitartrate 5 mg oral tablet (2 sources)Opioid AgonistStart: 12-19-2024 End: 25-66-7544BYQAQremwhg-acetaminophen (NORCO) 5-325 MG per tablet Indications: Idiopathic acute pancreatitis without infection or necrosis Take 1 tablet by mouth every 6 hours as needed for Pain for up to 3 days. Max Daily Amount: 4 tablets 9 tablet 12/19/2024 12/22/2024 Activeamylase 423171 unt / lipase 49202 unt / protease 748065 unt delayed release oral capsule (4 sources)Start: 46-89-1956xvic 2 capsules by mouth at bedtimePancrelipase, Gib-Wnog-Nxjq, 34437-213977 units CPEP Take 2 capsules by mouth in the morning, at noon, and at bedtime 180 capsule 3 07/04/2023 Activeapixaban 5 mg oral tablet (3 sources)Factor Xa InhibitorStart: 17-47-8280lsjx 1 tablet by mouth twice dailyapixaban (ELIQUIS) 5 MG TABS tablet Take 1 tablet by mouth 2 times daily 60 tablet 1 05/09/2023 Activeaspirin 81 mg delayed release oral tablet (5 sources)Platelet Aggregation Inhibitor, Nonsteroidal Anti-inflammatory Drug Start: 62-93-1679fddz 1 tablet by mouth once dailyaspirin 81 MG EC tablet Take 1 tablet by mouth daily 30 tablet 3 05/10/2023 Activebisacodyl 10 mg rectal suppository (1 source)Stimulant LaxativeStart: 75-64-2845lbzpbxpevajaq 3 mg/ml ophthalmic solution (1 source)Quinolone AntimicrobialStart: 09-15-2022 End: 67-92-1894sdks 1 drop(s) into the eye(s) four times dailyciprofloxacin HCl (CILOXAN) 0.3 % ophthalmic solution Use 1 Drop in the left eye four times daily for 7 days. 5 mL 0 09/15/2022 09/22/2022 ActiveComment on above:Use 1 Drop in the left eye four times daily for 7 days.0.3 ml enoxaparin sodium 100 mg/ml prefilled syringe (1 source)Low Molecular Weight HeparinStart: 02-73-6640kpfqawvfno 20 mg oral tablet (4 sources)Loop DiureticStart: 18-25-3673pfjf 1 tablet by mouth once daily furosemide (LASIX) 20 MG tablet Take 1 tablet by mouth daily 60 tablet 3 06/05/2023 ActiveHYDROmorphone (DILAUDID) injection 0.5 mg (1 source)Start: 63-54-2246PMAXYxztqbumn (DILAUDID) injection 0.5 mghyoscyamine sulfate 0.125 mg sublingual tablet (4 sources)hyoscyamine (LEVSIN/SL) [address] 1 tablet under the tongue See Admin Instructions Dissolve 1-2 tablets under the tongue before meals and before bedtime as needed Qzwzug75 ml magnesium sulfate 40 mg/ml injection (1 source)Start: 68-06-3197oeqkoedzs hydrochloride 10 mg oral tablet (4 sources)alpha-Adrenergic AgonistStart: 83-27-3516ejqw 1 tablet by mouth three times daily as neededmidodrine (PROAMATINE) 10 MG tablet Take 1 tablet by mouth 3 times daily as needed (Monitor your blood pressure regularly, only take if your systolic blood pressure is less than 90 or your diastolic blood pressure is less than 50) 30 tablet 1 06/05/2023 Activeondansetron (ZOFRAN-ODT) disintegrating tablet 4 mg (1 source)Start: 75-29-0792zbhimlaokaq (ZOFRAN-ODT) disintegrating tablet 4 mg pantoprazole 40 mg delayed release oral tablet (4 sources)Proton Pump InhibitorStart: 32-60-5809nvel 1 tablet by mouth once daily before breakfastpantoprazole (PROTONIX) 40 MG tablet Take 1 tablet by mouth every morning (before breakfast) 30 tablet 1 06/05/2023 Activepantoprazole (PROTONIX) 40 mg in sodium chloride (PF) 0.9 % 10 mL injection (1 source)Start: 55-78-268688 mg, IntraVENous, DAILY, First dose on [facility] 12/18/24 at 0900, Reconstitute each 40 mg vial with 10 mL of 0.9% sodium chloride and administer each 40 mg vial over at least 2 minutes.phenylephrine hydrochloride 25 mg/ml ophthalmic solution (2 sources)alpha-1 Adrenergic AgonistStart: 09-21-2022 End: 35-06-4022JWVREAwzrcboe 2.5 % 1 Drop (AK-DILATE, NISHA-SYNEPHRINE)Start: 08-14-2022 End: 70-43-8703WJXXEAahwjvof 2.5 % 1 Drop (AK-DILATE, NISHA-SYNEPHRINE) polyethylene glycol 3350 72218 mg powder for oral solution (1 source)Osmotic LaxativeStart: 07-97-0971Rjiofryyk Chloride (1 source)Start: 12-17-2024 End: 44-62-3495nzmmulhhw chloride (KLOR-CON M) extended release tablet 40 mEq prednisoLONE acetate 10 mg/ml ophthalmic suspension (7 sources)CorticosteroidStart: 08-06-2022 End: 47-20-7180wlcpdayvKHPC acetate (PRED FORTE) 1 % ophthalmic suspension Use 1 Drop in the left eye four times daily. 5 mL 0 09/15/2022 10/15/2022 Active Comment on above:Use 1 Drop in the left eye four times daily.proparacaine hydrochloride 5 mg/ml ophthalmic solution (1 source)Local AnestheticStart: 09-21-2022 End: 79-45-2858yatilgxfieok 0.5 % 1 Drop (ALCAINE)50 ml sodium chloride 9 mg/ml injection (3 sources)Start: 87-85-6416azaa 20 mL intravenously every hourIntraVENous, at 5-250 mL/hr, PRN, if patient receiving piggyback infusions and maintenance fluids are not ordered OR KVO fluids to protect IV site / prevent frequent line interruptions/ long duration, Starting on Sun12/17/24 at 2259, For piggyback infusion, administer at same rate as piggyback for a total of 25 mL. Enter 25 mL into dose field and piggyback rate into rate field of order. If piggyback is infusing at a rate less than 100 mL/hr, enter 25 mL into dose field and 100 mL/hr into rate field of order. For KVO fluids, enter rate of 20 mL/hr or less into rate field of order.Start: -40 mL, IntraVENous, EVERY 12 HOURS SCHEDULED (2 times per day), First dose on Sun12/17/24 at 2330, Until Discontinued, For Line Patency: Peripheral IV = 5 mL; Midline or Central Line = 10 mL/lumen.If following IV push medication, administer flush at same rate as the IV push. Flush volume is determined by type of infusion therapy being given. For non-viscous solutions use: Peripheral IV = 5 mL Midline or Central Line = 10 mL/lumen For viscous solutions (i.e. blood components, parenteral nutrition, contrast media, or after obtaining blood sample) use: Peripheral IV = 10 mL Midline or CentralLine = 20 mL/lumenStart: -40 mL, IntraVENous, PRN, Starting on Sun12/17/24 at 2259, Until Discontinued, Line Care, After every IV line use, For Line Patency: Peripheral IV = 5 mL; Midline or Central Line = 10 mL/lumen. If following IV push medication, administer flush at same rate as the IV push. Flush volume is determined by type of infusion therapy being given. For non-viscous solutions use: Peripheral IV = 5 mL Midline or Central Line = 10 mL/lumen For viscous solutions (i.e. blood components, parenteral nutrition, contrast media, or after obtaining blood sample) use: Peripheral IV = 10 mL Midline or Central Line= 20 mL/lumenspironolactone 25 mg oral tablet (4 sources)Aldosterone AntagonistStart: 74-20-2468tpuy 0.5 tablet by mouth once dailyspironolactone (ALDACTONE) 25 MG tablet Take 0.5 tablets by mouth daily 30 tablet 3 06/05/2023 Activetropicamide 10 mg/ml ophthalmic solution (2 sources)AnticholinergicStart: 09-21-2022 End: 72-98-2331sraiipdntlc 1 % 1 Drop (MYDRIACYL)Start: 08-14-2022 End: 56-84-7653mkqbeplcdsh 1 % 1 Drop (MYDRIACYL) Completed/Discontinued Medications MedicationDrug Class(es)DatesSig (Normalized)Sig (Original)12 hr acetaZOLAMIDE 500 mg extended release oral capsule (5 sources)Carbonic Anhydrase InhibitorStart: 08-06-2022 End: 73-97-9231ifbl 1 capsule by mouth twice dailyacetaZOLAMIDE SR (DIAMOX SEQUELS) 500 mg capsule Take 1 capsule by mouth twice daily. 14 capsule 0 0 08/06/2022 09/13/2022 DiscontinuedComment on above:Take 1 capsule by mouth twice daily.20 ml albumin human, mcfp 250 mg/ml injection (1 source)Human Serum AlbuminStart: 01-13-2025 End: 80-45-366361 g, IntraVENous, ONCE, 1 dose, On Sun01/13/25 at 1145, Administer over 60 Minutes, at 200 mL/hr, Infusion rate depends on indication and clinical situation. In emergencies, may administer as rapidly as necessary to improve clinical condition. After initial volume replacement: 5%: Do not exceed 2 to 4 mL/minute in patients with normal plasma volume; 5 to 10 mL/minute in patients with hypoproteinemia 25%: Do not exceed 1 mL/minute in patients with normal plasma volume; 2 to 3 mL/minute in patients with hypoproteinemia atorvastatin 40 mg oral tablet (1 source)HMG-CoA Reductase InhibitorStart: 05-09-2023 End: 44-14-5171ixhf 1 tablet by mouth once dailyatorvastatin (LIPITOR) 40 MG tablet Take 1 tablet by mouth nightly 30 tablet 3 05/09/2023 12/19/2024 Discontinued (Stop Taking at Discharge)benoxinate hydrochloride 4 mg/ml / fluorescein sodium 2.5 mg/ml ophthalmic solution (1 source)Diagnostic DyeStart: 08-14-2022 End: 55-52-5822ododfuhxryc-benoxinate 0.25-0.4 % 1 Drop (FLURESS)brimonidine tartrate 2 mg/ml ophthalmic solution (7 sources)alpha-Adrenergic AgonistStart: 08-06-2022 End: 52-79-0727knfp 1 drop(s) into the eye(s) three times dailybrimonidine (ALPHAGAN) 0.2 % ophthalmic solution Use 1 Drop in the left eye three times daily for 7days. 10 mL 0 09/13/2022 ActiveComment on above:Use 1 Drop in the left eye three times daily for 7 days.calcium chloride 0.0014 meq/ml / potassium chloride 0.004 meq/ml / sodium chloride 0.103 meq/ml / sodium lactate 0.028 meq/ml injectable solution (1 source)Start: 12-17-2024 End: 12-19-6134HlyiyGTUpxh, at 100 mL/hr, CONTINUOUS, Starting on Sun12/17/24 at 2330, For 24 hours, Complete lastbag that is running at 24 hours and then saline lock IVcyclopentolate hydrochloride 10 mg/ml ophthalmic solution (7 sources)Start: 08-06-2022 End: 69-07-3525vriq 1 drop(s) into the eye(s) twice dailycyclopentolate (CYCLOGYL) 1 % ophthalmic solution Use 1 Drop in the left eye twice daily. 5 mL 0 09/13/2022 ActiveComment on above:Use 1 Drop in the left eye twice daily. dorzolamide 20 mg/ml / timolol 5 mg/ml ophthalmic solution (7 sources)Carbonic Anhydrase Inhibitor, beta-Adrenergic BlockerStart: 08-06-2022 End: 27-53-8806baly 1 drop(s) into the eye(s) twice dailydorzolamide-timolol (COSOPT) 22.3-6.8 mg/mL ophthalmic solution Use 1 Drop in the left eye twice vinnie ly. 10 mL 0 09/13/2022 ActiveComment on above:Use 1 Drop in the left eye twice daily.gabapentin 300 mg oral capsule (1 source)Anti-epileptic Agent End: 71-87-8942aiao 1 capsule by mouth twice dailygabapentin (NEURONTIN) 300 MG capsule Take 1 capsule by mouth 2 times daily. 12/19/2024 Discontinued (Stop Taking at Discharge)gadoteridol (PROHANCE) injection 8 mL (1 source)Start: 12-18-2024 End: 22-18-5980swki 1 dose intravenously once8 mL, IntraVENous, IMG ONCE PRN, 1 dose, Starting on Randi 12/18/24 at 1747, Until Randi 12/18/24 at 1747, Other HYDROmorphone hydrochloride 2 mg oral tablet (1 source)Opioid AgonistStart: 12-18-2024 End: 28-17-6005rlof 1 dose by mouth once1 mg, Oral, Once, 1 dose, On Randi 12/18/24 at 0000ibuprofen 800 mg oral tablet (5 sources)Nonsteroidal Anti-inflammatory DrugIBUPROFEN ORAL Take 800 mg by mouth as needed. 0 ActiveComment on above:Take 800 mg by mouth as needed. latanoprost 0.05 mg/ml ophthalmic solution (7 sources)Prostaglandin AnalogStart: 08-06-2022 End: 72-10-3268epfg 1 drop(s) into the eye(s) once daily at bedtimelatanoprost (XALATAN) 0.005 % ophthalmic solution Use 1 Drop in the left eye daily at bedtime. 2.5 mL 0 09/13/2022 ActiveComment on above:Use 1 Drop in the left eye daily at bedtime.1 ml LORazepam 2 mg/ml injection (1 source)BenzodiazepineStart: 50.5 mg, IntraVENous, ONCE PRN, 1 dose, Starting on Randi 12/18/24 at 1331, Until Discontinued, Anxiety, For MRI, Immediately prior to intravenous use, lorazepam Injection must be diluted with at least an equal volume of compatible solution (NS or D5W).1 ml morphine sulfate 2 mg/ml cartridge (1 source)Opioid AgonistStart: 12-17-2024 End: mg, IntraVENous, EVERY 4 HOURS PRN, Starting on Sun12/17/24 at 2301, Until Sun12/19/24 at 0930, Pain Moderate (4-6) OR per patient request for pain score (7-10), Pain Severe (7-10), If oral and IVnarcotics ordered, use oral first and only use IV if oral is ineffective or cannot take oral. Do Not give oral and IV within 1 hour of each other unless specifically ordered. Problems Active Problems Problem ClassificationProblemDateDocumented DateEpisodic/ChronicAbdominal pain (8 sources)Abdominal pain; Translations: [Unspecified abdominal pain]Onset: 894456-06-9291XcgnrzniVivtplg-ztpfycb disorders (18 sources)Alcoholism; Translations: [Alcohol dependence, uncomplicated]Onset: 05-04-2023 Resolved: 672027-80-1986LhfsqgnOzlifz and peripheral arterial embolism or thrombosis (4 sources)Aortic thromboembolism; Translations: [Embolism and thrombosis of unspecified parts of aorta]Onset: 920377-92-4967IextycwUwaexnxnh and vision defects (5 sources)Unqualified visual loss, left eye, normal vision right eye; Translations: [UNQUALIFIED VISUAL LOSS LT EYE NORM]Onset: 69-85-0269TravhdiE Codes: Struck by; against (2 sources)Other cause of strike by thrown, projected or falling object, initial encounter; Translations: [Striking against other object with subsequent fall, initial encounter]Onset: 32-56-4611KrfppqvhJvvwh and electrolyte disorders (1 source)Acute hypokalemia; Translations: [Hypokalemia]87-21-6452Vzchztms Glaucoma (4 sources)Ocular hypertension; Translations: [Ocular hypertension, left eye] Onset: 00-25-1862FdjvokkBpkybjnsvbt deficiencies (5 sources)Malnutrition (calorie); Translations: [Moderate protein-calorie malnutrition]Onset: 648204-11-1532TrmfnbdHaipa aftercare (1 source)intermediate (current) use of aspirin; Translations: [intermediate (current) use of aspirin]Onset: 64-02-6205YhrfpwtlWsvae eye disorders (3 sources)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; Translations: [Posterior dislocation of lens, left eye]ChronicOther eye disorders (2 sources)Posterior dislocation of lens, left eye; Translations: [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]Onset: 64-40-4845PpofnjsDctso gastrointestinal disorders (1 source)Other ascites; Translations: [Other ascites]Onset: 40-87-3798Kndtewax Other injuries and conditions due to external causes (1 source)Other injuries of left eye and orbit, initial encounter; Translations: [OTH INJURIES LT EYE ORBIT INIT ENC]Onset: 00-17-6682WoaaicpiHfycp lower respiratory disease (1 source)Cough; Translations: [Recurrent cough]Onset: 243010-05-9369 EpisodicPancreatic disorders (not diabetes) (10 sources)Alcohol-induced chronic pancreatitis; Translations: [Alcohol-induced chronic pancreatitis]Onset: 05-04-2023 Resolved: 871931-17-8114HmwkakuGvbrzbbulo disorders (not diabetes) (14 sources)Mass of pancreas; Translations: [Other specified diseases of pancreas]Onset: 083579-16-4829VnkxivigXacswefv codes; unclassified (1 source)Postoperative state; Translations: [Other specified postprocedural states]15-37-9161FkpstovjYjaqjeowk-related disorders (2 sources)Nicotine dependence, cigarettes, uncomplicated; Translations: [Smoker]Onset: 419912-31-4623Dclfmis Past or Other Problems Problem ClassificationProblemDateDocumented DateEpisodic/ChronicE Codes: Fall (1 source)Fall into hole, initial encounter; Translations: [FALL INTO HOLE INITIAL ENCOUNTER]Onset: 19-38-0084MtueoeqjSpuovpug of lower limb (7 sources)Displaced trimalleolar fracture of left lower leg, subsequent encounter for closed fracture with routine healing; Translations: [Displaced bimalleolar fracture of left lower leg, initial encounter for closed fracture] Onset: 96-50-2694CdvvtvitHyhjxqnb of lower limb (4 sources)Displaced bimalleolar fracture of right lower leg, initial encounter for closed fracture; Translations: [DSPL CANELO FX RT LW LEG INIT NICKOLAS FX]Onset: 06-03-2103OevfhwgaJrved disorders and dislocations; trauma-related (1 source)Dislocation of tarsometatarsal joint of right foot, initial encounter; Translations: [DISLOC TMT JOINT RT FOOT INITIAL]Onset: 96-53-7357SjbuhqetOmtww connective tissue disease (4 sources)Pain in left foot; Translations: [PAIN IN LEFT FOOT]Onset: 09-29-2021 EpisodicOther diseases of kidney and ureters (4 sources)Renal infarction; Translations: [Ischemia and infarction of kidney] Onset: 134103-51-6841WqtuezhtBrmnk gastrointestinal disorders (6 sources)Ascites; Translations: [Other ascites]Onset: 459336-30-2625 EpisodicOther hematologic conditions (4 sources)Splenic infarction; 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]Onset: 582395-53-7835TesdceiiOfnkx lower respiratory disease (3 sources)Pleurodynia; Translations: [PLEURODYNIA]Onset: 30-92-1337Openmyti Other non-traumatic joint disorders (4 sources)Pain in left ankle and joints of left foot; Translations: [PAIN IN LEFT ANKLE]Onset: 25-23-7573OgwdiodhLofjtfbaa; thrombophlebitis and thromboembolism (5 sources)Portal vein thrombosis; Translations: [Portal vein thrombosis]Onset: 813180-63-5896XhwxfvlpImuqjkszjfe injury; contusion (1 source)Contusion of right front wall of thorax, initial encounter; Translations: [CONTUS RT FRONT WALL THORAX INITIAL]Onset: 35-52-4329Dztotypr Results Test NameValueInterpretationReference RangeFacilityIR US GUIDED PARACENTESISon 38-30-4580Lseanidpbb ultrasound-guided therapeutic paracentesis. Dean Alexandra MD - 01/13/2025 PROCEDURE: ULTRASOUND-GUIDED PARACENTESIS 01/13/2025 HISTORY: ORDERING SYSTEM PROVIDED HISTORY: Alcohol-induced chronic pancreatitis (HCC) TECHNOLOGIST PROVIDED HISTORY: Does fluid need testing? If yes, please place LAB Orders.->No Is the procedure for Diagnostic or Therapeutic reasons?->Therapeutic Alcohol-induced chronic pancreatitis and Alcoholic Cirrhosis of Liver with Ascites. TECHNIQUE: This procedure was performed by Andrew Kay PA-C under indirect supervision of . Informed consent was obtained after a detailed explanation of the procedure including the risks, benefits, and alternatives. Clif[place] protocol was followed. Sterile barrier technique was [...] fluid pocket was accessed with a 5 [place] Yueh needle with aspiration of clear yellow fluid. Vetiary vacuum machine was connected and paracentesis was performed and approximately 6700 mL were removed. Post procedural ultrasound demonstrated no significant residual fluid. A sample was not requested to be sent for laboratory analysis. Estimated blood loss was minimal. Albumin replacement was ordered. The patient tolerated the procedure well and left the department in good condition. FINDINGS: Limited ultrasound of the abdomen demonstrates ascites. A total of 6700 mL of clear yellow fluid was removed. IMPRESSION: Successful ultrasound-guided therapeutic paracentesis. [facility]Rad[facility] observation (narrative)[facility] hospital US GUIDED PARACENTESISOrdered By: Dean Hernández on 28-94-7049XrkCarilion [facility] Work Phone: Guidance for paracentesis of Peritoneumon 12-31-2024 Successful ultrasound-guided therapeutic paracentesis. [facility] Karsten Meehan MD - 12/31/2024 PROCEDURE: ULTRASOUND-GUIDED PARACENTESIS 12/31/2024 HISTORY: ORDERING SYSTEM PROVIDED HISTORY: Alcoholic cirrhosis of liver with ascites (HCC) TECHNOLOGIST PROVIDED HISTORY: Does fluid need testing? If yes, please place LAB Orders.->No Is the procedure for Diagnostic or Therapeutic reasons?->Therapeutic TECHNIQUE: This procedure was performed by Andrew Kay PA-C under indirect supervision of . Informed consent was obtained after a detailed explanation of the procedure including the risks, benefits, and alternatives. Clifton protocol was followed. Sterile barrier technique was [...] fluid pocket was accessed with a 5 [place] Yueh needle with aspiration of clear yellow fluid. Josue vacuum machine was connected and paracentesis was performed and approximately 5000 mL were removed. Post procedural ultrasound demonstrated no significant residual fluid. A sample was not requested to be sent for laboratory analysis. Estimated blood loss was minimal. Patient deferred albumin infusion. The patient tolerated the procedure well and left the department in good condition. FINDINGS: Limited ultrasound of the abdomen demonstrates ascites. A total of 5000 mL of clear yellow fluid was removed. IMPRESSION: Successful ultrasound-guided therapeutic paracentesis. [facility] HospitalRad[facility] Study observation (narrative)[facility] HospitalGuidance for paracentesis of PeritoneumOrdered By: Karsten Leary on 57-27-0310Of[facility] Work Phone: Cult,Fluidon 46-17-5059Tlzs,FluidSpecimen Description .ASCITIC FLUID Direct Exam MANY NEUTROPHILS NO ORGANISMS SEEN Gram stain made from cytocentrifuged specimen. Organisms and cells will be concentrated. Culture NO GROWTH 6 DAYS Report Status FINAL 12/24/2024NormalWestern Reserve HospitalComment on above:Performed By: #### FEBC, CDP, BMPX, LIVP, CA19, RETCT, FERI, LIP #### [facility] [place] [address] Hat Mender: Zachary Rivera MDLipase, Fluidon 05-07-9807Utuntk, [id number] U/L [facility] Orrville HospitalComment on above:Result Comment: (NOTE) INTERPRETIVE INFORMATION: Lipase, Fluid For information on body fluid reference ranges and/or interpretive guidance visit [email or web address] This test was developed and its performance characteristics determined by [facility]. It has not been cleared or approved by the [place] Food and Drug Administration. This test was performed in a CLIA certified laboratory and is intended for clinical purposes. Performed By: [facility] [address] [place] [address] Melter Supervisor [employer]: David Cosby MD, PhD CLIA Number: [id number] By: #### FEBC, CDP, BMPX, LIVP, CA19, RETCT, FERI, LIP #### [address] [address] Hat Mender: ROMELIA [facility] Met+Bili/rfx MGon 16-50-8152Rbazxje [Mass/Vol]2.3 g/dLLow3.5-5.2Mkeenan private hospitaly [facility] Foundation HospitalComment on above: Performed By: #### FEBC, CDP, BMPX, LIVP, CA19, RETCT, FERI, LIP #### [address] [address] Hat Mender: Zachary Rivera MDAlbumin/Glob Ratio1.5Klxzlc9.0-2.5Western Reserve HospitalComment on above:Performed By: #### FEBC, CDP, BMPX, LIVP, CA19, RETCT, FERI, LIP #### [address] [address] Hat Mender: Naeem Wesley Phos83 U/DJmdbsn86-760TajmjWestern Reserve HospitalComment on above:Performed By: #### FEBC, CDP, BMPX, LIVP, CA19, RETCT, FERI, LIP #### [address] [address] Hat Mender: Zachary Rivera MDALT [Catalytic activity/Vol]9 U/OWsp60-55GkqevWestern Reserve HospitalComment on above:Performed By: #### FEBC, CDP, BMPX, LIVP, CA19, RETCT, FERI, LIP #### [address] [address] Hat Mender: Wesley Wesleyon gap [Moles/Vol]11 mmol/LNormal9-16Western Reserve HospitalComment on above:Performed By: #### FEBC, CDP, BMPX, LIVP, CA19, RETCT, FERI, LIP #### [facility] [employer] [address] [place] [address] Hat Mender: Zachary Rivera MDAST [Catalytic activity/Vol]23 U/SGtlsrn89-58 Western Reserve HospitalComment on above:Result Comment: Specimen hemolysis has exceeded the interference as defined by Virgil. Value may be falsely increased. Suggest recollection if clinically indicated.Performed By: #### FEBC, CDP, BMPX, LIVP, CA19, RETCT, FERI, LIP #### [facility] [employer] [address] [place] [address] Hat Mender: Zachary Rivera MDBilirubin [Mass/Vol]0.2 mg/dLNormal0.0-1.2MQueen of the Valley HospitalComment on above:Performed By: #### FEBC, CDP, BMPX, LIVP, CA19, RETCT, FERI, LIP #### [facility] [employer] [address] [place] [address] Hat Mender: Zachary Rivera MDBilirubin, IndirectCan not be calculatedNormal 0.0-1.0Western Reserve HospitalComment on above:Performed By: #### FEBC, CDP, BMPX, LIVP, CA19, RETCT, FERI, LIP #### [facility] [employer] [address] [place] [address] Hat Mender: Zachary Rivera MDBilirubin.indirect [Mass/Vol]mg/dLNormal0.0-0.2 Western Reserve HospitalComment on above:Performed By: #### FEBC, CDP, BMPX, LIVP, CA19, RETCT, FERI, LIP #### [facility] [employer] [address] [place] [address] [phone] Hat Mender: ROMELIA Wesleyalcium [Mass/Vol]8.4 mg/dLLow8.6-10.4Western Reserve HospitalComment on above:Performed By: #### FEBC, CDP, BMPX, LIVP, CA19, RETCT, FERI, LIP #### [employer] [address] [place] [address] [phone] Hat Mender: ROMELIA Wesleyhloride [Moles/Vol]113 mmol/IFvul96-955HofpdWestern Reserve HospitalComment on above:Performed By: #### MARTHA, CDP, BMPX, LIVP, CA19, RETCT, FERI, LIP #### [facility] [employer] [address] [place] [address] [phone] Hat Mender: Zachary Rivera MDCO2 [Moles/Vol]13 mmol/KXwy94-47VgkiyWestern Reserve HospitalComment on above:Performed By: #### FEBC, CDP, BMPX, LIVP, CA19, RETCT, FERI, LIP #### [facility] [address] [place] [address] [phone] Hat Mender: ROMELIA Wesleyreatinine [Mass/Vol]0.4 mg/dLLow0.6-0.9Western Reserve HospitalComment on above:Performed By: #### FEBC, CDP, BMPX, LIVP, CA19, RETCT, FERI, LIP #### [facility] [employer] [address] [place] [address] [phone] Hat Mender: Zachary Rivera MDGFR/1.73 sq M.predicted among non-blacks MDRD (S/P/Bld) [Vol rate/Area]mL/min/{1.73_m2}Normal>60Western Reserve HospitalComment on above:Result Comment: These results are not intended for [...] or following therapy that affects renal tubular secretion.Performed By: #### FEBC, CDP, BMPX, LIVP, CA19, RETCT, FERI, LIP #### [facility] [employer] [address] [place] [address] Hat Mender: Zachary Rivera MDGlucose [Mass/Vol]102 mg/uHQdof78-21AvaorQueen of the Valley HospitalComment on above:Performed By: #### FEBC, CDP, BMPX, LIVP, CA19, RETCT, FERI, LIP #### [place] [address] Hat Mender: GIANCARLO Wesleyotassium [Moles/Vol]3.7 mmol/LNormal3.7-5.3 Western Reserve HospitalComment on above:Result Comment: Specimen hemolysis has exceeded the interference as defined by Virgil. Value may be falsely increased. Suggest recollection if clinically indicated.Performed By: #### FEBC, CDP, BMPX, LIVP, CA19, RETCT, FERI, LIP #### [address] [address] Hat Mender: Zachary Rivera MDProtein [Mass/Vol]4.7 g/dLLow6.6-8.7Western Reserve HospitalComment on above:Performed By: #### FEBC, CDP, BMPX, LIVP, CA19, RETCT, FERI, LIP #### [facility] [employer] [address] [place] [address] Hat Mender: Zachary Rivera MDSodium [Moles/Vol]137 mmol/DQlwvlz924-344CbjmtWestern Reserve HospitalComment on above:Performed By: #### FEBC, CDP, BMPX, LIVP, CA19, RETCT, FERI, LIP #### [facility] [employer] [address] [place], [place] [phone] Hat Mender: Zachary Rivera MDUrea nitrogen [Mass/Vol]10 mg/dLNormal6-20Western Reserve HospitalComment on above:Performed By: #### FEBC, CDP, BMPX, LIVP, CA19, RETCT, FERI, LIP #### [facility] [address] [place] [address] Hat Mender: ROMELIA Wesleyomprehensive Metabolic w/ Bili Profile w/ Reflex to MGon [id number] [Mass/Vol]2.3 g/dLLow3.5 - 5.2 g/dLBon Secours Jemstep HealthAlbumin/Globulin [Mass ratio]1.0 {ratio}1.0 - 2.5Bon [facility] HealthALP [Catalytic activity/Vol]83 U/L35 - 104 U/LBon Secours Island Club BrandsALT [Catalytic activity/Vol]9 U/LLow10 - 35 U/LBon Secours Island Club BrandsAnion gap [Moles/Vol]11 mmol/L9 - 16 mmol/LBon Secours [facility] HealthAST [Catalytic activity/Vol]23 U/L10 - 35 U/LBon Secours Island Club BrandsComment on above:Specimen hemolysis has exceeded the interference as defined by Virgil. Value may be falsely increased. Suggest recollection if clinically indicated. Bilirubin [Mass/Vol]0.2 mg/dL0.0 - 1.2 mg/dLBon [employer] Bilirubin.direct [Mass/Vol]mg/dL0.0 - 0.2 mg/dLBon [facility] Bilirubin.indirect [Mass/Vol]Can not be calculated0.0 - 1.0 mg/dLBon Secours Island Club BrandsCalcium [Mass/Vol]8.4 mg/dLLow8.6 - 10.4 mg/dLBon Secours Island Club BrandsChloride [Moles/Vol]113 mmol/LHigh98 - 107 mmol/LBon [facility] CO2 [Moles/Vol]13 mmol/LLow20 - 31 mmol/LBon [facility]ours Island Club BrandsCreatinine [Mass/Vol]0.4 mg/dLLow0.6 - 0.9 mg/dLBon Secours Island Club BrandsEst, Glom Filt Rate - PINFBon [facility]ment on above: These results are not intended for use [...] following therapy that affects renal tubular secretion. Glucose [Mass/Vol]102 mg/qVYihu45 - 99 mg/dLBon [facility] Interpretation and review of laboratory resultsAbnormalRappahannock General Hospital Potassium [Moles/Vol]3.7 mmol/L3.7 - 5.3 mmol/LBon [facility]ment on above:Specimen hemolysis has exceeded the interference as defined by Virgil. Value may be falsely increased. Suggest recollection if clinically indicated. Protein [Mass/Vol]4.7 g/dLLow6.6 - 8.7 g/dLBon [facility] HospitalSodium [Moles/Vol]137 mmol/L136 - 145 mmol/LBon [facility] HospitalUrea nitrogen [Mass/Vol]10 mg/dL6 - 20 mg/dLBon [facility] Cytology, Non-Robotic Toy Inventor (Excluding [place] and [place])on [id number] Number: [id number] General HospitalSpecimen Description.ASCITIC FLUIDSentara Norfolk General HospitalIR US GUIDED PARACENTESISon 12-19-2024 Successful ultrasound-guided therapeutic/diagnostic paracentesis. Dean Alexandra MD - 12/19/2024 PROCEDURE: ULTRASOUND-GUIDED PARACENTESIS 12/18/2024 HISTORY: ORDERING SYSTEM PROVIDED HISTORY: ascites TECHNOLOGIST PROVIDED HISTORY: ascites TECHNIQUE: This procedure was performed by Andrew Kay PA-C under indirect supervision of . Informed consent was obtained after a detailed explanation of the procedure including the risks, benefits, and alternatives. [place] protocol was followed. Sterile barrier technique was [...] fluid pocket was accessed with a 5 Burundian Yueh needle with aspiration of clear yellow fluid. Josue vacuum machine was connected and paracentesis was performed and approximately 3700 mL were removed. Post procedural ultrasound demonstrated no significant residual fluid. A sample was collected and sent for laboratory analysis. Estimated blood loss was minimal. The patient tolerated the procedure well and left the department in good condition. FINDINGS: Limited ultrasound of the abdomen demonstrates ascites. A total of 3700 mL of clear yellow fluid was removed. IMPRESSION: Successful ultrasound-guided therapeutic/diagnostic paracentesis. Critical access hospital US GUIDED PARACENTESISOrdered By: Dean Hernández on 19-13-2867Kcb [facility] Work Phone: [phone]-Rck Cytologyon 18-19-6682Ldez No:[id number] Western Reserve HospitalComment on above:Performed By: #### FEBC, CDP, BMPX, LIVP, CA19, RETCT, FERI, LIP #### [facility] [employer] [place] [phone] Hat Mender: YUN Wesley Tumor Markeron [id number] [Mass/Vol]3.1 ug/LNINF - 8.4 ug/LBon [facility] on above:The Virgil ECLIA assay is used. Results obtained with different assay methods cannot be used interchangeably. [facility] [id number] Coag (Bld) [Time]28.5 sBon [facility]ment on above: IV Heparin Therapy Range: 66.0-92.0 sec aPTT Coag (Bld) [Time]28.5 fUfnpxu04.0-36.5[facility] Comment on above:Result Comment: IV Heparin Therapy Range: 66.0-92.0 secPerformed By: #### FEBC, CDP, BMPX, LIVP, CA19, RETCT, FERI, LIP #### [facility] [place], [place] [phone] Hat Mender: Zachary Rivera MDAlbumin, Body Fluidon 44-04-9028Wexkxzz (Body fld) [Mass/Vol]1.4 g/dLBon [facility] HospitalComment on above:There are no normals for body fluid samples.Albumin, Fluidon 90-36-0350Njqdugz, Fluid1.4 g/dL NormalWestern Reserve HospitalComment on above:Result Comment: There are no normals for body fluid samples.Performed By: #### FLALB FLGLU #### [employer] [address] [place] [phone] Hat Mender: Zachary Rivera MDType of specimen.ASCITIC FLUIDNormalWestern Reserve HospitalComment on above:Performed By: ###Luis M FLALEstefanía, FLGLU #### [employer] [address] [place] [address] [phone] Hat Mender: Mayco Wesley Fetoproteinon 31-45-8437Wcwlo Fetoprotein 3.1 ug/LNormal<8.4Western Reserve HospitalComment on above:Result Comment: The [employer] ECLIA assay is used. Results obtained with different assay methods cannot be used interchangeably.Performed By: #### FEBC, CDP, BMPX, LIVP, CA19, RETCT, FERI, LIP #### [employer] [address] [place] [address] [phone] Hat Mender: Zachary Rivera MDAmylase, Body Fluidon 41-63-3673Chjjitp (Body fld) [Catalytic activity/Vol]5837 U/LBon [facility] HospitalComment on above: There are no normals for body fluid samples.Specimen type Nom (Spec).ASCITIC FLUIDBon [facility] Memorial HospitalBon [facility]uder Memorial HospitalAmylase,Fluidon 12-18-2024 Amylase [Catalytic activity/Vol]5837 U/LNormalWestern Reserve Hospital Comment on above:Result Comment: There are no normals for body fluid samples. Performed By: #### FEBC, CDP, BMPX, LIVP, CA19, RETCT, FERI, LIP #### [address] [address] Hat Mender: Zachary Rivera MDType of Specimen.ASCITIC FLUIDNormalWestern Reserve HospitalComment on above:Performed By: #### FEBC, CDP, BMPX, LIVP, CA19, RETCT, FERI, LIP #### [address] [address] Hat Mender: Zachary Rivera MDB12/Folate Panelon 85-70-9234Ipowlzqam (Vitamin B12) [Mass/Vol]464 pg/dLPsuldb005-2169TumkbWestern Reserve HospitalComment on above:Performed By: #### FEBC, CDP, BMPX, LIVP, CA19, RETCT, FERI, LIP #### [address] [address] Hat Mender: Zachary Rivera MDFolicatina Acid8.8 ng/mLNormal4.8-24.2MQueen of the Valley HospitalComment on above:Performed By: #### FEBC, CDP, BMPX, LIVP, CA19, RETCT, FERI, LIP #### [address] [address] Hat Mender: Zachary Rivera MDBasic Metab w/rfx MGon 10-45-2613Fnuqc gap [Moles/Vol]8 mmol/LLow9-16Western Reserve HospitalComment on above: Performed By: #### FEBC, CDP, BMPX, LIVP, CA19, RETCT, FERI, LIP #### [facility] [employer] [address] [place] [address] Hat Mender: ROMELIA Wesleyalcium [Mass/Vol]8.4 mg/dLLow8.6-10.4Western Reserve HospitalComment on above:Performed By: #### FEBC, CDP, BMPX, LIVP, CA19, RETCT, FERI, LIP #### [employer] [address] [place] [address] Hat Mender: ROMELIA Wesleyhloride [Moles/Vol]114 mmol/HYpxv96-141EinsiWestern Reserve HospitalComment on above:Performed By: #### FEBC, CDP, BMPX, LIVP, CA19, RETCT, FERI, LIP #### [employer] [address] [place] [address] [phone] Hat Mender: Zachary Rivera MDCO2 [Moles/Vol]18 mmol/OWst31-97XefeaWestern Reserve HospitalComment on above:Performed By: #### FEBC, CDP, BMPX, LIVP, CA19, RETCT, FERI, LIP #### [employer] [address] [place] [address] Hat Mender: ROMELIA Wesleyreatinine [Mass/Vol]0.4 mg/dLLow0.6-0.9Western Reserve HospitalComment on above:Performed By: #### FEBC, CDP, BMPX, LIVP, CA19, RETCT, FERI, LIP #### [employer] [address] [place] [address] [phone] Hat Mender: Zachary Rivera MDGFR/1.73 sq M.predicted among non-blacks MDRD (S/P/Bld) [Vol rate/Area]mL/min/{1.73_m2}Normal>60Western Reserve HospitalComment on above:Result Comment: These results are not intended for [...] or following therapy that affects renal tubular secretion.Performed By: #### FEBC, CDP, BMPX, LIVP, CA19, RETCT, FERI, LIP #### [facility] HospitalN[facility] [address] [place] [address] Hat Mender: Zachary Rivera MDGlucose [Mass/Vol]112 mg/uNJawy14-54XzqmrQueen of the Valley HospitalComment on above:Performed By: #### FEBC, CDP, BMPX, LIVP, CA19, RETCT, FERI, LIP #### [facility] [employer] [address] [place] [address] Hat Mender: GIANCARLO Wesleyotassium [Moles/Vol]4.0 mmol/LNormal3.7-5.3 [facility] HospitalComment on above:Performed By: #### FEBC, CDP, BMPX, LIVP, CA19, RETCT, FERI, LIP #### [facility] [employer] [address] [place] [address] Hat Mender: REHAN Wesleyodium [Moles/Vol]140 mmol/QXyypeb717-166SgsgjWestern Reserve HospitalComment on above:Performed By: #### FEBC, CDP, BMPX, LIVP, CA19, RETCT, FERI, LIP #### [facility] [employer] [address] [place] [address] Hat Mender: Zachary Rivera MDUrea nitrogen [Mass/Vol]14 mg/dLNormal6-20Western Reserve HospitalComment on above:Performed By: #### FEBC, CDP, BMPX, LIVP, CA19, RETCT, FERI, LIP #### [facility] [employer] [address] [place] [address] Hat Mender: Nate Wesleysaint joseph london Metabolic Panel w/ Reflex to MGon [id number] gap [Moles/Vol]8 mmol/LLow9 - 16 mmol/LBon [facility] Calcium [Mass/Vol]8.4 mg/dLLow8.6 - 10.4 mg/dLBon [facility] HospitalChloride [Moles/Vol]114 mmol/LHigh98 - 107 mmol/LBon [facility] HealthCO2 [Moles/Vol] 18 mmol/LLow20 - 31 mmol/LBon [facility] HospitalCreatinine [Mass/Vol]0.4 mg/dL Low0.6 - 0.9 mg/dLBon [facility] HospitalEst, Glom Filt Rate- PINFBon [facility] on above: These results are not intended for use [...] following therapy that affects renal tubular secretion. Glucose [Mass/Vol]112 mg/jMRkji62 - 99 mg/dLBon [facility] Memorial HospitalPotassium [Moles/Vol]4.0 mmol/L3.7 - 5.3 mmol/LBon [facility] Memorial HospitalSodium [Moles/Vol] 140 mmol/L136 - 145 mmol/LBon [facility] Memorial HospitalUrea nitrogen [Mass/Vol]14 mg/dL6 - 20 mg/dLBon [facility] Memorial HospitalCA 125on 96-69-6500Bulkmr Ag 125 Qn148 [arb'U]/mLHigh0 - 38 U/mLRetreat Doctors' Hospital on above:The Virgil ECLIA assay is used. Results obtained with different assay methods cannot be used interchangeably. [place] [id number] U/mLHigh0-38Western Reserve HospitalComment on above:Result Comment: The Virgil ECLIA assay is used. Results obtained with different assay methods cannot be used interchangeably.Performed By: #### FEBC, CDP, BMPX, LIVP, CA19, RETCT, FERI, LIP #### [facility] [address] [place] [address] Hat Mender: Zachary Rivera, MDCA 19-9on [id number] 19-926 U/mLNormal0-35 Western Reserve HospitalComment on above:Result Comment: The Virgil ECLIA assay is used. Results obtained with different assay methods cannot be used interchangeably.Performed By: #### FEBC, CDP, BMPX, LIVP, CA19, RETCT, FERI, LIP #### [facility] [address] [place] [phone] Hat Mender: Zachary Rivera [facility] 14-43-7858Yspcsmsbunv distribution width (RBC) [Ratio]15.8 %High11.8 - 14.4 %[facility] HospitalHematocrit (Bld) [Volume fraction]35.6 %Low36.3 - 47.1 %[facility] HospitalHemoglobin (Bld) [Mass/Vol]11.2 g/dLLow11.9 - 15.1 g/dLBon [facility] HospitalInterpretation and review of laboratory resultsAbnormalChesapeake Regional Medical Center (RBC) [Entitic mass]29.2 pg25.2 - 33.5 pgSentara Northern Virginia Medical CenterHC (RBC) [Mass/Vol]31.5 g/dL 28.4 - 34.8 g/dLBon Newark HospitalV (RBC) [Entitic vol]92.7 fL82.6 - 102.9 fLRappahannock General HospitalNucleated RBC/100 WBC (Bld) [Ratio]0.0 %0.0 per 100 WBCRappahannock General HospitalPlatelet mean volume (Bld) [Entitic vol]11.4 fL 8.1 - 13.5 fLRappahannock General HospitalPlatelets (Bld) [#/Vol]244 10*3/uLBon [facility] HospitalRBC (Bld) [#/Vol]3.84 10*6/uLLow3.95 - 5.11 m/uLBon [facility] HospitalWBC other (Bld) [#/Vol]6.8Bon [facility] Memorial HospitalErythrocyte distribution width (RBC) [Ratio]15.8 %High11.8-14.4[facility] HospitalComment on above:Performed By: #### FEBC, CDP, BMPX, LIVP, CA19, RETCT, FERI, LIP #### [address] [id number] Hat Mender: Zachary Rivera MDHematocrit (Bld) [Volume fraction]35.6 %Low 36.3-47.1MQueen of the Valley HospitalComment on above:Performed By: #### FEBC, CDP, BMPX, LIVP, CA19, RETCT, FERI, LIP #### [facility] [employer] [address] [place] [address] [phone] Hat Mender: Zachary Rivera MDHemoglobin (Bld) [Mass/Vol]11.2 g/dLLow11.9-15.1 [facility] HospitalComment on above:Performed By: #### FEBC, CDP, BMPX, LIVP, CA19, RETCT, FERI, LIP #### [place] [address] Hat Mender: JOANNA Wesley (RBC) [Entitic mass]29.2 uxRmqlhn80.2-33.5 [facility] HospitalComment on above:Performed By: #### FEBC, CDP, BMPX, LIVP, CA19, RETCT, FERI, LIP #### [facility] [employer] [address] [place] [address] [phone] Hat Mender: JOANNA WesleyC (RBC) [Mass/Vol]31.5 g/gFCkkdnk17.4-34.8 [facility] HospitalComment on above:Performed By: #### FEBC, CDP, BMPX, LIVP, CA19, RETCT, FERI, LIP #### [address] [phone] Hat Mender: YONATHAN WesleyCV (RBC) [Entitic vol]92.7 nMAgwusn66.6-102.9 [facility] HospitalComment on above:Performed By: #### FEBC, CDP, BMPX, LIVP, CA19, RETCT, FERI, LIP #### [address] [address] Hat Mender: KAELA Wesley Automated0.0 per 100 WBCNormal0.0Western Reserve HospitalComment on above:Performed By: #### FEBC, CDP, BMPX, LIVP, CA19, RETCT, FERI, LIP #### [address] [address] Hat Mender: Thaddeus Wesley mean volume (Bld) [Entitic vol]11.4 fL Normal8.1-13.5Western Reserve HospitalComment on above:Performed By: #### FEBC, CDP, BMPX, LIVP, CA19, RETCT, FERI, LIP #### [place] [address] Hat Mender: Macy Wesley (Bld) [#/Vol]244 10*3/sFCrwbxu360-163 [facility] HospitalComment on above:Performed By: #### FEBC, CDP, BMPX, LIVP, CA19, RETCT, FERI, LIP #### [address] [address] Hat Mender: RENITA Wesley (Bld) [#/Vol]3.84 10*6/uLLow3.95-5.11Western Reserve HospitalComment on above:Performed By: #### FEBC, CDP, BMPX, LIVP, CA19, RETCT, FERI, LIP #### [address] [address] Hat Mender: MANOJ Wesley (Bld) [#/Vol]6.8 10*3/uLNormal3.5-11.3MQueen of the Valley HospitalComment on above:Performed By: #### FEBC, CDP, BMPX, LIVP, CA19, RETCT, FERI, LIP #### [facility] [address] [place] [address] Hat Mender: Zachary Rivera [facility] with Auto Differentialon 96-64-0000Xmhphomvn (Bld) [#/Vol]0.05 10*3/uLBon Secours Mercy HealthBasophils/100 WBC (Bld)1 %0 - 2 %[facility] HealthEosinophils (Bld) [#/Vol]0.23 10*3/uLBon [facility]ours Mercy HealthEosinophils/100 WBC (Bld)4 %1 - 4 %[facility] Health Erythrocyte distribution width (RBC) [Ratio]15.7 %High11.8 - 14.4 %[facility] HealthHematocrit (Bld) [Volume fraction]33.3 %Low36.3 - 47.1 %[facility] Hospitaly HealthHemoglobin (Bld) [Mass/Vol]10.7 g/dLLow11.9 - 15.1 g/dLBon Secours Mercy [facility]-Titus Medical CenterImmature granulocytes (Bld) [#/Vol][facility] HealthImmature granulocytes/100 WBC (Bld)0 %0[facility] HealthInterpretation and review of laboratory resultsAbnormalBon Secours Mercy HealthLymphocytes/100 WBC (Bld)29 %24 - 43 %[facility] HealthLymphocytes/100 WBC (Bld)1.90 %[facility] Hospitaly [facility] HospitalH (RBC) [Entitic mass]29.0 pg25.2 - 33.5 pgBon Secours [facility] Hospitaly [facility] HospitalHC (RBC) [Mass/Vol]32.1 g/dL28.4 - 34.8 g/dLBon Secours Mercy [facility] HospitalV (RBC) [Entitic vol]90.2 fL82.6 - 102.9 fLBon Secours Mercy HealthMonocytes/100 WBC (Bld)9 %3 - 12 %[facility] HealthMonocytes/100 WBC (Bld)0.55 %[facility] HealthNeutrophils/100 WBC (Bld)57 %36 - 65 %[facility] HealthNucleated RBC/100 WBC (Bld) [Ratio]0.0 %0.0 per 100 WBCBon Secours Mercy HealthPlatelet mean volume (Bld) [Entitic vol]10.5 fL8.1 - 13.5 fLBon Secours Mercy HealthPlatelets (Bld) [#/Vol]238 10*3/uLBon [facility]ours Mercy HealthRBC (Bld) [#/Vol]3.69 10*6/uLLow3.95 - 5.11 m/uLBon Secours Mercy HealthRBC (Bld) [#/Vol] ANISOCYTOSIS PRESENTBon Secours Mercy HealthSegmented neutrophils/100 WBC (Bld) 3.76 %[facility] HealthWBC other (Bld) [#/Vol]6.5[facility] HealthBasophils (Bld) [#/Vol]0.07 10*3/uLBon [facility]ours Mercy HealthBasophils/100 WBC (Bld)1 %0 - 2 %[facility] HealthEosinophils (Bld) [#/Vol]0.27 10*3/uLBon Secours Mercy HealthEosinophils/100 WBC (Bld)3 %1 - 4 % [facility] HealthErythrocyte distribution width (RBC) [Ratio]15.6 %High 11.8 - 14.4 %[facility] HealthHematocrit (Bld) [Volume fraction]35.9 %Low 36.3 - 47.1 %[facility] HealthHemoglobin (Bld) [Mass/Vol]11.6 g/dLLow11.9 - 15.1 g/dLBon Secours Mercy HealthImmature granulocytes (Bld) [#/Vol][facility] HealthImmature granulocytes/100 WBC (Bld)0 %0[facility] HealthInterpretation and review of laboratory resultsAbnormalBon Secours Mercy HealthLymphocytes/100 WBC (Bld)30 %24 - 43 %[facility] Lymphocytes/100 WBC (Bld)2.37 %[facility] HealthMCH (RBC) [Entitic mass] 29.3 pg25.2 - 33.5 pgBon Newark HospitalHC (RBC) [Mass/Vol]32.3 g/dL28.4 - 34.8 g/dLBon Newark HospitalV (RBC) [Entitic vol]90.7 fL82.6 - 102.9 fL [facility] HospitalMonocytes/100 WBC (Bld)8 %3 - 12 %[facility] HospitalMonocytes/100 WBC (Bld)0.64 %[facility] HospitalNeutrophils/100 WBC (Bld)58 %36 - 65 %[facility] HospitalNucleated RBC/100 WBC (Bld) [Ratio]0.0 %0.0 per 100 WBCRappahannock General HospitalPlatelet mean volume (Bld) [Entitic vol]10.5 fL8.1 - 13.5 fLLifepoint Health HealthPlatelets (Bld) [#/Vol]277 10*3/uLBon [facility] HospitalRBC (Bld) [#/Vol]3.96 10*6/uL3.95 - 5.11 m/uLRappahannock General HospitalRBC (Bld) [#/Vol]ANISOCYTOSIS PRESENTBon [facility] Memorial HospitalSegmented neutrophils/100 WBC (Bld)4.60 %[facility] HospitalWBC other (Bld) [#/Vol]8.0Bon [facility] HospitalCBC with Diffon [id number]. Basophil0.05 k/uLNormal0.00-0.20[facility] Comment on above:Performed By: #### FEBC, CDP, BMPX, LIVP, CA19, RETCT, FERI, LIP #### [facility] [place] [address] Hat Mender: Yumiko Wesley.Imm.Granulocyte<0.09Hcvslo2.00-0.30Western Reserve HospitalComment on above:Performed By: #### FEBC, CDP, BMPX, LIVP, CA19, RETCT, FERI, LIP #### [address] [address] Hat Mender: Yumiko Wesley.Neutrophil (Seg)3.76 k/uLNormal1.50-8.10 [facility] HospitalComment on above:Performed By: #### FEBC, CDP, BMPX, LIVP, CA19, RETCT, FERI, LIP #### [place] [address] Hat Mender: Zachary Rivera MDBasophils/100 WBC (Bld)1 %Normal0-2MQueen of the Valley HospitalComment on above:Performed By: #### FEBC, CDP, BMPX, LIVP, CA19, RETCT, FERI, LIP #### [place] [address] Hat Mender: Zachary Rivera MDEosinophils (Bld) [#/Vol]0.23 10*3/uLNormal 0.00-0.44[facility] HospitalComment on above:Performed By: #### FEBC, CDP, BMPX, LIVP, CA19, RETCT, FERI, LIP #### [place] [address] Hat Mender: Zachary Rivera MDEosinophils/100 WBC (Bld)4 %Normal1-4[facility] HospitalComment on above:Performed By: #### FEBC, CDP, BMPX, LIVP, CA19, RETCT, FERI, LIP #### [place] [address] Hat Mender: Zachary Rivera MDErythrocyte distribution width (RBC) [Ratio]15.7 %High11.8-14.4[facility] HospitalComment on above:Performed By: #### FEBC, CDP, BMPX, LIVP, CA19, RETCT, FERI, LIP #### [address] [address] Hat Mender: Zachary Rivera MDHematocrit (Bld) [Volume fraction]33.3 %Low 36.3-47.1MQueen of the Valley HospitalComment on above:Performed By: #### FEBC, CDP, BMPX, LIVP, CA19, RETCT, FERI, LIP #### [address] [address] Hat Mender: Zachary Rivera MDHemoglobin (Bld) [Mass/Vol]10.7 g/dLLow11.9-15.1 [facility] HospitalComment on above:Performed By: #### FEBC, CDP, BMPX, LIVP, CA19, RETCT, FERI, LIP #### [address] [address] Hat Mender: Tanya Wesleyture granulocytes/100 WBC (Bld)0 %Normal0 [facility] HospitalComment on above:Performed By: #### FEBC, CDP, BMPX, LIVP, CA19, RETCT, FERI, LIP #### [address] [address] Hat Mender: Diego Wesleymphocytes (Bld) [#/Vol]1.90 10*3/uLNormal 1.10-3.70[facility] HospitalComment on above:Performed By: #### FEBC, CDP, BMPX, LIVP, CA19, RETCT, FERI, LIP #### [address] [address] Hat Mender: Diego Wesleymphocytes/100 WBC (Bld)29 %Rircep86-01BjlvwWestern Reserve HospitalComment on above:Performed By: #### FEBC, CDP, BMPX, LIVP, CA19, RETCT, FERI, LIP #### [address] [id number] Hat Mender: YONATHAN WesleyCH (RBC) [Entitic mass]29.0 uiXxhjbb71.2-33.5 [facility] HospitalComment on above:Performed By: #### FEBC, CDP, BMPX, LIVP, CA19, RETCT, FERI, LIP #### [place] [id number] Hat Mender: YONATHAN WesleyCHC (RBC) [Mass/Vol]32.1 g/ePSdpkkm67.4-34.8 [facility] HospitalComment on above:Performed By: #### FEBC, CDP, BMPX, LIVP, CA19, RETCT, FERI, LIP #### [place] [address] Hat Mender: YONATHAN WesleyCV (RBC) [Entitic vol]90.2 mIWolscx81.6-102.9 [facility] HospitalComment on above:Performed By: #### FEBC, CDP, BMPX, LIVP, CA19, RETCT, FERI, LIP #### [place] [address] Hat Mender: Zachary Rivera MDMonocytes (Bld) [#/Vol]0.55 10*3/uLNormal 0.10-1.20[facility] HospitalComment on above:Performed By: #### FEBC, CDP, BMPX, LIVP, CA19, RETCT, FERI, LIP #### [place] [address] Hat Mender: YONATHAN Wesleyonocytes/100 WBC (Bld)9 %Normal3-12[facility] HospitalComment on above:Performed By: #### FEBC, CDP, BMPX, LIVP, CA19, RETCT, FERI, LIP #### [address] [place] [address] Hat Mender: Coty Wesleyutrophil (Seg)57 %Nvlzeh96-35AqbjaWestern Reserve HospitalComment on above:Performed By: #### FEBC, CDP, BMPX, LIVP, CA19, RETCT, FERI, LIP #### [facility] [employer] [address] [place] [address] Hat Mender: Zachary Rivera MDNRJOVANNY Automated0.0 per 100 WBCNormal0.0[facility] Reserve HospitalComment on above:Performed By: #### FEBC, CDP, BMPX, LIVP, CA19, RETCT, FERI, LIP #### [facility] [employer] [address] [place] [address] Hat Mender: Thaddeus Wesley mean volume (Bld) [Entitic vol]10.5 fL Normal8.1-13.5Western Reserve HospitalComment on above:Performed By: #### FEBC, CDP, BMPX, LIVP, CA19, RETCT, FERI, LIP #### [facility] [employer] [address] [place] [address] Hat Mender: Macy Wesley (Bld) [#/Vol]238 10*3/qLUojvqj259-393 [facility] HospitalComment on above:Performed By: #### FEBC, CDP, BMPX, LIVP, CA19, RETCT, FERI, LIP #### [facility] [employer] [address] [place] [address] Hat Mender: MARINE WesleyBC (Bld) [#/Vol]3.69 10*6/uLLow3.95-5.11[facility] HospitalComment on above:Performed By: #### FEBC, CDP, BMPX, LIVP, CA19, RETCT, FERI, LIP #### [facility] [address] [place] [address] Hat Mender: RENITA Wesley morphology finding Nom (Bld)ANISOCYTOSIS PRESENTNormalWestern Reserve HospitalComment on above:Performed By: #### FEBC, CDP, BMPX, LIVP, CA19, RETCT, FERI, LIP #### [address] [address] Hat Mender: MANOJ Wesley (Bld) [#/Vol]6.5 10*3/uLNormal3.5-11.3Mkeenan private hospitaly [facility] HospitalComment on above:Performed By: #### FEBC, CDP, BMPX, LIVP, CA19, RETCT, FERI, LIP #### [address] [address] Hat Mender: MDAbs. Maryjane Basophil0.07 k/uLNormal0.00-0.20[facility] HospitalComment on above:Performed By: #### FEBC, CDP, BMPX, LIVP, CA19, RETCT, FERI, LIP #### [address] [address] Hat Mender: MDAbs. MaryjaneImm.Granulocyte<0.92Lvxbee8.00-0.30[facility] HospitalComment on above:Performed By: #### FEBC, CDP, BMPX, LIVP, CA19, RETCT, FERI, LIP #### [address] [address] Hat Mender: MDAbs. MaryjaneNeutrophil (Seg)4.60 k/uLNormal1.50-8.10 [facility] HospitalComment on above:Performed By: #### FEBC, CDP, BMPX, LIVP, CA19, RETCT, FERI, LIP #### [address] [address] Hat Mender: Zachary Madoff, MDBasophils/100 WBC (Bld)1 %Normal0-2MQueen of the Valley HospitalComment on above:Performed By: #### FEBC, CDP, BMPX, LIVP, CA19, RETCT, FERI, LIP #### [facility] [address] [address] Hat Mender: Zachary Rivera MDEosinophils (Bld) [#/Vol]0.27 10*3/uLNormal 0.00-0.44[facility] HospitalComment on above:Performed By: #### FEBC, CDP, BMPX, LIVP, CA19, RETCT, FERI, LIP #### [place] [address] Hat Mender: Zachary Rivera MDEosinophils/100 WBC (Bld)3 %Normal1-4[facility] HospitalComment on above:Performed By: #### FEBC, CDP, BMPX, LIVP, CA19, RETCT, FERI, LIP #### [place] [address] Hat Mender: Zachary Rivera MDErythrocyte distribution width (RBC) [Ratio]15.6 %High11.8-14.4[facility] HospitalComment on above:Performed By: #### FEBC, CDP, BMPX, LIVP, CA19, RETCT, FERI, LIP #### [facility] [employer] [address] [place] [address] Hat Mender: Zachary Rivera MDHematocrit (Bld) [Volume fraction]35.9 %Low 36.3-47.1MQueen of the Valley HospitalComment on above:Performed By: #### FEBC, CDP, BMPX, LIVP, CA19, RETCT, FERI, LIP #### [place] [address] Hat Mender: Zachary Rivera MDHemoglobin (Bld) [Mass/Vol]11.6 g/dLLow11.9-15.1 [facility] HospitalComment on above:Performed By: #### FEBC, CDP, BMPX, LIVP, CA19, RETCT, FERI, LIP #### [address] [address] Hat Mender: Nicole Wesleymature granulocytes/100 WBC (Bld)0 %Normal0 [facility] HospitalComment on above:Performed By: #### FEBC, CDP, BMPX, LIVP, CA19, RETCT, FERI, LIP #### [address] [address] Hat Mender: Zachary Rivera MDLymphocytes (Bld) [#/Vol]2.37 10*3/uLNormal 1.10-3.70[facility] HospitalComment on above:Performed By: #### FEBC, CDP, BMPX, LIVP, CA19, RETCT, FERI, LIP #### [address] [address] Hat Mender: Diego Wesleymphocytes/100 WBC (Bld)30 %Dxzyea04-80RkfmbWestern Reserve HospitalComment on above:Performed By: #### FEBC, CDP, BMPX, LIVP, CA19, RETCT, FERI, LIP #### [address] [address] Hat Mender: YONATHAN WesleyCH (RBC) [Entitic mass]29.3 hgLysmrm36.2-33.5 [facility] HospitalComment on above:Performed By: #### FEBC, CDP, BMPX, LIVP, CA19, RETCT, FERI, LIP #### [address] [address] Hat Mender: Zachary Madoff, MDMCHC (RBC) [Mass/Vol]32.3 g/gDWamsyc98.4-34.8 [facility] HospitalComment on above:Performed By: #### FEBC, CDP, BMPX, LIVP, CA19, RETCT, FERI, LIP #### [address] [address] Hat Mender: YONATHAN WesleyCV (RBC) [Entitic vol]90.7 oNIbcbgt91.6-102.9 [facility] HospitalComment on above:Performed By: #### FEBC, CDP, BMPX, LIVP, CA19, RETCT, FERI, LIP #### [address] [address] Hat Mender: YONATHAN Wesleyonocytes (Bld) [#/Vol]0.64 10*3/uLNormal 0.10-1.20[facility] HospitalComment on above:Performed By: #### FEBC, CDP, BMPX, LIVP, CA19, RETCT, FERI, LIP #### [address] [address] Hat Mender: YONATHAN Wesleyonocytes/100 WBC (Bld)8 %Normal3-12[facility] HospitalComment on above:Performed By: #### FEBC, CDP, BMPX, LIVP, CA19, RETCT, FERI, LIP #### [facility] [employer] [address] [place] [address] Hat Mender: Zachary Rivera MDNeutrophil (Seg)58 %Qfbuol98-20CpqjvWestern Reserve HospitalComment on above:Performed By: #### FEBC, CDP, BMPX, LIVP, CA19, RETCT, FERI, LIP #### [address] [address] Hat Mender: Zachary Rivera MDNRBC Automated0.0 per 100 WBCNormal0.0[facility] HospitalComment on above:Performed By: #### FEBC, CDP, BMPX, LIVP, CA19, RETCT, FERI, LIP #### [facility] [employer] [address] [place] [address] Hat Mender: Sierra Wesleytejorge mean volume (Bld) [Entitic vol]10.5 fL Normal8.1-13.5[facility] HospitalComment on above:Performed By: #### FEBC, CDP, BMPX, LIVP, CA19, RETCT, FERI, LIP #### [facility] [employer] [address] [place] [address] Hat Mender: Sierra Wesleytemarga (Bld) [#/Vol]277 10*3/nYQumugd494-067 [facility] HospitalComment on above:Performed By: #### FEBC, CDP, BMPX, LIVP, CA19, RETCT, FERI, LIP #### [facility] [employer] [address] [place] [address] Hat Mender: RENITA Wesley (Bld) [#/Vol]3.96 10*6/uLNormal3.95-5.11 [facility] HospitalComment on above:Performed By: #### FEBC, CDP, BMPX, LIVP, CA19, RETCT, FERI, LIP #### [employer] [address] [place] [address] Hat Mender: RENITA Wesley morphology finding Nom (Bld)ANISOCYTOSIS PRESENTNormalWestern Reserve HospitalComment on above:Performed By: #### FEBC, CDP, BMPX, LIVP, CA19, RETCT, FERI, LIP #### [facility] [employer] [address] [place] [address] Hat Mender: MANOJ Wesley (Bld) [#/Vol]8.0 10*3/uLNormal3.5-11.3[facility] HospitalComment on above:Performed By: #### MARTHA, CDP, BMPX, LIVP, CA19, RETCT, FERI, LIP #### [facility] Hospital[facility] [address] [place] [phone] Hat Mender: Zachary Rivera [facility] – ELK CITYEAon [id number] Ag [Mass/Vol] 2.9 ng/mL0.0 - 3.8 ng/mLBon Magruder Memorial HospitalComselect specialty hospital on above:The Virgil ECLIA assay is used. Results obtained with different assay methods cannot be used interchangeably. [facility] SecAv[facility] Health System Bucyrus HospitalCancer Antigen 19-9on 80-10-5859Aidakk Ag 19-9 IA Qn26 U/mL0 - 35 U/mLRappahannock General HospitalComselect specialty hospital on above:The Virgil ECLIA assay is used. Results obtained with different assay methods cannot be used interchangeably. Carcinoembry. Antig.on 52-16-8334Qnijmhhawezy. Antig.2.9 ng/mLNormal0.0-3.8[facility] HospitalComment on above:Result Comment: The Virgil ECLIA assay is used. Results obtained with different assay methods cannot be used interchangeably.Performed By: #### MARTHA, CDP, BMPX, LIVP, CA19, RETCT, FERElina, LIP #### [facility] [employer] [address] [place] [address] Hat Mender: Zachary Rivera [facility] Count with Differential, Body Fluidon [id number] (Body fld)ClearBon SecVanderbilt University Medical Center [facility] HospitalMedia Retrievers HealthBlasts/100 WBC (Body fld)2 %Zapp5KpqRappahannock General HospitalComment on above:No normal range established for fluids.Clot CheckNone SeenBon SecLafayette General Southwest HealthColor (Body fld)YellowBon Secours [facility] HealthEosinophils/100 WBC (Body fld)2 %Owxy0Umq [facility] HospitalComment on above:No normal range established for fluids. Fluid Nom (Body fld).ASCITIC FLUIDBon [facility] Hospital HealthInterpretation and review of laboratory resultsAbnormalBon Secours Mercy HealthLymphocytes/100 WBC (Body fld)20 %[facility] Hospitalment on above:No normal range established for fluids.Mesothelial Cells Body Fluid2 %[facility] Comment on above:No normal range established for fluids.Monocytes/100 WBC (Body fld)68 %[facility] Hospitalment on above:No normal range established for fluids.Neutrophils/100 WBC (Body fld)6 %[facility] Hospitalment on above:No normal range established for fluids.Nucleated cells (Body fld) [#/Vol] 57cells/uLBon Magruder Memorial HospitalComment on above:No normal range established for fluids.RBC (Body fld) [#/Vol]cells/uLRetreat Doctors' Hospital on above:No normal range established for fluids.[facility] Met+Bili/rfx MGon 05-58-3655Yvihnkk [Mass/Vol]3.1 g/dLLow3.5-5.2MQueen of the Valley HospitalComment on above:Performed By: #### MAYABC, CDP, BMPX, LIVP, CA19, RETCT, FERI, LIP #### [employer] [address] [place] [address] Hat Mender: Zachary Rivera MDAlbumin/Glob Ratio1.7Pmqsbn9.0-2.5[facility] HospitalComment on above:Performed By: #### FEBC, CDP, BMPX, LIVP, CA19, RETCT, FERI, LIP #### [employer] [address] [place] [address] Hat Mender: Andria Welseyline Tzid375 U/NBalb83-915IrhmyWestern Reserve HospitalComment on above:Performed By: #### FEBC, CDP, BMPX, LIVP, CA19, RETCT, FERI, LIP #### [employer] [address] [place] [address] Hat Mender: Zachary Madoff, MDALT [Catalytic activity/Vol]12 U/YAbdqhr61-63 [facility] HospitalComment on above:Performed By: #### FEBC, CDP, BMPX, LIVP, CA19, RETCT, FERI, LIP #### [facility] [address] [place] [address] Hat Mender: Umang Wesley gap [Moles/Vol]12 mmol/LNormal9-16[facility] HospitalComment on above:Performed By: #### FEBC, CDP, BMPX, LIVP, CA19, RETCT, FERI, LIP #### [address] [address] Hat Mender: Zachary Rivera MDAST [Catalytic activity/Vol]26 U/NEnfduk57-16 [facility] HospitalComment on above:Performed By: #### FEBC, CDP, BMPX, LIVP, CA19, RETCT, FERI, LIP #### [facility] [employer] [address] [place] [address] Hat Mender: Zachary Rivera MDBilirubin [Mass/Vol]0.2 mg/dLNormal0.0-1.2MQueen of the Valley HospitalComment on above:Performed By: #### FEBC, CDP, BMPX, LIVP, CA19, RETCT, FERI, LIP #### [address] [address] Hat Mender: Zachary Rivera MDBilirubin, Indirect0.1 mg/dLNormal0.0-1.0[facility] HospitalComment on above:Performed By: #### FEBC, CDP, BMPX, LIVP, CA19, RETCT, FERI, LIP #### [address] [address] Hat Mender: Michelle Wesleyirubin.indirect [Mass/Vol]0.1 mg/dLNormal 0.0-0.2MercMoreno Valley Community HospitalComment on above:Performed By: #### FEBC, CDP, BMPX, LIVP, CA19, RETCT, FERI, LIP #### [facility] [employer] [address] [place] [phone] Hat Mender: ROMELIA Wesleyalcium [Mass/Vol]8.7 mg/dLNormal8.6-10.4[facility] HospitalComment on above:Performed By: #### FEBC, CDP, BMPX, LIVP, CA19, RETCT, FERI, LIP #### [place] [address] Hat Mender: ROMELIA Wesleyhloride [Moles/Vol]111 mmol/SMife52-267PxiheWestern Reserve HospitalComment on above:Performed By: #### FEJOVANNY, CDP, BMPX, LIVP, CA19, RETCT, FERI, LIP #### [facility] [employer] [address] [place] [address] Hat Mender: Zachary Rivera MDCO2 [Moles/Vol]19 mmol/JNvn22-23LecomWestern Reserve HospitalComment on above:Performed By: #### FEBC, CDP, BMPX, LIVP, CA19, RETCT, FERI, LIP #### [place] [address] Hat Mender: ROMELIA Wesleyreatinine [Mass/Vol]0.6 mg/dLNormal0.6-0.9[facility] HospitalComment on above:Performed By: #### FEBC, CDP, BMPX, LIVP, CA19, RETCT, FERI, LIP #### [facility] [employer] [address] [place] [address] Hat Mender: Zachary Rivera MDGFR/1.73 sq M.predicted among non-blacks MDRD (S/P/Bld) [Vol rate/Area]mL/min/{1.73_m2}Normal>60[facility] HospitalComment on above:Result Comment: These results are not intended for [...] or following therapy that affects renal tubular secretion.Performed By: #### FEBC, CDP, BMPX, LIVP, CA19, RETCT, FERI, LIP #### [employer] [address] [place] [address] Hat Mender: Zachary Rivera MDGlucose [Mass/Vol]125 mg/zYAson95-28HbhorQueen of the Valley HospitalComment on above:Performed By: #### FEBC, CDP, BMPX, LIVP, CA19, RETCT, FERI, LIP #### [employer] [address] [place] [address] Hat Mender: GIANCARLO Wesleyotassium [Moles/Vol]2.9 mmol/LCritically low 3.7-5.3MQueen of the Valley HospitalComment on above:Performed By: #### FEBC, CDP, BMPX, LIVP, CA19, RETCT, FERI, LIP #### [employer] [address] [place] [address] Hat Mender: Zachary Rivera MDProtein [Mass/Vol]6.2 g/dLLow6.6-8.7[facility] HospitalComment on above:Performed By: #### FEBC, CDP, BMPX, LIVP, CA19, RETCT, FERI, LIP #### [employer] [address] [place] [address] Hat Mender: Zachary Rivera MDSodium [Moles/Vol]142 mmol/GLmuwrd841-842BowzhWestern Reserve HospitalComment on above:Performed By: #### FEBC, CDP, BMPX, LIVP, CA19, RETCT, FERI, LIP #### [facility] [address] [place], [place] [phone] Hat Mender: Zachary Rivera MDUrea nitrogen [Mass/Vol]13 mg/dLNormal6-20[facility] HospitalComment on above:Performed By: #### FEBC, CDP, BMPX, LIVP, CA19, RETCT, FERI, LIP #### [facility] [address] [place], [place] [phone] Hat Mender: Zachary Rivera [facility] ELK CITYomprehensive Metabolic w/ Bili Profile w/ Reflex to MGon [id number] [Mass/Vol]3.1 g/dLLow3.5 - 5.2 g/dLBon Secours Mercy HealthAlbumin/Globulin [Mass ratio]1.0 {ratio}1.0 - 2.5[facility]cy HealthALP [Catalytic activity/Vol]113 U/LHigh35 - 104 U/LBon Secours Mercy HealthALT [Catalytic activity/Vol]12 U/L10 - 35 U/LBon Secours Mercy HealthAnion gap [Moles/Vol]12 mmol/L9 - 16 mmol/LBon Secours Mercy HealthAST [Catalytic activity/Vol]26 U/L10 - 35 U/LBon Secours Mercy HealthBilirubin [Mass/Vol]0.2 mg/dL0.0 - 1.2 mg/dLBon Secours Mercy HealthBilirubin.direct [Mass/Vol]0.1 mg/dL 0.0 - 0.2 mg/dLBon Secours Mercy HealthBilirubin.indirect [Mass/Vol]0.1 mg/dL0.0 - 1.0 mg/dLBon Secours Mercy HealthCalcium [Mass/Vol]8.7 mg/dL8.6 - 10.4 mg/dL [facility] HealthChloride [Moles/Vol]111 mmol/LHigh98 - 107 mmol/LBon Secours Mercy HealthCO2 [Moles/Vol]19 mmol/LLow20 - 31 mmol/LBon Secours Mercy HealthCreatinine [Mass/Vol]0.6 mg/dL0.6 - 0.9 mg/dLBon Secours [facility]y HealthEst, Glom Filt Rate- PINFBon Secours [facility] Hospitaly [facility]itus Medical CenterComment on above: These results are not intended for use [...] following therapy that affects renal tubular secretion. Glucose [Mass/Vol]125 mg/hMLoor60 - 99 mg/dLBon Secours [facility] Hospitaly HealthPotassium [Moles/Vol]2.9 mmol/LCritically low3.7 - 5.3 mmol/LBon Secours [facility] Health Protein [Mass/Vol]6.2 g/dLLow6.6 - 8.7 g/dLBon Secours [facility] Va Medical CenterSodium [Moles/Vol]142 mmol/L136 - 145 mmol/LBon Secours [facility] HealthUrea nitrogen [Mass/Vol]13 mg/dL6 - 20 mg/dLBon Secours [facility] Hospitaly [facility]itus Medical CenterDifferentialon 12-18-2024 Basophils (Bld) [#/Vol]0.05 10*3/uLBon Secours Mercy HealthBasophils/100 WBC (Bld)1 %0 - 2 %[facility] HealthEosinophils (Bld) [#/Vol]0.15 10*3/uLBon Secours Mercy HealthEosinophils/100 WBC (Bld)2 %1 - 4 %[facility] Immature granulocytes (Bld) [#/Vol][facility] HealthImmature granulocytes/100 WBC (Bld)0 %0[facility] HealthLymphocytes/100 WBC (Bld) 25 %24 - 43 %[facility] HealthLymphocytes/100 WBC (Bld)1.72 %[facility] HealthMonocytes/100 WBC (Bld)8 %3 - 12 %[facility] Monocytes/100 WBC (Bld)0.57 %[facility] HealthNeutrophils/100 WBC (Bld)64 %36 - 65 %[facility] HealthRBC (Bld) [#/Vol]ANISOCYTOSIS PRESENTRappahannock General HospitalSegmented neutrophils/100 WBC (Bld)4.26 %Bon [facility]uder Memorial HospitalAbs. Basophil0.05 k/uLNormal0.00-0.20[facility] Comment on above:Performed By: #### FEBC, CDP, BMPX, LIVP, CA19, RETCT, FERI, LIP #### [place] [address] Hat Mender: MDAbs. MaryjaneImm.Granulocyte<0.97Xzjccl4.00-0.30[facility] HospitalComment on above:Performed By: #### FEBC, CDP, BMPX, LIVP, CA19, RETCT, FERI, LIP #### [place] [address] Hat Mender: Yumiko Wesley.Neutrophil (Seg)4.26 k/uLNormal1.50-8.10 [facility] HospitalComment on above:Performed By: #### FEBC, CDP, BMPX, LIVP, CA19, RETCT, FERI, LIP #### [facility] [employer] [address] [place] [address] Hat Mender: Zachary Rivera MDBasophils/100 WBC (Bld)1 %Normal0-2MQueen of the Valley HospitalComment on above:Performed By: #### FEBC, CDP, BMPX, LIVP, CA19, RETCT, FERI, LIP #### [facility] [employer] [address] [place] [address] Hat Mender: Zachary Rivera MDEosinophils (Bld) [#/Vol]0.15 10*3/uLNormal 0.00-0.44[facility] HospitalComment on above:Performed By: #### FEBC, CDP, BMPX, LIVP, CA19, RETCT, FERI, LIP #### [facility] [address] [place] [address] Hat Mender: Zachary iRvera MDEosinophils/100 WBC (Bld)2 %Normal1-4[facility] HospitalComment on above:Performed By: #### FEBC, CDP, BMPX, LIVP, CA19, RETCT, FERI, LIP #### [facility] [address] [place] [address] Hat Mender: Zachary Rivera MDImmature granulocytes/100 WBC (Bld)0 %Normal0 [facility] HospitalComment on above:Performed By: #### FEBC, CDP, BMPX, LIVP, CA19, RETCT, FERI, LIP #### [facility] [employer] [address] [place] [address] Hat Mender: Diego Wesleymphocytes (Bld) [#/Vol]1.72 10*3/uLNormal 1.10-3.70[facility] HospitalComment on above:Performed By: #### FEBC, CDP, BMPX, LIVP, CA19, RETCT, FERI, LIP #### [facility] [employer] [address] [place] [address] Hat Mender: Diego Wesleymphocytes/100 WBC (Bld)25 %Ydoupo28-67WywkhWestern Reserve HospitalComment on above:Performed By: #### FEBC, CDP, BMPX, LIVP, CA19, RETCT, FERI, LIP #### [facility] [address] [place] [address] Hat Mender: YONATHAN Wesleyonocytes (Bld) [#/Vol]0.57 10*3/uLNormal 0.10-1.20[facility] HospitalComment on above:Performed By: #### FEBC, CDP, BMPX, LIVP, CA19, RETCT, FERI, LIP #### [facility] [address] [place] [address] Hat Mender: YONATHAN Wesleyonocytes/100 WBC (Bld)8 %Normal3-12[facility] HospitalComment on above:Performed By: #### FEBC, CDP, BMPX, LIVP, CA19, RETCT, FERI, LIP #### [employer] [address] [place] [address] Hat Mender: Zachary Rivera MDNeutrophil (Seg)64 %Vudmfq66-86UxjmyWestern Reserve HospitalComment on above:Performed By: #### FEBC, CDP, BMPX, LIVP, CA19, RETCT, FERI, LIP #### [employer] [address] [place] [id number] Hat Mender: MARINE WesleyBC morphology finding Nom (Bld)ANISOCYTOSIS PRESENTNormalWestern Reserve HospitalComment on above:Performed By: #### FEBC, CDP, BMPX, LIVP, CA19, RETCT, FERI, LIP #### [employer] [address] [place] [id number] Hat Mender: Zachary Rivera MDFerritinon [id number] [Mass/Vol]199 ng/[id number] - 150 ng/mLRappahannock General HospitalComment on above: FERRITIN Reference Ranges: Adult Males 20 - 60 years: 30 - 400 ng/mL Adult females 17 - 60 years: 13 - 150 ng/mL Adults greater than 60 years: no established reference range Pediatrics: no established reference range Ferritin [Mass/Vol]199 ng/qIMmjf67-883IcqpbWestern Reserve HospitalComment on above:Result Comment: FERRITIN Reference Ranges: Adult Males 20 - 60 years: 30 - 400 ng/mL Adult females 17 - 60 years: 13 - 150 ng/mL Adults greater than 60 years: no established reference range Pediatrics: no established reference rangePerformed By: #### FEBC, CDP, BMPX, LIVP, CA19, RETCT, FERI, LIP #### [facility] [address] [place] [address] [phone] Hat Mender: Chente Wesleyid Cell Count and Diffon [id number] (U)[facility] Warren HospitalComment on above:Performed By: #### FEBC, CDP, BMPX, LIVP, CA19, RETCT, FERI, LIP #### [facility] [address] [place] [address] 26834 Hat Mender: Zachary Rivera MDBasophils/100 WBC (Bld)2 %[address] Lee StreetComment on above:Result Comment: No normal range established for fluids.Performed By: #### FEBC, CDP, BMPX, LIVP, CA19, RETCT, FERI, LIP #### [facility] [address] [place] [address] 18509 Hat Mender: Amanda Wesley Fluid Mesothelials2 [facility]als Parma Medical CenterComment on above:Result Comment: No normal range established for fluids.Performed By: #### FEBC, CDP, BMPX, LIVP, CA19, RETCT, FERI, LIP #### [facility] [address] [place] [address] 99127 Hat Mender: Amanda Wesley Fluid Ttl Bgpgzxwqr45 cells/Summa HealthComment on above:Result Comment: No normal range established for fluids.Performed By: #### FEBC, CDP, BMPX, LIVP, CA19, RETCT, FERI, LIP #### [facility] [address] [place] [address] 75455 Hat Mender: Karoline Wesley [facility] Hospitale [facility] Fairfield HospitalComment on above:Performed By: #### FEBC, CDP, BMPX, LIVP, CA19, RETCT, FERI, LIP #### [facility] [address] [place] [address] 28017 Hat Mender: ROMELIA Wesleyolor (U)YellowNormalWestern Reserve HospitalComment on above:Performed By: #### FEBC, CDP, BMPX, LIVP, CA19, RETCT, FERI, LIP #### [facility] [address] [place] [address] 00058 Hat Mender: Zachary Rivera MDEosinophils/100 WBC (Bld)2 %Uhua2TxtrxWestern Reserve HospitalComment on above:Result Comment: No normal range established for fluids.Performed By: #### FEBC, CDP, BMPX, LIVP, CA19, RETCT, FERI, LIP #### [facility] [address] [place] [address] 08118 Hat Mender: Zachary Rivera MDLymphocytes/100 WBC (Bld)20 %[facility] HospitalComment on above:Result Comment: No normal range established for fluids.Performed By: #### FEBC, CDP, BMPX, LIVP, CA19, RETCT, FERI, LIP #### [facility] [address] [place] [address] 7[address]29 Hat Mender: YONATHAN Wesleyono/Qbctpunegv05 %[facility]rville HospitalComment on above:Result Comment: No normal range established for fluids.Performed By: #### FEBC, CDP, BMPX, LIVP, CA19, RETCT, FERI, LIP #### [facility] [address] [place] [address] 96002 Hat Mender: Zachary Rivera MDNeutrophils/100 WBC (Bld)6 %[facility] HospitalComment on above:Result Comment: No normal range established for fluids.Performed By: #### FEBC, CDP, BMPX, LIVP, CA19, RETCT, FERI, LIP #### [facility] [address] [place] [address] 10345 Hat Mender: Zachary Madoff, MDRBC (Bld) [#/Vol]10*6/uLAultman Orrville HospitalComment on above:Result Comment: No normal range established for fluids.Performed By: #### FEBC, CDP, BMPX, LIVP, CA19, RETCT, FERI, LIP #### [facility] [address] [place], [place] [phone] Hat Mender: Zachary Rivera MDType of Specimen.ASCITIC FLUIDNoOhioHealth Doctors HospitalComment on above:Performed By: #### FEBC, CDP, BMPX, LIVP, CA19, RETCT, FERI, LIP #### [facility] [address] [place], [place] [phone] Hat Mender: Zachary Rivera MDGlucose, body fluidon 02-74-1118Cqoqvps (Body fld) [Mass/Vol]116 mg/dLBon Magruder Memorial HospitalComment on above:There are no normals for body fluid samples.Glucose,Fluidon 68-01-0130Hexqgum [Mass/Vol]116 mg/dLAultman Orrville HospitalComment on above:Result Comment: There are no normals for body fluid samples.Performed By: #### FLALB, FLGLU #### [facility] [place], [place] [phone] Hat Mender: Zachary Rivera MDHepatic Function Panelon [id number] [Mass/Vol]2.7 g/dLLow3.5 - 5.2 g/dLBon [facility] HealthAlbumin/Globulin [Mass ratio]1.1 {ratio}1.0 - 2.5Bon [facility] HealthALP [Catalytic activity/Vol]95 U/L35 - 104 U/LBon SecSeattle VA Medical CenterMedia Retrievers HealthALT [Catalytic activity/Vol]10 U/L10 - 35 U/LBon [facility] HealthAST [Catalytic activity/Vol]23 U/L10 - 35 U/LBon [facility] HealthBilirubin [Mass/Vol]0.2 mg/dL0.0 - 1.2 mg/dLBon Secours Mercy HealthBilirubin.direct [Mass/Vol]mg/dL0.0 - 0.2 mg/dLBon [facility] HealthBilirubin.indirect [Mass/Vol]Can not be calculated0.0 - 1.0 mg/dLBon SecSeattle VA Medical Centery HealthGlobulin (S) [Mass/Vol]2.5 g/dL [facility] HealthProtein [Mass/Vol]5.2 g/dLLow6.6 - 8.7 g/dLBon SecSeattle VA Medical Centery HealthIR US GUIDED PARACENTESISon [id number] Study observation (narrative)Bon [facility]uder Memorial HospitalIron Binding Cap.on 12-18-2024% Fe Saturation 19 %Mib13-76IrlibWestern Reserve HospitalComment on above:Performed By: #### MAYABC, CDP, BMPX, LIVP, CA19, RETCT, FERI, LIP #### [facility] [address] [place] [address] [phone] Hat Mender: Little Wesley [Mass/Vol]39 ug/fFXdugvl24-417MasomWestern Reserve HospitalComment on above:Performed By: #### MARTHA, CDP, BMPX, LIVP, CA19, RETCT, FERI, LIP #### [facility] [address] [place] [address] 40491 Hat Mender: Garrett Wesley Fe Binding Yhv838 ug/kAMhn580-760YuslkWestern Reserve HospitalComment on above:Performed By: #### FEBC, CDP, BMPX, LIVP, CA19, RETCT, FERI, LIP #### [facility] [address] [place] [address] 25942 Hat Mender: Zachary Rivera MDUnbound Fe Bind Ijs906 ug/iCIocipp243-595OobfeWestern Reserve HospitalComment on above:Performed By: #### FEBC, CDP, BMPX, LIVP, CA19, RETCT, FERI, LIP #### [facility] [address] [place] [address] 02949 Hat Mender: Little Wesley and TIBCon 86-57-0673Dujk [Mass/Vol]39 ug/dL37 - 145 ug/dLBon Magruder Memorial HospitalIron binding capacity [Mass/Vol]206 ug/wXZbf530 - 450 ug/dLBon Magruder Memorial HospitalIron saturation [Mass fraction]19 %Low20 - 55 %Bon [facility]uder Memorial HospitalUIBC167 ug/dL112 - 347 ug/dLBon [facility] HealthK (Potassium)on 99-17-9317Otpbodfjv [Moles/Vol]4.1 mmol/LNormal 3.7-5.3[facility] Foundation HospitalComment on above:Performed By: #### FEBC, CDP, BMPX, LIVP, CA19, RETCT, FERI, LIP #### [facility] [employer] [address] [place] [address] [phone] Hat Mender: Zachary Rivera MDLaboratory - Specimen informationon 12-18-2024 Specimen type Nom (Spec).ASCITIC FLUIDBon Magruder Memorial HospitalLipaseon 30-47-5114Ivqinu [Catalytic activity/Vol]744 U/LHigh13 - 60 U/LBon Magruder Memorial HospitalLipase [Catalytic activity/Vol]744 U/YIzha32-56BihnoWestern Reserve HospitalComment on above:Performed By: #### MAYABC, CDP, BMPX, LIVP, CA19, RETCT, FERI, LIP #### [facility] [address] [place] [address] [phone] Hat Mender: Zachary Rivera MDLipase, Fluidon 81-16-2682Igayky.ASCITIC FLUID NormalMerProvidence St. Joseph Medical CenterComment on above:Performed By: #### FEBC, CDP, BMPX, LIVP, CA19, RETCT, FERI, LIP #### [facility] [employer] [address] [place] [address] [phone] Hat Mender: Zachary Rivera MDLiver Profileon 90-41-8388Sdwibez [Mass/Vol]2.7 g/dLLow3.5-5.2Mer[facility] Kaiser Foundation HospitalComment on above:Performed By: #### FEBC, CDP, BMPX, LIVP, CA19, RETCT, FERI, LIP #### [facility] [employer] [address] [place] [address] 10988 Hat Mender: Zachary Rivera MDAlbumin/Glob Ratio1.9Yycnpa7.0-2.5Western Reserve HospitalComment on above:Performed By: #### FEBC, CDP, BMPX, LIVP, CA19, RETCT, FERI, LIP #### [facility] [employer] [address] [place] [address] 15793 Hat Mender: Andria Wesleyline Phos95 U/BIpnosq26-514EgycuWestern Reserve HospitalComment on above:Performed By: #### FEJOVANNY, CDP, BMPX, LIVP, CA19, RETCT, FERI, LIP #### [facility] [employer] [address] [place] [address] 23759 Hat Mender: Zachary Rivera MDALT [Catalytic activity/Vol]10 U/GDptyhf62-78 Western Reserve HospitalComment on above:Performed By: #### FEBC, CDP, BMPX, LIVP, CA19, RETCT, FERI, LIP #### [facility] [employer] [address] [place] [address] 23885 Hat Mender: Zachary Rivera MDAST [Catalytic activity/Vol]23 U/BUdybjn19-70 Western Reserve HospitalComment on above:Performed By: #### FEBC, CDP, BMPX, LIVP, CA19, RETCT, FERI, LIP #### [facility] [employer] [address] [place] [address] 53319 Hat Mender: Zachary Rivera MDBilirubin [Mass/Vol]0.2 mg/dLNormal0.0-1.2MQueen of the Valley HospitalComment on above:Performed By: #### FEBC, CDP, BMPX, LIVP, CA19, RETCT, FERI, LIP #### [facility] [address] [place] [address] 47562 Hat Mender: Zachary Rivera MDBilirubin, IndirectCan not be calculatedNormal 0.0-1.0Western Reserve HospitalComment on above:Performed By: #### FEBC, CDP, BMPX, LIVP, CA19, RETCT, FERI, LIP #### [facility] [address] [place] [address] 00639 Hat Mender: Michelle Wesleyirubin.indirect [Mass/Vol]mg/dLNormal0.0-0.2 Western Reserve HospitalComment on above:Performed By: #### FEBC, CDP, BMPX, LIVP, CA19, RETCT, FERI, LIP #### [address] [address] Hat Mender: Zachary Rivera MDGlobulin (S) [Mass/Vol]2.5 g/dLNormalWestern Reserve HospitalComment on above:Performed By: #### FEBC, CDP, BMPX, LIVP, CA19, RETCT, FERI, LIP #### [facility] [employer] [address] [place] [address] 70515 Hat Mender: GIANCARLO Wesleyrotein [Mass/Vol]5.2 g/dLLow6.6-8.7Western Reserve HospitalComment on above:Performed By: #### FEBC, CDP, BMPX, LIVP, CA19, RETCT, FERI, LIP #### [address] [address] Hat Mender: STEPHANY Wesley Abdomen WO and W contrast Shazia . 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 2. Short-segment stricture of the mid extrahepatic bile duct at the level of the pancreatic neck (0.9 cm), with mild pancreatic duct dilatation and atrophy at the pancreatic head/neck; no discrete mass identified, though evaluation is limited by overlying varices and portal thrombus. GI consultation is advised. 3. Findings that would raise the possibility of intrinsic liver disease given the heterogeneous enhancement pattern of slightly lobar contour with scattered areas of intrahepatic biliary dilatation. Findings could relate to portal vein thrombosis, although the possibility of primary sclerosing cholangitis is also a consideration. Recommend correlation with liver function tests and GI consultation. [facility] RIS CONSOLIDATEDEXAM: MRCP WITH AND WITHOUT IV CONTRAST 12/18/2024 05:46:38 PM TECHNIQUE: Multisequence, multiplanar magnetic resonance images of the abdomen with and without intravenous contrast. MRCP sequences were performed. COMPARISON: CT dated 05/31/2023. CLINICAL HISTORY: r/o HCC, Pancreatic cyst/lesion/mass, LLQ pain, weight loss. FINDINGS: LIVER: Slightly lobular liver contour. There are peripheral wedge-shaped areas of progressive enhancement seen in the liver parenchyma that corresponds to likely segmental areas of intrahepatic biliary dilatation. The combination of findings suggests early changes of primary sclerosing cholangitis and intrinsic liver disease. Recommend clinical correlation. The left and right portal veins are thrombosed, along with the main portal vein, extending all the way back to the portal confluence and proximally SMV with multiple collateral vessels noted in the upper abdomen. There is cavernous transformation of the portal vein with multiple varices seen in the eliana hepatis. GALLBLADDER AND BILIARY SYSTEM: Gallbladder is unremarkable. No intrahepatic ductal dilation. The extrahepatic bile duct measures 8mm with narrowing seen in its mid portion at the level of the pancreatic neck where there is a short segment stricture measuring 0.9 cm in length best seen on series 12 image 59. SPLEEN: The spleen measures 11.4 cm in craniocaudal dimension. PANCREAS/PANCREATIC DUCT: There is mild pancreatic duct dilatation measuring up to 5 mm with mild atrophy seen at the level of the pancreatic head and neck. Difficult to evaluate this region due to the multiple varices seen in this region as well as portal thrombus discussed above. A discrete mass is not seen, although GI consultation would be advised. ADRENAL GLANDS: Unremarkable. KIDNEYS: Unremarkable. LYMPH NODES: No enlarged abdominal lymph nodes. VASCULATURE: There is cavernous transformation of the portal vein with multiple varices seen in the eliana hepatis. Portal thrombus discussed above. PERITONEUM: No ascites. ABDOMINAL WALL: No hernia. No mass. BOWEL: Grossly unremarkable. No bowel obstruction. BONES: No acute abnormality or worrisome osseous lesion. SOFT TISSUES: Unremarkable. MISCELLANEOUS: Unremarkable. MHKain Moe MD - 12/18/2024 EXAM: MRCP WITH AND WITHOUT IV CONTRAST 12/18/2024 05:46:38 PM TECHNIQUE: Multisequence, multiplanar magnetic resonance images of the abdomen with and without intravenous contrast. MRCP sequences were performed. COMPARISON: CT dated 05/31/2023. CLINICAL HISTORY: r/o HCC, Pancreatic cyst/lesion/mass, LLQ pain, weight loss. FINDINGS: LIVER: Slightly lobular liver contour. There are peripheral wedge-shaped areas of progressive enhancement seen in the liver parenchyma that corresponds to likely segmental areas of intrahepatic biliary dilatation. The combination of findings suggests early changes of primary sclerosing cholangitis and intrinsic liver disease. Recommend clinical correlation. The left and right portal veins are thrombosed, along with the main portal vein, extending all the way back to the portal confluence and proximally SMV with multiple collateral vessels noted in the upper abdomen. There is cavernous transformation of the portal vein with multiple varices seen in the eliana hepatis. GALLBLADDER AND BILIARY SYSTEM: Gallbladder is unremarkable. No intrahepatic ductal dilation. The extrahepatic bile duct measures 8mm with narrowing seen in its mid portion at the level of the pancreatic neck where there is a short segment stricture measuring 0.9 cm in length best seen on series 12 image 59. SPLEEN: The spleen measures 11.4 cm in craniocaudal dimension. PANCREAS/PANCREATIC DUCT: There is mild pancreatic duct dilatation measuring up to 5 mm with mild atrophy seen at the level of the pancreatic head and neck. Difficult to evaluate this region due to the multiple varices seen in this region as well as portal thrombus discussed above. A discrete mass is not seen, although GI consultation would be advised. ADRENAL GLANDS: Unremarkable. KIDNEYS: Unremarkable. LYMPH NODES: No enlarged abdominal lymph nodes. VASCULATURE: There is cavernous transformation of the portal vein with multiple varices seen in the eliana hepatis. Portal thrombus discussed above. PERITONEUM: No ascites. ABDOMINAL WALL: No hernia. No mass. BOWEL: Grossly unremarkable. No bowel obstruction. BONES: No acute abnormality or worrisome osseous lesion. SOFT TISSUES: Unremarkable. MISCELLANEOUS: Unremarkable. IMPRESSION: 1. 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 2. Short-segment stricture of the mid extrahepatic bile duct at the level of the pancreatic neck (0.9 cm), with mild pancreatic duct dilatation and atrophy at the pancreatic head/neck; no discrete mass identified, though evaluation is limited by overlying varices and portal thrombus. GI consultation is advised. 3. Findings that would raise the possibility of intrinsic liver disease given the heterogeneous enhancement pattern of slightly lobar contour with scattered areas of intrahepatic biliary dilatation. Findings could relate to portal vein thrombosis, although the possibility of primary sclerosing cholangitis is also a consideration. Recommend correlation with liver function tests and GI consultation. [facility] HospitalRadiology Study observation (narrative)[facility] Abdomen WO and W contrast IVOrdered By: Kain Guzman on 12-18-2024 [facility] [employer] Work Phone: MRI ABDOMEN W WO CONTRAST MRCPon [id number] ABDOMEN W WO CONTRAST MRCPEXAM: MRCP WITH AND WITHOUT IV CONTRAST 12/18/2024 05:46:38 PM TECHNIQUE: Multisequence, multiplanar magnetic resonance images of the abdomen with and without intravenous contrast. MRCP sequences were performed. COMPARISON: CT dated 05/31/2023. CLINICAL HISTORY: r/o HCC, Pancreatic cyst/lesion/mass, LLQ pain, weight loss. FINDINGS: LIVER: Slightly lobular liver contour. There are peripheral wedge-shaped areas of progressive enhancement seen in the liver parenchyma that corresponds to likely segmental areas of intrahepatic biliary dilatation. The combination of findings suggests early changes of primary sclerosing cholangitis and intrinsic liver disease. Recommend clinical correlation. The left and right portal veins are thrombosed, along with the main portal vein, extending all the way back to the portal confluence and proximally SMV with multiple collateral vessels noted in the upper abdomen. There is cavernous transformation of the portal vein with multiple varices seen in the eliana hepatis. GALLBLADDER AND BILIARY SYSTEM: Gallbladder is unremarkable. No intrahepatic ductal dilation. The extrahepatic bile duct measures 8mm with narrowing seen in its mid portion at the level of the pancreatic neck where there is a short segment stricture measuring 0.9 cm in length best seen on series 12 image 59. SPLEEN: The spleen measures 11.4 cm in craniocaudal dimension. PANCREAS/PANCREATIC DUCT: There is mild pancreatic duct dilatation measuring up to 5 mm with mild atrophy seen at the level of the pancreatic head and neck. Difficult to evaluate this region due to the multiple varices seen in this region as well as portal thrombus discussed above. A discrete mass is not seen, although GI consultation would be advised. ADRENAL GLANDS: Unremarkable. KIDNEYS: Unremarkable. LYMPH NODES: No enlarged abdominal lymph nodes. VASCULATURE: There is cavernous transformation of the portal vein with multiple varices seen in the eliana hepatis. Portal thrombus discussed above. PERITONEUM: No ascites. ABDOMINAL WALL: No hernia. No mass. BOWEL: Grossly unremarkable. No bowel obstruction. BONES: No acute abnormality or worrisome osseous lesion. SOFT TISSUES: Unremarkable. MISCELLANEOUS: Unremarkable. IMPRESSION: 1. 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 2. Short-segment stricture of the mid extrahepatic bile duct at the level of the pancreatic neck (0.9 cm), with mild pancreatic duct dilatation and atrophy at the pancreatic head/neck; no discrete mass identified, though evaluation is limited by overlying varices and portal thrombus. GI consultation is advised. 3. Findings that would raise the possibility of intrinsic liver disease given the heterogeneous enhancement pattern of slightly lobar contour with scattered areas of intrahepatic biliary dilatation. Findings could relate to portal vein thrombosis, although the possibility of primary sclerosing cholangitis is also a consideration. Recommend correlation with liver function tests and GI consultation. Interpreted by: Kain Guzman MD Signed by: Kain Guzman MD 12/18/24 Final resultNormalMercy Kaiser Foundation HospitalMagnesiumon 12-18-2024 Magnesium [Mass/Vol]1.8 mg/dL1.6 - 2.6 mg/dLBon [facility] Johnson Veterans Memorial HospitalMagnesium [Mass/Vol]1.8 mg/dLNormal1.6-2.6Mer[facility] Foundation HospitalComment on above:Performed By: #### FEBC, CDP, BMPX, LIVP, CA19, RETCT, FERI, LIP #### [employer] [address] [place] [address] Hat Mender: Olivier Wesley Panel Informationon [id number] [facility] HospitalInterpretation and review of laboratory resultsAbnormInova Alexandria HospitalInterpretation and review of laboratory resultsAbnormInova Alexandria HospitalInterpretation and review of laboratory resultsAbnormAvera Sacred Heart HospitalNon-Robotic Toy Inventor Cytologyon [id number] Description.ASCITIC FLUIDNormalWestern Reserve HospitalComment on above:Performed By: #### FEBC, CDP, BMPX, LIVP, CA19, RETCT, FERI, LIP #### [employer] [address] [place], [place] [phone] Hat Mender: Daniel Wesley [id number] Coag (PPP) [Relative time]1.1 {INR}NormalWestern Reserve HospitalComment on above:Result Comment: Therapeutic Range: Moderate Anticoagulant Intensity: INR = 2.0-3.0 High Anticoagulant Intensity: INR = 2.5-3.5Performed By: #### FEBC, CDP, BMPX, LIVP, CA19, RETCT, FERI, LIP #### [employer] [address] [place], [place] [phone] Hat Mender: SERGIO Wesley Coag (PPP) [Time]14.0 uGegmvf03.7-14.9Western Reserve HospitalComment on above:Performed By: #### FEBC, CDP, BMPX, LIVP, CA19, RETCT, FERI, LIP #### [employer] [address] [place] [address] [phone] Hat Mender: Jesi Wesleyiumon 29-08-0909Tzcnghmbo [Moles/Vol]4.1 mmol/L3.7 - 5.3 mmol/LBon [facility] Memorial HospitalProtein, Body Fluidon [id number] (Body fld) [Mass/Vol]2.2 g/dLBon Magruder Memorial HospitalComment on above:There are no normals for body fluid samples.Specimen type Nom (Spec).ASCITIC FLUIDBon Magruder Memorial HospitalBon [facility]ruder Memorial Hospital Protein,Tot,Fluidon [id number] Prot. Conc.2.2 g/dLNoOhioHealth Doctors HospitalComment on above:Result Comment: There are no normals for body fluid samples.Performed By: #### FEBC, CDP, BMPX, LIVP, CA19, RETCT, FERI, LIP #### [employer] [address] [place] [address] [phone] Hat Mender: Zachary Rivera MDType of Specimen.ASCITIC FLUIDAultman Orrville HospitalComment on above:Performed By: #### FEBC, CDP, BMPX, LIVP, CA19, RETCT, FERI, LIP #### [employer] [address] [place] [address] [phone] Hat Mender: GIANCARLO Wesleyrotime-INRon 08-46-3553VGL Coag (PPP) [Relative time]1.1 {INR}[facility] HospitalComselect specialty hospital on above: Therapeutic Range: Moderate Anticoagulant Intensity: INR = 2.0-3.0 High Anticoagulant Intensity: INR = 2.5-3.5 PT Coag (PPP) [Time]14.0 sBon Magruder Memorial HospitalRetic Counton 12-18-2024 Absolute Retic0.038 M/uLNormal0.030-0.080Western Reserve HospitalComment on above:Performed By: #### FEBC, CDP, BMPX, LIVP, CA19, RETCT, FERI, LIP #### [employer] [address] [place] [address] [phone] Hat Mender: Zachary Rivera MDIRF7.0 %Normal2.7-18.3Mer[facility] Foundation HospitalComment on above:Performed By: #### FEBC, CDP, BMPX, LIVP, CA19, RETCT, FERI, LIP #### [facility] [address] [place] [address] Hat Mender: MARINE Wesleyetic Count1.1 %Normal0.5-1.9Western Reserve HospitalComment on above:Performed By: #### FEBC, CDP, BMPX, LIVP, CA19, RETCT, FERI, LIP #### [facility] [address] [place] [address] Hat Mender: MARINE Wesleyetic Eykqdfqdle66.9 qcTkfokl25.2-35.7Western Reserve HospitalComment on above:Performed By: #### FEBC, CDP, BMPX, LIVP, CA19, RETCT, FERI, LIP #### [facility] [place] [address] Hat Mender: MARINE Wesleyeticulocyteson 01-03-7743Nispyilj reticulocytes/Total reticulocytes (Bld)7.0 %2.7 - 18.3 %[facility] Retic Afudzdwrtb41.9 pg28.2 - 35.7 pgBon Magruder Memorial HospitalReticulocytes (Bld) [#/Vol]0.038 10*3/uLBon Magruder Memorial HospitalReticulocytes/100 RBC (Bld)1.1 %0.5 - 1.9 %[facility] HospitalSurgical Pathology Reporton [id number] Pathology Report(NOTE) Path Number: [id number] INTERPRETATION ASCITIC FLUID: - NEGATIVE FOR MALIGNANCY. Electronically Signed Out Alanis Caban /12/22/2024 Source of Specimen: A: ASCITIC FLUID Clinical History No information given. Gross Description ASCITES 450ml cloudy brown fluid with clot. MICROSCOPIC DESCRIPTION Microscopic examination performed. Non Robotic Toy In[employer]or Thin Prep x 1, Diff Quik Slide x 1, Cell Block w/ ROSALVA x 1 Processing Lab: [address] [address] Interpretation performed at [address], [place] [address] NONGYNECOLOGICAL CYTOPATHOLOGY CONSULTATION Patient Name: JHOANA LAZCANO [facility] Rec: [id number] [facility] [email or web address] [facility] ANATOMIC PATHOLOGY [address] [place] [id number] NoalWestern Reserve HospitalVitamin B12 & Folateon 13-64-8590Myzctvcxv (Vitamin B12) [Mass/Vol]464 pg/mL232 - 1245 pg/mLRappahannock General HospitalFolate [Mass/Vol]8.8 ng/mL4.8 - 24.2 ng/mLRappahannock General Hospital Bon Magruder Memorial HospitalAlanine aminotransferase [Enzymatic activity/volume] in Serum or PlasmaOrdered By: Liliam Zayas on 25-97-0020WCN [Catalytic activity/Vol]11 U/LNormal7-52Ohio[facility] Dublin Methodist HospitalComment on above: Order Comment: WAITERPerformed By: #### LIPASE, BMP, MG, CBC, HEPATIC #### [facility] [address] [place] [id number] USAAlbumin [Mass/volume] in Serum or Plasma by Bromocresol green (BCG) dye binding methoOrdered By: Liliam Zayas on 51-28-4036Kplhocn BCG dye [Mass/Vol]3.3 g/dLLow3.5-5.7FThe Christ HospitalAlkaline phosphatase [Enzymatic activity/volume] in Serum or PlasmaOrdered By: Liliam Zayas on 45-07-1624VZG [Catalytic activity/Vol]107 U/QNzpi45-558DfowyzjhqOhiohealth Dublin Methodist HospitalComment on above:Order Comment: WAITERPerformed By: #### LIPASE, BMP, MG, CBC, HEPATIC #### [facility] [address] [place] [id number] USAAppearance of UrineOrdered By: Liliam Zayas on 12-17-2024 Appearance (U)ClearNormalClearOhiohealth Dublin Methodist HospitalComment on above: Order Comment: Name Collection Type:: Clean-Voided MidstreamPerformed By: #### ADDONUAPLUS #### [facility] [address] [place] [address] USAAspartate aminotransferase [Enzymatic activity/volume] in Serum or PlasmaOrdered By: Liliam Zayas on 36-99-8441FVI [Catalytic activity/Vol]19 U/GPhydfo80-38WbdnwtawxOhiohealth Dublin Methodist HospitalComment on above: Order Comment: WAITERPerformed By: #### LIPASE, BMP, MG, CBC, HEPATIC #### [facility] [address] [place] [id number] USABacteria [Presence] in Urine by AutomatedOrdered By: Liliam Zayas on 56-90-9159Doeqmbvu Auto Ql (U)Rare [HPF]None SeenOhiohealth Dublin Methodist HospitalBasic Metabolic Panelon 44-65-9964EOQ/1.73 sq M.predicted MDRD (S/P/Bld) [Vol rate/Area]mL/min/{1.73_m2}NormalThe [facility] Physician GroupComment on above:Order Comment: WAITERPerformed By: #### LIPASE, BMP, MG, CBC, HEPATIC #### [facility] [address] [place] [id number] USABasophils [#/volume] in Blood by Automated countOrdered By: Liliam Zayas on 79-98-4463Vnjiuvlph (Bld) [#/Vol]0.1 10*3/uLNormal0.0-0.2 [facility] HospitalComment on above:Order Comment: WAITERResult Comment: PERFORMED BY: [place] [id number] PATHOLOGIST FEED CRUSHER ALMA ROSA KISER M.D.Performed By: #### LIPASE, BMP, MG, CBC, HEPATIC #### [place] [id number] USABasophils/100 leukocytes in Blood by Automated count Ordered By: Liliam Zayas on 31-84-2467Xjrzyycke/100 WBC (Bld)0.8 %Normal. [facility] Methodist HospitalComment on above:Order Comment: WAITERPerformed By: #### LIPASE, BMP, MG, CBC, HEPATIC #### [facility] [address] [place] [address] USABilirubin Test strip Ql (U)Ordered By: Liliam Zayas on 09-56-9277Aaeerbkni Ql (U)NegativeNegativeOhiohealth Dublin Methodist Hospital Bilirubin.direct [Mass/volume] in Serum or PlasmaOrdered By: Liliam Zayas on 77-79-5250Vitrgtzqc.direct [Mass/Vol]0.00 mg/dLLow0.03-0.18FThe Christ HospitalComment on above:If the DBIL is less than 0.1, IBIL is not able to becalculated.Bilirubin.total [Mass/volume] in Serum or PlasmaOrdered By: Liliam Zayas on 37-01-1907Owthiuiml [Mass/Vol]0.3 mg/dLNormal0.3-1.0Ohio[facility] Dublin Methodist HospitalComment on above:Order Comment: WAITERPerformed By: #### LIPASE, BMP, MG, CBC, HEPATIC #### [facility] [address] [place] [address] USACT abdomen pelvis w conon 60-03-3412PK abdomen pelvis w [facility] [place] [address] [place] [address] CT Scan Report Signed Patient: Jhoana Lazcano MR#: [id number] : 1965 Acct:[id number] Age/Sex: 59 / F ADM Date: 12/17/24 Loc: ER Room: Type: [facility] ER Attending Dr: Copies to: Liliam Zayas DO Ordering Provider: Liliam Zayas DO Date of Service: 12/17/24 CT/CT abdomen pelvis w con: abd pain, ascites, pancreatitis CT ABDOMEN AND PELVIS WITH INTRAVENOUS CONTRAST: CLINICAL HISTORY: Abdominal pain, ascites, pancreatitis COMPARISON: None TECHNIQUE: Spiral images were obtained through the abdomen and pelvis following the administration of intravenous contrast. This CT exam was performed using one or more following dose reduction techniques: Automated exposure control, adjustment of the mA and/or kV according to patient size, or use of iterative reconstruction technique. FINDINGS: Lung Bases: [Minimal bibasilar atelectasis and or scarring.] Organs:Heterogeneous liver parenchymal predominantly today's examination with likely areas geographic fatty sparing. There is low-attenuation within the portal venous system suggestive of extensive thrombus, age-indeterminate. 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 Suspected thrombus within the splenic vein near the main portal vein.. Pancreatic body hypoattenuation identified 2.6 x 2.8 cm in size this is causing distal pancreatic duct dilatation and worrisome for neoplastic process. GI: Small hiatal hernia. Vhpp-ok-suympabz stool burden. No definite bowel obstruction. Colonic diverticulosis noted distal sigmoid colon. Pelvis:[Uterus, adnexa and bladder grossly unremarkable.] Peritoneum/Retroperitoneum:Moderate to large burden of ascites. No free air. Moderate to severe diffuse atherosclerotic disease involving the aorta extending to the iliac vasculature.[Nodular soft tissue anterior abdominal wall favor omentum rather than omental caking or mesenteric implants. Abd wall/Bones:Levocurvature of the lumbar spine. Multilevel degenerative changes. No suspicious osseous lesion.[ CT/CT abdomen pelvis w con IMPRESSION: Moderate to large burden of ascites. 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 This may account for the heterogeneous liver enhancement. Please correlate with liver function tests. Impression dictated by: Shukri Hunter M.D. 12/17/2024 4:55 PM Dictation Location: [place] [address] Transcribed By: [facility] 12/17/241654 Dictated By: Shukri Hunter MD 12/17/24 1636 Signed By: 12/17/24 1655[facility] Physician GroupCalcium [Mass/volume] in Serum or PlasmaOrdered By: Liliam Zayas on 50-88-5274Fehxqbw [Mass/Vol]8.6 mg/dLNormal 8.6-10.3FThe Christ HospitalComment on above:Order Comment: POLICE CHIEF Performed By: #### LIPASE, BMP, MG, CBC, HEPATIC #### [place] [address] USACarbon dioxide, total [Moles/volume] in Serum or Plasma Ordered By: Liliam Zayas on 01-98-6011RY5 [Moles/Vol]24.0 mmol/TSmeskt08.0-31.0 [facility] HospitalComment on above:Order Comment: WAITERPerformed By: #### LIPASE, BMP, MG, CBC, HEPATIC #### [place] [address] USAChloride [Moles/volume] in Serum or PlasmaOrdered By: Liliam Zayas on 71-15-4808Wftsxaof [Moles/Vol]109 mmol/ZVvys54-614GuqwgfbduOhiohealth Dublin Methodist HospitalComment on above:Order Comment: WAITERPerformed By: #### LIPASE, BMP, MG, CBC, HEPATIC #### [place] [address] USACoagulation Profileon 62-77-1137mCTY Coag (Bld) [Time]29.7 pZvoflt84.1-36.5The [facility] Physician GroupComment on above:Result Comment: A hematocrit value greater than 55% may lead to inaccurate results in coagulation testing. Patients having hematocrit values >55% require a special collection tube for coagulation studies. Please contact the laboratory at [phone] for redraw instructions. PERFORMED BY: [place] [address] PATHOLOGIST FEED CRUSHER ALMA ROSA KISER M.D.Performed By: #### PP, ETOH #### [place] [address] USAColor of Urine by AutoOrdered By: Liliam Zayas on 80-48-1894Efcfa (U)YellowNormalYellowOhiohealth Dublin Methodist HospitalComment on above:Order Comment: Name Collection Type:: Clean-Voided MidstreamPerformed By: #### ADDONUAPLUS #### [place] [id number] USAComplete Blood Count Auto Diffon 99-85-8897Gclg Corpuscular HGB Conc33.1 g/vHRxujdd80.0-35.0The [facility] Physician GroupComment on above:Order Comment: WAITERPerformed By: #### LIPASE, BMP, MG, CBC, HEPATIC #### [place] [address] USAMonocytes/100 WBC (Bld)18.84 %Normal0.00-20.00The [facility] Physician GroupComment on above:Order Comment: WAITERPerformed By: #### LIPASE, BMP, MG, CBC, HEPATIC #### [facility] [address] [place] [address] USANRBC%0.0 /100{WBC}Normal0-0.5The [facility] Physician Group Comment on above:Order Comment: WAITERPerformed By: #### LIPASE, BMP, MG, CBC, HEPATIC #### [place] [address] USAWhite Blood Count7.5 [CFU]/mLNormal3.8-11.6The [facility] Physician [facility] Medical CenterComment on above:Order Comment: WAITERPerformed By: #### LIPASE, BMP, MG, CBC, HEPATIC #### [place] [address] USACreatinine [Mass/volume] in Serum or PlasmaOrdered By: Liliam Zayas on 55-94-7254Oukwfvfdkg [Mass/Vol]0.65 mg/dLNormal0.60-1.20 [facility] HospitalComment on above:Order Comment: WAITERPerformed By: #### LIPASE, BMP, MG, CBC, HEPATIC #### [facility] [address] [place] [address] USADipstick and Microscopicon 86-45-4346Fjiepmyf,UrineRare NormalNone SeenThe [facility] Physician GroupComment on above:Order Comment: Name Collection Type:: Clean-Voided MidstreamPerformed By: #### ADDONUAPLUS #### [place] [address] USABilirubin,UrineNegativeNormalNegativeThe [facility] Physician GroupComment on above:Order Comment: Name Collection Type:: Clean- Voided MidstreamPerformed By: #### ADDONUAPLUS #### [place] [address] USAGlucose Ql (U)NormalNormalNormalThe [facility] Physician GroupComment on above:Order Comment: Name Collection Type:: Clean-Voided MidstreamPerformed By: #### ADDONUAPLUS #### [place] [address] USAHyaline Casts,UrineNoneNormal0-8The [facility] Physician GroupComment on above:Order Comment: Name Collection Type:: Clean-Voided MidstreamPerformed By: #### ADDONUAPLUS #### [place] [address] USAMucus,UrineRareNormalThe [facility] Physician GroupComment on above:Order Comment: Name Collection Type:: Clean-Voided MidstreamResult Comment: PERFORMED BY: [place] [address] PATHOLOGIST FEED CRUSHER ALMA ROSA KISER M.D.Performed By: #### ADDONUAPLUS #### [place] [address] USANitrite,UrineNegativeNormalNegativeMedical Center Clinic Physician GroupComment on above:Order Comment: Name Collection Type:: Clean-Voided MidstreamPerformed By: #### ADDONUAPLUS #### [place] [address] USAOccult Blood,UrineNegativeNormalNegativeMedical Center Clinic Physician GroupComment on above:Order Comment: Name Collection Type:: Clean- Voided MidstreamResult Comment: PERFORMED BY: [place] [address] PATHOLOGIST FEED CRUSHER ALMA ROSA KISER M.D.Performed By: #### ADDONUAPLUS #### [place] [address] USARBC,Ocjwy4-8Macoid3-3Srw [facility] Physician GroupComment on above:Order Comment: Name Collection Type:: Clean-Voided MidstreamPerformed By: #### ADDONUAPLUS #### [place] [address] USASpecificy Miami,Urine1.050Msasqv8.001-1.030The [facility] Physician GroupComment on above:Order Comment: Name Collection Type:: Clean- Voided MidstreamPerformed By: #### ADDONUAPLUS #### [place] [address] USASquamous Epithelial Cell,Jtgvt5-9Nrjtvg6-7Nln [facility] Physician GroupComment on above:Order Comment: Name Collection Type:: Clean- Voided MidstreamPerformed By: #### ADDONUAPLUS #### [place] [address] USAUrobilinogen,UrineNormalNormalNormalThe [facility] Physician GroupComment on above:Order Comment: Name Collection Type:: Clean- Voided MidstreamPerformed By: #### ADDONUAPLUS #### [place] [address] USAWBC,Ldyrz9-7Kyflqd0-5Onr [facility] Physician GroupComment on above:Order Comment: Name Collection Type:: Clean-Voided MidstreamPerformed By: #### ADDONUAPLUS #### [place] [address] USAEosinophils [#/volume] in Blood by Automated countOrdered By: Liliam Zayas on 56-73-9820Ofdxpoxceyo (Bld) [#/Vol]0.2 10*3/uLNormal0.0-0.45 [facility] HospitalComment on above:Order Comment: WAITERPerformed By: #### LIPASE, BMP, MG, CBC, HEPATIC #### [place] [address] USAEosinophils/100 leukocytes in Blood by Automated count Ordered By: Liliam Zayas on 12-19-4024Awsfwctfect/100 WBC (Bld)2.1 %Normal. [facility] HospitalComment on above:Order Comment: WAITERPerformed By: #### LIPASE, BMP, MG, CBC, HEPATIC #### [place] [address] USAEpithelial cells.squamous [#/area] in Urine sediment by Automated countOrdered By: Liliam Zayas on 72-86-3931Ajoznuywuq cells.squamous Auto (Urine sed) [#/Area]1-2 [HPF]0-2FThe Christ Hospital Erythrocyte distribution width [Ratio] by Automated countOrdered By: Liliam Summer on 28-74-1641Itiwlztstdn distribution width (RBC) [Ratio]15.9 %High 11.9-15.3FThe Christ HospitalComment on above:Order Comment: POLICE CHIEF Performed By: #### LIPASE, BMP, MG, CBC, HEPATIC #### [facility] [address] [place] [address] USAErythrocytes [#/area] in Urine sediment by Automated count Ordered By: Liliam Zayas on 99-01-8773PJY Auto (Urine sed) [#/Area]1-2 [HPF]0-4 [facility] HospitalErythrocytes [#/volume] in Blood by Automated countOrdered By: Liliam Zayas on 57-99-3749AIF (Bld) [#/Vol]4.14 10*6/uLNormal 3.60-5.00[facility] HospitalComment on above:Order Comment: POLICE CHIEF Performed By: #### LIPASE, BMP, MG, CBC, HEPATIC #### [place] [address] USAEthanol [Mass/volume] in Serum or PlasmaOrdered By: Liliam Zayas on 54-73-0709Qjytkcd [Mass/Vol]mg/dLNoSouthview Medical CenterComment on above:Performed By: #### PP, ETOH #### [place] [address] USAEthyl Alcohol Profileon 33-79-3860Pvdolna EthanolNot performedNoCritical access hospital Physician GroupComment on above:Result Comment: PERFORMED BY: [place] [address] PATHOLOGIST FEED CRUSHER ALMA ROSA KISER M.D.Performed By: #### PP, ETOH #### [place] [address] USAGlomerular filtration rate [Volume Rate/Area] in Serum, Plasma or Blood by CreatinineOrdered By: Liliam Zayas on 84-27-5560Ysuhjkypio filtration rate [Volume Rate/Area] in Serum, Plasma or Blood by Creatinine> 60.0 mL/MinOhiohealth Dublin Methodist HospitalGlucose [Mass/volume] in Serum or Plasma Ordered By: Liliam Zayas on 90-37-6859Szwgpwg [Mass/Vol]72 mg/yJPihgoy29-768 [facility] HospitalComment on above:ADA recommended reference rangeRandom Glucose Reference Range is dependent on time and content of last meal. Glucose of more than 200 mg/dL in a nonstressed, ambulatory subject supports the diagnosisof Diabetes Mellitus.Order Comment: WAITERResult Comment: Random Glucose Reference Range is dependent on time and content of last meal. Glucose of more than 200 mg/dL in a nonstressed, ambulatory subject supports the diagnosis of Diabetes Mellitus. ADA recommended reference rangePerformed By: #### LIPASE, BMP, MG, CBC, HEPATIC #### [facility] [address] [place] [id number] USAGlucose [Mass/volume] in Urine by Test stripOrdered By: Liliam Zayas on 77-34-1145Usfidkp Test strip (U) [Mass/Vol]Normal mg/dLNormal [facility] HospitalHematocrit [Volume Fraction] of Blood by Automated countOrdered By: Liliam Zayas on 43-88-5805Btdqscpxyp (Bld) [Volume fraction]37.1 %Jrrwmf13.0-46.4FThe Christ HospitalComment on above: Order Comment: WAITERPerformed By: #### LIPASE, BMP, MG, CBC, HEPATIC #### [facility] [address] [place] [id number] USAHemoglobin Test strip Ql (U)Ordered By: Liliam Zayas on 64-91-7343Turzoipugy Ql (U)NegativeNegativeOhiohealth Dublin Methodist Hospital Hemoglobin [Mass/volume] in BloodOrdered By: Liliam Zayas on 12-17-2024 Hemoglobin (Bld) [Mass/Vol]12.3 g/iLKlbhfr33.8-15.4FThe Christ HospitalComment on above:Order Comment: WAITERPerformed By: #### LIPASE, BMP, MG, CBC, HEPATIC #### [facility] [address] [place] [address] USAHepatic Panelon 17-70-7194Xsyboyo [Mass/Vol]3.3 g/dLLow 3.5-5.7The [facility] Physician GroupComment on above:Order Comment: POLICE CHIEF Performed By: #### LIPASE, BMP, MG, CBC, HEPATIC #### [facility] [address] [place] [address] USABilirubin,Indirect0.3 mg/dLNormalThe [facility] Physician GroupComment on above:Order Comment: WAITERPerformed By: #### LIPASE, BMP, MG, CBC, HEPATIC #### [facility] [address] [place] [address] USABilirubin.indirect [Mass/Vol]0.00 mg/dLLow0.03-0.18The [facility] Physician GroupComment on above:Order Comment: WAITERResult Comment: If the DBIL is less than 0.1, IBIL is not able to be calculated.Performed By: #### LIPASE, BMP, MG, CBC, HEPATIC #### [facility] [address] [place] [address] USAHyaline casts [#/area] in Urine sediment by Automated countOrdered By: Liliam Zayas on 33-77-6562Hqlplno casts Auto (Urine sed) [#/Area]None [LPF]0-8[facility] HospitalINR in Platelet poor plasma by Coagulation assayOrdered By: Liliam Zayas on 77-62-0889XPF Coag (PPP) [Relative time]1.3 {INR}NormalOhiohealth Dublin Methodist HospitalComment on above: INR Therapeutic Range A) Pre- and Peroperative OAT started two weeks before surgery. NOT HIP SURGERY: 1.5 - 2.5 HIP SURGERY: 2 - 3B) Primary and secondary prevention of venous THROMBOSIS: 2 - 3C) Active venous thrombosis, pulmonary embolismand prevention of recurrent venous thrombosis: 2 - 3D) Prevention of arterial thromboembolismincluding patients with mechanical heart valves: 3 - 4.5 Result Comment: INR Therapeutic Range A) Pre- and Peroperative OAT started two weeks before surgery. NOT HIP SURGERY: 1.5 - 2.5 HIP SURGERY: 2 - 3 B) Primary and secondary prevention of venous THROMBOSIS: 2 - 3 C) Active venous thrombosis, pulmonary embolism and prevention of recurrent venous thrombosis: 2 - 3 D) Prevention of arterial thromboembolism including patients with mechanical heart valves: 3 - 4.5Performed By: #### PP, ETOH #### [facility] [address] [place] [address] USAKetones [Presence] in Urine by Test stripOrdered By: Liliam Zayas on 51-86-1903Lvnlewf Ql (U)NegativeRegional Medical CenterComment on above:Order Comment: Name Collection Type:: Clean- Voided MidstreamPerformed By: #### ADDONUAPLUS #### [facility] [address] [place] [address] USALeukocyte esterase [Presence] in Urine by Test strip Ordered By: Liliam Zayas on 34-69-1973Noksvnsqm esterase Test strip Ql (U) [facility] HospitalComment on above:Order Comment: Name Collection Type:: Clean-Voided MidstreamPerformed By: #### ADDONUAPLUS #### [place] [id number] USALeukocytes [#/area] in Urine sediment by Automated count Ordered By: Liliam Zayas on 35-01-9812SZG Auto (Urine sed) [#/Area]3-4 [HPF]0-4 [facility] HospitalLeukocytes [#/volume] corrected for nucleated erythrocytes in Blood by Automated counOrdered By: Liliam Zayas on 53-66-3085FUS corrected for nucl RBC Auto (Bld) [#/Vol]7.5 10*3/uL3.8-11.6FThe Christ HospitalLeukocytes [#/volume] in Blood by Automated countOrdered By: Liliam Zayas on 42-76-4681NOM (Bld) [#/Vol]7.5 10*3/uLNormal3.8-11.6FThe Christ HospitalComment on above:Order Comment: WAITERPerformed By: #### LIPASE, BMP, MG, CBC, HEPATIC #### [facility] [address] [place] [address] USALipase [Enzymatic activity/volume] in Serum or Plasma Ordered By: Liliam Zayas on 71-22-8195Iwchoz [Catalytic activity/Vol]1460.0 U/L High11.0-82.0[facility] HospitalComment on above:Order Comment: WAITERResult Comment: PERFORMED BY: [place] [address] PATHOLOGIST FEED CRUSHER ALMA ROSA KISER M.D.Performed By: #### LIPASE, BMP, MG, CBC, HEPATIC #### [place] [address] USALymphocytes [#/volume] in Blood by Automated countOrdered By: Liliam Zayas on 69-44-7093Yeejfbovafz (Bld) [#/Vol]1.9 10*3/uLNormal1.00-4.8 [facility] HospitalComment on above:Order Comment: WAITERPerformed By: #### LIPASE, BMP, MG, CBC, HEPATIC #### [place] [address] USALymphocytes/100 leukocytes in Blood by Automated count Ordered By: Liliam Zayas on 95-81-2058Lostfrweyga/100 WBC (Bld)25.1 %Normal. [facility] HospitalComment on above:Order Comment: WAITERPerformed By: #### LIPASE, BMP, MG, CBC, HEPATIC #### [address] [Entitic mass] by Automated countOrdered By: Liliam Zayas on 30-29-5447NBP (RBC) [Entitic mass]29.7 wbMembqz62.7-34.3FThe Christ HospitalComment on above:Order Comment: WAITERPerformed By: #### LIPASE, BMP, MG, CBC, HEPATIC #### [address] Auto (RBC) [Mass/Vol]Ordered By: Liliam Zayas on 60-24-4056EVJU (RBC) [Mass/Vol]33.1 g/dL32.0-35.0[facility] HospitalMCV [Entitic volume] by Automated countOrdered By: Liliam Zayas on 50-19-1128LVS (RBC) [Entitic vol]89.6 kGOymwoo83-531MkxxfqhikOhiohealth Dublin Methodist HospitalComment on above:Order Comment: WAITERPerformed By: #### LIPASE, BMP, MG, CBC, HEPATIC #### [facility] [address] [place] [address] USAMagnesiumon 72-11-3799Cqqkcgzom [Mass/Vol]1.9 mg/dLNormal 1.9-2.7The [facility] Physician GroupComment on above:Order Comment: POLICE CHIEF Performed By: #### LIPASE, BMP, MG, CBC, HEPATIC #### [facility] [address] [place] [address] USAMonocyte distribution width [Entitic volume] in Blood by AutomatedOrdered By: Liliam Zayas on 45-40-4290Mmdqqwxt distribution width Auto (Bld) [Entitic vol]18.84 %0.00-20.00[facility] HospitalMonocytes [#/volume] in Blood by Automated countOrdered By: Liliam Zayas on 12-17-2024 Monocytes (Bld) [#/Vol]0.6 10*3/uLNormal0.0-0.8[facility] Comment on above:Order Comment: WAITERPerformed By: #### LIPASE, BMP, MG, CBC, HEPATIC #### [facility] [address] [place] [id number] USAMonocytes/100 leukocytes in Blood by Automated count Ordered By: Liliam Zayas on 55-07-9320Tobnoilou/100 WBC (Bld)7.5 %Normal. [facility] HospitalComment on above:Order Comment: WAITERPerformed By: #### LIPASE, BMP, MG, CBC, HEPATIC #### [facility] [address] [place] [address] USAMucus [Presence] in Urine by AutomatedOrdered By: Liliam Zayas on 49-85-3825Pkuhh Auto Ql (U)Rare [LPF][facility] Neutrophils [#/volume] in Blood by Automated countOrdered By: Liliam Zayas on 94-12-7729Gbxzebjjynx (Bld) [#/Vol]4.8 10*3/uLNormal1.8-7.7FThe Christ HospitalComment on above:Order Comment: WAITERPerformed By: #### LIPASE, BMP, MG, CBC, HEPATIC #### [facility] [address] [place] [address] USANeutrophils/100 leukocytes in Blood by Automated count Ordered By: Liliam Zayas on 93-73-1339Xqbduxlevsn/100 WBC (Bld)64.5 %Normal. [facility] HospitalComment on above:Order Comment: WAITERPerformed By: #### LIPASE, BMP, MG, CBC, HEPATIC #### [facility] [address] [place] [id number] USANitrite Test strip Ql (U)Ordered By: Liliam Zayas on 05-44-9845Nzhcddv Ql (U)NegativeNegativeOhiohealth Dublin Methodist HospitalNo Panel InformationOrdered By: Liliam Zayas on 94-20-2991Wmqznmpe Creatinine Clearance (ChemN/AFThe Christ HospitalNucleated erythrocytes [Presence] in Blood by Automated countOrdered By: Liliam Zayas on 12-17-2024 Nucleated RBC Auto Ql (Bld)0.0 /100{WBC}0-0.5FThe Christ Hospital Platelet mean volume [Entitic volume] in Blood by Automated countOrdered By: Liliam Zayas on 53-73-6630Ykfxxfuv mean volume (Bld) [Entitic vol]8.7 fLNormal 6.3-10.7FThe Christ HospitalComment on above:Order Comment: POLICE CHIEF Performed By: #### LIPASE, BMP, MG, CBC, HEPATIC #### [facility] [address] [place] [address] USAPlatelets [#/volume] in Blood by Automated countOrdered By: Liliam Zayas on 73-47-6466Orhncblyv (Bld) [#/Vol]275 10*3/yTWjsbde075-096 [facility] HospitalComment on above:Order Comment: WAITERPerformed By: #### LIPASE, BMP, MG, CBC, HEPATIC #### [facility] [address] [place] [address] USAPotassium [Moles/volume] in Serum or PlasmaOrdered By: Liliam Knoxkaushik on 03-76-9810Ahazrzyri [Moles/Vol]2.5 mmol/LOff scale low3.5-5.1 [facility] HospitalComment on above:Order Comment: WAITERPerformed By: #### LIPASE, BMP, MG, CBC, HEPATIC #### [place] [address] USAProtein [Mass/volume] in Serum or PlasmaOrdered By: Liliam Summer on 42-94-2180Wnjsucw [Mass/Vol]6.4 g/dLNormal6.4-8.9[facility] HospitalComselect specialty hospital on above:Order Comment: WAITERPerformed By: #### LIPASE, BMP, MG, CBC, HEPATIC #### [place] [address] USAProtein [Mass/volume] in Urine by Test stripOrdered By: Liliam Zayas on 89-44-3450Rftqrfu (U) [Mass/Vol]20 mg/dLNormalNegativeOhiohealth Dublin Methodist HospitalComment on above:Order Comment: Name Collection Type:: Clean-Voided MidstreamPerformed By: #### ADDONUAPLUS #### [place] [address] USAProthrombin time (PT)Ordered By: Liliam Zayas on 63-97-6812QF Coag (PPP) [Time]14.7 sHigh9.0-12.9[facility] HospitalComment on above:A hematocrit value greater than 55% may lead to inaccurate results in coagulation testing. Patientshaving hematocrit values >55% require a special collection tube for coagulation studies. Please contact the laboratory at [phone] for redraw instructions.Result Comment: A hematocrit value greater than 55% may lead to inaccurate results in coagulation testing. Patients having hematocrit values >55% require a special collection tube for coagulation studies. Please contact the laboratory at [phone] for redraw instructions.Performed By: #### PP, ETOH #### [place] [address] USASerum globulin measurement by calculation (mass/volume) Ordered By: Liliam Zayas on 71-11-9694Tclirjru (S) [Mass/Vol]3.1 g/dLNormal [facility] HospitalComment on above:Order Comment: WAITERPerformed By: #### LIPASE, BMP, MG, CBC, HEPATIC #### [facility] [address] [place] [address] USASerum or plasma albumin/globulin mass ratioOrdered By: Liliam Zayas on 78-79-1947Jbwbvik/Globulin [Mass ratio]1.1 {ratio}Normal [facility] HospitalComment on above:Order Comment: WAITERPerformed By: #### LIPASE, BMP, MG, CBC, HEPATIC #### [facility] [address] [place] [address] USASerum or plasma anion gap determinationOrdered By: Liliam Zayas on 05-20-1734Elpnj gap [Moles/Vol]9.5 mmol/LNormal6.0-15.0[facility] HospitalComment on above:Order Comment: WAITERPerformed By: #### LIPASE, BMP, MG, CBC, HEPATIC #### [facility] [address] [place] [address] USASerum or plasma ethanol measurement (mass/volume)Ordered By: Liliam Zayas on 47-18-0676Urxzxcy [Mass/Vol]TNPOhiohealth Dublin Methodist HospitalComment on above:Test not performedSerum or plasma non-glucuronidated bilirubin measurement (mass/volume)Ordered By: Liliam Zayas on 12-17-2024 Bilirubin.indirect [Mass/Vol]0.3 mg/dLHolzer Health Systemodium [Moles/volume] in Serum or PlasmaOrdered By: Liliam Zayas on 80-51-3361Plqido [Moles/Vol]140 mmol/SVfbqis872-488KwzpokmtxOhiohealth Dublin Methodist HospitalComment on above:Order Comment: WAITERPerformed By: #### LIPASE, BMP, MG, CBC, HEPATIC #### [facility] [address] [place] [address] USASpecific gravity Test strip (U) [Rel density]Ordered By: Liliam Zayas on 22-09-4987Vvueuckx gravity (U) [Rel density]1.0231.001-1.030 [facility] HospitalUrea nitrogen [Mass/volume] in Serum or Plasma Ordered By: Liliam Zayas on 28-92-6008Mdey nitrogen [Mass/Vol]16 mg/dLNormal10-03 [facility] HospitalComment on above:Order Comment: WAITERPerformed By: #### LIPASE, BMP, MG, CBC, HEPATIC #### [facility] [address] [place] [address] USAUrobilinogen Test strip (U) [Mass/Vol]Ordered By: Liliam Zayas on 54-64-4432Ufopvalvwash (U) [Mass/Vol]Normal mg/dLTuscarawas HospitalaPTT in Platelet poor plasma by Coagulation assayOrdered By: Liliam Zayas on 25-96-3589uLDK Coag (PPP) [Time]29.7 s25.1-36.5FThe Christ HospitalComment on above:A hematocrit value greater than 55% may lead to inaccurate results in coagulation testing. Patientshaving hematocrit values >55% require a special collection tube for coagulation studies. Please c ontact the laboratory at [phone] for redraw instructions.pH of Urine by Test stripOrdered By: Liliam Zayas on 14-28-0639kG (U)6.5 [pH]Normal5.0-9.0 [facility] HospitalComment on above:Order Comment: Name Collection Type:: Clean-Voided MidstreamPerformed By: #### ADDONUAPLUS #### [facility] [address] [place] [address] USAANES POSTPROC EVALon 43-62-8490CBBN POSTPROC EVALHNO ID: [id number] Author: Grace Copeland MD Service: ? Author Type: Anesthesiologist Type: Anesthesia Postprocedure Evaluation Filed: 09/15/2022 3:48 PM Note Text: POST ANESTHESIA EVALUATION NOTE : 1965 Procedure Summary Date: 09/15/22 Room / Location: [place] [address] / [facility] Anesthesia Start: 1047 Anesthesia Stop: 1230 Procedures: VITRECTOMY MECHANICAL 25 G PARS PLANA APPROACH (Left: Eye) SECONDARY IMPLANT LENS INTRAOCULAR LENS (Left: Eye) Diagnosis: 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 (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 [H27.132]) Surgeons: Carmelo Bernstein MD Responsible Provider: Graec Copeland MD Anesthesia Type: MAC ASA Status: [...] September 15, 2022 TIME: 3:48 PM CSN: [id number]h [facility] Hospital PRE-OPon 94-84-2916EKQM PRE-OPHNO ID: [id number] Author: Grace Copeland MD Service: ? Author Type: Anesthesiologist Type: Anesthesia Preprocedure Evaluation Filed: 09/15/2022 10:40 AM Note Text: ANESTHESIOLOGY DAY OF SURGERY NOTE : 1965 Procedure Information Date/Time: 09/15/22 1116 Procedures: VITRECTOMY MECHANICAL 25 G PARS PLANA APPROACH (Left: Eye) SECONDARY IMPLANT LENS INTRAOCULAR LENS (Left: Eye) Location: [place] [address] / [facility] Surgeons: Carmelo Bernstein MD Estimated [...] September 15, 2022 TIME: 10:13 AM CSN: [id number] Hospital NOon [id number] NOHNO ID: [id number] Author: Carmelo Bernstein MD Service: Ophthalmology Author Type: Physician Type: Operative Report Filed: 09/15/2022 12:25 PM Note Text: [place] [address] [place] [facility] OPERATIVE REPORT LOG ID: [id number] Surgery/Procedure Date: 09/15/2022 Incision/Procedure Start Time: 11:00 AM Incision Close/Procedure End Time: 12:22 PM NAME: Jhoana A [facility] [place] #: [id number] SURGEON(S) AND PILOT BOAT DECKHAND(S): Surgeon(s) and Role: * Carmelo Bernstein MD [...] to remove the residual lens fragments. The risks/benefits/alternatives/complications were discussed with the patient/legal guardian who [...] rest in the groove created by the oh (more content not included)...Normal [facility] HospitalPNon 14-05-0902HRGFVrrfqielr (OPHTMN) JHOANA LAZCANO ([id number]) 1965 F Date Time Provider Department 09/13/22 AMANDEEP CARMELO Leanne MICHELLE During your visit today, we recorded the following information about you: Josefina Monk 09/13/2022 1:19 PM Signed Surgery rescheduled on 09/29/22, pt understands if she cancels last minute again we won't be able to reschedule. Needs refill of Latanoprost, dorzolamide, brimonidine and cyclo. Please send to [facility] in [place]. Ivett Parada Allergies As of Date: 09/13/2022 (No Known Allergies) Date Reviewed: 08/18/2022 Reviewed by: Keisha Clemons APRN.VIDEO RENTAL CLERK - Fully Assessed Reason for Visit: Schedule [...] (None) Encounter Status:Closed by IVETT PARADA on 09/13/22[facility] CenterTORY PHYSICALon 54-20-1485IIRNOER PHYSICALHNO ID: [id number] Author: Keisha Clemons APRN.VIDEO RENTAL CLERK Service: ? Author Type: Nurse Practitioner Type: [...] fevers. Neuro: No history of TIA's, stroke, GRAPHIC DESIGN MANAGER tumor, impaired sensorium, hemiplegia, paraplegia or quadraplegia. No neurological symptoms or problems. Respiratory: Positive for Tobacco Use Current Smoker 0.9 ppd , Negative for No history of current cough or dyspnea, or pneumonia in the past 6 weeks. No history of respiratory/pulmonary symptoms or problems Cardiovascular: No history of HTN requiring medication, no history of angina, CHF, OK, cardiac surgery or stents. Denies rest pain, [...] > 1 time per night or hematuria GRINDER OUTSIDE DIAMETER: Negative for abnormal vaginal bleeding, abnormal vaginal [...] 0 (1.52m) Wt 9 (more content not included)...NormalMiami Valley Hospital POTASSIUM BLDon 68-52-8750Zaseroiuw [Moles/Vol]3.4 mmol/LLow3.7-5.1CFlower Hospital on above:Order Comment: Specimen Type: BLOOD SPECIMENOrdering Facility: [facility] Address:[address] [place], [place] [address]Performed By: #### K1 ####[facility] LABCLIA [id number] [place] [address] [place] AMERICABasic metabolic 2000 panelon 09-28-4416Qizuj gap [Moles/Vol]13 mmol/L Normal9-18[facility] on above:Order Comment: Specimen Type: BLOOD SPECIMENOrdering Facility: [facility] Address:[address] [place], [place] [address]Performed By: #### 33489-4 ####[facility] LABCLIA [id number] [place] [address] [place] AMERICACalcium [Mass/Vol]9.8 mg/dLNormal8.5-10.2CFlower Hospital on above:Order Comment: Specimen Type: BLOOD SPECIMENOrdering Facility: [facility] Address:[address] [place], [place] [address]Performed By: #### 07571-4 ####[facility] LABCLIA [id number] [place] [address] [place] AMERICAChloride [Moles/Vol]102 mmol/BGbcjki27-698SjcngopzpUC Medical Center on above:Order Comment: Specimen Type: BLOOD SPECIMENOrdering Facility: [facility] Address:[address] [place], [place] [address]Performed By: #### 15823-0 ####[facility] LABCLIA [id number] [place] [address] [place] CO2 [Moles/Vol]25 mmol/FJxwjew99-69KegrmkxklUC Medical Center on above: Order Comment: Specimen Type: BLOOD SPECIMENOrdering Facility: [facility] Address:[address] [place], [place] [address]Performed By: #### 26447-9 ####[facility] LABIA [id number] [place] [address] [place] [facility] VALLEY HOSPITALCreatinine [Mass/Vol] 0.45 mg/dLLow0.58-0.96[facility] on above:Order Comment: Specimen Type: BLOOD SPECIMENOrdering Facility: [facility] Address:[address] [place], [place] [address]Performed By: #### 68020-2 ####[facility] LABIA [id number] [place] [address] [place] AMERICAESTIMATED GLOMERULAR FILTRATION BCJE916 mL/min/1.73m???Normal>=60[facility] on above: Order Comment: Specimen Type: BLOOD SPECIMENOrdering Facility: [facility] Address:[address] [place], [place] [address]Result Comment: Estimated Glomerular Filtration Rate (eGFR) is calculated using the 2020 CKD-EPI creatinine equation. This equation utilizes serum creatinine, sex, and age as parameters. The creatinine assay has traceable calibration to isotope dilution- mass spectrometry. Refer to KDIGO guidelines for clinical interpretation. In patients with unstable renal function, e.g. those with acute kidney injury, the eGFR may not accurately reflect actual GFR.Performed By: #### 08370-8 ####[facility] LABIA [id number] [place] [address] [place] AMERICAGlucose [Mass/Vol]82 mg/dLNormal 74-99[facility] on above:Order Comment: Specimen Type: BLOOD SPECIMENOrdering Facility: [facility] Address:[address] [place], [place] [address]Result Comment: The [place] Diabetes Association (ADA) provides guidance for cutoff values for fasting glucose and random glucose. The ADA defines fasting as no caloric intake for at least 8 hours. F asting plasma glucose results between 100 to 125 [...] Standards of Medical Care in Diabetes 2016, [place] Diabetes Association. Diabetes Care. 2016.39(Suppl 1).Performed By: #### 25717-3 ####[facility] LABIA [id number] [place] [address] [place] AMERICAPotassium [Moles/Vol]2.9 mmol/L Low3.7-5.1CFlower Hospital on above:Order Comment: Specimen Type: BLOOD SPECIMENOrdering Facility: [facility] Address:[address] [place], [place] [address]Performed By: #### 92029-6 ####[facility] [id number] [address] OF [facility] VALLEY HOSPITALSodium [Moles/Vol]140 mmol/JQeoeyd314-267UzdhdeptxUC Medical Center on above:Order Comment: Specimen Type: BLOOD SPECIMENOrdering Facility: [facility] Address:[address] [place], [place] [address]Performed By: #### 46224-2 ####[facility] LABIA [id number] [address] STATES OF [facility] MI[facility] VALLEY HOSPITALUrea nitrogen [Mass/Vol]7 mg/dLNormal7-21[facility] on above:Order Comment: Specimen Type: BLOOD SPECIMENOrdering Facility: [facility] Address:[address] [place], [place] [address]Performed By: #### 93512-5 ####[facility] LABIA [id number] [place] [address] [place] CBC panel Auto (Bld)on 05-92-2352Lpysfthtpvk distribution width (RBC) [Ratio] 12.1 %Djcxae38.5-15.0[facility] on above:Order Comment: Specimen Type: BLOOD SPECIMENOrdering Facility: [facility] Address:[address] [place], [place] [address]Performed By: #### 60225-5 ####[facility] LABCLIA [id number] [address] STREETHematocrit (Bld) [Volume fraction]44.7 %Yuxvgg57.0-46.0[facility] on above:Order Comment: Specimen Type: BLOOD SPECIMENOrdering Facility: [facility] Address:[address] [place], [place] [address]Performed By: #### 87096-7 ####[facility] LABCLIA [id number] [address]ETHemoglobin (Bld) [Mass/Vol]15.6 g/zVCksx61.5-15.5CFlower Hospital on above:Order Comment: Specimen Type: BLOOD SPECIMENOrdering Facility: [facility] Address:[address] [place], [place] [address]Performed By: #### 60297-0 ####[facility] LABIA [id number] [address] (RBC) [Entitic mass]31.3 ffSplcal87.0-34.0[facility] on above:Order Comment: Specimen Type: BLOOD SPECIMENOrdering Facility: [facility] Address:[address] [place], [place] [address]Performed By: #### 57213-8 ####[facility] LABCLIA [id number] [address] (RBC) [Mass/Vol] 34.9 g/jUTeryhw58.5-36.0[facility] on above:Order Comment: Specimen Type: BLOOD SPECIMENOrdering Facility: [facility] Address:[address] [place], [place] [address]Performed By: #### 63160-3 ####[facility] LABIA [id number] [place] [address] [place] AMERICAMCV (RBC) [Entitic vol]89.6 oUQxqdgq19.0-100.0[facility] on above:Order Comment: Specimen Type: BLOOD SPECIMENOrdering Facility: [facility] Address:[address] [place], [place] [address]Performed By: #### 01237-2 ####[facility] LABIA [id number] [place] [address] [place] AMERICANucleated RBC (Bld) [#/Vol]10*3/uLNormal<0.01[facility] on above:Order Comment: Specimen Type: BLOOD SPECIMENOrdering Facility: [facility] Address:[address] [place] [address]Performed By: #### 26449-4 ####[facility] - TRUMBULLIA [id number] [place] [address] [place] AMERICAPlatelet mean volume (Bld) [Entitic vol]10.9 fLNormal9.0-12.7CFlower Hospital on above:Order Comment: Specimen Type: BLOOD SPECIMENOrdering Facility: [facility] Address:[address] [place] [address]Gljfhsvnb By: #### 80921-6 ####[facility] LABIA [id number] [place] [address] [place] AMERICAPlatelets (Bld) [#/Vol]163 10*3/fORgmkfc623-161GbuarmzdqUC Medical Center on above:Order Comment: Specimen Type: BLOOD SPECIMENOrdering Facility: [facility] Address:[address] [place] [address]Rtabolunz By: #### 80042-9 ####[facility] LABCLIA [id number] [place] [id number] [facility] MED[facility] WESTRBC (Bld) [#/Vol]4.99 10*6/uLNormal3.90-5.20[facility] on above:Order Comment: Specimen Type: BLOOD SPECIMENOrdering Facility: [facility] Address:[address] [place] [address]Performed By: #### 81869-5 ####[facility] LABIA [id number] [address]W (Bld) [#/Vol]6.79 10*3/uL Normal3.70-11.00[facility] on above:Order Comment: Specimen Type: BLOOD SPECIMENOrdering Facility: [facility] Address:[address] [place], [place] [address]Performed By: #### 24641-0 ####[facility] LABIA [id number] [address]ETCONSULTon 18-10-3116TLJLDTYLLJ ID: [id number] Author: Andrew Shoemaker MD Service: Ophthalmology Author [...] Follow-up: with me on Monday 08/07 at [facility] at noon [facility] This is a 57 year old female [...] CT Face from outside hospital reviewed with logistics vice president: Dislocation of left lens No [...] MPhil Vitreoretinal Surgery AND Ocular Inflammatory Diseases [facility] HospitalNoMedina HospitalED NOTEon 96-73-4304VH NOTEHNO ID: [id number] Author: Vic Adams RN Service: Emergency Medicine Author Type: Registered Nurse Type: ED Notes Filed: 08/06/2022 12:58 AM Note Text: Discharge instructions reviewed with patient. Patient understands medications and prescriptions to fill at pharmacy and take. Patient has no further questions at this time. IVDCNoMedina HospitalCNPNon 06-41-6573TTYCEipqznusj (MCED) JHOANA LAZCANO ([id number]) 1965 F Date Time Provider Department 08/05/22 [...] staining not performed Patient is currently in [place] but her is willing to drive her over to [facility]. Please keep NPO. Discussed with Dr. Giraldo at [place] and ED provider at [facility] for transfer. Please page ophthalmology once the patient arrives. Gianluca Butler MD PGY-2, [facility] [place] Allergies As of Date: 08/05/2022 (Not on File) Date Reviewed: Never Reviewed Reason for Visit: Sanitizer - Other [3602] Problem List As Of Date: 08/05/2022 (None) Encounter Status:Closed by GIANLUCA BUTLER on 08/05/22NoMedina HospitalCT FACIAL BONES WO CONon 58-87-5133GZ FACIAL BONES WO CONEXAMINATION: CT HEAD WO CON, CT FACIAL BONES [...] Electronically authenticated by: GOGO BELLO Date: 2022-08-05 15:31[facility] NOTEon 76-21-7054GM NOTEHNO ID: [id number] Author: Geneva Spangler RN Service: ? Author Type: Registered Nurse Type: ED Notes Filed: 08/05/2022 9:31 PM Note Text: Pt to eye room at this time accompanied by ophthalmology.[facility] NOTEHNO ID: [id number] Author: Vic Adams RN Service: Emergency Medicine Author Type: Registered Nurse Type: ED Notes Filed: 08/05/2022 9:27 PM Note Text: Patient sent from [facility] after sustaining an eye injury. Patient [...] took Ibuprofen and was given Toradol at [place].[facility] PROV NOTEon 46-81-3745AF PROV NOTEHNO ID: [id number] Author: Tucker Delatorre MD Service: Emergency Medicine [...] evaluation by ophthalmology. History provided by: Patient inward toll operator used: No No past medical history on [...] by Darvin Godinez from an outside ED ([place],) here with left eye pain/loss of vision since struck in eye by thrown object several days ago. Outside imaging had demonstrated lens dislocation. On exam, mild conjunctival injection, pharmacologically dilated. Appreciate prompt bedside eval per Ophthalmology production planning manager. Their bedside indirect exam confirms posterior dislocation [...] 163 MPV 10.9 Absolute nRBC <0.01 [NC] [place] August 06, 2022 0938 Basic Metabolic Panel(!): [...] home-going, including but n (more content not included)...NormalMiami Valley HospitalXR RIBS RT PA Tyrese 99-94-9308PX RIBS RT PA CHRibs right with PA chest CLINICAL: Patient fell [...] Electronically authenticated by: GOGO BELLO Date: 2022-04-09 11:19[facility] CenterCT ANKLE LT WO CONon 87-22-9425FE ANKLE LT WO CONEXAMINATION: CT ANKLE LT WO CON HISTORY: Closed bimalleolar fracture [...] Electronically authenticated by: TUCKER OCAMPO Date: 2021-10-11 09:15NMansfield Hospital Panel InformationKettering Health [facility] Vital Signs Date TimeVital SignValuePerforming RtniwmlxzFjxhfazl02-98-8911 14:54-0500Body owlbtf996.9 cmStcz [facility]11-05-2025 14:54-0500Body mass index (BMI) [Ratio]17.98 kg/m2Stcz [address] [place], [place] 184[address]11-05-2025 14:54-0500Body .[address] [place], [place] 184[address]11-04-2025 11:26-0500Diastolic blood ipiobeew54 mm[Hg]Stv [facility]11-04-2025 11:26-0500Heart rate75 /minStv [address] [place], [place] [address]11-04-2025 11:26-0500Respiratory rate16 /minStv [address] [place], [place] [address]11-04-2025 11:26-3803LdY1% (BldA) [Mass fraction]98 %Stv [facility]11-04-2025 11:26-0500Systolic blood pspfepdd601 mm[Hg]Stv [facility]10-22-2025 15:15-0400Diastolic blood mm[Hg]Stv [address]10-22-2025 15:15-0400Heart rate81 /minStv [address]10-22-2025 15:15-3453TeI4% (BldA) [Mass fraction]98 %Stv [address]10-22-2025 15:15-0400Systolic blood umhrguoa802 mm[Hg]Stv [address]10-10-2025 10:17-0400Respiratory rate16 /Samuel Horn MD Work Phone: bCar[facility]10-10-2025 08:29-0400Body reagsgllejh85.4 [degF]Brandan Horn MD Work Phone: bon [facility]10-10-2025 08:29-0400Diastolic blood xnmqgxiw33 mm[Hg]Brandan Horn MD Work Phone: Ptamera [facility]10-10-2025 08:29-0400Heart rate85 /Samuel Horn MD Work Phone: Vtamera [facility]10-10-2025 08:29-6255KaW8% (BldA) [Mass fraction]95 %Brandan Horn MD Work Phone: Btamera [facility]10-10-2025 08:29-0400Systolic blood skuxrial242 mm[Hg]Brandan Horn MD Work Phone: [phone] New River [facility] Medical Center10-10-2025 02:15-0400Body mass index (BMI) [Ratio]18.18 kg/f5LuhmjbbBrandan Horn MD Work Phone: QCar[facility]10-10-2025 02:15-0400Body klxhak44.82 kgBrandan Horn MD Work Phone: Qtamera [facility]10-08-2025 22:42-0400Body .9 cmSghada Horn MD Work Phone: Vtamera [facility]10-08-2025 19:31-0400Diastolic blood kfzpdbii08 mm[Hg]Pancho Hinojosa MD Work Phone: 1(486)120-[address] [place], [place] [address]10-08-2025 19:31-0400 Heart rate82 /Gina Hinojosa MD Work Phone: 1(296)733-[address] [place], [place] [address]10-08-2025 19:31-0400 Respiratory rate18 /Gina Hinojosa MD Work Phone: 1(779)449-[address] [place], [place] [address]10-08-2025 19:31-0400 SaO2% (BldA) [Mass fraction]99 %Pancho Hinojosa MD Work Phone: 1(020)777-[address] [place], [place] [address]10-08-2025 19:31-0400 Systolic blood akqsrysu135 mm[Hg]Pancho Hinojosa MD Work Phone: 1(720)671-[address] [place], [place] [address]10-08-2025 12:08-0400 Body rgprfsmqlaa56.4 [degF]Pancho Hinojosa MD Work Phone: [facility] Encounters Encounter DateEncounter TypeCare ProviderFacilityStart: 49-85-0424vrdcmugulj PANCHO Gonsales ROALIAkeenan private hospitalrachel [facility] Hospitaltart: 01-14-2025 End: 70-91-0821kxpwlxczumVQRDKGE Dru [facility] Hospitaltart: 01-14-2025 End: 35-96-9069Escibsedth hospital visit by physicianStcNorthern Regional Hospital 4STCZ Pre-Admit TestingStart: 01-13-2025 End: 28-60-7579xrjkqcpxawHLHAQSQWayne Hospitaltart: 01-13-2025 End: 21-05-0759Ejejjhtuzh hospital visit by physicianSt Interventional RadiologistSt. Rita'S Hospital Special ProceduresComment on above:Alcohol- induced chronic pancreatitis (HCC); Alcoholic cirrhosis of liver with ascites (HCC)Start: 12-31-2024 End: 68-22-2375doszavvzsySCYIZYGProMedica Memorial Hospitaltart: 12-31-2024 End: 42-05-8668Bgpbvinqyg hospital visit by physicianStv Interventional [facility] UltrasoundComment on above:Alcoholic cirrhosis of liver with ascites (HCC)Start: 12-17-2024 End: 03-56-9860Mitdynkxrk and management of inpatientSghada Horn MD Work Phone: STVZ Renal//Med SurgComment on above:Abdominal pain, generalized (Primary Dx); Idiopathic acute pancreatitis without infection or necrosisStart: 12-17-2024 End: 37-86-3293Sdlhdxouu department patient visitPancho Hinojosa MD Work Phone: [phone]-Eshtnoszm Room Work Phone: Start: 00-21-0656bhtrenlktoCunumzyqzui Abdelaziz [facility]-18-2023 End: 11-83-3435rjuuwpjkbkDuhcgfp M Chaunceyrachelcility:[facility] Start: 05-06-2023 End: 33-89-8954Nmlsszplpngd Devika Horn MD Work Phone: btamera [facility] HospitalStart: 10-19-2022 End: 05-90-9326nqrhejlsoiQLIKZ A MAMMOFacility:[facility] HospitalStart: 09-21-2022 End: 67-82-6306wjdmfithhfIBFRA A MAMMOFacility:[facility] Hospitaltart: 09-21-2022 End: 99-64-0179Xbkwzsb encounter procedureDacharles Bernstein MD Work Phone: OphthalmologyComment on above: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 (Primary Dx); Postoperative eye state; Ocular hypertension of left eyeStart: 09-16-2022 End: 40-93-6003obeldnkilwPARON A MAMMOFacility:[facility] Hospitaltart: 39-84-2122Ptixfmulj encounterDannrachel Bernstein MD Work Phone: OphthalmologyComment on above:Schedule SurgeryStart: 91-06-0931hfusysnvjfYlxpg A Mammo MD Work Phone: OphthalmologyStart: 08-22-2022 End: 18-17-8955abzptvzcehBFMCZ MAMMOFacility:[facility] Hospitaltart: 82-25-5859Fozmfbkeb for other preprocedural examinationDANNY [facility] HospitalStart: 08-18-2022 End: 05-75-1377zaegnwwhjdVHKYMXKL L SHEARDFacility:[facility] Start: 08-14-2022 End: 94-62-1307xrxtfsexznEEJBY A MAMMOFacility:[facility] Hospitaltart: 08-14-2022 End: 91-23-1888Coerljv encounter procedureDacharles Bernstein MD Work Phone: OphthalmologyComment on above: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 (Primary Dx); Ocular hypertension of left eyeStart: 45-58-0260zfprjaadmfPD [facility] [facility] [place]:V1Mlvuc: 31-85-4904Eaynnrb encounter procedureKevin Laws MD Work Phone: OphthalmologyComment on above: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 (Primary Dx)Start: 08-05-2022 End: 56-95-2199Rhudpnodj department patient visitSTEVEN DORSEYFacility:[facility] Hospitaltart: 08-05-2022 End: 23-74-4871smkjonzwzoLUMSAJ DIAB .Facility:Q5Ekokz: 04-09-2022 End: 97-42-4449vfeunssabrRS LESTER LEE .Facility:E3Kokzx: 01-18-2022 End: 64-28-7385xvhootgahcMK DOCTOR MISCFacility:O9Davsb: 12-22-2021 End: 71-95-6903aiitsclsynAH DOCTOR MISCFacility:Y0Ynmov: 11-24-2021 End: 60-22-9643hykfjxhbecSUNGWEDY CULLENFacility:U1Zsnlc: 10-26-2021 End: 59-22-4610qcvkccmgrfUW DOCTOR MISCFacility:D9Gfrwx: 10-10-2021 End: 49-42-9597nosqknkzwmEM DOCTOR MISCFacility:N4Bptrm: 09-29-2021 End: 44-52-9416chlwovghteIP DOCTOR MISCFacility:H1 Procedures DateProcedureProcedure DetailPerforming ClinicianStart: 96-90-5257Eakmb paracentesis dx/ther w/imaging guidanceElbert Smiley MD Work Phone: Start: 91-21-8056Sdjql paracentesis dx/ther w/imaging guidanceElbert Smiley MD Work Phone: Start: 67-64-7173LOCCPSWBGWNQA METABOLIC W/ BILI PROFILE W/ REFLEX TO MGJewel A Jes VOICE NETWORK ENGINEER - VIDEO RENTAL CLERK Work Phone: Start: 61-62-7307Arn abdomen w/o & w/contrast material Jewel A Jes VOICE NETWORK ENGINEER - VIDEO RENTAL CLERK Work Phone: Start: 28-77-6456Kbig count misc body fluids w/differential countModarío Vasques MD Work Phone: Start: 12-18-2024 End: 18-78-3872Mtjhe of amylaseJeclementel A Jes VOICE NETWORK ENGINEER - VIDEO RENTAL CLERK Work Phone: Start: 29-11-6810Qyn bact xcpt urine blood/stool aerobic isolShjarrett Horn MD Work Phone: Start: 18-83-9912Kijx flu washgs/brushings xcpt c/v smrs interpjSghada Horn MD Work Phone: Start: 38-17-1658Ydsbi source albumin quantitative each Lucy Horn MD Work Phone: Start: 08-99-0465DRXVLRMYDAPNPweeehwg Jundi MD Work Phone: Start: 52-63-6708Fxvptfkdc serum plasma/whole blood Ningamanda Vasques MD Work Phone: Start: 00-24-1291Ekyzf paracentesis dx/ther w/imaging guidanceShelley Tom MD Work Phone: Start: 34-82-1769Mcpon of ferritinAimee Miester VOICE NETWORK ENGINEER - ROCKET ENGINE COMPONENT MECHANIC Work Phone: Start: 48-57-2369EJNKP METABOLIC PANEL W/ REFLEX TO MG FOR LOW KAimee Miester VOICE NETWORK ENGINEER - ROCKET ENGINE COMPONENT MECHANIC Work Phone: Start: 11-19-0669Hzcqduq function panelAimee Miester VOICE NETWORK ENGINEER - ROCKET ENGINE COMPONENT MECHANIC Work Phone: Start: 39-05-4142Stcmqcjfoibvooim antigen ceaAimee Miester VOICE NETWORK ENGINEER - ROCKET ENGINE COMPONENT MECHANIC Work Phone: Start: 23-90-9311LTUXDQWLANAXF METABOLIC W/ BILI PROFILE W/ REFLEX TO MGAimee Miester VOICE NETWORK ENGINEER - ROCKET ENGINE COMPONENT MECHANIC Work Phone: Start: 05-33-3740Bofejgzyqcd tumor antigen quantitative ca 125Aimee Miester VOICE NETWORK ENGINEER - ROCKET ENGINE COMPONENT MECHANIC Work Phone: Start: 34-83-8754NJOAJUN B12 & FOLATEAimee Miester VOICE NETWORK ENGINEER - ROCKET ENGINE COMPONENT MECHANIC Work Phone: Start: 29-46-0891Zvtnftar tomography of abdomen and pelvis with contrastPancho Hinojosa MD Work Phone: Start: 18-55-3737Aeoockaivnok ophthalmic imaging Jose Bernstein MD Work Phone: Start: 19-47-0174PPY BIOMETRY W/ IOL CALC OU (BOTH EYES)Carmelo Bernstein MD Work Phone: Start: 08-14-2022 End: 83-41-8101Tmherlwhtbap ophthalmic imaging Jose Bernstein MD Work Phone: Plan of Treatment DateCare ActivityDetailAuthorStart: 13-76-8818Vkmdi panelLipidsBon [facility] Va Medical CenterStart: 55-94-4234DLJBCKPC SCREENDIABETES SCREENMartins Ferry Hospitaltart: 02-03-2025 End: 04-07-8575Zyjvutd encounter bigcaopcr63/25/2025 2:30 PM EST Office Visit [facility] Gastroenterology [address] [phone] Elbert Smiley MD [address] [phone] EUS ERCP fuMProMedica [facility] Comment on above:EUS ERCP fuStart: 01-28-2025 End: 08-91-5105Uyxgvouvo to same day surgery jcmiay2501/28/2025 2:45 PM EST - 01/28/2025 4:15 PM EST Surgery [facility] [address] [place] [address] Elbert Smiley MD [address] [facility] [address] [place], [place] [id number] ESOPHAGOGASTRODUODENOSCOPY ULTRASOUND - LINEAR SCOPESTCZ ENDOComment on above:ESOPHAGOGASTRODUODENOSCOPY ULTRASOUND - LINEAR SCOPEStart: 01-28-2025 End: 63-02-5324Ejrg dx collection specimen brushing/washingENDOSCOPIC RETROGRADE CHOLANGIOPANCREATOGRAPHY Alcohol-induced chronic pancreatitis (HCC) 01/28/2025 2:45 PM [facility] 01-28-2025 End: 18-20-0511Mhfitbnrxytlfmovuzagixrveg us scope w/adj strxrs ESOPHAGOGASTRODUODENOSCOPY ULTRASOUND Alcohol-induced chronic pancreatitis (HCC) 01/28/2025 2:45 PMESalem Regional Medical Centertart: 01-28-2025 Subsequent hospital visit by rjrkgajae87/19/2025 2:45 PM EST Hospital Encounter [facility] [address] [place] [address] Elbert Smiley MD [address] [facility] [address] [place] [address] [facility] ENDOStart: 01-14-2025 End: 72-76-1475Qutstgy encounter ijfrxqlzs33/05/2025 3:30 PM EST Appointment [facility] Pre-Admit Testing [address] [place] [address] OR 01/28 [facility] Pre-Admit TestingComment on above:OR 01/28Start: 78-35-8314Bldngld function panelHolzer Health Systemtart: 95-11-3240PqxtyvjqbHolzer Health Systemtart: 86-51-4056DGMPK-19 Vaccine ( season)COVID-19 Vaccine ( season)[facility] HospitalStart: 81-60-9586Zsymupoym vaccinationFlu vaccine (#1)Bon [facility] HospitalStlocust grove: 88-94-2956Sacdkxosa for malignant neoplasm of lungLung Cancer Screening &/or CounselingBon [facility]: 82-53-8599Hmrmm panelLipidsBon [facility]: 39-12-6937Pgmiietui vaccinationMartins Ferry Hospitaltart: 25-25-4168KGWGROEFFX ASSESSMENTDEPRESSION ASSESSMENTMartins Ferry Hospitaltart: 20-90-9166Msjwnmtrn vaccinationLUNG CANCER SCREENINGMartins Ferry Hospitaltart: 16-73-1549Oyqrciwb vaccine (1 of 2)Shingles vaccine (1 of 2)[facility]: 06-91-1336RBTIDSZJ VACCINE (1 of 2)SHINGRIX VACCINE (1 of 2)[facility] Start: 09-73-5788BNLNBDVON (FIT-DNA)COLOGUARD (FIT-DNA)[facility] Hospitaltart: 39-46-2031VfzaoniumukRGTKOLUFPOIMuavucvod ClinicStart: 75-88-7056GXBMKURDBY CANCER SCREENINGCOLORECTAL CANCER SCREENINGMartins Ferry Hospitaltart: 11-14-3453WX COLONOGRAPHYCT COLONOGRAPHYMartins Ferry Hospitaltart: 30-69-1376YDREX OCCULT BLOOD FECAL OCCULT BLOODMartins Ferry Hospitaltart: 39-82-1518BCXIX SCREENLIPID SCREEN [facility]tart: 88-67-9429Mobhkplri for malignant neoplasm of colonBon [facility]: 40-57-9888OQARPZQHCDNIROVDAWORLJVYVJQufpxrphm Clinic Start: 61-94-4624FxboabpakwtWOQIVIIGJHrbgqxpqj ClinicStart: 44-33-4352Dwrzjvhcd for malignant neoplasm of breastBreast cancer screenRappahannock General Hospital Start: 00-38-0385JLJ TESTINGHPV TESTINGMartins Ferry Hospitaltart: 1997 Screening for malignant neoplasm of cervixBon [facility]: 09-70-5165FRN TESTINGPAP TESTINGMartins Ferry Hospitaltart: 77-49-6696Ueytkhdqu for malignant neoplasm of cervixPap smearBon [facility]ours Health System: 1986 DTaP/Tdap/Td vaccine (1 - Tdap)DTaP/Tdap/Td vaccine (1 - Tdap)[facility]: 93-38-1741Ilusmsybx A vaccine (1 of 2 - Risk 2-dose series) Hepatitis A vaccine (1 of 2 - Risk 2-dose series)[facility]: 62-17-3635Mvbofkyyj B vaccine (1 of 3 - 19+ 3-dose series)Hepatitis B vaccine (1 of 3 - 19+ 3-dose series)[facility]: 42-68-7333Mfupyuittuvb 50+ years Vaccine (1 of 2 - PCV)Pneumococcal 50+ years Vaccine (1 of 2 - PCV)[facility]: 32-22-7987Tyzvh microalbumin profileDTAP,TDAP,TD (1 - Tdap)[facility]: 40-66-1342QAIPUIBSX C SCREENINGHEPATITIS C SCREENINGMartins Ferry Hospitaltart: 83-31-6187Rddcrxxyf C screeningHepatitis C screenBon [facility] HospitalStart: 48-77-2724KKG SCREENINGHIV SCREENING [facility]tart: 04-17-5359ZVF screeningHIV screenRappahannock General Hospital Start: 26-68-2468Plgbeyzscs ScreenDepression [facility] Start: 72-03-4642JRNCYESFETUQ (1 - PCV)PNEUMOCOCCAL (1 - PCV)[facility] Start: 60-32-7798ONTFG-19 VACCINE (#1)COVID-19 VACCINE (#1)[facility] Start: 75-57-6570CFRYQYEHN B (1 of 3 - 3-dose series)HEPATITIS B (1 of 3 - 3- dose series)[facility] End: 76-49-8289Urqr Count with Differential, Body FluidCell Count with Differential, Body Fluid Lab Routine Daily for 3 Days starting 12/19/2024 until 12/21/2024on [facility]uder Memorial HospitalComment on above:Daily for 3 Days starting 12/19/2024 until 12/21/2024 End: 61-92-1801Ghysklvagnilw Metabolic w/ Bili Profile w/ Reflex to MG Comprehensive Metabolic w/ Bili Profile w/ Reflex to MG Lab Routine Daily for 3 Days starting 12/19/2024 until 12/21/2024, 1 completedRappahannock General Hospital Comment on above:Daily for 3 Days starting 12/19/2024 until 12/21/2024, 1 completedCulture, Body Fluid (with Gram Stain)Culture, Body Fluid (with Gram Stain) Microbiology [employer] Label Print 12/18/2024 4:55 PM EDTBon Magruder Memorial HospitalIntermittent pulse oximetryPulse Oximetry Spot Check Respiratory Care Routine As Needed until discontinued starting 12/18/2024[facility] Comment on above:As Needed until discontinued starting 12/18/2024 End: 27-18-9977HDUIGB BODY FLUIDRappahannock General Hospital Work Phone: comment on above:One Time for 1 Occurrences starting 12/18/2024 until 12/18/2024Oxygen therapy [Minimum Data Set]Initiate Oxygen Therapy Protocol Respiratory Care Routine As Needed until discontinued starting 12/17/2024on [employer] PharmaceuticalsComment on above:As Needed until discontinued starting 12/17/2024 End: 00-41-4041FnztosymucisKtznwddodryb Procedures Routine One Time for 1 Occurrences starting 12/17/2024 until 12/17/2024on [employer] PharmaceuticalsComment on above:One Time for 1 Occurrences starting 12/17/2024 until 12/17/2024Patient referralLicking Memorial Hospital Work Phone: End: 76-10-1378SSRDLLAT PATHOLOGY REPORTSURGICAL PATHOLOGY REPORT Lab Routine Once for 1 Occurrences starting 12/18/2024 until 12/18/2024on [employer] PharmaceuticalsTexas County Memorial Hospitalment on above:Once for 1 Occurrences starting 12/18/2024 until 12/18/2024[facility] Payers DatePayer CategoryPayerPolicy ID2024Self-pay2023MedicaidCARESOURCE MEDICAID [facility] MEDICAID [id number] 2022-Present [phone] [address] [place] [address] [id number] [id number] 2..1.002366.3.57[id number] 2..1.481519.3.57[id number] 2..1.081985.3.57[id number] 2..1.988579.3.57[id number] 2..1.820947.3.57[id number] 2.840.1.692633.3.57[id number] 2.840.1.243047.3.57[id number] 2.840.1.613783.3.57[id number] 2.840.1.838024.3.57[id number] 2.840.1.861250.3.57[id number] 2.0.1.017682.3.579.[id number] 2.0.1.659550.3.579.[id number] 2.840.1.093188.3.57[id number] 2.0.1.442004.3.579.2.15343-30-6193Xoqmlpj2116105717271-44-3429Wmzklyt [id number] 2..1.0[id number] 2.0.1.775137.3.579.2.531 Social History DateTypeDetailFacilityTobacco smoking status NHISTobacco smoking consumption unknownK[facility] Work Phone: Start: 74-63-8690Sso Assigned At BirthNot on file [facility]: 03-12-1981 End: 51-02-2762Jxjycxd smoking status NHISSmokes tobacco dailyK[facility]tering Health [facility] Start: 62-40-3858Enhzxcj of tobacco useCigarette SmokerMartins Ferry Hospitaltart: 08-14-2022 End: 78-68-6192Bpgkhhhvyx smoked current (pack per day) - Reported0.9CMercy Health St. [facility] Hospitaltart: 08-14-2022 End: 24-89-4588Tllkpvt use and exposureSmokeless tobacco non-userMartins Ferry Hospitaltart: 08-14-2022 End: 94-66-2189Cgvdyjy intakeCurrent drinker of alcohol (finding)[facility] Hospitaltart: 69-44-8110Vadxwab CommentoccasCMercy Health St. [facility] Hospitaltart: 09-16-2022 End: 80-17-8168Escmqhb use panelAultman Hospital Score (1-100), lower number is lower gfys83NprlwidsxMartins Ferry Hospitaltart: 26-44-0552NhoPoagur (finding) [facility]: 71-16-8673Gnt [facility]igned At [facility] HospitalIn the past 12 months, was there a time when you were not able to pay the mortgage or rent on time?NoRappahannock General Hospital (I/We) worried whether (my/our) food would run out before (I/we) got money to buy more.Never [facility] HospitalNEGATED: Highlighted [facility] Medical Equipment Procedure CodeEquipment CodeEquipment Original TextEquipment IdentifierDatesLens Mics Akreos 6mm +21 Diopter Biconvex 26% Hydrophilic Acrylic 10.7mm - [id number]: 09-15-2022 Clinical Notes 09-29-2021 to 01-21-2025 Note Date & XshiTgthJueaadau30-41-7878 NotePROCEDURE: ULTRASOUND-GUIDED PARACENTESIS 01/21/2025 HISTORY: ORDERING SYSTEM PROVIDED HISTORY: Alcohol-induced chronic pancreatitis (HCC) TECHNOLOGIST PROVIDED HISTORY: Does fluid need testing? If yes, please place LAB Orders.->No Is the procedure for Diagnostic or Therapeutic reasons?->Therapeutic TECHNIQUE: This procedure was performed by Andrew Kay PA-C under indirect supervision of . Informed consent was obtained after a detailed explanation of the procedure including the risks, benefits, and alternatives. Clifton protocol was followed. Sterile barrier technique was [...] fluid pocket was accessed with a 5 Burundian Yueh needle with aspiration of clear yellow fluid. Josue vacuum machine was connected and paracentesis was performed and approximately 4900 mL were removed. Post procedural ultrasound demonstrated no significant residual fluid. A sample was not requested to be sent for laboratory analysis. Estimated blood loss was minimal. Albumin replacement was ordered. The patient tolerated the procedure well and left the department in good condition. FINDINGS: Limited ultrasound of the abdomen demonstrates ascites. A total of 4900 mL of clear yellow fluid was removed. IMPRESSION: Successful ultrasound-guided therapeutic paracentesis. Interpreted by: Judy Ley MD Redfox, Jacob, PA Signed by: Judy Ley MD 01/21/25 Final resultWestern Reserve Hospital11-05-2025 History of Present illness Narrative* Marixa Aguilera RN - 01/14/2025 3:30 PM EST Pre-op Instructions For Out-Patient Endoscopy Surgery Medication Instructions: Please stop herbs and any supplements now (includes vitamins and minerals). For these GLP-1 medications: Dulaglutide (Trulicity), Exenatide (Byetta and Bydureon, Liraglutide (Victoza), Lixisenatide (Adlyxin), Semaglutide (Ozempic and Rybelsus), Tirzepatide (Mounjaro, Zepbound,Wegovy)- Anesthesia recommends to stop 1 week prior if taking weekly or 1 day prior if taking every 12 hours or daily. Please contact PCP if you have difficulty managing blood sugar for further instructions. For these SGLT-2 medications: Canagliflozin (Invokana), Dapagliflozin (Farxiga), Empagliflozin (Jardiance), Ertugliflozin (Steglatro), Bexagliflozin (Brenzavvy)- Anesthesia recommends to stop 3 days prior to surgery. Please contact PCP if you have difficulty managing blood sugar for further instructions. Please contact your surgeon and prescribing physician for pre-op instructions for any blood thinners. STOP APIXABAN AND ASPIRIN DIRECTED If you have inhalers/aerosol treatments at home, please use them the morning of your surgery and bring the inhalers with you to the hospital. Please take the following medications the morning of your surgery with a sip of water: None Surgery Instructions: After midnight before surgery: Do not eat or drink anything, including water, mints, gum, and hard candy. You may brush your teeth without swallowing. No smoking, chewing tobacco, or street drugs. Please Follow Bowel Prep instructions if given by surgeon's office Please shower or bathe before surgery. Please do not wear any cologne, lotion, powder, jewelry, piercings, perfume, makeup, nail andorran, hair accessories, or hair spray on the day of surgery. Wear loose comfortable clothing. Leave your valuables at home but bring a payment source for any after-surgery prescriptions you plan to fill at [facility]. Bring a storage case for any glasses/contacts. An adult who is responsible for you MUST remain in the hospital and drive you home and should be with you for the first 24 hours after surgery. The Day of Surgery: [facility]rive at [facility] Surgery Entrance at the time directed by your surgeon and check in at the desk. If you have a living will or healthcare power of assistant prosecuting attorney, please bring a copy. You will be taken to the pre-op holding area where you will be prepared for surgery. A physical assessment will be performed by a nurse practitioner or house nurse. Your IV will be started and you will meet your anesthesiologist. When you go to surgery, your family will be directed to the surgical waiting room, where the doctorshould speak with them after your surgery. After surgery, you will be taken to the recovery area. When you are alert and stable, you will receive instructions and be prepared for discharge. INSTRUCTIONS REVIEWED WITH JHOANA, UNDERSTANDING VERBALIZED AND NO QUESTIONS AT THIS TIME. EUS- 01/28/2025 documented in this encounterBon [facility]11-04-2025 NotePROCEDURE: ULTRASOUND-GUIDED PARACENTESIS 01/13/2025 HISTORY: ORDERING SYSTEM PROVIDED HISTORY: Alcohol-induced chronic pancreatitis (HCC) TECHNOLOGIST PROVIDED HISTORY: Does fluid need testing? If yes, please place LAB Orders.->No Is the procedure for Diagnostic or Therapeutic reasons?->Therapeutic Alcohol-induced chronic pancreatitis and Alcoholic Cirrhosis of Liver with Ascites. TECHNIQUE: This procedure was performed by Andrew Kay PA-C under indirect supervision of . Informed consent was obtained after a detailed explanation of the procedure including the risks, benefits, and alternatives. Clifton protocol was followed. Sterile barrier technique was [...] fluid pocket was accessed with a 5 Burundian Yueh needle with aspiration of clear yellow fluid. Vetiary vacuum machine was connected and paracentesis was performed and approximately 6700 mL were removed. Post procedural ultrasound demonstrated no significant residual fluid. A sample was not requested to be sent for laboratory analysis. Estimated blood loss was minimal. Albumin replacement was ordered. The patient tolerated the procedure well and left the department in good condition. FINDINGS: Limited ultrasound of the abdomen demonstrates ascites. A total of 6700 mL of clear yellow fluid was removed. [facility] [id number] NotePROCEDURE: ULTRASOUND-GUIDED PARACENTESIS 01/13/2025 HISTORY: ORDERING SYSTEM PROVIDED HISTORY: Alcohol-induced chronic pancreatitis (HCC) TECHNOLOGIST PROVIDED HISTORY: Does fluid need testing? If yes, please place LAB Orders.->No Is the procedure for Diagnostic or Therapeutic reasons?->Therapeutic Alcohol-induced chronic pancreatitis and Alcoholic Cirrhosis of Liver with Ascites. TECHNIQUE: This procedure was performed by Andrew Kay PA-C under indirect supervision of . Informed consent was obtained after a detailed explanation of the procedure including the risks, benefits, and alternatives. Clifton protocol was followed. Sterile barrier technique was [...] fluid pocket was accessed with a 5 Burundian Yueh needle with aspiration of clear yellow fluid. Josue vacuum machine was connected and paracentesis was performed and approximately 6700 mL were removed. Post procedural ultrasound demonstrated no significant residual fluid. A sample was not requested to be sent for laboratory analysis. Estimated blood loss was minimal. Albumin replacement was ordered. The patient tolerated the procedure well and left the department in good condition. FINDINGS: Limited ultrasound of the abdomen demonstrates ascites. A total of 6700 mL of clear yellow fluid was removed. IMPRESSION: Successful ultrasound-guided therapeutic paracentesis. Interpreted by: Dean Hernández MD Redfox, Jacob, PA Signed by: Dean Hernández MD 01/13/25 Final resultWestern Reserve Hospital11-04-2025 History of Present illness Narrative* Terrance Squires RN - 01/13/2025 11:00 AM EST Patient to IR for therapeutic paracentesis. JR BECKHAM at bedside. Site prepped and draped, area numbed with lidocaine. 6.7 of clear yellow fluid drained. Dry sterile drsg with tegaderm placed to site. Albumin ordered and infused. Patient tolerated well and is ambulatory from dept. documented in this encounterBon [facility]10-22-2025 NotePROCEDURE: ULTRASOUND-GUIDED PARACENTESIS 12/31/2024 HISTORY: ORDERING SYSTEM PROVIDED HISTORY: Alcoholic cirrhosis of liver with ascites (HCC) TECHNOLOGIST PROVIDED HISTORY: Does fluid need testing? If yes, please place LAB Orders.->No Is the procedure for Diagnostic or Therapeutic reasons?->Therapeutic TECHNIQUE: This procedure was performed by Andrew Kay PA-C under indirect supervision of . Informed consent was obtained after a detailed explanation of the procedure including the risks, benefits, and alternatives. Clifton protocol was followed. Sterile barrier technique was [...] fluid pocket was accessed with a 5 Burundian Yueh needle with aspiration of clear yellow fluid. Josue vacuum machine was connected and paracentesis was performed and approximately 5000 mL were removed. Post procedural ultrasound demonstrated no significant residual fluid. A sample was not requested to be sent for laboratory analysis. Estimated blood loss was minimal. Patient deferred albumin infusion. The patient tolerated the procedure well and left the department in good condition. FINDINGS: Limited ultrasound of the abdomen demonstrates ascites. A total of 5000 mL of clear yellow fluid was removed. [facility] RIS [id number] NotePROCEDURE: ULTRASOUND-GUIDED PARACENTESIS 12/31/2024 HISTORY: ORDERING SYSTEM PROVIDED HISTORY: Alcoholic cirrhosis of liver with ascites (HCC) TECHNOLOGIST PROVIDED HISTORY: Does fluid need testing? If yes, please place LAB Orders.->No Is the procedure for Diagnostic or Therapeutic reasons?->Therapeutic TECHNIQUE: This procedure was performed by Andrew Kay PA-C under indirect supervision of . Informed consent was obtained after a detailed explanation of the procedure including the risks, benefits, and alternatives. Clifton protocol was followed. Sterile barrier technique was [...] fluid pocket was accessed with a 5 Bur[place]ian Yueh needle with aspiration of clear yellow fluid. Josue vacuum machine was connected and paracentesis was performed and approximately 5000 mL were removed. Post procedural ultrasound demonstrated no significant residual fluid. A sample was not requested to be sent for laboratory analysis. Estimated blood loss was minimal. Patient deferred albumin infusion. The patient tolerated the procedure well and left the department in good condition. FINDINGS: Limited ultrasound of the abdomen demonstrates ascites. A total of 5000 mL of clear yellow fluid was removed. IMPRESSION: Successful ultrasound-guided therapeutic paracentesis. Interpreted by: Karsten Leary MD Redfox, Jacob, PA Signed by: Karsten Leary MD 12/31/24 [facility] History of Present illness Narrative* Maria Esther Mann, RINA - 12/19/2024 4:28 PM EDT Discharge instructions reviewed with patient. Patient given paper prescription for pain medication.All questions answered. No concerns at this time. Patient ambulated off unit with . * Nicole Sher RN - 12/18/2024 8:58 AM EDT Pt arrives to room for para JR PA and KP RT to bedside Site prepped and draped Access obtained and draining clear yellow fluid Tolerated well Specimen obtained Tolerated well Access removed and site covered with dsd Return to floor 3.7L removed documented in this encounterBon [facility] Hospital course Narrative* Ning Vasques MD - 12/19/2024 2:37 PM EDT Images from the original note were not included. [facility] Office: [phone] Jeancarlos Caldwell DO, Amilcar Elizondo DO, Jordan Zimemrman DO, Roman Sommers DO, Selam Ayoub MD, Angélica Vanegas MD, Davis Appiah MD, Brandan Horn MD, Hernan Link MD, Claudio Oneill MD, Kalpesh Ballesteros MD, Brooklynn Allen DO, Gogo Caldwell DO, Chrissie Montoya MD, Alistair Christianson DO, Crista Whalen MD, Ava Gomez MD, Norah Kauffman MD, Rene Waldrop MD, Shelley Tom MD,Roberto Real MD, Nisreen Pascual MD, Darrell Roebrtson MD, Shayy Martinez MD, Castillo Mann DO,Maia Mena MD, Rick Hernandez DO, Lisbeth Avila MD, Tang Chowdhury MD, Brooklynn Larson MD, Rosa Larson MD, Elkin Jorge MD, Elvia Martínez, VIDEO RENTAL CLERK, Joseline Sawant, VIDEO RENTAL CLERK, Castillo Lujan, [facility], Per[place], [facility], Bridget Henriquez, VIDEO RENTAL CLERK, Rashmi Nielsen, VIDEO RENTAL CLERK, Emy Perez, VIDEO RENTAL CLERK, Zoraida Crawford, VIDEO RENTAL CLERK, Anna Canales, PA-C, Tess Gomez, VIDEO RENTAL CLERK, Loretta Mclean, VIDEO RENTAL CLERK, Jerrica Whalen, VIDEO RENTAL CLERK, Nicole Rhodes, VIDEO RENTAL CLERK, Vahid Gilmore, PA-C, Deepti Barragan, PA-C, Denise Holloway, VIDEO RENTAL CLERK, Meli Waters, [facility], Elissa Chandra, [facility], Naty Escudero, [facility], Keisha Kaplan, [facility], Edna He, [facility], Mignon Boudreaux, [facility] IN-PATIENT SERVICE [facility] Discharge Summary Patient ID: Jhoana Lazcano : 1965 ACCOUNT: [id number] Patient's PCP: Pancho Hinojosa MD Admit Date: 12/17/2024 Discharge Date: 12/19/2024 Length of Stay: 2 Code Status: Full Code Admitting Physician: No admitting provider for patient encounter. Discharge Physician: Ning Vasques MD Active Discharge Diagnoses: Hospital Problem Lists: Principal Problem: Pancreatic mass Active Problems: Abdominal pain, generalized Alcoholism (HCC) Other ascites Portal vein thrombosis Moderate malnutrition Acute pancreatitis Alcoholic cirrhosis of liver with ascites (HCC) Resolved Problems: * No resolved hospital problems. * Admission Condition: fair Discharged Condition: fair Hospital Stay: Hospital Course: Jhoana Lazcano is a 59 y.o. female who was admitted for the management of Pancreatic mass , presented to ER with No chief complaint on file. 59-year-old female with past medical history of alcohol abuse, active smoker, alcoholic cirrhosis, alcoholic pancreatitis presented to outside hospital with abdominal distention. Patient mentioned that for the past few weeks she started noticing abdominal distention, she tried using Lasix and spironolactone at home but it was not helping with the abdominal distention. Patient has also noticed gradual weight loss since summer of this year. Patient has a epigastric abdominal pain 8/10 in intensity. Denies any chest pain or shortness of breath. Patient denies nausea. Patient has a history of portal vein thrombosis and she is on Eliquis which was recently decreased to 2.5 mg twice daily. Patient denies any blood in the stool or dark-colored stools. Patient last paracentesis was 1-1/2-year ago. Patient last alcohol drink was few months ago. Patient actively smoke less than a pack a day. Pt will need o/p EUS AND ERCP WITH STENT PER GI Can be discharged and have this outpatient per GI Significant therapeutic interventions: Significant Diagnostic Studies: Labs / Micro: CBC: Lab Results Component Value Date/Time WBC 6.8 12/18/2024 11:16 AM RBC 3.84 12/18/2024 11:16 AM HGB 11.2 12/18/2024 11:16 AM HCT 35.6 12/18/2024 11:16 AM MCV 92.7 12/18/2024 11:16 AM MCH 29.2 12/18/2024 11:16 AM MCHC 31.5 12/18/2024 11:16 AM RDW 15.8 12/18/2024 11:16 AM PLT 244 12/18/2024 11:16 AM BMP: Lab Results Component Value Date/Time GLUCOSE 102 12/19/2024 06:38 AM NA 137 12/19/2024 06:38 AM K 3.7 12/19/2024 06:38 AM CL 113 12/19/2024 06:38 AM CO2 13 12/19/2024 06:38 AM ANIONGAP 11 12/19/2024 06:38 AM BUN 10 12/19/2024 06:38 AM CREATININE 0.4 12/19/2024 06:38 AM CALCIUM 8.4 12/19/2024 06:38 AM LABGLOM >90 12/19/2024 06:38 AM LABGLOM >60 06/04/2023 06:00 AM Radiology: IR US GUIDED PARACENTESIS Result Date: 12/19/2024 Successful ultrasound-guided therapeutic/diagnostic paracentesis. MRI ABDOMEN W WO CONTRAST MRCP Result Date: 12/18/2024 1. 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 2. Short-segment stricture of the mid extrahepatic bile duct at the level of the pancreaticneck (0.9 cm), with mild pancreatic duct dilatation and atrophy at the pancreatic head/neck; no discrete mass identified, though evaluation is limited by overlying varices and portal thrombus. GI consultation is advised. 3. Findings that would raise the possibility of intrinsic liver disease given the heterogeneous enhancement pattern of slightly lobar contour with scattered areas of intrahepaticbiliary dilatation. Findings could relate to portal vein thrombosis, although the possibility of primary sclerosing cholangitis is also a consideration. Recommend correlation with liver function tests and GI consultation. Consultations: Consults: Final Specialist Recommendations/Findings: IP CONSULT TO GI IP CONSULT TO ONCOLOGY The patient was seen and examined on day of discharge and this discharge summary is in conjunction with any daily progress note from day of discharge. Discharge plan: Disposition: Home Physician Follow Up: GI in 1-2 weeks Suki Martinez MD [address] [facility], [address] [address] Follow up in 1 week(s) Suki Martinez MD [address] [place] [id number] Requiring Further Evaluation/Follow Up POST HOSPITALIZATION/Incidental Findings: Pt will need o/p EUS AND ERCP WITH STENT PER GI Can be discharged and have this outpatient per GI Diet: low fat, low cholesterol diet Activity: As tolerated Instructions to Patient: Pt will need o/p EUS AND ERCP WITH STENT PER GI Can be discharged and have this outpatient per GI Discharge Medications: Medication List CONTINUE taking these medications apixaban 5 MG Tabs tablet Commonly known as: Eliquis Take 1 tablet by mouth 2 times daily aspirin 81 MG EC tablet Take 1 tablet by mouth daily furosemide 20 MG tablet Commonly known as: Lasix Take 1 tablet by mouth daily HYDROcodone-acetaminophen 5-325 MG per tablet Commonly known as: NORCO Take 1 tablet by mouth every 6 hours as needed for Pain for up to 3 days. Max Daily Amount: 4 tablets hyoscyamine 0.125 MG sublingual tablet Commonly known as: LEVSIN/SL midodrine 10 MG tablet Commonly known as: PROAMATINE Take 1 tablet by mouth 3 times daily as needed (Monitor your blood pressure regularly, only take ifyour systolic blood pressure is less than 90 or your diastolic blood pressure is less than 50) Pancrelipase (Ffs-Djzq-Ytae) 27503-531173 units Cpep Take 2 capsules by mouth in the morning, at noon, and at bedtime pantoprazole 40 MG tablet Commonly known as: PROTONIX Take 1 tablet by mouth every morning (before breakfast) spironolactone 25 MG tablet Commonly known as: Aldactone Take 0.5 tablets by mouth daily STOP taking these medications atorvastatin 40 MG tablet Commonly known as: LIPITOR gabapentin 300 MG capsule Commonly known as: NEURONTIN Where to Get Your Medications You can get these medications from any pharmacy Bring a paper prescription for each of these medications HYDROcodone-acetaminophen 5-325 MG per tablet No discharge procedures on file. Time Spent on discharge is 35 mins in patient examination, evaluation, counseling as well as medication reconciliation, prescriptions for required medications, discharge plan and follow up. Electronically signed by Ning Vasques MD 12/19/2024 2:38 PM Thank you Pancho Yao MD for the opportunity to be involved in this patient's care. documented in this encounterBon [facility]10-10-2025 NotePROCEDURE: ULTRASOUND-GUIDED PARACENTESIS 12/18/2024 HISTORY: ORDERING SYSTEM PROVIDED HISTORY: ascites TECHNOLOGIST PROVIDED HISTORY: ascites TECHNIQUE: This procedure was performed by Andrew Kay PA-C under indirect supervision of . Informed consent was obtained after a detailed explanation of the procedure including the risks, benefits, and alternatives. Clifton protocol was followed. Sterile barrier technique was [...] fluid pocket was accessed with a 5 Burundian Yueh needle with aspiration of clear yellow fluid. Josue vacuum machine was connected and paracentesis was performed and approximately 3700 mL were removed. Post procedural ultrasound demonstrated no significant residual fluid. A sample was collected and sent for laboratory analysis. Estimated blood loss was minimal. The patient tolerated the procedure well and left the department in good condition. FINDINGS: Limited ultrasound of the abdomen demonstrates ascites. A total of 3700 mL of clear yellow fluid was removed. [facility] [id number] NotePROCEDURE: ULTRASOUND-GUIDED PARACENTESIS 12/18/2024 HISTORY: ORDERING SYSTEM PROVIDED HISTORY: ascites TECHNOLOGIST PROVIDED HISTORY: ascites TECHNIQUE: This procedure was performed by Andrew Kay PA-C under indirect supervision of . Informed consent was obtained after a detailed explanation of the procedure including the risks, benefits, and alternatives. Clifton protocol was followed. Sterile barrier technique was [...] fluid pocket was accessed with a 5 Burundian Yueh needle with aspiration of clear yellow fluid. Josue vacuum machine was connected and paracentesis was performed and approximately 3700 mL were removed. Post procedural ultrasound demonstrated no significant residual fluid. A sample was collected and sent for laboratory analysis. Estimated blood loss was minimal. The patient tolerated the procedure well and left the department in good condition. FINDINGS: Limited ultrasound of the abdomen demonstrates ascites. A total of 3700 mL of clear yellow fluid was removed. IMPRESSION: Successful ultrasound-guided therapeutic/diagnostic paracentesis. Interpreted by: Dean Hernández MD Redfox, Jacob, PA Signed by: Dean Hernández MD 12/19/[address] [facility]-2025 Radiology Diagnostic study [facility] [place] [address] [place] [address] CT Scan Report Signed Patient: Jhoana Lazcano MR# : [id number] : 1965 Acct:[id number] Age/Sex: 59 / F ADM Date: 5 Loc: ER Room: Type: [facility] ER Attending Dr: Copies to: Liliam Zayas DO~ Ordering Provider: Liliam Zayas DO Date of Service: 12/17/24 CT/CT abdomen pelvis w con: abd pain, ascites, pancreatitis CT ABDOMEN AND PELVIS WITH INTRAVENOUS CONTRAST: CLINICAL HISTORY: Abdominal pain, ascites, pancreatitis COMPARISON: None TECHNIQUE: Spiral images were obtained through the abdomen and pelvis followingthe administration of intravenous contrast. This CT exam was performed using one or more following dose reduction techniques: Automated exposure control, adjustment of the mA and/or kV according to patient size, or use of iterative reconstruction technique. FINDINGS: Lung Bases: [Minimal bibasilar atelectasis and or scarring.] Organs:Heterogeneous liver parenchymal predominantly today's examination with likely areas geographic fatty sparing. There is low-attenuation within the portal venous system suggestive of extensive thrombus, age-indeterminate. 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 Suspected thrombus within the splenic vein near the main portal vein.. Pancreatic body hypoattenuation identified 2.6 x 2.8 cm in size this is causing distal pancreatic duct dilatation and worrisome for neoplastic process. GI: Small hiatal hernia. [id number]-cs-refoaypq stool burden. No definite bowel obstruction. Colonic diverticulosis noted distal sigmoid colon. Pelvis:[Uterus, adnexa and bladder grossly unremarkable.] Peritoneum/Retroperitoneum:Moderate to large burden of ascites. No free air. Moderate to severe diffuse atherosclerotic disease involving the aorta extendingto the iliac vasculature.[Nodular soft tissue anterior abdominal wall favor omentum rather than omental caking or mesenteric implants. Abd wall/Bones:Levocurvature of the lumbar spine. Multilevel degenerative changes. No suspicious osseous lesion.[ CT/CT abdomen pelvis w con IMPRESSION: Moderate to large burden of ascites. 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 This may account for the heterogeneous liver enhancement. Please correlate with liver function tests. Impression dictated by: Shukri Hunter M.D. 12/17/2024 4:55 PM Dictation Location: [place] [address] Transcribed By: THA 12/17/241654 Dictated By: Shukri Hunter MD 12/17/241635 Signed By: 12/17/241654 [facility] Work Phone: [phone]) 401-665704-26-2024 NoteUnable to reach patient by phone or leave a message for her to call and schedule an office visit with Dr. Austin Duque, referral received from Dr. Pancho Hinojosa's office dated 05-22-23. Letter mailed for patient to schedule an appointment. [facility]08-10-2023 NoteHNO ID: [id number] Author: Carmelo Bernstein MD Service: ? Author [...] MD Vitreoretinal Surgery AND Ocular Inflammatory Diseases [facility]07-13-2023 Note HNO ID: [id number] Author: Carmelo Bernstein MD Service: ? Author [...] MD Vitreoretinal Surgery AND Ocular Inflammatory Diseases [facility]07-13-2023 Instructions* Patient Instructions* Carmelo Bernstein MD - 09/21/2022 1:56 PM [...] and ask to speak with the on-call drafter electromechanical. *If you notice any changes in your vision please call immediately If there are any questions or concerns please contact [place] - Sun-Fri 8am-5pm [phone] - After 5pm Mon-Fri or Weekends please call [phone] or ext [phone] - Ask for the Eye Doctor production planning manager documented in [facility] History of Present illness Narrative* Carmelo Bernstein MD - 09/21/2022 1:43 PM EDT # Dislocated crystalline lens, left eye - [...] as stated above and agree with all ofits relevant components. Carmelo Bernstein MD Vitreoretinal Surgery & Ocular Inflammatory Diseases [facility] documented in this encounterK[facility]07-07-2023 NoteHNO ID: [id number] Author: Andrew Shoemaker MD Service: ? Author [...] at 1:[address] Bernstein in [place] Prior note (unmodified): Dislocated crystalline lens, left [...] with all of its relevant components. Andrew Shoemaker, [facility]07-05-2023 Miscellaneous Notes* Telephone Encounter - Josefina Monk - 09/13/2022 1:16 PM EDT Surgery rescheduled on 09/29/22, pt understands if she cancels last minute again we won't be able toreschedule. Needs refill of Latanoprost, dorzolamide, brimonidine and cyclo. Please send to [facility] in [place]. Ivett Parada documented in this encounterKettering [facility]07-01-2023 NoteHNO ID: [id number] Author: Carmelo Bernstein MD Service: ? Author [...] MD Vitreoretinal Surgery AND Ocular Inflammatory Diseases [facility]07-01-2023 History of Present illness Narrative* Carmelo Bernstein MD - 09/09/2022 12:15 PM EDT Patient had surgery scheduled yesterday 09/08/22 with myself for a dislocated crystalline lens stillwithin the capsular bag. Surgery was to include pars plana vitrectomy, frag, and secondary intraocular lens insertion. Pre-op discussion was routine. Yesterday patient cancelled surgery. Did not callto cancel surgery but upon not showing up to the OR, OR nurses had called patient and she expressedanxiety and decided not to come in for the case. Patient told about the importance of surgery to improve vision and will be offered future date if she would like to proceed. Carmelo Bernstein MD Vitreoretinal Surgery & Ocular Inflammatory Diseases [facility] documented in this encounterK[facility]06-05-2023 NoteHNO ID: [id number] Author: Carmelo Bernstein MD Service: ? Author [...] MD Vitreoretinal Surgery AND Ocular Inflammatory Diseases [facility]06-05-2023 Instructions* Patient Instructions* Carmelo Bernstein MD - 08/14/2022 4:35 PM [...] 30 days before your surgery. My surgical aide will be contacting you to schedulethis appointment. Your exact time of surgery will not be determined until the day before surgery. My surgical aide will call you the day before your surgery to advise you what time to arrive at the [facility] on the first floor at the [facility]. My surgical aide is Ivett Parada, Please do no wear [...] condition between the time you were scheduled forsurgery and the date of surgery. Your surgery [...] in the morning. They will let you knowexactly what time on the day of surgery when they meet you. Your appointment sheet may say 8 AM but this is usually a placeholder. It will be at the [facility] on the 2nd floor. We will review all your instructions at your appointment the day after surgery. documented in this encounterKettering [facility]06-05-2023 History of Present illness Narrative* Carmelo Bernstein MD - 08/14/2022 2:45 PM EDT Dislocated crystalline lens, left eye Vitreous hemorrhage, [...] Ocular HTN, left eye - IOP 46 5/27/23 - IOP better today - Meds: - [...] as stated above and agree with all ofits relevant components. Carmelo Bernstein MD Vitreoretinal Surgery & Ocular Inflammatory Diseases [facility] documented in this encounterK[facility]tering [facility]05-29-2023 NoteHNO ID: [id number] Author: Morris Laws MD Service: ? Author [...] MPhil Vitreoretinal Surgery AND Ocular Inflammatory Diseases [place]05-29-2023 History of Present illness Narrative* Morris Laws MD - 08/07/2022 12:11 PM EDT Dislocated lens, left eye Vitreous hemorrhage, left [...] discussed with Dr. Shoemaker documented in this encounterK[facility]tering [facility]11-09-2022 NotePROCEDURE: XR ANKLE LT MIN 3 V HISTORY: [...] Electronically authenticated by: TUCKER OCAMPO Date: 2022-01-18 15:50[facility]10-13-2022 NotePROCEDURE: XR ANKLE LT MIN 3 V, XR [...] Electronically authenticated by: VEENA HERRERA Date: 2021-12-22 18:55[facility]10-13-2022 NotePROCEDURE: XR ANKLE LT MIN 3 V, XR [...] Electronically authenticated by: VEENA HERRERA Date: 2021-12-22 18:55[facility]09-15-2022 NotePROCEDURE: XR ANKLE LT MIN 3 V COMPARISON: [...] Electronically authenticated by: VEENA HERRERA Date: 2021-11-24 11:15[facility]08-18-2022 NotePROCEDURE: XR ANKLE LT MIN 3 V, XR [...] Electronically authenticated by: TUCKER OCAMPO Date: 2021-10-27 12:21[facility]08-18-2022 NotePROCEDURE: XR ANKLE LT MIN 3 V, XR [...] Electronically authenticated by: TUCKER OCAMPO Date: 2021-10-27 12:21[facility]07-21-2022 NotePROCEDURE: XR ANKLE LT MIN 3 V, XR [...] Electronically authenticated by: VEENA HERRERA Date: 2021-09-29 14:24[facility]07-21-2022 NotePROCEDURE: XR ANKLE LT MIN 3 V, XR [...] Electronically authenticated by: VEENA HERRERA Date: 2021-09-29 14:24[facility] note* Diagnosis 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- Primary Posterior dislocation of lens documented in this encounter [facility] note* Diagnosis 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- Primary Posterior dislocation of lens 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 [facility] Of [facility] Work Phone: Evaluation note* Diagnosis Pancreatic mass- Primary Unspecified disease of pancreas Abdominal pain, generalized Idiopathic acute pancreatitis without infection or necrosis Acute pancreatitis Alcoholism (HCC) Other and unspecified alcohol dependence, unspecified drinking behavior Portal vein thrombosis Other ascites Moderate malnutrition Malnutrition of moderate degree Alcoholic cirrhosis of liver with ascites (HCC) Alcoholic cirrhosis of liver Abdominal pain, generalized [facility]* Diagnosis Alcohol-induced chronic pancreatitis (HCC)- Primary Chronic pancreatitis Alcoholic cirrhosis of liver with ascites (HCC) Alcoholic cirrhosis of liver Alcohol-induced chronic pancreatitis (HCC) Chronic pancreatitis documented in this encounter [facility]* Diagnosis Alcohol-induced chronic pancreatitis (HCC)- Primary Chronic pancreatitis Alcohol-induced chronic pancreatitis (HCC) Chronic pancreatitis Alcoholic cirrhosis of liver with ascites (HCC) Alcoholic cirrhosis of liver Alcohol-induced chronic pancreatitis (HCC) Chronic pancreatitis [facility] for [facility] (narrative)No reason for referral information availableSt[facility] Work Phone: [facility] for visit Narrative* Auth/Cert (Routine) SpecialtyDiagnoses / ProceduresReferred By ContactReferred To Contact Diagnoses Pancreatic mass [facility] Renal//Med Surg [address] [place] [address] Phone: tel: [facility] [address] [place] [address] Referral IDStatusReasonStart DateExpiration DateVisits RequestedVisits [id number] [facility] for visit Narrative* Imaging (Routine) - Open SpecialtyDiagnoses / ProceduresReferred By ContactReferred To ContactRadiology Diagnoses Alcoholic cirrhosis of liver with ascites (HCC) Procedures US GUIDED PARACENTESIS IR US GUIDED PARACENTESIS Elbert Smiley MD [address] [place] [address] Phone: tel: fax: Referral IDStatusReasonStart DateExpiration DateVisits RequestedVisits [id number] [facility] for visit Narrative* Imaging (Routine) - Not Required - RTASpecialtyDiagnoses / ProceduresReferred By ContactReferred To ContactRadiology Diagnoses Alcohol-induced chronic pancreatitis (HCC) Alcoholic cirrhosis of liver with ascites (HCC) Procedures IR US GUIDED PARACENTESIS Elbert Smiley MD [address] [place] [address] Phone: tel: fax: Referral IDStatusReasonStart DateExpiration DateVisits RequestedVisits [id number] Required - RTA/ [facility] Summary Purpose Family History No Family History Records FoundNo Family History Records FoundNo Family History Records FoundNo Family History Records FoundNo Family History Records FoundNo Family History Records FoundNo Family History Records Found Advance Directives No Advanced Directives Records Found Date ActivatedDate AyanpjdavmfKtkztocg91/8/2025 11:01 PM10 6:31 PMDate ActivatedDate InactivatedComments05/31/2023 6:32 PM3 6:14 PMDate ActivatedDate InactivatedComments05/03/2023 9:09 05/09/2023 5:07 PM Advance Directive Response Recorded Date/ Time Advance Directives No May 28, 2 024 9:13am Date ActivatedDate NlctdfgbepnLmvstdvh42/8/2025 11:01 PMDate ActivatedDate EpujuvmpknjFlapgsrs95/8/2025 11:01 PM10 6:31 PMDate ActivatedDate InactivatedComments05/31/2023 6:32 PM06/05/2023 6:14 PMDate ActivatedDate InactivatedComments05/03/2023 9:09 PM2 5:07 PM Medications Administered Section Medication OrderMAR ActionAction DateDoseRateSite fluorescein-benoxinate 0.25-0.4 % 1 Drop (FLURESS) 1 Drop, BOTH EYES, DIRECTED, Starting on Sun08/14/22 at 1500, Until Sun08/15/22 at 0259, Administer for applanation tonometry. In the event of a Fluress shortage, administer Concord-Fluor 1 drop into both eyes as directed for applanation tonometry, [facility] MED ORDERS Given08/14/2022 2:48 PM EDT1 Drop PHENYLephrine 2.5 % 1 Drop (AK-DILATE, NISHA-SYNEPHRINE) 1 Drop, BOTH EYES, DIRECTED, Starting on Sun08/14/22 at 1500, Until Sun08/15/22 at 0259, Administer for dilation PROTECT FROM LIGHT, [facility] MED ORDERS Given08/14/2022 2:48 PM EDT1 Drop tropicamide 1 % 1 Drop (MYDRIACYL) 1 Drop, BOTH EYES, DIRECTED, Starting on Sun08/14/22 at 1500, Until Sun08/15/22 at 0259, Administer for dilation, [facility] MED ORDERS Given08/14/2022 2:48 PM EDT1 DropMedication OrderMAR ActionAction DateDoseRate Site PHENYLephrine 2.5 % 1 Drop (AK-DILATE, NISHA-SYNEPHRINE) 1 Drop, BOTH EYES, DIRECTED, Starting on Randi 09/21/22 at 1330, Until Sun09/22/22 at 0129, Administer for dilation PROTECT FROM LIGHT Given09/21/2022 1:30 PM EDT1 Drop proparacaine 0.5 % 1 Drop (ALCAINE) 1 Drop, BOTH EYES, DIRECTED, Starting on Randi 09/21/22 at 1330, Until Sun09/22/22 at 0129, Administer for pneumo tonometry, tonopen tonometry, or pachymetry. In the event of a proparacaine shortage,administer tetracaine 0.5% ophthalmic drops 1 drop in both eyes as directed for pneumo tonometry, tonopen tonometry, or pachymetry Given09/21/2022 1:30 PM EDT1 Drop tropicamide 1 % 1 Drop (MYDRIACYL) 1 Drop, BOTH EYES, DIRECTED, Starting on Randi 09/21/22 at 1330, Until Sun09/22/22 at 0129, Administer for dilation Given09/21/2022 1:30 PM EDT1 Drop Chief Complaint and Reason for Visit Chief Complaint Admit Date abd pain December 17, 2024 11 :56am Additional Source Comments Source Comments (unrecognize d section and content) In the event this informatio n is protected by the Federal Confidentiality of Alcohol and Drug Abuse Patient Records regulations: The Federal rules restrict any use of the information to criminally investigate or prosecute any alcohol or drug abuse patient.[facility] Township[facility] the event this information is protected by the Federal Confidentiality of Alcohol and Drug Abuse Patient Records regulations: The Federal rules restrict any use of the information to criminally investigate or prosecute any alcohol or drug abuse patient.[facility] TownshipIn the event this information is protected by the Federal Confidentiality of Alcohol and Drug Abuse Patient Records regulations: The Federal rules restrict any use of the information to criminally investigate or prosecute any alcohol or drug abuse patient.[facility] TownshipIn the event this information is protected by the Federal Confidentiality of Alcohol and Drug Abuse Patient Records regulations: The Federal rules restrict any use of the information to criminally investigate or prosecute any alcohol or drug abuse patient.[facility] TownshipIn the event this information is protected by the Federal Confidentiality of Alcohol and Drug Abuse Patient Records regulations: The Federal rules restrict any use of the information to criminally investigate or prosecute any alcohol or drug abuse patient.[facility] TownshipIn the event this information is protected by the Federal Confidentiality of Alcohol and Drug Abuse Patient Records regulations: The Federal rules restrict any use of the information to criminally investigate or prosecute any alcohol or drug abuse patient.[facility] Reason for Visit (unrecogniz ed section and content) ReasonCommentsEye Pain Left EyeReasonCommentsDislocated Lens EvaluationReason CommentsSchedule SurgeryReasonCommentsPost-Op Visits/p PPV/PPL/frag/Akreos OS (09/15/22) INFORMATION SOURCE (unrecogn ized section and content) DATE CREATED AUTHOR 08/20/2022 [facility] DATE CREATED AUTHOR AUTHOR'S ORGANIZ ATION 10/20/2022 [facility] DATE CREATED AUTHOR AUTHOR'S ORGANIZ ATION 05/25/2023 [facility] DATE CREATED AUTHOR AUTHOR'S ORGANIZ ATION 07/08/2023 [facility] DATE CREATED AUTHOR AUTHOR'S ORGANIZ ATION 12/29/2024 [facility] DATE CREATED AUTHOR AUTHOR'S ORGANIZ ATION 01/19/2025 [facility] DATE CREATED AUTHOR AUTHOR'S ORGANIZ ATION 01/23/2025 [facility] Care Teams (unrecognized sec tion and content) Team Status: Active Member Role Status Dates Pancho Hinojosa MD Primary Care Provider Active Team Status: Inactive Member Role Status Dates Pancho Hinojosa MD Primary Care Provider Active Start: December 17, 2024 End: December 17, 2024PaBritton Leiva ProviderActiveStart: December 17, 2024 End: December 17, 2024Team MemberRelationshipSpecialtyStart DateEnd Date Pancho Hinojosa MD [address] [place] [address] PCP - GeneralFamily Ptwnbwrn29/8/25Team MemberRelationshipSpecialtyStart DateEnd Date Pancho Hinojosa MD [address] [place] [address] PCP - GeneralFamily Fpchywzm12/8/25Team MemberRelationshipSpecialtyStart [place] [address] [place] [id number] PCP - GeneralFamily Jkizbvri04/8/25Team MemberRelationshipSpecialtyStart End Pancho Hinojosa MD [address] [place] [address] PCP - GeneralFamily Ierlgqgs40/8/25 Goals (unrecognized section and content) Goals may be documented in a n alternate section Ordered Prescriptions (unrec ognized section and content) PrescriptionSigDispense QuantityRefillsLast FilledStart DateEnd HYDROcodone-acetaminophen (NORCO) 5-325 MG per tablet Indications:Idiopathic acute pancreatitis without infection or necrosisTake 1 tablet by mouth every 6 hours as needed for Pain for up to 3 days. Max Daily Amount: 4 tablets 9 tablet / Scheduled Active and Recently Administ ered Medications (unrecognized section and content) Medication Order/ aspirin EC tablet 81 mg 81 mg, Oral, DAILY, First dose on Sun12/18/24 at 0900, Until Discontinued, Do not crush or break., On hold since Sun12/17/2024 at 2302 until manually unheld * 2302 (Held by provider - Provider: ALAYNA Bryant NP - Reason: Other) * 0900 (Automatically Held - Provider: ALAYNA Bryant NP) * 0900 (Automatically Held - Provider: ALAYNA Bryant NP) enoxaparin Sodium (LOVENOX) injection 30 mg 30 mg, SubCUTAneous, DAILY, First dose on Sun12/18/24 at 0900, Until Discontinued, Indication of Use: Prophylaxis-DVT/PE * 0844 (Not Given - Provider: Jennifer Rosado RN - Reason: Contraindicated - Comment: Hold per IR for procedure) * 0958 (Not Given - Provider: Maria Esther Mann RN - Reason: Contraindicated - Comment: possibleprocedure today) HYDROmorphone (DILAUDID) tablet 1 mg (COMPLETED) 1 mg, Oral, Once, 1 dose, On Randi 12/18/24 at 0000 * 0403 (Given - Provider: Lennox Enriquez RN) pantoprazole (PROTONIX) 40 mg in sodium chloride (PF) 0.9 % 10 mL injection 40 mg, IntraVENous, DAILY, First dose on Randi 12/18/24 at 0900, Reconstitute each 40 mg vial with 10 mL of 0.9% sodium chloride and administer each 40 mg vial over at least 2 minutes. * 1012 (Given - Provider: Stacy Rodriguez) * 0951 (Given - Provider: Maria Esther Mann, RINA) sodium chloride flush 0.9 % injection 5-40 mL 5-40 mL, IntraVENous, EVERY 12 HOURS SCHEDULED (2 times per day), First dose on Sun12/17/24 at 2330, Until Discontinued, For Line Patency: Peripheral IV = 5 mL; Midline or Central Line = 10 mL/lumen.If following IV push medication, administer flush at same rate as the IV push. Flush volume is determined by type of infusion therapy being given. For non-viscous solutions use: Peripheral IV = 5 mL Midline or Central Line = 10 mL/lumen For viscous solutions (i.e. blood components, parenteral nutrition, contrast media, or after obtaining blood sample) use: Peripheral IV = 10 mL Midline or CentralLine = 20 mL/lumen * 2345 (Given - Provider: Lennox Enriquez RN) * 0844 (Not Given - Provider: Jennifer Rosado RN - Reason: IV Fluid Infusing) * 194 (Given - Provider: Lennox Enriquez, RINA) * 0800 (Not Given - Provider: Maria Esther Mann, RINA - Reason: IV Fluid Infusing) * 2100 (Due) Medication Order/ lactated ringers infusion IntraVENous, at 100 mL/hr, CONTINUOUS, Starting on Sun12/17/24 at 2330, For 24 hours, Complete lastbag that is running at 24 hours and then saline lock IV * 2345 (New Bag - Provider: Lennox Enriquez RN) * 0008 (Rate/Dose Verify - Provider: Lennox Enriquez, RINA) * 0104 (Paused - Provider: Lennox Enriquez, RINA) * 0205 (Restarted - Provider: Lennox Enriquez RN) * 0923 (Paused - Provider: Lennox Enriquez RN) * 0935 (Restarted - Provider: Lennox Enriquez RN) * 1026 (Stopped - Provider: Lennox Enriquez RN) * 1026 (New Bag - Provider: Stacy Rodriguez) * 1532 (Paused - Provider: Lennox Enriquez RN) * 1633 (Paused - Provider: Lennox Enriquez, RINA) * 1742 (Restarted - Provider: Lennox Enriquez RN) * 2310 (Rate/Dose Verify - Provider: Lennox Enriquez RN) * 0520 (Rate/Dose Verify - Provider: Lennox Enriquez RN) Medication Order/12/2024 0.9 % sodium chloride infusion IntraVENous, at 5-250 mL/hr, PRN, if patient receiving piggyback infusions and maintenance fluids are not ordered OR KVO fluids to protect IV site / prevent frequent line interruptions/ long duration, Starting on Sun12/17/24 at 2259, For piggyback infusion, administer at same rate as piggyback for a total of 25 mL. Enter 25 mL into dose field and piggyback rate into rate field of order. If piggyback is infusing at a rate less than 100 mL/hr, enter 25 mL into dose field and 100 mL/hr into rate field of order. For KVO fluids, enter rate of 20 mL/hr or less into rate field of order. * 0215 (New Bag - Provider: Lennox Enriquez RN) * 0216 (Rate/Dose Verify - Provider: Lennox Enriquez RN) * 0316 (Rate/Dose Verify - Provider: Lennox Enriquez RN) * 0320 (Stopped - Provider: Lennox Enriquez RN) * 0421 (Restarted - Provider: Lennox Enriquez RN) * 0424 (Paused - Provider: Lennox Enriquez RN) * 0524 (Restarted - Provider: Lennox Enriquez RN) * 0529 (Stopped - Provider: Luke W Buckenmeyer, RN) * 0629 (Restarted - Provider: Lennox Enriquez RN) * 0650 (Paused - Provider: Lennox Enriquez RN) * 0750 (Restarted - Provider: Lennox Enriquez RN) * 1016 (Stopped - Provider: Lennox Enriquez RN) acetaminophen (TYLENOL) suppository 650 mg(Linked Group 1) 650 mg, Rectal, EVERY 6 HOURS PRN, Starting on Sun12/17/24 at 2259, Until Discontinued, Pain Mild (1-3) OR per patient request for pain score (4-10), Fever, For temp greater than 100.4 F (38 C), Administer if oral route cannot be used. acetaminophen (TYLENOL) tablet 650 mg(Linked Group 1) 650 mg, Oral, EVERY 6 HOURS PRN, Starting on Sun12/17/24 at 2259, Until Discontinued, Pain Mild (1-3) OR per patient request for pain score (4-10), Fever, For temp greater than 100.4 F (38 C), Maximum dose of acetaminophen is 4000 mg from all sources in 24 hours. bisacodyl (DULCOLAX) suppository 10 mg 10 mg, Rectal, DAILY PRN, Starting on Sun12/17/24 at 2259, Until Discontinued, Constipation, Secondline therapy for constipation, After 24 hours, if no result from first line PRN therapy, give second line therapy in combination with first line therapy. gadoteridol (PROHANCE) injection 8 mL (COMPLETED) 8 mL, IntraVENous, IMG ONCE PRN, 1 dose, Starting on Sun12/18/24 at 1747, Until Sun12/18/24 at 1747, Other * 1747 (Given - Provider: Elie Escobar) HYDROmorphone (DILAUDID) injection 0.5 mg(Linked Group 2) 0.5 mg, IntraVENous, EVERY 4 HOURS PRN, Starting on Sun12/19/24 at 0926, Until Discontinued, Pain Moderate (4-6) OR per patient request for pain score (7-10), If oral and IV narcotics ordered, use oral first and only use IV if oral is ineffective or cannot take oral. Do Not give oral and IV within1 hour of each other unless specifically ordered. * 0947 (See Alternative - Provider: Maria Esther Mann, RN) * 1354 (See Alternative - Provider: Maria Esther Mann, RINA) HYDROmorphone (DILAUDID) injection 1 mg(Linked Group 2) 1 mg, IntraVENous, EVERY 4 HOURS PRN, Starting on Sun12/19/24 at 0926, Until Discontinued, Pain Severe (7-10), If oral and IV narcotics ordered, use oral first and only use IV if oral is ineffectiveor cannot take oral. Do Not give oral and IV within 1 hour of each other unless specifically ordered. * 0947 (Given - Provider: Maria Esther Mann, RN) * 1354 (Given - Provider: Maria Esther Mann, RN) LORazepam (ATIVAN) injection 0.5 mg 0.5 mg, IntraVENous, ONCE PRN, 1 dose, Starting on Randi 12/18/24 at 1331, Until Discontinued, Anxiety, For MRI, Immediately prior to intravenous use, lorazepam Injection must be diluted with at least an equal volume of compatible solution (NS or D5W). * 1510 (Not Given - Provider: Jennifer Rosado RN - Reason: Medication not available - Comment: hospital out of med. pharmacy called. pt states they are ok to go to MRI without.) magnesium sulfate 2000 mg in 50 mL IVPB premix 2,000 mg, IntraVENous, at 25 mL/hr, Administer over 2 Hours, PRN, Other, Magnesium Replacement, Starting on Sun12/17/24 at 2259, Mag Lab Replacement Action 1.4-1.6 mg/dL 2,000 mg Total Dose Given as 1,000 mg IVPB x 2 doses or 2,000 mg IVPB x 1 dose 1.0-1.3 mg/dL 4,000 mg Total Dose Given as 1,000 mg IVPB x 4 doses or 2,000 mg IVPB x 2 doses Less than 1.0 mg/dL CALL PHYSICIAN and give 4,000 mg Total Dose Given as 1,000 mg IVPB x 4 doses or 2,000 mg IVPB x 2 doses Infuse at 1,000 mg/hr consecutively Repeat Mag level 1 hour after final administration Protocol not for use in Patients with CrCl less than 30ml/min morphine (PF) injection 2 mg (CANCELED) 2 mg, IntraVENous, EVERY 4 HOURS PRN, Starting on Sun12/17/24 at 2301, Until Sun12/19/24 at 0930, Pain Moderate (4-6) OR per patient request for pain score (7- 10), Pain Severe (7-10), If oral and IVnarcotics ordered, use oral first and only use IV if oral is ineffective or cannot take oral. Do Not give oral and IV within 1 hour of each other unless specifically ordered. * 2348 (Given - Provider: Lennox Enriquez RN) * 0653 (Given - Provider: Lennox Enriquez RN) * 1116 (Given - Provider: Stacy Rodriguez) * 1510 (Given - Provider: Jennifer Rosado, RINA) * 1941 (Given - Provider: Lennox Enriquez RN) * 0410 (Given - Provider: Lennox Enriquez RN) ondansetron (ZOFRAN) injection 4 mg(Linked Group 3) 4 mg, IntraVENous, EVERY 6 HOURS PRN, Starting on Sun12/17/24 at 2259, Until Discontinued, Nausea, Vomiting, Administer if oral route cannot be used. ondansetron (ZOFRAN-ODT) disintegrating tablet 4 mg(Linked Group 3) 4 mg, Oral, EVERY 8 HOURS PRN, Starting on Sun12/17/24 at 2259, Until Discontinued, Nausea, Vomiting polyethylene glycol (GLYCOLAX) packet 17 g 17 g, Oral, DAILY PRN, Starting on Sun12/17/24 at 2259, Until Discontinued, Constipation, First line therapy for constipation potassium bicarb-citric acid (EFFER-K) effervescent tablet 40 mEq(Linked Group 4) 40 mEq, Oral, PRN, Starting on Sun12/17/24 at 2259, Until Sun01/03/25 at 2258, Per Potassium Replacement Protocol, Administer as alternative if patient unable to tolerate oral tablet. K Lab Replacement Action 3.1 to 3.5 40 mEq ORAL x 1 Under 3.1 Refer to IV replacement protocol Recheck K level in AM. Protocol not for use in patients with CrCl less than 30 mL/min. Do not chew or crush. Dissolve flavored tablets completely in 3 to 4 ounces of cold water; unflavored tablets may be dissolved in 3 to 4 ounces of cold juice. Patient to sip slowly over a 5 to 10 minute period. May further dilute ifGI adverse effects occur. * 0104 (See Alternative - Provider: Lennox Enriquez, RINA) * 0205 (See Alternative - Provider: Lennox Enriquez, RN) * 0216 (See Alternative - Provider: Lennox Enriquez, RN) * 0316 (See Alternative - Provider: Lennox Enriquez, RN) * 0320 (See Alternative - Provider: Lennox Enriquez, RN) * 0424 (See Alternative - Provider: Lennox Enriquez, RN) * 0524 (See Alternative - Provider: Lennox Enriquez, RINA) * 0529 (See Alternative - Provider: Lennox Enriquez, RINA) * 0629 (See Alternative - Provider: Lennox Enriquez, RINA) * 0650 (See Alternative - Provider: Lennxo Enriquez, RINA) * 0750 (See Alternative - Provider: Lennox Enriquez, RINA) potassium chloride (KLOR-CON M) extended release tablet 40 mEq(Linked Group 4) 40 mEq, Oral, PRN, Starting on Sun12/17/24 at 2259, Until 01/03/25 at 2258, Potassium Replacement, May give alternative linked oral order (ordered as effervescent, packet, or liquid solution) if patient unable to tolerate tablet. K Lab Replacement Action 3.1 to 3.5 40 mEq ORAL x 1 Under 3.1 Refer to IV replacement protocol Recheck K level in AM. Protocol not for use in patients with CrCl lessthan 30 mL/min. Do not crush, chew, or suck on tablet. Tablet may also be broken in half and each half swallowed separately. * 0104 (See Alternative - Provider: Lennox Enriquez, RINA) * 0205 (See Alternative - Provider: Lennox Enriquez, RINA) * 0216 (See Alternative - Provider: Lennox Enriquez, RINA) * 0316 (See Alternative - Provider: Lennox Enriquez, RN) * 0320 (See Alternative - Provider: Lennox Enriquez, RN) * 0424 (See Alternative - Provider: Lennox Enriquez, RN) * 0524 (See Alternative - Provider: Lennox Enriquez RN) * 0529 (See Alternative - Provider: Lennox Enriquez RN) * 0629 (See Alternative - Provider: Lennox Enriquez RN) * 0650 (See Alternative - Provider: Lennox Enriquez RN) * 0750 (See Alternative - Provider: Lennox Enriquez, RINA) potassium chloride 10 mEq/100 mL IVPB (Peripheral Line)(Linked Group 4) 10 mEq, IntraVENous, PRN, Starting on Sun12/17/24 at 2259, Until 01/03/25 at 2258, at 100 mL/hr, Other, Potassium Replacement, K Lab Replacement Action 2.7 to 3.0 10 mEq IVPB x 6 doses (60 mEq Total) Under 2.7 CALL PROVIDER and administer 10 mEq IVPB x 6 doses (60 mEq Total) Infuse at 10 mEq/hr consecutively. Repeat Potassium lab 1 hour after final administration., Protocol not for use in patients with CrCl less than 30 mL/min. * 0104 (New Bag - Provider: Lennox Enriquez RN) * 0205 (Stopped - Provider: Lennox Enriquez RN) * 0216 (New Bag - Provider: Lennox Enriquez RN) * 0316 (Stopped - Provider: eLnnox Enriquez RN) * 0320 (New Bag - Provider: Lennox Enriquez RN) * 0424 (New Bag - Provider: Lennox Enriquez RN) * 0524 (Stopped - Provider: Lennox Enriquez RN) * 0529 (New Bag - Provider: Lennox Enriquez RN) * 0629 (Stopped - Provider: Lennox Enriquez, RINA) * 0650 (New Bag - Provider: Lennox Enriquez, RINA) * 0750 (Stopped - Provider: Lennox Enriquez, RINA) sodium chloride flush 0.9 % injection 5-40 mL 5-40 mL, IntraVENous, PRN, Starting on Sun12/17/24 at 2259, Until Discontinued, Line Care, After every IV line use, For Line Patency: Peripheral IV = 5 mL; Midline or Central Line = 10 mL/lumen. If following IV push medication, administer flush at same rate as the IV push. Flush volume is determined by type of infusion therapy being given. For non-viscous solutions use: Peripheral IV = 5 mL Midline or Central Line = 10 mL/lumen For viscous solutions (i.e. blood components, parenteral nutrition,contrast media, or after obtaining blood sample) use: Peripheral IV = 10 mL Midline or Central Line= 20 mL/lumen * 0409 (Given - Provider: Lennox Enriquez RN) * 0541 (Given - Provider: Lennox Enriquez RN) Order Group 1: acetaminophen (TYLENOL) tablet 650 mgJump to med 650 mg, Oral, EVERY 6 HOURS PRN, Starting on Sun12/17/24 at 2259, Until Discontinued, Pain Mild (1-3) OR per patient request for pain score (4-10), Fever, For temp greater than 100.4 F (38 C), Maximum dose of acetaminophen is 4000 mg from all sources in 24 hours. Or acetaminophen (TYLENOL) suppository 650 mgJump to med 650 mg, Rectal, EVERY 6 HOURS PRN, Starting on Sun12/17/24 at 2259, Until Discontinued, Pain Mild (1-3) OR per patient request for pain score (4-10), Fever, For temp greater than 100.4 F (38 C), Administer if oral route cannot be used. Group 2: HYDROmorphone (DILAUDID) injection 0.5 mgJump to med 0.5 mg, IntraVENous, EVERY 4 HOURS PRN, Starting on Sun12/19/24 at 0926, Until Discontinued, Pain Moderate (4-6) OR per patient request for pain score (7-10), If oral and IV narcotics ordered, use oral first and only use IV if oral is ineffective or cannot take oral. Do Not give oral and IV within1 hour of each other unless specifically ordered. Or HYDROmorphone (DILAUDID) injection 1 mgJump to med 1 mg, IntraVENous, EVERY 4 HOURS PRN, Starting on Sun12/19/24 at 0926, Until Discontinued, Pain Severe (7-10), If oral and IV narcotics ordered, use oral first and only use IV if oral is ineffectiveor cannot take oral. Do Not give oral and IV within 1 hour of each other unless specifically ordered. Group 3: ondansetron (ZOFRAN-ODT) disintegrating tablet 4 mgJump to med 4 mg, Oral, EVERY 8 HOURS PRN, Starting on Sun12/17/24 at 2259, Until Discontinued, Nausea, Vomiting Or ondansetron (ZOFRAN) injection 4 mgJump to med 4 mg, IntraVENous, EVERY 6 HOURS PRN, Starting on Sun12/17/24 at 225, Until Discontinued, Nausea, Vomiting, Administer if oral route cannot be used. Group 4: potassium chloride (KLOR-CON M) extended release tablet 40 mEqJump to med 40 mEq, Oral, PRN, Starting on Sun12/17/24 at 225, Until 01/03/25 at 2258, Potassium Replacement, May give alternative linked oral order (ordered as effervescent, packet, or liquid solution) if patient unable to tolerate tablet. K Lab Replacement Action 3.1 to 3.5 40 mEq ORAL x 1 Under 3.1 Refer to IV replacement protocol Recheck K level in AM. Protocol not for use in patients with CrCl lessthan 30 mL/min. Do not crush, chew, or suck on tablet. Tablet may also be broken in half and each half swallowed separately. Or potassium bicarb-citric acid (EFFER-K) effervescent tablet 40 mEqJump to med 40 mEq, Oral, PRN, Starting on Sun12/17/24 at 225, Until 01/03/25 at 2258, Per Potassium Replacement Protocol, Administer as alternative if patient unable to tolerate oral tablet. K Lab Replacement Action 3.1 to 3.5 40 mEq ORAL x 1 Under 3.1 Refer to IV replacement protocol Recheck K level in AM. Protocol not for use in patients with CrCl less than 30 mL/min. Do not chew or crush. Dissolve flavored tablets completely in 3 to 4 ounces of cold water; unflavored tablets may be dissolved in 3 to 4 ounces of cold juice. Patient to sip slowly over a 5 to 10 minute period. May further dilute ifGI adverse effects occur. Or potassium chloride 10 mEq/100 mL IVPB (Peripheral Line)Jump to med 10 mEq, IntraVENous, PRN, Starting on Sun12/17/24 at 2259, Until 01/03/25 at 2258, at 100 mL/hr, Other, Potassium Replacement, K Lab Replacement Action 2.7 to 3.0 10 mEq IVPB x 6 doses (60 mEq Total) Under 2.7 CALL PROVIDER and administer 10 mEq IVPB x 6 doses (60 mEq Total) Infuse at 10 mEq/hr consecutively. Repeat Potassium lab 1 hour after final administration., Protocol not for use in patients with CrCl less than 30 mL/min. FOR RECORDS PERTAINING TO PATIENTS WHO ARE [...] BE BASED ON THE PRIMARY CLINICAL RECORDS. [facility] [employer] [facility]. provides no warranty or guarantee of the accuracy or completeness of information in this document.
[2025-02-16 17:32] LABS: Hematocrit 34.6 % (36.0-48.0); Hemoglobin 11.8 g/dL (12.0-16.0); Mean Corpuscular HGB Conc 34.1 g/dL (29.9-35.2); Mean Corpuscular Hemoglobin 29.5 pg (26.7-34.0); Mean Corpuscular Volume 86.5 fL (81.0-99.0); Platelet Count 310 10^3/uL (150-450); Red Blood Count 4.00 10^6/uL (4.20-5.40); White Blood Count 24.9 10^3/uL (4.0-11.0)
[2025-02-16 17:49] LABS: INR 1.64; Prothrombin Time 16.7 sec (9.0-11.6)
[2025-02-16 18:01] LABS: Alanine Aminotransferase 18 U/L (14-59); Albumin Globulin Ratio 0.5; Albumin Level 2.0 g/dL (3.4-5.0); Alkaline Phosphatase 122 U/L (46-116); Amylase 178 U/L (25-115); Anion Gap 17.8; Aspartate Amino Transferase 14 U/L (15-37); Blood Urea Nitrogen 37.0 mg/dL (7.0-18.0); Calcium 7.8 mg/dL (8.5-10.1); Carbon Dioxide 17.4 mmol/L (21.0-32.0); Chloride 100 mmol/L (98-107); Estimated GFR (African America >60 (>=60 mL/min/1.73m^2); Estimated GFR (Non-African Ame 52 (>=60 mL/min/1.73m^2); Free T3 <0.50 pg/mL (2.18-3.98); Globulin 4.1 g/dL; Glucose 143 mg/dL (74-106); Lipase 226.0 U/L (16.0-77.0); Potassium 3.2 mmol/L (3.5-5.1); Sodium 132 mmol/L (136-145); Thyroid Stimulating Hormone 1.403 uIU/mL (0.358-3.740); Total Protein 6.1 g/dL (6.4-8.2)
[2025-02-16 18:18] LABS: Band Neutrophils Absolute 3.0 10^3/uL (0.0-0.3); Basophils Abs Manual 0.00 10^3/uL (0.00-0.10); Basophils Percent Manual 0.0 % (0.2-2.0); Eosinophils Absolute Manual 0.00 10^3/uL (0.00-0.70); Eosinophils Percent Manual 0.0 % (0.9-7.0); Lymphocytes Absolute Manual 0.24 10^3/uL (1.20-3.80); Lymphocytes Percent Manual 1.0 % (20.5-60.0); Monocytes Absolute Manual 0.99 10^3/uL (0.30-0.80); Monocytes Percent Manual 4.0 % (1.7-12.0); Segmented Neut Absolute Manual 20.91 10^3/uL (1.4-6.5); Segmented Neutrophils % Manual 84.0 (43.0-75.0)
[2025-02-16 18:30] LABS: Iron 10.0 ug/dL (50.0-170.0)
[2025-02-17 09:45] LABS: A. calcoaceticus-baumannii Cpx NOT DETECTED (NOT DETECTE); Bacteroides fragilis NOT DETECTED (NOT DETECTE); Candida auris NOT DETECTED (NOT DETECTE); Candida glabrata NOT DETECTED (NOT DETECTE); Enterococcus faecalis NOT DETECTED (NOT DETECTE); Enterococcus faecium NOT DETECTED (NOT DETECTE); Klebsiella aerogenes NOT DETECTED (NOT DETECTE); Klebsiella pneumoniae group NOT DETECTED (NOT DETECTE); Proteus spp. NOT DETECTED (NOT DETECTE); Salmonella spp. NOT DETECTED (NOT DETECTE); Serratia marcescens NOT DETECTED (NOT DETECTE); Source BLOOD; Staphylococcus epidermidis NOT DETECTED (NOT DETECTE); Staphylococcus lugdunensis NOT DETECTED (NOT DETECTE); Staphylococcus spp. NOT DETECTED (NOT DETECTE); Stenotrophomonas maltophilia NOT DETECTED (NOT DETECTE); Streptococcus pyogenes NOT DETECTED (NOT DETECTE); Streptococcus spp. NOT DETECTED (NOT DETECTE)
[2025-02-17 11:23] LABS: CTX-M NOT DETECTED (NOT DETECTE); IMP NOT DETECTED (NOT DETECTE); KPC NOT DETECTED (NOT DETECTE); NDM NOT DETECTED (NOT DETECTE); OXA-48-like NOT DETECTED (NOT DETECTE); VIM NOT DETECTED (NOT DETECTE); mcr-1 NOT DETECTED (NOT DETECTE)
[2025-02-17 11:28] LABS: Enterobacterales DETECTED (NOT DETECTE)
== END 2025-02-16 16:59 | disposition home or self-care (01) ==
PROVIDERS: PCP Family Medicine; Visit Provider Family Medicine
DX: K52.9 Noninfective gastroenteritis and colitis, unspecified (principal); E43 Unspecified severe protein-calorie malnutrition; Z79.01 Long term (current) use of anticoagulants; F10.129 Alcohol abuse with intoxication, unspecified; R73.09 Other abnormal glucose; D64.9 Anemia, unspecified
CPT/HCPCS: 36415; 80053; 82150; 83036; 83540; 83690; 84436; 84443; 84481; 85007; 85027; 85610; 87040; 87150